=== PATIENT | female | born 1995 | race Hispanic/Latino ===

== ENCOUNTER 2022-09-09 17:53 | Emergency (ER) | payer BC ==
[2022-09-09 18:33] LABS: Specific Gravity 1.026 (1.005-1.030)
[2022-09-09 18:35] LABS: Specific Gravity 1.026 (1.005-1.030); Urine Bacteria None Seen /HPF (<20); Urine Bilirubin NEGATIVE (Negative); Urine Blood 3+ (OVER) (Negative); Urine Clarity Extremely Turbid (Clear); Urine Color Light-Yellow (Yellow); Urine Glucose NEGATIVE (Negative); Urine Mucus 1+ /HPF (None Seen); Urine Protein TRACE (Negative); Urine RBC >50 /HPF (None Seen); Urine Urobilinogen Normal (Normal); Urine pH 6.5 (5.0-7.0)
[2022-09-09 18:37] LABS: Absolute Lymphocytes (CBC) 3.4 K/uL (0.7-4.9); Hematocrit 36.5 % (36.0-45.0); Lymphocytes % 29.9 % (15.3-44.8); MCV 87.8 fL (80-100); RBC Red Blood Cell Count 4.15 M/uL (3.86-4.86)
[2022-09-09 18:54] LABS: Potassium 3.5 mEq/L (3.5-5.1)
--- NOTE | 2022-09-09 20:45 | RAD REPORT ---
EXAM DESCRIPTION: US - Transvaginal OB - 09/09/2022 8:09 pm CLINICAL HISTORY: Abd cramping, ;Vaginal bleeding COMPARISON: No comparisons TECHNIQUE: Sonographic grayscale and color flow images of the pelvis were obtained through a transva ginal approach. FINDINGS: No intrauterine is identified. Uterus is normal contour and size measuring 8.5 c entimeter in long axis. No focal myometrial lesions. Endometrium is normal in appearance measuring 8 millimeter in thickness. Trace fluid along the cervical canal. Small nabothian cysts and focal calcification along the cervix. Right ovary measures 1.6 x 1.5 x 1.4 centimeter. Left ovary measures 2.5 x 1.4 x 2.0 centimeter. Tiny right paraovarian cyst measuring 5 millimeter is incidentally noted without suspicious features. No free fluid. IMPRESSION: 1. No intrauterine . 2. Incidental findings as above, including tiny right parovarian cyst, and small nabothian cysts of t he cervix.
--- NOTE | 2022-09-09 20:51 | EDPHYS ---
Physician Documentation [facility] Name: Zainab Tucker Age: 27 yrs Sex: Female : 1995 Arrival Date: 09/09/2022 Time: 17:53 Bed 18 Private MD: ED Physician Juan Miguel Will HPI: 09/09 18:03 This 27 yrs old Female presents to ER via Ambulatory with complaints of Pelvic kb Pain, Vaginal Bleeding, + Preg <12wks. 18:03 The patient presents to the emergency department with abdominal pain, described as kb crampy, vaginal bleeding, that is light, described as spotting. course: care: none, Leakage of Fluid: none appreciated, Ultrasound: the patient has not had an ultrasound, Risk/complications: no obvious risks or complications are appreciated. Previous pregnancies: in previous pregnancies patient has had . Associated signs and symptoms: Pertinent positives: abdominal pain, vaginal bleeding. The patient has not experienced similar symptoms in the past. The patient has been recently seen by a physician:. Pt reports spotting for one week with abd cramps. States she found out she was this morning and her bleeding has gotten heavier. 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 - Social history:: Smoking status: Patient denies any tobacco usage or history of. Patient/guardian denies using alcohol. ROS: 18:02 Constitutional: Negative for fever, chills, and weight loss. kb 18:02 Abdomen/GI: Positive for abdominal cramps. 18:02 : Positive for vaginal bleeding. 18:02 All other systems are negative. Exam: 18:03 Constitutional: This is a well developed, well nourished patient who is awake, alert, kb and in no acute distress. Head/Face: Normocephalic, atraumatic. ENT: Moist Mucous membranes Cardiovascular: Regular rate and rhythm with a normal S1 and S2. No gallops, murmurs, or rubs. No pulse deficits. Respiratory: Respirations even and unlabored. No increased work of breathing. Talking in full sentences Abdomen/GI: Soft, non-tender. No distention Skin: Warm, dry with normal turgor. Normal color. MS/ Extremity: Pulses equal, no cyanosis. Neurovascular intact. Full, normal range of motion. Neuro: Awake and alert, GCS 15, oriented to person, place, time, and situation. Moves all extremities. Normal gait. Vital Signs: 18:01 BP 139 / 91; Pulse 98; Resp 18; Temp 98.4; Pulse Ox 100% on R/A; Weight 104.33 kg; os 19:30 BP 120 / 68; Pulse 91; Resp 18 S; Pulse Ox 100% on R/A; ha1 20:30 BP 120 / 79; Pulse 97; Resp 18 S; Pulse Ox 98% on R/A; ha1 MDM: 17:59 Patient medically screened. kb 18:03 Data reviewed: vital signs, nurses notes. kb 18:04 Differential diagnosis: threatened Ab, inevitable Ab, complete Ab. kb 18:52 Transition of care: After a detail discussion of the patient's case, care is kb transferred to Shailesh STEVENS. 20:50 Counseling: I had a detailed discussion with the patient and/or guardian regarding: the cp historical points, exam findings, and any diagnostic results supporting the discharge/admit diagnosis, lab results, radiology results, the need for outpatient follow up, an OB/Gyne specialist, to return to the emergency department if symptoms worsen or persist or if there are any questions or concerns that arise at home. 20:50 ED course: VSS. Results of today's testing discussed. Will discharge to home for cp continued monitoring with recommendation of 48 hr redraw of beta-hcg. 09/09 18:02 Order name: Abo/rh Typing; Complete Time: 19:39 kb 09/09 18:02 Order name: Basic Metabolic Panel; Complete Time: 19:39 kb 09/09 19:40 Interpretation: Normal except: CL 110; GLUC 108. 09/09 18:02 Order name: CBC with Diff; Complete Time: 18:48 kb 09/09 19:40 Interpretation: Normal except: WBC 11.40; HGB 11.9. 09/09 18:03 Order name: Test, Urine; Complete Time: 18:48 kb 09/09 19:40 Interpretation: Reviewed. 09/09 18:03 Order name: Quantitative Hcg; Complete Time: 19:39 kb 09/09 19:40 Interpretation: HCGQ 50; Reviewed. cp 09/09 18:03 Order name: Urinalysis w/ reflexes; Complete Time: 18:48 kb 09/09 19:40 Interpretation: Normal except: [facility] Extremely Turbid; UBLD 3+ (OVER); UPROT TRACE; cp UESTR 25; URBC >50. 09/09 18:03 Order name: US Transvaginal Ob; Complete Time: 20:47 kb 09/09 18:03 Order name: IV Saline Lock; Complete Time: 18:18 kb 09/09 18:03 Order name: Labs collected and sent; Complete Time: 18:18 kb 09/09 18:03 Order name: NPO; Complete Time: 18:09 kb Administered Medications: No medications were administered Disposition: 21:43 Co-signature as Attending Physician, Juan Miguel Will MD I reviewed the patient's care rn provided by the Advanced Practice Provider and agree with the diagnosis and treatment plan. Disposition Summary: 09/09/22 20:51 Discharge Ordered Location: Home cp Problem: new cp Symptoms: have improved cp Condition: Stable cp Diagnosis - Threatened cp Followup: cp - With: Private Physician - When: 48 Hours - Reason: Repeat Beta-HCG (48 Hours) Discharge Instructions: - Discharge Summary Sheet cp - Care cp - Threatened Miscarriage cp - Vaginal Bleeding During , First Trimester cp - Activity Restriction During cp Forms: - Medication Reconciliation Form cp - Thank You Letter cp - Antibiotic Education cp - Prescription Opioid Use cp - [email or web address] cp Prescriptions: - 114-iron a-g-folate 1 20 mg iron- 1 mg Oral tablet - take 1 tablet by ORAL route every morning; 30 tablet; Refills: 0, Product cp Selection Permitted Signatures: Dispatcher [employer] Bettina Lamb, DIP TANKER-C DIP TANKER-Juan Miguel Martini MD MD rn Page, Corey, PA PA cp Irina Sharif, RN RN ld1
--- NOTE | 2022-09-09 20:51 | ER ---
Nurse's Notes [facility] Name: Zainab Tucker Age: 27 yrs Sex: Female : 1995 Arrival Date: 09/09/2022 Time: 17:53 Bed 18 Private MD: Diagnosis: Threatened Presentation: 09/09 18:01 Chief complaint: Patient states: Vaginal bleeding w/spotting. Last menstrual period os over 2 months ago. Coronavirus screen: Vaccine status: Patient reports being unvaccinated. Client denies travel out of the [place] in the last 14 days. At this time, the client does not indicate any symptoms associated with coronavirus-19. Ebola Screen: Patient denies travel to an Ebola-affected area in the 21 days before illness onset. Initial Sepsis Screen: Does the patient meet any 2 criteria? No. Patient's initial sepsis screen is negative. Does the patient have a suspected source of infection? No. Patient's initial sepsis screen is negative. Risk Assessment: Do you want to hurt yourself or someone else? Patient reports no desire to harm self or others. Onset of symptoms was September 02, 2022. 18:01 Method Of Arrival: Ambulatory os 18:01 Acuity: JANAE 3 os Triage Assessment: 18:03 General: Appears in no apparent distress. Behavior is calm, cooperative, appropriate os for age. Pain: Denies pain. : Reports vaginal bleeding that is. [facility]: 18:03 2, 0, Living 1, LMP 07/2022 kb Historical: - Allergies: 18:13 NKDA; ld1 - PMHx: 18:13 None; ld1 - Immunization history:: Adult Immunizations up to date, Client reports receiving the 2nd dose of the Covid vaccine. - Social history:: Smoking status: Patient denies any tobacco usage or history of. Patient/guardian denies using alcohol. Screenin:13 [facility] ED Fall Risk Assessment (Adult) History of falling in the last 3 months, ld1 including since admission No falls in past 3 months (0 pts). Abuse screen: Denies threats or abuse. Denies injuries from another. Nutritional screening: No deficits noted. Tuberculosis screening: No symptoms or risk factors identified. Assessment: 18:12 General: Appears in no apparent distress. comfortable, Behavior is calm, cooperative, ld1 appropriate for age. Pain: Complains of pain in pelvis Pain does not radiate. Pain currently is 7 out of 10 on a pain scale. Quality of pain is described as throbbing. Neuro: Level of Consciousness is awake, alert, obeys commands, Oriented to person, place, time, situation. Cardiovascular: Capillary refill < 3 seconds Patient's skin is warm and dry. Respiratory: Airway is patent Respiratory effort is even, unlabored. GI: Abdomen is round non-distended. : Reports vaginal bleeding that is. EENT: No signs and/or symptoms were reported regarding the EENT system. Derm: No signs and/or symptoms reported regarding the dermatologic system. Musculoskeletal: No signs and/or symptoms reported regarding the musculoskeletal system. 19:30 General: Appears comfortable, Behavior is calm, cooperative. Pain: Complains of pain in ha1 pelvis Pain does not radiate. Pain currently is 3 out of 10 on a pain scale. Neuro: Level of Consciousness is awake, alert, obeys commands, Oriented to person, place, time, situation. Cardiovascular: Patient's skin is warm and dry. Respiratory: Airway is patent Respiratory effort is even, unlabored, Respiratory pattern is regular, symmetrical. GI: Abdomen is round non-distended. : Reports vaginal bleeding that is bright red. Musculoskeletal: Circulation, motion, and sensation intact. Range of motion: intact in all extremities. 20:30 Reassessment: Patient and/or family updated on plan of care and expected duration. Pain ha1 level reassessed. Patient is alert, oriented x 3, equal unlabored respirations, skin warm/dry/pink. 21:02 Obstetrical Assessment: General assessment: awake and alert. ha1 Vital Signs: 18:01 BP 139 / 91; Pulse 98; Resp 18; Temp 98.4; Pulse Ox 100% on R/A; Weight 104.33 kg; os 19:30 BP 120 / 68; Pulse 91; Resp 18 S; Pulse Ox 100% on R/A; ha1 20:30 BP 120 / 79; Pulse 97; Resp 18 S; Pulse Ox 98% on R/A; ha1 ED Course: 17:56 Patient arrived in ED. am2 17:59 Bettina Hackett FNP-C [facility] kb 17:59 Juan Miguel Will MD is Attending Physician. kb 18:03 Triage completed. os 18:12 Irina Sharif, RN is Primary Nurse. ld1 18:13 Patient has correct armband on for positive identification. Bed in low position. Call ld1 light in reach. Side rails up X2. telemetry monitor on. Pulse ox on. NIBP on. Door closed. Noise minimized. Warm blanket given. 18:13 No provider procedures requiring assistance completed. ld1 18:18 Urinalysis w/ reflexes Sent. ld1 18:26 Inserted saline lock: 20 gauge in left antecubital area, using aseptic technique. aw1 18:26 Initial lab(s) drawn, by me, sent to lab. aw1 18:52 PHCP role handed off by Bettina Hackett FNP-C kb 18:52 Shailesh Tang PA is PHCP. kb 19:10 Arm band placed on right wrist. ha1 20:11 US Transvaginal Ob In Process Unspecified. EDMS 21:02 IV discontinued, intact, bleeding controlled, No redness/swelling at site. Pressure ha1 dressing applied. Administered Medications: No medications were administered Medication: 18:13 VIS not applicable for this client. ld1 Outcome: 20:51 Discharge ordered by MD. cp 21:01 Discharged to home ambulatory. ha1 21:01 Condition: stable 21:01 Discharge instructions given to patient, family, Instructed on discharge instructions, follow up and referral plans. medication usage, Demonstrated understanding of instructions, follow-up care, medications, Prescriptions given X 1. 21:03 Patient left the ED. ha1 Signatures: Dispatcher [employer] EDIA Bettina Hackett FNP-C MITER OPERATOR-Ckb Shailesh Tang PA PA cp Moreno, Amanda am2 Irina Sharif, RN RN ld1 Carole Rodrigues RN RN ha1 Jackie Boone RN RN os Magalie Benitez aw1
[2022-09-09 21:38] VITALS: TEMP 98.4
[2022-09-09 21:41] VITALS: BP 120/79; O2SAT 98
== END 2022-09-09 21:03 | disposition home or self-care (01) ==
LOC: ER 17:53
DX: O20.0 Threatened abortion (principal)
CPT/HCPCS: 36415; 76817; 80048; 81001; 81025; 84702; 85025; 86900; 86901; 99284

== ENCOUNTER 2022-09-12 07:16 | Emergency (ER) | payer BC ==
--- OUTSIDE RECORDS SUMMARY | 2022-09-12 07:19 | XMS REPORT | Continuity of Care Document ---
:1995 Author Organization [facility] t Address [address] [facility] [address] [place] [address] Care Team Providers Name Role Phone PCP, PATIENT DOES NOT HAVE A Primary Care Physician Unavaila RYAN Osorio Attending Clinician Unavailable RYAN DELCID Attending Clinician Unavailable KAREN COPELAND Attending Clinician Unavailable KATHYA VASQUEZ Attending Clinician Unavailable FREDI BROWN Attending Clinician Unavailable LAB90 Attending Clinician Unavailable LELAND GRAFF Attending Clinician Unavailable SAAD BENNETT Attending Clinician Unavailable DANA VIERA Attending Clinician Unavailable Dana Viera PA-C Attending Clinician Marv SHULTZ, Shelby Ochoa Attending Clinician Unavailable OBDULIO ANGELA Attending Clinician Unavailable Only, Ang Db Test Attending Clinician Unavailable Unknown, Attending Attending Clinician Unavailable Doctor Unassigned, [place] Attending Clinician Unavailable ALVINA Attending Clinician Unavailable Tigre SHULTZ, Mally Attending Clinician Unavailable Human Yancy MURPHY Attending Clinician Pcp, Patient Does Not Have A Attending Clinician +[id number]- [phone] Lab, Adc Fam Pob I Attending Clinician Unavailable Portia Saavedra Attending Clinician GUSTAVO CLARENCEVERNONDOUG Attending Clinician Unavailable ALVINA Admitting Clinician Unavailable Payers Payer Name Policy Type Policy Number Effective Date Expiration Date S [place] [employer] - [id number] 2018 00:00:00 OUT OF STATE BCBS 2 [id number] 2021 00:00:00 [place] [id number] 2018 00[place]00 [place] Problems Condition Condition Condition Status Onset Resolution Last Treating Co mments Source Name Details Category Date Date Treatment Clinician Date Prediabete Prediabete Disease Active 2021-03 K elsey s s 0-04 Seybold 00:00: - 00 Externa l PCOS PCOS Disease Active Arline (polycysti (polycysti 9-30 Se ybold c ovarian c ovarian 00:00: - syndrome) syndrome) 00 Exte rna l BMI BMI Disease Active Arline 45.0-49.9, 45.0-49.9, 9-30 Se ybold adult adult 00:00: - 00 Externa l Vitamin D Vitamin D Disease Active [place] sey deficiency deficiency 9-30 Se ybold 00:00: - 00 Externa l Depression Depression Disease Active K elsecharline 9-30 Seybold 00:00: - 00 Externa l Tachycardi Tachycardi Disease Active K elsey a a 9-30 Seybold 00:00: - 00 Externa l Disease Active Unive rs delivery delivery 6-13 [place] Maternal Maternal Disease Active Unive rs varicella, varicella, 2-17 it y of non[place]immune [place] [facility] Supervisio Supervisio Disease Active Overview : Univers n of other n of other - Formattin ity of high-risk high-risk 00:00: g of this [place] 00 note Medi arvind might be Branch different from the original. ICD10 Diagnosis Term Field Rep Utility Obesity Obesity Disease Active Overview: Univ ers complicati complicati -16 Formattin ity of ng ng 00:00: g of this [place] , , 00 note Me dical childbirth childbirth might be Branch , or , or different puerperium puerperium from the , , original. antepartum antepartum ICD10 Diagnosis Term Field Rep Utility Disease Active Uni vers with with 2-16 ity of uncertain uncertain 00:00: [place] brandon dates, dates, 00 Medical antepartum antepartum Br anch Allergies, Adverse Reactions, Alerts Allergy Allergy Status Severity Reaction(s) Onset Inactive Treating Comm ents Source Name Type Date Date Clinician NO KNOWN Drug Active Univers ALLERGIE Class ity of S [facility] Social History Social Habit Start Date Stop Date Quantity Comments Source Gender identity 2022-01-30 Identifies as Arline Falcon - 12:20:37 female gender External (finding) Exposure to Not sure University SARS-CoV-2 (event) [facility] Sexual orientation Arline Falcon - External History SDOH Arline bucio - Alcohol Frequency Externa l History SDOH Arline bucio - Alcohol Std Drinks Database Marketing Analyst al History TYLEROH Arline bucio - Alcohol Binge External Alcohol intake 2022-06-15 2022-06-15 Current drinker Alexsander Falcon - 00:00:00 00:00:00 of alcohol External (finding) History of Social 2021-12-03 2021-12-03 Arline Falcon - function 00:00:00 00:00:00 External Alcohol Comment 2021-12-03 2021-12-03 social Arline matias - 00:00:00 00:00:00 External Tobacco use and 2012-05-23 2012-05-23 Never used Universit y of exposure 00:00:00 00:00:00 [facility] Sex Assigned At [birth year] F Arline Ham maynorregina - 00:00:00 00:00:00 External Smoking Status Start Date Stop Date Source Never smoked tobacco Arline tapia - External Medications Ordered Filled Start Stop Current Ordering Indication Dosage Frequency Signature Comments Components Source Medication Medication Date Date Medication? Clinician (SIG) Name Name Bupropion Yes [id number] 150mg Take 1 K elsey HCL XL 150 4-12 tablet Seybold MG OR TB24 00:00: (150 mg - 00 total) by Externa mouth l daily Semaglutide Yes [id number] 1mg Inject 1 Arline (1 mg/dose) 4-12 mg into Seybo ld 2 mg/1.5 mL 00:00: the skin - SQ Solution 00 once a Database Marketing Analyst a Pen-Injecto week l r Doxycycline Yes [id number] 100mg Take 1 Arline Hyclate 100 4-12 tablet Seybol d MG oral 00:00: (100 mg - Tablet 00 total) by Externa mouth 2 l times daily Phentermine Yes [id number] 37.5mg Take 1 Arline HCl 37.5 MG 4-12 tablet Seybol d oral Tablet 00:00: (37.5 mg - 00 total) by Externa mouth l every morning (before breakfast) OZEMPIC 2022- No Arline (0.25 or 4-04 04-12 Seybold 0.5 00:00: 00:00 - mg/dose) 2 00 :00 Externa mg/3 mL SQ l Solution Pen-Injecto r OZEMPIC 2022- No [id number] .5mg Inject 0.5 Arline (0.25 or 3-22 04-12 mg into Seybold 0.5 00:00: 00:00 the skin - mg/dose) 2 00 :00 once a Externa mg/1.5 mL week l SQ Solution Pen-Injecto r Hydroquinon Yes [id number] Apply 1 Arline e 4 % apply 2-24 applicatio Se ybold externally 00:00: n. - Cream 00 topically Externa 2 times l daily ACETAMINOPH Yes [id number] 1{tbl} Q4H Take 1 Arline EN-CAFF-BUT 2-08 tablet by Marychuy eric ALBITAL 00:00: mouth - 50-325-40 00 every 4 Externa MG oral hours as l Tablet needed for pain Clindamycin Yes [id number] Apply to Arline Phosphate 2-08 area 4 Seybold (Clindagel) 00:00: times - 1 % apply 00 daily for Exter na externally 10 days l Gel Doxycycline Yes [id number] 100mg Take 1 Arline Hyclate 100 2-08 tablet Seybol d MG oral 00:00: (100 mg - Tablet 00 total) by Externa mouth 2 l times daily OZEMPIC Yes [id number] .5mg Inject 0.5 Arline (0.25 or 2-08 mg into Seybold 0.5 00:00: the skin - mg/dose) 2 00 once a Externa mg/1.5 mL week l SQ Solution Pen-Injecto r Hydroquinon Yes [id number] Apply 1 Arline e 4 % apply 2-08 applicatio Se ybold externally 00:00: n - Cream 00 topically Externa 2 times l daily ACETAMINOPH Yes [id number] 1{tbl} Q4H Take 1 Arline EN-CAFF-BUT 2-08 tablet by Marychuy eric ALBITAL 00:00: mouth - 50-325-40 00 every 4 Externa MG oral hours as l Tablet needed for pain Clindamycin Yes [id number] Apply to Arline Phosphate 2-08 area 4 Seybold (Clindagel) 00:00: times - 1 % apply 00 daily for Exter na externally 10 days l Gel Doxycycline 2022- No [id number] 100mg Take 1 Arline Hyclate 100 2- 04-12 tablet Seybo ld MG oral 00:00: 00:00 (100 mg - Tablet 00 :00 total) by Externa mouth 2 l times daily OZEMPIC 2022- No [id number] .25mg Inject K elsey (0.25 or 1-31 02-08 0.25 mg Seybold 0.5 00:00: 00:00 into the - mg/dose) 2 00 :00 skin once Exte rna mg/1.5 mL a week l SQ Solution Pen-Injecto r Bupropion 2021-03 Yes [id number] 150mg Take 1 K elsey HCL XL 150 2-01 tablet Seybold MG OR TB24 00:00: (150 mg - 00 total) by Externa mouth l daily Bupropion 2021-03- No [id number] 150mg Take 1 Arline HCL XL 150 2- 04-12 tablet Seybol d MG OR TB24 00:00: 00:00 (150 mg - 00 :00 total) by Externa mouth l daily Tirzepatide 2021-03 Yes [id number] 2.5mg Inject 0.5 Arline (Mounjaro) 1-30 mL (2.5 mg Sey bold 2.5 00:00: total) - MG/0.5ML 00 into the Externa subcutaneou skin once l s Solution a week Pen-injecto r buPROPion 2021-03 Yes [id number] 75mg Take 1 Ke lsey HCl 75 MG 1-30 tablet (75 Seyb old oral Tablet 00:00: mg total) - 00 by mouth Externa daily l Vitamin D, 2021-03 Yes [id number] 50152O Take 1 Arline Ergocalcife 0-04 capsule Seybo ld rol, 1.25 00:00: (50,000 - MG (29382 00 units Externa UT) oral total) by l Capsule mouth once a week Metformin 2021-03 Yes [id number] 500mg Take 1 Arline HCl 500 MG 0-04 tablet Seybold oral Tablet 00:00: (500 mg - 00 total) by Externa mouth l daily (with breakfast) Vitamin D, 2021-03 Yes [id number] 45014U Take 1 Arline Ergocalcife 0-04 capsule Seybo ld rol, 1.25 00:00: (50,000 - MG (94062 00 units Externa UT) oral total) by l Capsule mouth once a week Metformin 2021-03 Yes [id number] 500mg Take 1 Arline HCl 500 MG 0-04 tablet Seybold oral Tablet 00:00: (500 mg - 00 total) by Externa mouth l daily (with breakfast) Vitamin D, 2021-03 Yes [id number] 40266Y Take 1 Arline Ergocalcife 0-04 capsule Seybo ld rol, 1.25 00:00: (50,000 - MG (53276 00 units Externa UT) oral total) by l Capsule mouth once a week Metformin 2021-03 Yes [id number] 500mg Take 1 Arline HCl 500 MG 0-04 tablet Seybold oral Tablet 00:00: (500 mg - 00 total) by Externa mouth l daily (with breakfast) Pantoprazol Yes [id number] 20mg Take 1 Arline e Sodium 20 9-30 tablet (20 Se ybold MG oral 00:00: mg total) - Tablet 00 by mouth Externa Delayed daily l Response Pantoprazol 2021-0 Yes [id number] 20mg Take 1 Arline e Sodium 20 9-30 tablet (20 Se ybold MG oral 00:00: mg total) - Tablet 00 by mouth Externa Delayed daily l Response buPROPion 2021-0 Yes [id number] 75mg Take 1 Ke lsey HCl 75 MG 9-30 tablet (75 Seyb old oral Tablet 00:00: mg total) - 00 by mouth Externa daily l Pantoprazol 2021-0 Yes [id number] 20mg Take 1 Arline e Sodium 20 9-30 tablet (20 Se ybold MG oral 00:00: mg total) - Tablet 00 by mouth Externa Delayed daily l Response Pantoprazol 2021-0 Yes [id number] 20mg Take 1 Arline e Sodium 20 9-30 tablet (20 Se ybold MG oral 00:00: mg total) - Tablet 00 by mouth Externa Delayed daily l Response buPROPion 2021-0 2021- No [id number] 75mg Take 1 K elsey HCl 75 MG 9-30 11-30 tablet (75 Sey bold oral Tablet 00:00: 00:00 mg total) - 00 :00 by mouth Externa daily l No known No Univers medications 3-09 ity of 13:38: [address] Branch Immunizations Ordered Immunization Filled Immunization Date Status Commen ts Source Name Name HPV 9 (Human 2016-08-25 Completed Arline Davis ld Papillomavirus) 00:00:00 - Externa l Meningococcal 2016-08-25 Completed Arline Stevenson old Vaccine- 00:00:00 - External Conjugate(Menactra) HPV 9 (Human 2016-08-25 Completed Arline Stevensono ld Papillomavirus) 00:00:00 - Externa l Meningococcal 2016-08-25 Completed Arline Stevenson old Vaccine- 00:00:00 - External Conjugate(Menactra) HPV 9 (Human 2016-08-25 Completed Arline Davis ld Papillomavirus) 00:00:00 - Externa l Meningococcal 2016-08-25 Completed Arline Stevenson old Vaccine- 00:00:00 - External Conjugate(Menactra) HPV 9 (Human 2016-08-25 Completed Arline Davis ld Papillomavirus) 00:00:00 - Externa l Meningococcal 2016-08-25 Completed Arline Seyb old Vaccine- 00:00:00 - External Conjugate(Menactra) IPV- Inactivated 2013-12-10 Completed Arline S eybold Polio Vaccine 00:00:00 - External HEPATITIS A- 2013-12-10 Completed Arline Seybo ld PEDI/ADOL 00:00:00 - External HPV 4 (Human 2013-12-10 Completed Arline Seybo ld Papillomavirus) 00:00:00 - Externa l IPV- Inactivated 2013-12-10 Completed Arline S eybold Polio Vaccine 00:00:00 - External HEPATITIS A- 2013-12-10 Completed Arline Seybo ld PEDI/ADOL 00:00:00 - External HPV 4 (Human 2013-12-10 Completed Arline Seybo ld Papillomavirus) 00:00:00 - Externa l IPV- Inactivated 2013-12-10 Completed Arline S eybold Polio Vaccine 00:00:00 - External HEPATITIS A- 2013-12-10 Completed Arline Seybo ld PEDI/ADOL 00:00:00 - External HPV 4 (Human 2013-12-10 Completed Arline Seybo ld Papillomavirus) 00:00:00 - Externa l IPV- Inactivated 2013-12-10 Completed Arline S eybold Polio Vaccine 00:00:00 - External HEPATITIS A- 2013-12-10 Completed Arline Seybo ld PEDI/ADOL 00:00:00 - External HPV 4 (Human 2013-12-10 Completed Arline Seybo ld Papillomavirus) 00:00:00 - Externa l Influenza Virus 2009-12-07 Completed Arline Se ybold Vaccine, Live, 00:00:00 - External Attenuated, Intranasal Use Influenza Virus 2009-12-07 Completed Arline Se ybold Vaccine, Live, 00:00:00 - External Attenuated, Intranasal Use Influenza Virus 2009-12-07 Completed Arline Se ybold Vaccine, Live, 00:00:00 - External Attenuated, Intranasal Use Influenza Virus 2009-12-07 Completed Arline Se ybold Vaccine, Live, 00:00:00 - External Attenuated, Intranasal Use Tdap- (Boostrix, 2008-10-08 Completed Arline cartagenald Adacel) 00:00:00 - External HEPATITIS A- 2008-10-08 Completed Arline Seybo ld PEDI/ADOL 00:00:00 - External HPV 4 (Human 2008-10-08 Completed Arline bucio Papillomavirus) 00:00:00 - Externa l Meningococcal 2008-10-08 Completed Arline Stevenson old Vaccine- 00:00:00 - External Conjugate(Menactra) Tdap- (Boostrix, 2008-10-08 Completed Arline hearn Adacel) 00:00:00 - External HEPATITIS A- 2008-10-08 Completed Arline bucio PEDI/ADOL 00:00:00 - External HPV 4 (Human 2008-10-08 Completed Arline bucio Papillomavirus) 00:00:00 - Externa l Meningococcal 2008-10-08 Completed Arline tapia Vaccine- 00:00:00 - External Conjugate(Menactra) Tdap- (Boostrix, 2008-10-08 Completed Arline hearn Adacel) 00:00:00 - External HEPATITIS A- 2008-10-08 Completed Arline bucio PEDI/ADOL 00:00:00 - External HPV 4 (Human 2008-10-08 Completed Arline bucio Papillomavirus) 00:00:00 - Externa l Meningococcal 2008-10-08 Completed Arline tapia Vaccine- 00:00:00 - External Conjugate(Menactra) Tdap- (Boostrix, 2008-10-08 Completed Arline hearn Adacel) 00:00:00 - External HEPATITIS A- 2008-10-08 Completed Arline bucio PEDI/ADOL 00:00:00 - External HPV 4 (Human 2008-10-08 Completed Arline bucio Papillomavirus) 00:00:00 - Externa l Meningococcal 2008-10-08 Completed Arline tapia Vaccine- 00:00:00 - External Conjugate(Menactra) IPV- Inactivated 2000-02-09 Completed Arline hearn Polio Vaccine 00:00:00 - External Varicella Vaccine 2000-02-09 Preethi Falcon 00:00:00 - External DTaP Unspecified 2000-02-09 Completed Arline hearn 00:00:00 - External MMR- Measles, Mumps, 2000-02-09 Preethi Falcon Rubella 00:00:00 - External IPV- Inactivated 2000-02-09 Completed Arline S eybold Polio Vaccine 00:00:00 - External Varicella Vaccine 2000-02-09 Completed Arline Seybold 00:00:00 - External DTaP Unspecified 2000-02-09 Completed Arline Henning eybold 00:00:00 - External MMR- Measles, Mumps, 2000-02-09 Completed Hilda neal Seybold Rubella 00:00:00 - External IPV- Inactivated 2000-02-09 Completed Arline Henning eybold Polio Vaccine 00:00:00 - External Varicella Vaccine 2000-02-09 Completed Arline Seybold 00:00:00 - External DTaP Unspecified 2000-02-09 Completed Arline Henning eybold 00:00:00 - External MMR- Measles, Mumps, 2000-02-09 Completed Hilda neal Seybold Rubella 00:00:00 - External IPV- Inactivated 2000-02-09 Completed Arline Henning eybold Polio Vaccine 00:00:00 - External Varicella Vaccine 2000-02-09 Completed Arline Hamybold 00:00:00 - External DTaP Unspecified 2000-02-09 Completed Arline Henning eybold 00:00:00 - External MMR- Measles, Mumps, 2000-02-09 Completed Hilda neal Seybold Rubella 00:00:00 - External Varicella Vaccine 1997-08-27 Completed Arline Seybold 00:00:00 - External DTaP Unspecified 1997-08-27 Completed Arline Henning eybold 00:00:00 - External Hib, unspecified 1997-08-27 Completed Arline Henning eybold formulation 00:00:00 - External MMR- Measles, Mumps, 1997-08-27 Completed Hilda neal Seybold Rubella 00:00:00 - External Varicella Vaccine 1997-08-27 Completed Arline Seybold 00:00:00 - External DTaP Unspecified 1997-08-27 Completed Arline Henning eybold 00:00:00 - External Hib, unspecified 1997-08-27 Completed Arline Henning eybold formulation 00:00:00 - External MMR- Measles, Mumps, 1997-08-27 Completed Hilda neal Seybold Rubella 00:00:00 - External Varicella Vaccine 1997-08-27 Completed Arline Seybold 00:00:00 - External DTaP Unspecified 1997-08-27 Completed Arline Henning eybold 00:00:00 - External Hib, unspecified 1997-08-27 Completed Arline Henning eybold formulation 00:00:00 - External MMR- Measles, Mumps, 1997-08-27 Completed Hilda neal Seybold Rubella 00:00:00 - External Varicella Vaccine 1997-08-27 Completed Arline Hamybold 00:00:00 - External DTaP Unspecified 1997-08-27 Completed Arline Henning eybold 00:00:00 - External Hib, unspecified 1997-08-27 Completed Arline Henning eybold formulation 00:00:00 - External MMR- Measles, Mumps, 1997-08-27 Completed Hilda neal Seybold Rubella 00:00:00 - External IPV- Inactivated 1996 Completed Arline Henning eybold Polio Vaccine 00:00:00 - External DTaP Unspecified 1996 Completed Arline Henning eybold 00:00:00 - External Hepatitis B, 1996 Completed Arline Davis ld Adolescent Or 00:00:00 - External Pediatric Hib, unspecified 1996 Completed Arline Henning eybold formulation 00:00:00 - External IPV- Inactivated 1996 Completed Arline Henning eybold Polio Vaccine 00:00:00 - External DTaP Unspecified 1996 Completed Arline Henning eybold 00:00:00 - External Hepatitis B, 1996 Completed Arline Davis ld Adolescent Or 00:00:00 - External Pediatric Hib, unspecified 1996 Completed Arline Henning eybold formulation 00:00:00 - External IPV- Inactivated 1996 Completed Arline Henning eybold Polio Vaccine 00:00:00 - External DTaP Unspecified 1996 Completed Arline Henning eybold 00:00:00 - External Hepatitis B, 1996 Completed Arline Davis ld Adolescent Or 00:00:00 - External Pediatric Hib, unspecified 1996 Completed Arline Henning eybold formulation 00:00:00 - External IPV- Inactivated 1996 Completed Arline Henning eybold Polio Vaccine 00:00:00 - External DTaP Unspecified 1996 Completed Arline Henning eybold 00:00:00 - External Hepatitis B, 1996 Completed Arline Davis ld Adolescent Or 00:00:00 - External Pediatric Hib, unspecified 1996 Completed Arline Henning eybold formulation 00:00:00 - External IPV- Inactivated 1996 Completed Arline Henning eybold Polio Vaccine 00:00:00 - External DTaP Unspecified 1996 Completed Arline Henning eybold 00:00:00 - External Hib, unspecified 1996 Completed Arline Henning eybold formulation 00:00:00 - External IPV- Inactivated 1996 Completed Arline Henning eybold Polio Vaccine 00:00:00 - External DTaP Unspecified 1996 Completed Arline Henning eybold 00:00:00 - External Hib, unspecified 1996 Completed Arline Henning eybold formulation 00:00:00 - External IPV- Inactivated 1996 Completed Arline Henning eybold Polio Vaccine 00:00:00 - External DTaP Unspecified 1996 Completed Arline Henning eybold 00:00:00 - External Hib, unspecified 1996 Completed Arline Henning eybold formulation 00:00:00 - External IPV- Inactivated 1996 Completed Arline Henning eybold Polio Vaccine 00:00:00 - External DTaP Unspecified 1996 Completed Arline Henning eybold 00:00:00 - External Hib, unspecified 1996 Completed Arline Henning eybold formulation 00:00:00 - External IPV- Inactivated 1996 Completed Arline Henning eybold Polio Vaccine 00:00:00 - External DPT/HIB 1996 Completed Arline Falcon 00:00:00 - External Hepatitis B, 1996 Completed Arline bucio Adolescent Or 00:00:00 - External Pediatric IPV- Inactivated 1996 Completed Arline Henning eybold Polio Vaccine 00:00:00 - External DPT/HIB 1996 Completed Arline Falcon 00:00:00 - External Hepatitis B, 1996 Completed Arline bucio Adolescent Or 00:00:00 - External Pediatric IPV- Inactivated 1996 Completed Arline Henning eybold Polio Vaccine 00:00:00 - External DPT/HIB 1996 Completed Arline Hamybold 00:00:00 - External Hepatitis B, 1996 Completed Arline Stevensono ld Adolescent Or 00:00:00 - External Pediatric IPV- Inactivated 1996 Completed Arline Henning eybold Polio Vaccine 00:00:00 - External DPT/HIB 1996 Completed Arline Hamybold 00:00:00 - External Hepatitis B, 1996 Completed Arline Stevensono ld Adolescent Or 00:00:00 - External Pediatric Hepatitis B, 1996 Completed Arline bucio Unspecified 00:00:00 - External Hepatitis B, 1996 Completed Arline bucio Unspecified 00:00:00 - External Hepatitis B, 1996 Completed Arilne bucio Unspecified 00:00:00 - External Hepatitis B, 1996 Completed Arline bucio Unspecified 00:00:00 - External Vital Signs Vital Name Observation Time Observation Value Comments Source Systolic blood 2022-06-15 16:01:00 110 mm[Hg] Arline Hamybold - pressure External Diastolic blood 2022-06-15 16:01:00 66 mm[Hg] Alexsander olivier Seybold - pressure External Heart rate 2022-06-15 16:01:00 114 /min Arline hearn - External Body temperature 2022-06-15 16:01:00 36.56 Megan Hilda val Hamybold - External Respiratory rate 2022-06-15 16:01:00 15 /min Hilda neal Seybold - External Body height 2022-06-15 16:01:00 160 cm Arline nealbofortunato - External Body weight 2022-06-15 16:01:00 122.925 kg Arline Brandon valbold - External BMI 2022-06-15 16:01:00 48.01 kg/m2 Arline nealbold - External Systolic blood 2022-04-13 22:24:00 117 mm[Hg] Arline Hamybold - pressure External Diastolic blood 2022-04-13 22:24:00 73 mm[Hg] Michse y Seybold - pressure External Heart rate 2022-04-13 22:24:00 96 /min Arline S eybold - External Body temperature 2022-04-13 22:24:00 36.78 Megan Hilda ey Seybold - External Respiratory rate 2022-04-13 22:24:00 14 /min Hilda ey Seybold - External Body height 2022-04-13 22:24:00 160 cm Arline Henning eybold - External Body weight 2022-04-13 22:24:00 122.471 kg Arline Henning eybold - External BMI 2022-04-13 22:24:00 47.83 kg/m2 Arline Henning eybold - External Oxygen saturation in 2022-04-13 22:24:00 99 /min Arline Hamybold - Arterial blood by External Pulse oximetry Systolic blood 2022-02-02 22:15:00 120 mm[Hg] Arline Seybold - pressure External Diastolic blood 2022-02-02 22:15:00 70 mm[Hg] Alexsander y Seybold - pressure External Heart rate 2022-02-02 22:15:00 118 /min Arline Henning eybold - External Body temperature 2022-02-02 22:15:00 35.67 Megan Hilda ey Seybold - External Respiratory rate 2022-02-02 22:15:00 16 /min Hilda neal Seybold - External Body height 2022-02-02 22:15:00 160 cm Arline Henning eybold - External Body weight 2022-02-02 22:15:00 127.007 kg Arline Henning eybold - External BMI 2022-02-02 22:15:00 49.60 kg/m2 Arline S eybold - External Systolic blood 2021-12-03 15:45:00 120 mm[Hg] Arline Seybold - pressure External Diastolic blood 2021-12-03 15:45:00 72 mm[Hg] Michse y Seybold - pressure External Heart rate 2021-12-03 15:45:00 113 /min Arline S eybold - External Body temperature 2021-12-03 15:45:00 36.56 Megan Hilda ey Seybold - External Respiratory rate 2021-12-03 15:45:00 16 /min Hilda ey Seybold - External Body height 2021-12-03 15:45:00 160 cm Arline nealbofortunato - External Body weight 2021-12-03 15:45:00 127.007 kg Arline Henning eybold - External BMI 2021-12-03 15:45:00 49.60 kg/m2 Arline hearn - External Systolic blood 2021-05-12 19:08:00 109 mm[Hg] [facility] Diastolic blood 2021-05-12 19:08:00 74 mm[Hg] [facility] Heart rate 2021-05-12 19:08:00 83 /min [facility] Body temperature 2021-05-12 19:08:00 36.72 Megan [facility] 2021-05-12 19:08:00 18 /min [facility] Body height 2021-05-12 19:08:00 160 cm [facility] Body weight 2021-05-12 19:08:00 122.471 kg [facility] BMI 2021-05-12 19:08:00 47.83 kg/m2 [facility] BP Diastolic 2020-01-10 00:00:00 69 mm[Hg] [facility] Height 2020-01-10 00:00:00 62 [in_i] [place] [facility] BMI (Body Mass 2020-01-10 00:00:00 46.8 kg/m2 [place] [employer] Index) [facility] BP Systolic 2020-01-10 00:00:00 117 mm[Hg] [facility] [facility] Body Weight 2020-01-10 00:00:00 256 [lb_av] [place] [facility] BP Diastolic 2019-07-09 00:00:00 78 mm[Hg] [place] [facility] Height 2019-07-09 00:00:00 62 [in_i] [place] [facility] BMI (Body Mass 2019-07-09 00:00:00 47.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) [facility] BP Systolic 2019-07-09 00:00:00 141 mm[Hg] [place] [facility] Body Weight 2019-07-09 00:00:00 258 [lb_av] [place] [facility] BP Diastolic 2019-03-22 00:00:00 95 mm[Hg] [place] [facility] Height 2019-03-22 00:00:00 62 [in_i] [place] [facility] BMI (Body Mass 2019-03-22 00:00:00 46.5 kg/m2 [place] [facility] Index) [facility] BP Systolic 2019-03-22 00:00:00 148 mm[Hg] [place] [facility] Body Weight 2019-03-22 00:00:00 254 [lb_av] [place] [facility] Procedures Procedure Date / Time Performed Performing Clinician [facility] e US, transvaginal 2019-03-22 00:00:00 [place] [facility] Delivery 2014-08-14 00:00:00 [place] [facility] Plan of Care Planned Activity Planned Date Details Comments Source Diagnostic Test 2020-01-10 bacterial vaginosis [place] [facility] Pending 00:00:00 + vaginitis panel, [facility] [place] vaginal [code = Program bacterial vaginosis + vaginitis panel, vaginal] Encounters Start End Encounter Admission Attending Care Care Encounter Source Date/Time Date/Time Type Type Clinicians Facility Department ID 2022-09-22 2022-09-22 Outpatient R RYAN DELCID [facility] TMB [id number] Univers 09:00:00 09:00:00 RYAN DELCID [facility] 2022-08-09 2022-08-09 Outpatient ARLINE COPELAND [id number] Cam [place] 00:00:00 00:00:00 KAREN min 2022-07-28 2022-07-28 Outpatient KATHYA VASQUEZ [id number] [place] 08:30:00 08:30:00 Seybol d 2022-06-29 2022-06-29 Outpatient KALAIR, ARLINE NUNN [id number] [place] 09:45:00 09:45:00 FREDI Seybol d 2022-06-15 2022-06-15 Outpatient LAB90 ARLINE NUNN [id number] [place] 12:00:00 12:00:00 Seybol d 2022-06-15 2022-06-15 Outpatient HUNDL, ARLINE NUNN [id number] [place] 11:00:00 11:00:00 KAREN Seybol d 2022-05-25 2022-05-25 Outpatient HUNDL, ARLINE NUNN [id number] [place] 00:00:00 00:00:00 KAREN Seybol d 2022-05-11 2022-05-11 Outpatient HUNDL, ARLINE NUNN [id number] [place] 00:00:00 00:00:00 KAREN Seybol d 2022-04-29 2022-04-29 Outpatient HUNDL, ARLINE NUNN [id number] [place] 00:00:00 00:00:00 KAREN Seybol d 2022-04-13 2022-04-13 Outpatient HUNDL, ARLINE NUNN [id number] [place] 16:30:00 16:30:00 KAREN Seybol d 2022-04-11 2022-04-11 Outpatient HUNDL, ARLINE NUNN [id number] [place] 08:30:00 08:30:00 KAREN Seybol d 2022-04-04 2022-04-04 Outpatient HUNDL, ARLINE NUNN [id number] [place] 00:00:00 00:00:00 KAREN Seybol d 2022-03-04 2022-03-04 Outpatient HUNDL, ARLINE NUNN [id number] [place] 16:30:00 16:30:00 KAREN Seybol d 2022-02-03 2022-02-03 Outpatient HUNDL, ARLINE NUNN [id number] [place] 00:00:00 00:00:00 KAREN Seybol d 2022-02-02 2022-02-02 Outpatient HUNDL, ARLINE NUNN [id number] [place] 16:00:00 16:00:00 KAREN Seybol d 2021-12-07 2021-12-07 Outpatient PREZAARLINE Henning ARLINE [id number] [place] 00:00:00 00:00:00 LELAND Seybol d 2021-12-07 2021-12-07 Outpatient ARLINE COPELAND ARLINE [id number] [place] 00:00:00 00:00:00 KAREN Seybol d 2021-12-07 2021-12-07 Outpatient PATITOLARLINE ARLINE [id number] [place] 00:00:00 00:00:00 KAREN Seybol d 2021-12-06 2021-12-06 Outpatient LAB90 ARLINE NUNN [id number] [place] 11:55:00 11:55:00 Seybol d 2021-12-03 2021-12-03 Outpatient ARLINE COPELAND ARLINE [id number] [place] 10:30:00 10:30:00 KAREN Seybol d 2021-12-03 2021-12-03 Outpatient PATITOLARLINE ARLINE [id number] [place] 08:00:00 08:00:00 KAREN Seybol d 2021-06-09 2021-06-09 Outpatient Dai [facility] [id number] Univers 10:00:00 10:00:00 SAAD charline [facility] 2021-06-09 2021-06-09 Outpatient Dai [facility] [id number] Univers 10:00:00 10:00:00 SAAD charline [facility] 2021-05-13 2021-05-13 Outpatient R [facility] [id number] Univers 08:45:00 08:45:00 DANA charline [facility] 2021-05-12 2021-05-12 Outpatient Dai VIERA [facility] [id number] Univers 13:00:00 13:20:45 DANA charline [facility] 2021-05-12 2021-05-12 Office Maximiliano [facility] [id number] Univers 13:00:00 13:20:45 Visit Dana [place] 350.1.13.10 i [place] [phone] [address] 2021-05-12 2021-05-12 Outpatient R [facility] [id number] Univers 13:00:00 13:00:00 [facility] 2021-04-14 2021-04-14 [facility] [id number] Univers 15:00:00 15:51:10 Visit Dana [place] [id number] i [place] [phone] [address] 2021-04-14 2021-04-14 Outpatient R [facility] [id number] Univers 15:00:00 15:51:10 [facility] 2021-04-14 2021-04-14 Outpatient R [facility] [id number] Univers 15:00:00 15:00:00 [facility] 2021-03-11 2021-03-11 Letter BRYAN Fair [id number] Univers 00:00:00 00:00:00 (Out) Shelby LEWIS 350.1.13.10 it y of [facility] 4.2.7.2.686 Edwin as [phone] [address] 2021-03-09 2021-03-09 Outpatient Dai ANGELA [facility] [id number] Univers 14:15:00 14:52:05 OBDULIO [facility] 2021-03-09 2021-03-09 Laboratory Only, Ang Db Test [facility] [id number] Univers 14:15:00 14:30:00 Only Unknown, Attending HEALTH 350.1.13.10 ity [facility] 4.2.7.2.686 Edwin as SUZIE?BLEA [phone] [address] OFFICE [facility] 2021-03-09 2021-03-09 Orders Doctor ADAMS [id number] 00:00:00 00:00:00 Only Unassigned, DEBBIE 350.1.13.10 ity of [place] [facility] 4.2.7.2.686 Edwin as [phone] [facility] [address] 2020-04-19 2020-04-19 Outpatient PATRICIO_MELI MEHOP MEHOP [id number] [place] 01:04:00 01:04:00 S[place] [id number] [facility] 2020-03-15 2020-03-15 Outpatient LISTER_MELI MEHOP MEHOP 107 [id number] [place] 01:02:00 01:02:00 SSA [id number] [facility] 2020-02-08 2020-02-08 Outpatient LISTER_MELI MEHOP MEHOP 107 [id number] [place] 01:03:00 01:03:00 SSA [id number] [facility] 2020-01-10 2020-01-10 Outpatient LISTER_MELI MEHOP WIHOP 107 [id number] [place] 12:53:00 12:53:00 SSA [id number] [facility] 2020-01-10 2020-01-10 Pam [facility] [place] - [id number] [place]or 00:00:00 00:00:00 Dinorah Egan, Confucianism Ep[facility] 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 2019-10-01 2019-10-01 Telephone BRYAN Landeros [id number] Univers 00:00:00 00:00:00 Mally SALAZARY 350.1.13.10 it y of HOSPITAL 4.2.7.2.686 Edwin as [phone] [facility] [address] 2019-10-01 2019-10-01 Telephone TIFFANY Aaron [id number] Univers 00:00:00 00:00:00 Yancy [facility] 350.1.13.10 ity of [place] [facility] - [phone] [facility] [address] 2019-10-01 2019-10-01 Telephone Pcp, BRYAN [id number] Univers 00:00:00 00:00:00 Patient DEBBIE 350.1.13.10 it y of [place] Not HOSPITAL [place] Have A [phone] [facility] [address] 2019-09-30 2019-09-30 Laboratory Lab, Adc Fam Pob I [facility] 1.2. [id number] Univers 11:22:44 11:42:44 Only [facility], [facility] [id number] ity of [place] 4.2.7.2.686 Edwin as Professio [phone] [address] Office Building One 2019-09-30 2019-09-30 Outpatient R GUSTAVO [facility] [id number] Univers 11:20:00 11:20:00 [facility] ity of [facility] 2019-09-30 2019-09-30 Letter Doctor BRYAN [id number] Univers 00:00:00 00:00:00 (Out) Unassigned, DEBBIE 350.1.13.10 ity of [place] [facility] 4.2.7.2.686 Edwin as [phone] [address] 2019-07-09 2019-07-09 Outpatient DEBORA SAVAGE [id number] [place] 06:15:00 06:15:00 SSA [id number] [facility] 2019-07-09 2019-07-09 Pam SAVAGE [place] - [id number] M at[place]or 00:00:00 00:00:00 Dinorah Egan, Confucianism Episco p 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, [facility] [phone] Carol Ann kwok , Ph. 2019-03-29 2019-03-29 Outpatient DEBORA SAVAGE [id number] [place] 11:39:00 11:39:00 SSA [id number] [facility] 2019-03-25 2019-03-25 Outpatient DEBORA SAVAGE [facility] [id number] [place] 02:27:00 02:27:00 SSA [id number] [facility] 2019-03-24 2019-03-24 Outpatient DEBORA SAVAGE [facility] [id number] [place] 10:48:00 10:48:00 SSA [id number] [facility] 2019-03-22 2019-03-22 Outpatient DEBORA SAVAGE [facility] [id number] [place] 04:26:00 04:26:00 SSA [id number] [facility] 2019-03-22 2019-03-22 Pam [facility] [place] - [id number] M at[place]or 00:00:00 00:00:00 Dinorah Egan, Confucianism Episco p 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 [phone] Progr am , Ph. Results Test Description Test Time Test Comments Results Result Comments Source Bacteria identified in Urine by Culture 2019-07-11 00:00:00 Test Item Value Reference Range Interpretation Comme nts Bacteria identified in Urine by Culture (test code = 630-4) comment [facility]em[facility].total in [id number] 00:00:00 Test Item Value Reference Range Interpretation Comments Hemoglobin A1c/Hemoglobin.total in 5.6 % 4.8-5.6 Blood (test code = 4548-4) [facility] (dipstick) panel - [id number] 16:38:00 Test Item Value Reference Range Interpretation Comments Leukocytes (test code = TRACE Leukocytes) Nitrite (test code = Nitrite) NEG Urobilinogen (test code = 0.2 Urobilinogen) Protein (test code = Protein) NEG pH (test code = pH) 7.0 Blood (test code = Blood) NEG Specific Shevlin (test code = 1.015 Specific Shevlin) Ketone (test code = Ketone) NEG Bilirubin (test code = NEG Bilirubin) Glucose (test code = Glucose) NEG Appearance (test code = CLEAR Appearance) Color (test code = Color) Light yelllow [facility], [id number] 15:00:00 Test Item Value Reference Range Interpretation Comments HCG (test code = HCG) negative [facility]
--- NOTE | 2022-09-12 08:12 | ER ---
Nurse's Notes [facility] Name: Zainab Tucker Age: 27 yrs Sex: Female : 1995 Arrival Date: 09/12/2022 Time: 07:16 Bed 15 Private MD: Diagnosis: Threatened Presentation: 09/12 07:23 Chief complaint: Patient states: Needs HCG level recheck. Here on Monday. Still has ll1 some cramping and vaginal bleeding. G2, P1. Coronavirus screen: Vaccine status: Patient reports receiving the 2nd dose of the covid vaccine. Client denies travel out of the [place] in the last 14 days. At this time, the client does not indicate any symptoms associated with coronavirus-19. Ebola Screen: Patient denies travel to an Ebola-affected area in the 21 days before illness onset. Initial Sepsis Screen: Does the patient meet any 2 criteria? HR > 90 bpm. No. Patient's initial sepsis screen is negative. Does the patient have a suspected source of infection? Yes: Acute abdominal pain. Risk Assessment: Do you want to hurt yourself or someone else? Patient reports no desire to harm self or others. Onset of symptoms is unknown. 07:23 Method Of Arrival: Ambulatory ll1 07:23 Acuity: JANAE 4 ll1 Triage Assessment: 07:24 General: Appears in no apparent distress. Behavior is calm, cooperative, appropriate ll1 for age. Pain: Complains of pain in pelvis Pain currently is 3 out of 10 on a pain scale. Quality of pain is described as crampy. GI: Reports cramping. : Reports vaginal bleeding that is moderate flow. Historical: - Allergies: 07:23 NKDA; ll1 - PMHx: 07:23 None; ll1 - PSHx: 07:23 None; ll1 - Immunization history:: Adult Immunizations up to date. - Social history:: Smoking status: Patient denies any tobacco usage or history of. - Family history:: not pertinent. - Hospitalizations: : No recent hospitalization is reported. Screenin:35 [facility] ED Fall Risk Assessment (Adult) History of falling in the last 3 months, ko1 including since admission No falls in past 3 months (0 pts) Confusion or Disorientation No (0 pts) Intoxicated or Sedated No (0 pts) Impaired Gait No (0 pts) Mobility Assist Device Used No (0 pt) Altered Elimination No (0 pt) Score/Fall Risk Level 0 - 2 = Low Risk Oriented to surroundings, Maintained a safe environment, Educated pt \T\ family on fall prevention, incl call for assistance when getting out of bed, Assessed \T\ reinforced patient's understanding of fall precautions, Provided non-skid footwear, Hourly rounding (assess needs \T\ fall precautionary measures) done, Used ambulatory aids as needed (educated on \T\ assisted with), Used gait belt as appropriate. Abuse screen: Denies threats or abuse. Denies injuries from another. Nutritional screening: No deficits noted. Tuberculosis screening: No symptoms or risk factors identified. Assessment: 07:35 General: Appears in no apparent distress. comfortable, Behavior is calm, cooperative, ko1 appropriate for age. Pain: Complains of pain in pelvis. Neuro: No deficits noted. Cardiovascular: No deficits noted. Respiratory: No deficits noted. GI: No deficits noted. : No deficits noted. EENT: No deficits noted. Derm: No deficits noted. Musculoskeletal: No deficits noted. Vital Signs: 07:23 BP 122 / 91; Pulse 91; Resp 17; Temp 99.8(O); Pulse Ox 99% ; Weight 104.33 kg; Height 5 ll1 ft. 3 in. ; Pain 3/10; 08:08 BP 118 / 82; Pulse 84; Resp 16; Pulse Ox 100% ; ko1 07:23 Body Mass Index 40.74 (104.33 kg, 160.02 cm) ll1 07:23 Pain Scale: Adult ll1 ED Course: 07:17 Patient arrived in ED. rg4 07:17 Arm band placed on Patient placed in an exam room, on a stretcher. ll1 07:20 Juanita Goldsmith, RN is Primary Nurse. ko1 07:20 Juan Miguel Will MD is Attending Physician. rn 07:24 Triage completed. ll1 07:34 HCG-Quantitative Sent. ko1 07:35 Patient has correct armband on for positive identification. Bed in low position. Call ko1 light in reach. Side rails up X 1. Pulse ox on. NIBP on. Door closed. Noise minimized. 07:35 No provider procedures requiring assistance completed. ko1 08:08 Patient did not have IV access during this emergency room visit. ko1 Administered Medications: No medications were administered Medication: 07:35 VIS not applicable for this client. ko1 Outcome: 08:12 Discharge ordered by . rn 08:12 Discharged to home ambulatory. ko1 08:12 Condition: good 08:12 Discharge instructions given to patient, Instructed on discharge instructions, follow up and referral plans. Demonstrated understanding of instructions, follow-up care. 08:17 Patient left the ED. ko1 Signatures: Juan Miguel Will MD MD rn Garcia, Rubi 4 Luep Collins RN RN 1 Juanita Goldsmith RN RN ko1
--- NOTE | 2022-09-12 08:12 | EDPHYS ---
Physician Documentation [facility] Name: Zainab Tucker Age: 27 yrs Sex: Female : 1995 Arrival Date: 09/12/2022 Time: 07:16 Bed 15 Private MD: ED Physician Juan Miguel Will HPI: 09/12 08:08 This 27 yrs old Female presents to ER via Ambulatory with complaints of Repeat rn HCG Levels. 08:08 The patient presents to the emergency department with vaginal bleeding, that is light, rn with no clots. course: care: none, Leakage of Fluid: none appreciated, Ultrasound: the patient had an ultrasound. Associated signs and symptoms: Pertinent positives: vaginal bleeding, Pertinent negatives: chest pain, fever, frequency, seizure, shortness of breath. The patient has not experienced similar symptoms in the past. The patient has been recently seen at the [facility] Emergency Department. Pt reports seen here 3 days ago for vaginal bleeding and abd cramps. States HCG was low and u/s did not reveal anything, told to come back in 48 hours for repeat hcg. Still bleeding but light and no clots. Bilateral lower abd cramping. No fever. NO trauma. Irregular, and states LMP in July.. Historical: - Allergies: 07:23 NKDA; ll1 - PMHx: 07:23 None; ll1 - PSHx: 07:23 None; ll1 - Immunization history:: Adult Immunizations up to date. - Social history:: Smoking status: Patient denies any tobacco usage or history of. - Family history:: not pertinent. - Hospitalizations: : No recent hospitalization is reported. ROS: 08:08 Constitutional: Negative for fever, chills, and weight loss, Cardiovascular: Negative rn for chest pain, palpitations, and edema, Respiratory: Negative for shortness of breath, cough, wheezing, and pleuritic chest pain, Abdomen/GI: + abd cramps Back: Negative for injury and pain, : + vaginal bleeding MS/Extremity: Negative for injury and deformity, Skin: Negative for injury, rash, and discoloration, Neuro: Negative for headache, weakness, numbness, tingling, and seizure. Exam: 08:08 Constitutional: This is a well developed, well nourished patient who is awake, alert, rn and in no acute distress. Cardiovascular: Regular rate and rhythm. No pulse deficits. Abdomen/GI: soft, non-tender Skin: Warm, dry Vital Signs: 07:23 BP 122 / 91; Pulse 91; Resp 17; Temp 99.8(O); Pulse Ox 99% ; Weight 104.33 kg; Height 5 ll1 ft. 3 in. ; Pain 3/10; 08:08 BP 118 / 82; Pulse 84; Resp 16; Pulse Ox 100% ; ko1 07:23 Body Mass Index 40.74 (104.33 kg, 160.02 cm) ll1 07:23 Pain Scale: Adult ll1 MDM: 07:21 Patient medically screened. rn 08:08 Differential diagnosis: Data reviewed: vital signs, nurses notes, old medical records, machine lead burner test result(s), and as a result, I will discharge patient. Counseling: I had a detailed discussion with the patient and/or guardian regarding: the historical points, exam findings, and any diagnostic results supporting the discharge/admit diagnosis, lab results, the need for outpatient follow up, to return to the emergency department if symptoms worsen or persist or if there are any questions or concerns that arise at home. 08:10 ED course: HCG only increased by 2 points in 72 hours, had discussion with patient rn regarding likely miscarriage. U/S 3 days ago did not show an IUP or anything in adnexa to indicate ectopic. Will dc home with f/u with OB/PCP and return precautions given/understood.. 09/12 07:21 Order name: HCG-Quantitative; Complete Time: 08:03 rn Administered Medications: No medications were administered Disposition Summary: 09/12/22 08:12 Discharge Ordered Location: Home rn Problem: new rn Symptoms: have improved rn Condition: Stable rn Diagnosis - Threatened rn Followup: rn - With: Private Physician - When: As needed - Reason: Recheck today's complaints, Re-evaluation by your physician Discharge Instructions: - Discharge Summary Sheet rn - Threatened Miscarriage rn - Vaginal Bleeding During , First Trimester rn Forms: - Medication Reconciliation Form rn - Thank You Letter rn - Antibiotic internet sales manager - Prescription Opioid Use rn - [email or web address] rn Signatures: Dispatcher [employer] EDMS Juan Miguel Will MD MD rn Lewis, Lynsay, RN RN 1
[2022-09-12 08:22] VITALS: TEMP 99.8
[2022-09-12 08:24] VITALS: BP 118/82; O2SAT 100
== END 2022-09-12 08:17 | disposition home or self-care (01) ==
LOC: ER 07:16
DX: O20.0 Threatened abortion (principal)
CPT/HCPCS: 36415; 84702; 99283

== ENCOUNTER 2023-03-10 16:40 | Inpatient (IN) | payer BC ==
--- OUTSIDE RECORDS SUMMARY | 2023-03-10 16:44 | XMS REPORT | Continuity of Care Document ---
Author Name Unknown Address [address] [place] [address] [facility] Address [address] [place] [address] Care Team Providers Care Tester [employer] Name Role Phone JESSENIA GELLER Attending Clinician Unava REGLA Ambrosio Attending Clinician Unavailable KAREN COPELAND Attending Clinician Unavailable KATHYA VASQUEZ Attending Clinician Unava FREDI Mtz Attending Clinician Unavailable LAB90 Attending Clinician Unavailable LELAND GRAFF Attending Clinician Unavailable ALVINA Attending Clinician Unavailable ALVINA Admitting Clinician Unavailable Payers Payer Name Policy Type Policy Number Effective Date Expirati on Date Source BCBS 2 [id number] 2021 00:00:[place] [id number] 2018 00:00:00 Problems Condition Name Condition Details Condition Category Status Onset Date Resolution Date Last Treatment Date Treating Clinician Comments Source Prediabete s Prediabete s Disease Active 2021-03 0 00:00: 00 Arline Menjivar Externa rosario PCOS (polycysti c ovarian syndrome) PCOS (polycysti c ovarian syndrome) Disease Active 12-03 00:00: 00 Arline Menjivar Externa rosario BMI 45.0-49.9, adult BMI 45.0-49.9, adult Disease Active 12-03 00:00: 00 Arline Quinteroa rosario Vitamin D deficiency Vitamin D deficiency Disease Active 12-03 00:00: 00 Arline Quinteroa l Depression Depression Disease Active 12-03 00:00: 00 Arline Quinteroa l Tachycardi a Tachycardi a Disease Active 12-03 00:00: 00 Arline Falcon - Externa l Social History Social Habit Start Date Stop Date Quantity Comments Source Gender identity 2022-01-30 12:20:37 Identifies as female gender (finding) Arline Falcon - External Sexual orientation K ana maria Trejoybold - External History SDOH Alcohol Frequency Arline Perrin bold - External History SDOH Alcohol Std Drinks Arline ybold - External History SDOH Alcohol Binge Arline Falcon - External History of Social function 2022-06-15 00:00:00 2022-06-15 00:00:00 Arline Falcon - External Alcohol intake 2022-06-15 00:00:00 2022-06-15 00:00:00 Current drinker of alcohol (finding) Arline Falcon - External Alcohol Comment 2021-12-03 00:00:00 2021-12-03 00:00:00 social Arline Falcon - External Sex Assigned At 1995 00:00:00 1995 00:00:00 F Arline Stevensonregina - External Smoking Status Start Date Stop Date Source Never smoked tobacco Arline Falcon - External Medications Ordered Medication Name Filled Medication Name Start Date Stop Date Current Medication? Ordering Clinician Indication Dosage Frequency Signature (SIG) Comments Components Source methylPREDN ISolone 4 MG oral Tablet Therapy Pack 2022-03 00:00: 00 Yes [id number] Complete one dose pack as directed on package instructio ns. Arline ponce Pseudoeph-B romphen-DM 30-2-10 MG/5ML oral Syrup 2022-03 00:00: 00 Yes [id number] 10mL Q.25D Take 10 mL by mouth 4 times daily as needed (for cough or congestion ). Arline Quinteroa rosario Semaglutide -Weight Management (Wegovy) 1 MG/0.5ML subcutaneou s Solution Auto-inject or 10-25 00:00: 00 01-30 00:00 :00 No [id number] 1mg Inject 1 mg into the skin once a week. Arline ponce Bupropion HCL XL 150 MG OR TB24 08-10 00:00: 00 Yes [id number] 150mg Take 1 tablet (150 mg total) by mouth daily Arline ponce Semaglutide (1 mg/dose) 2 mg/1.5 mL SQ Solution Pen-Injecto r 08-10 00:00: 00 01-30 00:00 :00 No [id number] 1mg Inject 1 mg into the skin once a week Arline ponce Benzonatate 100 MG oral Capsule 06-29 00:00: 00 Yes [id number] 100mg Q.[id number] 3D Take 1 capsule (100 mg total) by mouth 3 times daily as needed for cough Arline ponce Albuterol HFA 108 (90 Base) MCG/ACT IN AERS 06-29 00:00: 00 01-30 00:00 :00 No [id number] 2{puff} Q.25D Inhale 2 puffs into the lungs every 6 hours as needed for wheezing Arline ponce Bupropion HCL XL 150 MG OR TB24 06-15 00:00: 00 Yes [id number] 150mg Take 1 tablet (150 mg total) by mouth daily Arline ponce Semaglutide (1 mg/dose) 2 mg/1.5 mL SQ Solution Pen-Injecto r 06-15 00:00: 00 Yes [id number] 1mg Inject 1 mg into the skin once a week Arline ponce Doxycycline Hyclate 100 MG oral Tablet 06-15 00:00: 00 Yes [id number] 100mg Take 1 tablet (100 mg total) by mouth 2 times daily Arline ponce Phentermine HCl 37.5 MG oral Tablet 06-15 00:00: 00 Yes [id number] 37.5mg Take 1 tablet (37.5 mg total) by mouth every morning (before breakfast) Arline ponce Doxycycline Hyclate 100 MG oral Tablet 06-15 00:00: 00 01-30 00:00 :00 No [id number] 100mg Take 1 tablet (100 mg total) by mouth 2 times daily Arline ponce Phentermine HCl 37.5 MG oral Tablet 06-15 00:00: 00 01-30 00:00 :00 No [id number] 37.5mg Take 1 tablet (37.5 mg total) by mouth every morning (before breakfast) Arline ponce OZEMPIC (0.25 or 0.5 mg/dose) 2 mg/3 mL SQ Solution Pen-Injecto r 06-07 00:00: 00 06-15 00:00 :00 No Arline ponce OZEMPIC (0.25 or 0.5 mg/dose) 2 mg/1.5 mL SQ Solution Pen-Injecto r 05-25 00:00: 00 06-15 00:00 :00 No [id number] .5mg Inject 0.5 mg into the skin once a week Arline ponce Hydroquinon e 4 % apply externally Cream 04-29 00:00: 00 Yes [id number] Apply 1 applicatio n. topically 2 times daily Arline ponce Hydroquinon e 4 % apply externally Cream 04-29 00:00: 00 01-30 00:00 :00 No [id number] Apply 1 applicatio n. topically 2 times daily Arline ponce ACETAMINOPH EN-CAFF-BUT ALBITAL 50-325-40 MG oral Tablet 04-13 00:00: 00 Yes [id number] 1{tbl} Q4H Take 1 tablet by mouth every 4 hours as needed for pain Arline ponce Clindamycin Phosphate (Clindagel) 1 % apply externally Gel 2- 00:00: 00 Yes [id number] Apply to area 4 times daily for 10 days Arline ponce Doxycycline Hyclate 100 MG oral Tablet 2 00:00: 00 Yes [id number] 100mg Take 1 tablet (100 mg total) by mouth 2 times daily Arline Stevensonold - Externa l OZEMPIC (0.25 or 0.5 mg/dose) 2 mg/1.5 mL SQ Solution Pen-Injecto r - 00:00: 00 Yes [id number] .5mg Inject 0.5 mg into the skin once a week Arline Stevensonold - Externa l Hydroquinon e 4 % apply externally Cream 04-13 00:00: 00 Yes [id number] Apply 1 applicatio n topically 2 times daily Arline Trejoybold - Externa l ACETAMINOPH EN-CAFF-BUT ALBITAL 50-325-40 MG oral Tablet 04-13 00:00: 00 Yes [id number] 1{tbl} Q4H Take 1 tablet by mouth every 4 hours as needed for pain Arline maynorold - Externa l Clindamycin Phosphate (Clindagel) 1 % apply externally Gel 04-13 00:00: 00 Yes [id number] Apply to area 4 times daily for 10 days Arline Trejomaynorold - Externa l ACETAMINOPH EN-CAFF-BUT ALBITAL 50-325-40 MG oral Tablet 04-13 00:00: 00 01-30 00:00 :00 No [id number] 1{tbl} Q4H Take 1 tablet by mouth every 4 hours as needed for pain Arline Semaynorregina - Externa l Clindamycin Phosphate (Clindagel) 1 % apply externally Gel 04-13 00:00: 00 01-30 00:00 :00 No [id number] Apply to area 4 times daily for 10 days Arline ybold - Externa l Doxycycline Hyclate 100 MG oral Tablet 04-13 00:00: 00 06-15 00:00 :00 No [id number] 100mg Take 1 tablet (100 mg total) by mouth 2 times daily Arline Trejoybold - Externa l OZEMPIC (0.25 or 0.5 mg/dose) 2 mg/1.5 mL SQ Solution Pen-Injecto r 1-31 00:00: 00 04-13 00:00 :00 No [id number] .25mg Inject 0.25 mg into the skin once a week Arline ponce Bupropion HCL XL 150 MG OR TB24 2021-03 00:00: 00 Yes [id number] 150mg Take 1 tablet (150 mg total) by mouth daily Arline ponce Bupropion HCL XL 150 MG OR TB24 2021-03 00:00: 00 06-15 00:00 :00 No [id number] 150mg Take 1 tablet (150 mg total) by mouth daily Arline ponce Tirzepatide (Mounjaro) 2.5 MG/0.5ML subcutaneou s Solution Pen-injecto r 2021-03 00:00: 00 Yes [id number] 2.5mg Inject 0.5 mL (2.5 mg total) into the skin once a week Arline ponce buPROPion HCl 75 MG oral Tablet 2021-03 00:00: 00 Yes [id number] 75mg Take 1 tablet (75 mg total) by mouth daily Arline ponce Vitamin D, Ergocalcife rol, 1.25 MG (79572 UT) oral Capsule 2021-03 00:00: 00 Yes [id number] 20161R Take 1 capsule (50,000 units total) by mouth once a week Arline ponce Metformin HCl 500 MG oral Tablet 2021-03 00:00: 00 Yes [id number] 500mg Take 1 tablet (500 mg total) by mouth daily (with breakfast) Arline ponce Vitamin D, Ergocalcife rol, 1.25 MG (31235 UT) oral Capsule 2021-03 00:00: 00 Yes [id number] 23759L Take 1 capsule (50,000 units total) by mouth once a week Arline ponce Metformin HCl 500 MG oral Tablet 2021-03 00:00: 00 Yes [id number] 500mg Take 1 tablet (500 mg total) by mouth daily (with breakfast) Arline ponce Metformin HCl 500 MG oral Tablet 2021-03 00:00: 00 Yes [id number] 500mg Take 1 tablet (500 mg total) by mouth daily (with breakfast) Arline ponce Vitamin D, Ergocalcife rol, 1.25 MG (94331 UT) oral Capsule 2021-03 0 00:00: 00 Yes [id number] Take 1 capsule (50,000 units total) by mouth once a week Arline ponce Metformin HCl 500 MG oral Tablet 2021-03 0 00:00: 00 Yes [id number] 500mg Take 1 tablet (500 mg total) by mouth daily (with breakfast) Arline ponce Vitamin D, Ergocalcife rol, 1.25 MG (74508 UT) oral Capsule 2021-03 00:00: 00 01-30 00:00 :00 No [id number] Take 1 capsule (50,000 units total) by mouth once a week Arline ponce Pantoprazol e Sodium 20 MG oral Tablet Delayed Response 0 12-03 00:00: 00 Yes [id number] 20mg Take 1 tablet (20 mg total) by mouth daily Arline ponce Pantoprazol e Sodium 20 MG oral Tablet Delayed Response 0 12-03 00:00: 00 Yes [id number] 20mg Take 1 tablet (20 mg total) by mouth daily Arline ponce buPROPion HCl 75 MG oral Tablet 12-03 00:00: 00 Yes [id number] 75mg Take 1 tablet (75 mg total) by mouth daily Arline ponce Pantoprazol e Sodium 20 MG oral Tablet Delayed Response 0 12-03 00:00: 00 Yes [id number] 20mg Take 1 tablet (20 mg total) by mouth daily Arline ponce Pantoprazol e Sodium 20 MG oral Tablet Delayed Response 0 12-03 00:00: 00 Yes [id number] 20mg Take 1 tablet (20 mg total) by mouth daily Arline ponce Pantoprazol e Sodium 20 MG oral Tablet Delayed Response 0 12-03 00:00: 00 01-30 00:00 :00 No [id number] 20mg Take 1 tablet (20 mg total) by mouth daily Arline ponce buPROPion HCl 75 MG oral Tablet 12-03 00:00: 00 02-02 00:00 :00 No [id number] 75mg Take 1 tablet (75 mg total) by mouth daily Arline ponce Immunizations Ordered Immunization Name Filled Immunization Name Date Status Comments Source HPV 9 (Human Papillomavirus) 2016-08-25 00:00:00 Completed Arline Falcon - External Meningococcal Vaccine- Conjugate(Menactra) 2016-08-25 00:00:00 Completed Arline Falcon - External HPV 9 (Human Papillomavirus) 2016-08-25 00:00:00 Completed Arline Falcon - External Meningococcal Vaccine- Conjugate(Menactra) 2016-08-25 00:00:00 Completed Arline Falcon - External HPV 9 (Human Papillomavirus) 2016-08-25 00:00:00 Completed Arline Falcon - External Meningococcal Vaccine- Conjugate(Menactra) 2016-08-25 00:00:00 Completed Arline Falcon - External HPV 9 (Human Papillomavirus) 2016-08-25 00:00:00 Completed Arline Falcon - External Meningococcal Vaccine- Conjugate(Menactra) 2016-08-25 00:00:00 Completed Arline Falcon - External IPV- Inactivated Polio Vaccine 2013-12-10 00:00:00 Completed Arline Falcon - External HEPATITIS A- PEDI/ADOL 2013-12-10 00:00:00 Completed Arline Falcon - External HPV 4 (Human Papillomavirus) 2013-12-10 00:00:00 Completed Arline Falcon - External IPV- Inactivated Polio Vaccine 2013-12-10 00:00:00 Completed Arline Falcon - External HEPATITIS A- PEDI/ADOL 2013-12-10 00:00:00 Completed Arline Falcon - External HPV 4 (Human Papillomavirus) 2013-12-10 00:00:00 Completed Arline Falcon - External IPV- Inactivated Polio Vaccine 2013-12-10 00:00:00 Completed Arline Falcon - External HEPATITIS A- PEDI/ADOL 2013-12-10 00:00:00 Completed Arline Falcon - External HPV 4 (Human Papillomavirus) 2013-12-10 00:00:00 Completed Arline Falcon - External IPV- Inactivated Polio Vaccine 2013-12-10 00:00:00 Completed Arline Seybold - External HEPATITIS A- PEDI/ADOL 2013-12-10 00:00:00 Completed Arline Seybold - External HPV 4 (Human Papillomavirus) 2013-12-10 00:00:00 Completed Arline Stevensonold - External Influenza Virus Vaccine, Live, Attenuated, Intranasal Use 2009-12-07 00:00:00 Completed Arline Seybold - External Influenza Virus Vaccine, Live, Attenuated, Intranasal Use 2009-12-07 00:00:00 Completed Arline Seybold - External Influenza Virus Vaccine, Live, Attenuated, Intranasal Use 2009-12-07 00:00:00 Completed Arline Seybold - External Influenza Virus Vaccine, Live, Attenuated, Intranasal Use 2009-12-07 00:00:00 Completed Arline Falcon - External Tdap- (Boostrix, Adacel) 2008-10-08 00:00:00 Completed Arline Seybold - External HEPATITIS A- PEDI/ADOL 2008-10-08 00:00:00 Completed Arline Trejoybold - External HPV 4 (Human Papillomavirus) 2008-10-08 00:00:00 Completed Arline Trejoybold - External Meningococcal Vaccine- Conjugate(Menactra) 2008-10-08 00:00:00 Completed Arline Seybold - External Tdap- (Boostrix, Adacel) 2008-10-08 00:00:00 Completed Arline Trejoybold - External HEPATITIS A- PEDI/ADOL 2008-10-08 00:00:00 Completed Arline Seybold - External HPV 4 (Human Papillomavirus) 2008-10-08 00:00:00 Completed Arline Seybold - External Meningococcal Vaccine- Conjugate(Menactra) 2008-10-08 00:00:00 Completed Arline Seybold - External Tdap- (Boostrix, Adacel) 2008-10-08 00:00:00 Completed Arline Seybold - External HEPATITIS A- PEDI/ADOL 2008-10-08 00:00:00 Completed Arline Seybold - External HPV 4 (Human Papillomavirus) 2008-10-08 00:00:00 Completed Arline Seybold - External Meningococcal Vaccine- Conjugate(Menactra) 2008-10-08 00:00:00 Completed Arline Falcon - External Tdap- (Boostrix, Adacel) 2008-10-08 00:00:00 Completed Arline Falcon - External HEPATITIS A- PEDI/ADOL 2008-10-08 00:00:00 Completed Arline Falcon - External HPV 4 (Human Papillomavirus) 2008-10-08 00:00:00 Completed Arline Falcon - External Meningococcal Vaccine- Conjugate(Menactra) 2008-10-08 00:00:00 Completed Arline Stevensonold - External IPV- Inactivated Polio Vaccine 2000-02-09 00:00:00 Completed Arline Trejoybold - External Varicella Vaccine 2000-02-09 00:00:00 Completed Arline Trejoybold - External DTaP Unspecified 2000-02-09 00:00:00 Completed Arline Stevensonold - External MMR- Measles, Mumps, Rubella 2000-02-09 00:00:00 Completed Arline Trejoybold - External IPV- Inactivated Polio Vaccine 2000-02-09 00:00:00 Completed Arline Seybold - External Varicella Vaccine 2000-02-09 00:00:00 Completed Arline Trejoybold - External DTaP Unspecified 2000-02-09 00:00:00 Completed Arline Trejoybold - External MMR- Measles, Mumps, Rubella 2000-02-09 00:00:00 Completed Arline Seybold - External IPV- Inactivated Polio Vaccine 2000-02-09 00:00:00 Completed Arline Seybold - External Varicella Vaccine 2000-02-09 00:00:00 Completed Arline Trejoybold - External DTaP Unspecified 2000-02-09 00:00:00 Completed Arline Seybold - External MMR- Measles, Mumps, Rubella 2000-02-09 00:00:00 Completed Arline Seybold - External IPV- Inactivated Polio Vaccine 2000-02-09 00:00:00 Completed Arline Seybold - External Varicella Vaccine 2000-02-09 00:00:00 Completed Arline Seybold - External DTaP Unspecified 2000-02-09 00:00:00 Completed Arline Seybold - External MMR- Measles, Mumps, Rubella 2000-02-09 00:00:00 Completed Arline Seybold - External Varicella Vaccine 1997-08-27 00:00:00 Completed Arline Seybold - External DTaP Unspecified 1997-08-27 00:00:00 Completed Arline Seybold - External Hib, unspecified formulation 1997-08-27 00:00:00 Completed Arline Seybold - External MMR- Measles, Mumps, Rubella 1997-08-27 00:00:00 Completed Arline Seybold - External Varicella Vaccine 1997-08-27 00:00:00 Completed Arline Seybold - External DTaP Unspecified 1997-08-27 00:00:00 Completed Arline Seybold - External Hib, unspecified formulation 1997-08-27 00:00:00 Completed Arline Seybold - External MMR- Measles, Mumps, Rubella 1997-08-27 00:00:00 Completed Arline Seybold - External Varicella Vaccine 1997-08-27 00:00:00 Completed Arline Seybold - External DTaP Unspecified 1997-08-27 00:00:00 Completed Arline Seybold - External Hib, unspecified formulation 1997-08-27 00:00:00 Completed Arline Seybold - External MMR- Measles, Mumps, Rubella 1997-08-27 00:00:00 Completed Arline Seybold - External Varicella Vaccine 1997-08-27 00:00:00 Completed Arline Seybold - External DTaP Unspecified 1997-08-27 00:00:00 Completed Arline Seybold - External Hib, unspecified formulation 1997-08-27 00:00:00 Completed Arline Seybold - External MMR- Measles, Mumps, Rubella 1997-08-27 00:00:00 Completed Arline Seybold - External IPV- Inactivated Polio Vaccine 1996 00:00:00 Completed Arline Seybold - External DTaP Unspecified 1996 00:00:00 Completed Arline Seybold - External Hepatitis B, Adolescent Or Pediatric 1996 00:00:00 Completed Arline Seybold - External Hib, unspecified formulation 1996 00:00:00 Completed Arline Seybold - External IPV- Inactivated Polio Vaccine 1996 00:00:00 Completed Arline Seybold - External DTaP Unspecified 1996 00:00:00 Completed Arline Seybold - External Hepatitis B, Adolescent Or Pediatric 1996 00:00:00 Completed Arline Seybold - External Hib, unspecified formulation 1996 00:00:00 Completed Arline Seybold - External IPV- Inactivated Polio Vaccine 1996 00:00:00 Completed Arline Seybold - External DTaP Unspecified 1996 00:00:00 Completed Arline Seybold - External Hepatitis B, Adolescent Or Pediatric 1996 00:00:00 Completed Arline Seybold - External Hib, unspecified formulation 1996 00:00:00 Completed Arline Seybold - External IPV- Inactivated Polio Vaccine 1996 00:00:00 Completed Arline Seybold - External DTaP Unspecified 1996 00:00:00 Completed Arline Seybold - External Hepatitis B, Adolescent Or Pediatric 1996 00:00:00 Completed Arline Seybold - External Hib, unspecified formulation 1996 00:00:00 Completed Arline Seybold - External IPV- Inactivated Polio Vaccine 1996 00:00:00 Completed Arline Seybold - External DTaP Unspecified 1996 00:00:00 Completed Arline Seybold - External Hib, unspecified formulation 1996 00:00:00 Completed Arline Seybold - External IPV- Inactivated Polio Vaccine 1996 00:00:00 Completed Arline Seybold - External DTaP Unspecified 1996 00:00:00 Completed Arline Seybold - External Hib, unspecified formulation 1996 00:00:00 Completed Arline Seybold - External IPV- Inactivated Polio Vaccine 1996 00:00:00 Completed Arline Seybold - External DTaP Unspecified 1996 00:00:00 Completed Arline Seybold - External Hib, unspecified formulation 1996 00:00:00 Completed Arline Seybold - External IPV- Inactivated Polio Vaccine 1996 00:00:00 Completed Arline Seybold - External DTaP Unspecified 1996 00:00:00 Completed Arline Seybold - External Hib, unspecified formulation 1996 00:00:00 Completed Arline Seybold - External IPV- Inactivated Polio Vaccine 1996 00:00:00 Completed Arline Seybold - External DPT/HIB 1996 00:00:00 Completed Arline Trejoybold - External Hepatitis B, Adolescent Or Pediatric 1996 00:00:00 Completed Arline Seybold - External IPV- Inactivated Polio Vaccine 1996 00:00:00 Completed Arline Seybold - External DPT/HIB 1996 00:00:00 Completed Arline Seybold - External Hepatitis B, Adolescent Or Pediatric 1996 00:00:00 Completed Arline Seybold - External IPV- Inactivated Polio Vaccine 1996 00:00:00 Completed Arline Seybold - External DPT/HIB 1996 00:00:00 Completed Arline Seybold - External Hepatitis B, Adolescent Or Pediatric 1996 00:00:00 Completed Arline Seybold - External IPV- Inactivated Polio Vaccine 1996 00:00:00 Completed Arline Seybold - External DPT/HIB 1996 00:00:00 Completed Arline Trejoybold - External Hepatitis B, Adolescent Or Pediatric 1996 00:00:00 Completed Arline Trejoybold - External Hepatitis B, Unspecified 1996 00:00:00 Completed Arline Trejoybold - External Hepatitis B, Unspecified 1996 00:00:00 Completed Arline Stevensonold - External Hepatitis B, Unspecified 1996 00:00:00 Completed Arline Trejoybold - External Hepatitis B, Unspecified 1996 00:00:00 Completed Arline Trejoybold - External DTaP Unspecified Unknown Completed Mich trejoy Seybold - External DTaP Unspecified Unknown Completed Mich trejoy Seybold - External DTaP Unspecified Unknown Completed Mich trejoy Seybold - External DTaP Unspecified Unknown Completed Mich trejoy Seybold - External DPT/HIB Unknown Completed Arline eric - External Influenza Virus Vaccine, Live, Attenuated, Intranasal Use Unknown Completed Arline Stevensonol d - External HEPATITIS A- PEDI/ADOL Unknown Completed Arline Trejoybold - External HEPATITIS A- PEDI/ADOL Unknown Completed Arline Seybold - External Hepatitis B, Unspecified Unknown Completed Arline Seybold - External Hepatitis B, Adolescent Or Pediatric Unknown Completed Arline Seybold - External Hepatitis B, Adolescent Or Pediatric Unknown Completed Arline Seybold - External Hib, unspecified formulation Unknown Completed Arline Trejoybold - External Hib, unspecified formulation Unknown Completed Arline Trejoybold - External Hib, unspecified formulation Unknown Completed Arline Trejoybold - External HPV 4 (Human Papillomavirus) Unknown Completed Arline Trejoybo ld - External HPV 4 (Human Papillomavirus) Unknown Completed Arline Trejoybo ld - External HPV 9 (Human Papillomavirus) Unknown Completed Arline Stevensono ld - External Meningococcal Vaccine- Conjugate(Menactra) Unknown Completed Arline S eybold - External Meningococcal Vaccine- Conjugate(Menactra) Unknown Completed Arline Henning eybold - External MMR- Measles, Mumps, Rubella Unknown Completed Arline Trejoybold - External MMR- Measles, Mumps, Rubella Unknown Completed Arline Trejoybold - External IPV- Inactivated Polio Vaccine Unknown Completed Arline Trejoybold - External IPV- Inactivated Polio Vaccine Unknown Completed Arline Seybold - External IPV- Inactivated Polio Vaccine Unknown Completed Arline Seybold - External IPV- Inactivated Polio Vaccine Unknown Completed Arline Seybold - External IPV- Inactivated Polio Vaccine Unknown Completed Arline Trejoybold - External Tdap- (Boostrix, Adacel) Unknown Completed Arline Seybold - External Varicella Vaccine Unknown Completed Erwin lsey Seybold - External Varicella Vaccine Unknown Completed lsey Seybold - External Vital Signs Vital Name Observation Time Observation Value Comments S ource Systolic blood pressure 2022-06-15 16:01:00 110 mm[Hg] Arline Trejoybo ld - External Diastolic blood pressure 2022-06-15 16:01:00 66 mm[Hg] Arline Trejoybo ld - External Heart rate 2022-06-15 16:01:00 114 /min Alexsander olivier florencio - External Body temperature 2022-06-15 16:01:00 36.56 Megan Arline ybold - External Respiratory rate 2022-06-15 16:01:00 15 /min Arline ybold - External Body height 2022-06-15 16:01:00 160 cm Hilda ey Seybold - External Body weight 2022-06-15 16:01:00 122.925 kg Hilda ey Seybold - External BMI 2022-06-15 16:01:00 48.01 kg/m2 Hilda ey Seybold - External Systolic blood pressure 2022-04-13 22:24:00 117 mm[Hg] Arline Seybo ld - External Diastolic blood pressure 2022-04-13 22:24:00 73 mm[Hg] Arline Seybo ld - External Heart rate 2022-04-13 22:24:00 96 /min Kelse y Seybold - External Body temperature 2022-04-13 22:24:00 36.78 Megan Arline Seybold - External Respiratory rate 2022-04-13 22:24:00 14 /min Arline Seybold - External Body height 2022-04-13 22:24:00 160 cm Hilda ey Seybold - External Body weight 2022-04-13 22:24:00 122.471 kg Hilda ey Seybold - External BMI 2022-04-13 22:24:00 47.83 kg/m2 Hilda ey Seybold - External Oxygen saturation in Arterial blood by Pulse oximetry 2022-04-13 22:24:00 99 /min Arline Seybo ld - External Systolic blood pressure 2022-02-02 22:15:00 120 mm[Hg] Arline Seybo ld - External Diastolic blood pressure 2022-02-02 22:15:00 70 mm[Hg] Arline Seybo ld - External Heart rate 2022-02-02 22:15:00 118 /min Kelse y Seybold - External Body temperature 2022-02-02 22:15:00 35.67 Megan Arline Seybold - External Respiratory rate 2022-02-02 22:15:00 16 /min Arline Seybold - External Body height 2022-02-02 22:15:00 160 cm Hilda ey Seybold - External Body weight 2022-02-02 22:15:00 127.007 kg Hilda ey Seybold - External BMI 2022-02-02 22:15:00 49.60 kg/m2 Hilda ey Seybold - External Systolic blood pressure 2021-12-03 15:45:00 120 mm[Hg] Arline Davis ld - External Diastolic blood pressure 2021-12-03 15:45:00 72 mm[Hg] Arline Davis ld - External Heart rate 2021-12-03 15:45:00 113 /min Alexsander olivier Seybregina - External Body temperature 2021-12-03 15:45:00 36.56 Megan Arline Falcon - External Respiratory rate 2021-12-03 15:45:00 16 /min Arline Stevensonold - External Body height 2021-12-03 15:45:00 160 cm Hilda neal Seybold - External Body weight 2021-12-03 15:45:00 127.007 kg Hilda ey Seybold - External BMI 2021-12-03 15:45:00 49.60 kg/m2 Hilda neal Seybold - External BP Diastolic 2020-01-10 00:00:00 69 mm[Hg] [facility] Height 2020-01-10 00:00:00 62 [in_i] [facility] BMI (Body Mass Index) 2020-01-10 00:00:00 46.8 kg/m2 [facility] BP Systolic 2020-01-10 00:00:00 117 mm[Hg] Fernandez naf[facility] Body Weight 2020-01-10 00:00:00 256 [lb_av] [facility] BP Diastolic 2019-07-09 00:00:00 78 mm[Hg] [facility] Height 2019-07-09 00:00:00 62 [in_i] [facility] BMI (Body Mass Index) 2019-07-09 00:00:00 47.2 kg/m2 [facility] BP Systolic 2019-07-09 00:00:00 141 mm[Hg] Fernandez n[facility] Body Weight 2019-07-09 00:00:00 258 [lb_av] [facility] BP Diastolic 2019-03-22 00:00:00 95 mm[Hg] [facility] Height 2019-03-22 00:00:00 62 [in_i] Padmaja oliver [facility] BMI (Body Mass Index) 2019-03-22 00:00:00 46.5 kg/m2 [facility] BP Systolic 2019-03-22 00:00:00 148 mm[Hg] [facility] Body Weight 2019-03-22 00:00:00 254 [lb_av] Ignacio mcconnell [facility] Procedures Procedure Date / Time Performed Performing Clinicia n Source US, transvaginal 2019-03-22 00:00:00 [facility] Delivery 2014-08-14 00:00:00 [facility] Plan of Care Planned Activity Planned Date Details Comments Source Diagnostic Test Pending 2020-01-10 00:00:00 bacterial vaginosis + vaginitis panel, vaginal [code = bacterial vaginosis + vaginitis panel, vaginal] [facility] Encounters Start Date/Time End Date/Time Encounter Type Admission Type Attending [facility] Emergency Department Facility Care Department Encounter ID Source 2023-02-07 16:15:00 2023-02-07 16:15:00 Outpatient JESSENIA GELLER [id number] [facility] 2023-01-30 14:00:00 2023-01-30 14:00:00 [facility] [id number] [facility] 2022-11-09 00:00:00 2022-11-09 00:00:00 Outpatient KAREN COPELAND [id number] [facility] 2022-10-18 00:00:00 2022-10-18 00:00:00 Outpatient KAREN COPELAND [id number] [facility] 2022-09-12 00:00:00 2022-09-12 00:00:00 Outpatient KAREN COPELAND [id number] [facility] 2022-08-09 00:00:00 2022-08-09 00:00:00 Outpatient KAREN COPELAND [id number] [facility] 2022-07-28 08:30:00 2022-07-28 08:30:00 Outpatient KATHYA VASQUEZ ARLINE NUNO [id number] Arline Seybregina 2022-06-29 09:45:00 2022-06-29 09:45:00 Outpatient FREDI BROWN ARLINE NUNO [id number] Arline Seybold 2022-06-15 12:00:00 2022-06-15 12:00:00 Outpatient LAB90 ARLINE NUNO [id number] Arline Seybold 2022-06-15 11:00:00 2022-06-15 11:00:00 Outpatient HUNDL, KAREN NUNO [id number] Arline Seybold 2022-05-25 00:00:00 2022-05-25 00:00:00 Outpatient HUNDL, KAREN NUNO [id number] Arline Seybold 2022-05-11 00:00:00 2022-05-11 00:00:00 Outpatient HUNDL, [facility]AREN NUNO [id number] [facility] 2022-04-29 00:00:00 2022-04-29 00:00:00 Outpatient HUNDL, KAREN NUNO [id number] Arline Seybold 2022-04-13 16:30:00 2022-04-13 16:30:00 Outpatient HUNDL, KAREN NUNO [id number] Arline Seybold 2022-04-11 08:30:00 2022-04-11 08:30:00 Outpatient HUNDL, KAREN NUNO [id number] Arline Seybold 2022-04-04 00:00:00 2022-04-04 00:00:00 Outpatient HUNDL, KAREN NUNO [id number] Arline Seybold 2022-03-04 16:30:00 2022-03-04 16:30:00 Outpatient HUNDL[facility] NUN[facility] [id number] [facility] 2022-02-03 00:00:00 2022-02-03 00:00:00 Outpatient HUNDL, KAREN NUNO [id number] Arline Seybold 2022-02-02 16:00:00 2022-02-02 16:00:00 Outpatient KAREN COPELAND ARLINE [id number] [facility] 2021-12-07 00:00:00 2021-12-07 00:00:00 Outpatient LELAND GRAFF ARLINE [id number] [facility] 2021-12-07 00:00:00 2021-12-07 00:00:00 Outpatient KAREN COPELAND ARLINE NUNO [id number] [facility] 2021-12-07 00:00:00 2021-12-07 00:00:00 Outpatient KAREN COPELAND ARLINE ARLINE [id number] Ar[facility] 2021-12-06 11:55:00 2021-12-06 11:55:00 Outpatient JOSE MANUEL ARLINE NUNO [id number] [facility] 2021-12-03 10:30:00 2021-12-03 10:30:00 Outpatient KAREN COPELAND ARLINE NUNO [id number] [facility] 2021-12-03 08:00:00 2021-12-03 08:00:00 Outpatient KAREN COPELAND ARLINE NUNO [id number] [facility] 2020-04-19 01:04:00 2020-04-19 01:04:00 Outpatient LISTER_MELI [facility] [id number] [facility] 2020-03-15 01:02:00 2020-03-15 01:02:00 Outpatient LISTER_MELI [facility] [id number] [facility] 2020-02-08 01:03:00 2020-02-08 01:03:00 Outpatient LISTER_MELI [facility] [id number] [facility] 2020-01-10 12:53:00 2020-01-10 12:53:00 Outpatient LISTER_MELI [facility] [id number] [facility] 2020-01-10 00:00:00 2020-01-10 00:00:00 Pam Tadeo, RIGHT OF WAY CLEARER: [address], [place] [address] , Ph. 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 [facility] [place] [facility] - [employer]OP [employer] MACHINE OPERATOR [id number] [facility] 2019-03-29 11:39:00 2019-03-29 11:39:00 Outpatient LISTER_MELI [facility] [id number] [facility] 2019-03-25 02:27:00 2019-03-25 02:27:00 Outpatient LISTER_MELI [facility] [id number] [facility] 2019-03-24 10:48:00 2019-03-24 10:48:00 Outpatient LISTER_MELI [facility] [id number] [facility] 2019-03-22 04:26:00 2019-03-22 04:26:00 Outpatient LISTER_MELI [facility] [id number] [facility] 2019-03-22 00:00:00 2019-03-22 00:00:00 Pam Tadeo, RIGHT OF WAY CLEARER: [address]uevas, [place] [address] , Ph. 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 [id number] [facility] Results Test Description Test Time Test Comments Results Result Co mments Source [place] [facility] A1c/Hemoglobin.total in [id number] 00:00:00* Test Item Value Reference Range Interpretation Comme nts Hemoglobin A1c/Hemoglobin.to qasim in Blood (test code = 4548-4) 5.6 % 4.8-5.6 [facility] - [id number] 16:38:00* Test Item Value Reference Range Interpretation Comme nts Leukocytes (test code = Leukocytes) TRACE Nitrite (test code = Nitrite) NEG Urobilinogen (test code = Urobilinogen) 0.2 Protein (test code = Protein) NEG pH (test code = pH) 7.0 Blood (test code = Blood) NEG Specific Wilkes[place] (test code = Specific [place]) 1.015 Ketone (test code = Ketone) NEG Bilirubin (test code = Bilirubin) NEG Glucose (test code = Glucose) NEG Appearance (test code = Appearance) CLEAR Color (test code = Color) Light yelllow [facility], [id number] 15:00:00* Test Item Value Reference Range Interpretation Comme nts HCG (test code = HCG) negative [facility]
[2023-03-10 17:40] LABS: Absolute Lymphocytes (CBC) 2.2 K/uL (0.7-4.9); Hematocrit 38.5 % (36.0-45.0); Lymphocytes % 16.7 % (15.3-44.8); MCV 84.2 fL (80-100); Platelets 299 thou/uL (152-406); RBC Red Blood Cell Count 4.57 M/uL (3.86-4.86)
[2023-03-10 18:01] LABS: Albumin 3.8 g/dL (3.4-5.0); Bilirubin Total 0.9 mg/dL (0.2-1.0); Potassium 3.4 mEq/L (3.5-5.1); Protein, Total 8.3 g/dL (6.4-8.2)
[2023-03-10] MEDS ORDERED: ONDANSETRON 4 MG/2 ML VIAL ONE (18:08)
[2023-03-10] MEDS ORDERED: HYDROMORPHONE HCL 0.5 MG/0.5 ML INJ ONE (18:08)
[2023-03-10] MEDS ORDERED: PIPERACIL/TAZO 3.375 GM VIAL IV ONE (18:09)
[2023-03-10] MEDS ORDERED: NA CHLORIDE 0.9% 1,000 ML ONE (18:09)
[2023-03-10] MEDS ORDERED: NA CHLORIDE 0.9% 100 ML ONE (18:09)
--- NOTE | 2023-03-10 18:14 | ER ---
Nurse's Notes [facility] Name: Zainab Tucker Age: 28 yrs Sex: Female : 1995 Arrival Date: 03/10/2023 Time: 16:40 Bed 12 Private MD: Diagnosis: Other cholelithiasis without obstruction;Upper abdominal pain, unspecified Presentation: 03/10 16:53 Chief complaint: Patient states: PATIENT STATES HERE FOR RIGHT UPPER ABD PAIN SINCE db MONDAY. STATES WAS SENT TO ED BY DR. MATTHEWS FOR POSSIBLE GALL BLADDER SURGERY. Coronavirus screen: Vaccine status: Patient reports being unvaccinated. Client denies travel out of the [place] in the last 14 days. At this time, the client does not indicate any symptoms associated with coronavirus-19. Ebola Screen: Patient negative for fever greater than or equal to 101.5 degrees Fahrenheit, and additional compatible Ebola Virus Disease symptoms Patient denies exposure to infectious person. Patient denies travel to an Ebola-affected area in the 21 days before illness onset. No symptoms or risks identified at this time. Initial Sepsis Screen: Does the patient meet any 2 criteria? No. Patient's initial sepsis screen is negative. Does the patient have a suspected source of infection? No. Patient's initial sepsis screen is negative. Risk Assessment: Do you want to hurt yourself or someone else? Patient reports no desire to harm self or others. Onset of symptoms was March 10, 2023. 16:53 Method Of Arrival: Ambulatory db 16:53 Acuity: JANAE 3 db Triage Assessment: 16:55 General: Appears in no apparent distress. comfortable, Behavior is calm, cooperative. db Pain: Complains of pain in abdomen. Neuro: Level of Consciousness is awake, alert, obeys commands, Oriented to person, place, time, situation. Respiratory: Airway is patent Respiratory effort is even, unlabored, Respiratory pattern is regular, symmetrical. GI: Abdomen is flat, distended. 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 - Social history:: Smoking status: Smoking status: Patient denies any tobacco usage or history of. Screenin:57 [facility] ED Fall Risk Assessment (Adult) History of falling in the last 3 months, ph including since admission No falls in past 3 months (0 pts) Score/Fall Risk Level 0 - 2 = Low Risk Oriented to surroundings, Maintained a safe environment, Provided non-skid footwear, Hourly rounding (assess needs \T\ fall precautionary measures) done. Abuse screen: Denies threats or abuse. Denies injuries from another. Nutritional screening: No deficits noted. Tuberculosis screening: No symptoms or risk factors identified. Assessment: 18:30 General: Appears in no apparent distress. uncomfortable, Behavior is calm, cooperative, ph appropriate for age. Pain: Complains of pain in right upper quadrant Pain radiates to back. Neuro: Level of Consciousness is awake, alert, obeys commands, Oriented to person, place, time, situation. Cardiovascular: Capillary refill < 3 seconds in bilateral fingers Patient's skin is warm and dry. Respiratory: Airway is patent Respiratory effort is even, unlabored, Respiratory pattern is regular, symmetrical. GI: Reports upper abdominal pain, nausea, vomiting. Derm: Skin is pink, warm \T\ dry. 18:56 Reassessment: Patient appears in no apparent distress at this time. Patient and/or ph family updated on plan of care and expected duration. Pain level reassessed. Patient is alert, oriented x 3, equal unlabored respirations, skin warm/dry/pink. Pt states that pain has improved after IV pain medication, DR Mirza at bedside to speak w/ pt about admission. Vital Signs: 16:53 BP 158 / 91; Pulse 80; Resp 16; Temp 98.4(TE); Pulse Ox 100% ; Weight 113.4 kg; Height db 5 ft. 3 in. ; 18:55 BP 127 / 86; Pulse 75; Resp 18; Pulse Ox 98% on R/A; ph 16:53 Body Mass Index 44.29 (113.40 kg, 160.02 cm) db ED Course: 16:43 Patient arrived in ED. im 16:44 Eyal Sharif DO is Attending Physician. ms3 16:54 Triage completed. db 16:55 Arm band placed on Patient placed in waiting room. db 17:33 CBC with Diff Sent. bc6 17:33 CMP Sent. bc6 17:33 Lipase Sent. bc6 17:33 Inserted saline lock: 22 gauge in left antecubital area, using aseptic technique. Blood bc6 collected. 18:00 Ally Gipson, RN is Primary Nurse. ph 18:12 Cuba Mirza is Hospitalizing Provider. ms3 18:57 Patient has correct armband on for positive identification. Bed in low position. Call ph light in reach. Side rails up X2. Pulse ox on. NIBP on. Door closed. Noise minimized. Warm blanket given. Pillow given. 18:57 No provider procedures requiring assistance completed. Patient admitted, IV remains in ph place. Administered Medications: 18:19 Drug: NS 0.9% IV 1000 ml IV at 1 bolus Per protocol; 1000 mL bolus Route: IV; Rate: 1 ph bolus; Site: left antecubital; 18:19 Drug: Ondansetron IVP 4 mg IVP once; over 2 minutes Route: IVP; Site: left antecubital; ph 18:20 Drug: HYDROmorphone IVP 0.5 mg IVP once Route: IVP; Site: left antecubital; ph 18:55 Drug: Piperacillin-Tazobactam IVPB 3.375 grams IVPB once over 60 mins; (mix in NS 100 ph mL) Route: IVPB; Infused Over: 60 mins; Site: left antecubital; Medication: 18:57 VIS not applicable for this client. ph Outcome: 18:13 Decision to Hospitalize by Provider. ms3 20:20 Admitted to Med/surg accompanied by tech, via stretcher, room 220, with chart, Report bp called to LAURA SHULTZ 20:20 Condition: stable 20:20 Instructed on the need for admit, 20:59 Patient left the ED. bp Signatures: Ally Gipson, RN RN ph Uriah Bright RN RN bp Sharif, DO Eyal DO ms3 Eden Doan, RN RN db Eun Greene bc6 Jemima Mendez Corrections: (The following items were deleted from the chart) 16:55 16:54 Home Meds: None; db db
--- NOTE | 2023-03-10 18:14 | EDPHYS ---
Physician Documentation [facility] Name: Zainab Tucker Age: 28 yrs Sex: Female : 1995 Arrival Date: 03/10/2023 Time: 16:40 Bed 12 Private MD: ED Physician Eyal Sharif HPI: 03/10 17:22 This 28 yrs old Female presents to ER via Ambulatory with complaints of ms3 Abdominal Pain. 17:22 28-year-old female with no past medical history presents to the emergency department ms3 for right upper quadrant abdominal pain that began on Monday. Patient states her abdominal pain has become worse since onset. Patient was seen at [facility] yesterday and Dr. Mcdonald performed an ultrasound yesterday showing gallbladder sludge. Patient states her pain is continued despite GI cocktail and nausea medications. Patient endorses decreased p.o. intake. Patient states her pain a 12/13. 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 - Social history:: Smoking status: Smoking status: Patient denies any tobacco usage or history of. ROS: 17:22 Constitutional: Negative for fever, and chills. Neck: Negative for injury, pain, and ms3 swelling, Cardiovascular: Negative for chest pain, and palpitations. Respiratory: Negative for shortness of breath, cough, wheezing, and pleuritic chest pain, Skin: Negative for injury, rash, and discoloration, 17:22 Abdomen/GI: Positive for abdominal pain, nausea, 17:22 All other systems are negative, Exam: 17:22 Constitutional: This is a well developed, well nourished patient who is awake, alert, ms3 and in no acute distress. Head/Face: Normocephalic, atraumatic. Chest/axilla: Normal chest wall appearance and motion. Nontender with no deformity. Cardiovascular: Regular rate and rhythm with a normal S1 and S2. No gallops, murmurs, or rubs. Normal PMI, no JVD. No pulse deficits. Respiratory: Lungs have equal breath sounds bilaterally, clear to auscultation and percussion. No rales, rhonchi or wheezes noted. No increased work of breathing, no retractions or nasal flaring. 17:22 Abdomen/GI: Inspection: abdomen appears normal, Bowel sounds: normal, Palpation: moderate abdominal tenderness, in the right upper quadrant, Vital Signs: 16:53 BP 158 / 91; Pulse 80; Resp 16; Temp 98.4(TE); Pulse Ox 100% ; Weight 113.4 kg; Height db 5 ft. 3 in. ; 18:55 BP 127 / 86; Pulse 75; Resp 18; Pulse Ox 98% on R/A; ph 16:53 Body Mass Index 44.29 (113.40 kg, 160.02 cm) db MDM: 16:59 Patient medically screened. ms3 17:22 Differential diagnosis: cholecystitis, Cholelithiasis, non-specific abd pain. ms3 18:13 Data reviewed: vital signs, nurses notes, lab test result(s), and as a result, I will ms3 admit patient. Consideration of Admission/Observation Patient was admitted/placed on observation. Management of patient was discussed with the following: Hospitalist: Dr Mirza- accepts patient. I considered the following discharge prescriptions or medication management in the emergency department Medications were administered in the Emergency Department. See MAR. Historians other than the Patient: Parent: Patient's mother. Counseling: I had a detailed discussion with the patient and/or guardian regarding the historical points, exam findings, and any diagnostic results supporting the discharge/admit diagnosis, lab results, the need for further work-up and treatment in the hospital. ED course: Discussed necessity for admission with patient. Patient understands and agrees with plan. All questions were answered. Patient remains in stable condition. 03/10 17:00 Order name: CBC with Diff; Complete Time: 18:09 ms3 03/10 17:00 Order name: CMP; Complete Time: 18:15 ms3 03/10 17:00 Order name: Lipase; Complete Time: 18:15 ms3 03/10 19:36 Order name: CBC with Automated Diff EDMS 03/10 19:36 Order name: CBC with Automated Diff EDMS 03/10 19:36 Order name: Comprehensive Metabolic Panel EDMS 03/10 19:36 Order name: Comprehensive Metabolic Panel EDMS 03/10 19:36 Order name: Magnesium EDMS 03/10 19:36 Order name: Magnesium EDMS 03/10 19:36 Order name: Phosphorus EDMS 03/10 19:36 Order name: Phosphorus EDMS 03/10 19:25 Order name: CONS Physician Consult EDMS 03/10 17:00 Order name: IV Saline Lock; Complete Time: 17:33 ms3 03/10 17:00 Order name: Labs collected and sent; Complete Time: 17:33 ms3 Administered Medications: 18:19 Drug: NS 0.9% IV 1000 ml IV at 1 bolus Per protocol; 1000 mL bolus Route: IV; Rate: 1 ph bolus; Site: left antecubital; 18:19 Drug: Ondansetron IVP 4 mg IVP once; over 2 minutes Route: IVP; Site: left antecubital; ph 18:20 Drug: HYDROmorphone IVP 0.5 mg IVP once Route: IVP; Site: left antecubital; ph 18:55 Drug: Piperacillin-Tazobactam IVPB 3.375 grams IVPB once over 60 mins; (mix in NS 100 ph mL) Route: IVPB; Infused Over: 60 mins; Site: left antecubital; Disposition Summary: 03/10/23 18:13 Hospitalization Ordered Notes: Hospitalization Status: Inpatient Admission ms3 Provider: Cuba Mirza ms3 [facility] Condition: Stable ms3 Problem: new ms3 Symptoms: are unchanged ms3 Bed/Room Type: Standard ms3 Room Assignment: 220(03/10/23 19:28) sp Diagnosis - Other cholelithiasis without obstruction ms3 - Upper abdominal pain, unspecified ms3 Forms: - Medication Reconciliation Form ms3 - SBAR form ms3 - Leadership Thank You Letter ms3 Signatures: Dispatcher [employer] EDMS Farnces Rodriguez Patricia, RN RN ph Eyal Sharif DO DO ms3 Eden Doan RN RN db Corrections: (The following items were deleted from the chart) 16:55 16:54 Home Meds: None; db db 19:28 18:13 ms3 sp
[2023-03-10] MEDS ORDERED: ONDANSETRON 4 MG/2 ML VIAL IV PRN (19:24)
[2023-03-10] MEDS: NA CHLORIDE 0.9% 1,000 ML IV SCH (20:00)
--- NOTE | 2023-03-10 20:12 | P.HP ---
Certification for Inpatient Patient admitted to: Observation With expected LOS: <2 Midnights Practitioner: I am a practitioner with admitting privileges, knowledge of patient current condition, hospital course, and medical plan of care. Services: Services provided to patient in accordance with Admission requirements found in Title 42 Section 412.3 of the Code of Federal Regulations Patient History Date of Service: 03/10/23 Reason for admission: Abdominal pain History of Present Illness: 28-year-old woman with a history of anxiety disorder referred to the emergency department by Dr. Mcdonald for further evaluation for gallstones and admission for possible surgery. Patient reported intermittent right upper quadrant pain for the past 2 months became worse about 2 days ago. Abdominal pain associated with nausea and vomiting. Blood work showed mildly elevated LFT, mild leukocytosis. Ultrasound demonstrated gallbladder sludge and gallbladder stones. It is hospitalized for further management. Allergies No Known Drug Allergies Allergy (Unverified 07/08/15 12:37) Unknown - Past Medical/Surgical History -: Anxiety disorder -: Borderline diabetes -: section - Family History Mother -: Diabetes - Social History Smoking Status: Never smoker Alcohol use: Yes Place of Residence: Home Review of Systems Other: Patient denied any fever, denied any diarrhea or constipation. Except as documented, all other systems reviewed and negative. Physical Examination - Physical Exam General: Alert, In no apparent distress, Oriented x3, Obese HEENT: Mucous membr. moist/pink, Sclerae nonicteric Neck: Supple, JVD not distended Respiratory: Clear to auscultation bilaterally, Normal air movement Cardiovascular: No edema, Regular rate/rhythm, Normal S1 S2, No murmurs Gastrointestinal: Normal bowel sounds, Soft and benign, Non-distended, No tenderness Musculoskeletal: No swelling Integumentary: No rashes, No cyanosis Neurological: Normal strength at 5/5 x4 extr, Cranial nerves 3-12 intact Lymphatics: No axilla or inguinal lymphadenopathy - Studies Laboratory Data (last 24 hrs) 03/10/23 03/10/23 17:30 17:30 WBC 13.30 H Hgb 13.1 Hct 38.5 Plt Count 299 Sodium 137 Potassium 3.4 L BUN 6 L Creatinine 0.76 Glucose 129 H Total Bilirubin 0.9 AST 43 H ALT 87 H Alkaline Phosphatase 93 Lipase 15 Assessment and Plan - Problems (Diagnosis) (1) Cholelithiasis Current Visit: Yes Status: Acute (2) Morbid obesity Current Visit: Yes Status: Acute - Plan Place patient under observation Supportive measures with analgesics IV fluid Consult general surgery Dr. Mcdonald Keep patient n.p.o. for possible surgery in a.m. Empiric IV Zosyn. - Advance Directives Does patient have a Living Will: No Does patient have a Durable POA for Healthcare: No
[2023-03-10 21:34] VITALS: BMI 44.2
[2023-03-10] MEDS: MORPHINE 2 MG/ML SYR IV PRN (21:38)
[2023-03-10] MEDS: PIPER TAZO 3.375 GM in NA CHLORIDE 0.9% 100 ML IV SCH (23:29)
[2023-03-10 23:54] LABS: Specific Gravity 1.015 (1.005-1.030)
[2023-03-11] MEDS: MORPHINE 2 MG/ML SYR IV PRN ×2 (01:28→05:30)
[2023-03-11 02:30] LABS: Absolute Lymphocytes (CBC) 1.7 K/uL (0.7-4.9); Hematocrit 34.7 % (36.0-45.0); Lymphocytes % 13.5 % (15.3-44.8); MCV 84.8 fL (80-100); MPV 8.2 fL (7.6-11.3); Platelets 245 thou/uL (152-406); RBC Red Blood Cell Count 4.09 M/uL (3.86-4.86)
[2023-03-11 02:49] LABS: Albumin 3.1 g/dL (3.4-5.0); Bilirubin Total 1.1 mg/dL (0.2-1.0); Magnesium 1.9 mg/dL (1.6-2.4); Phosphorus 2.7 mg/dL (2.5-4.9); Potassium 3.6 mEq/L (3.5-5.1)
[2023-03-11] MEDS ORDERED: KCL 20 MEQ/100 mL IVPB 20 MEQ/100 ML BAG IV SCH (05:00)
[2023-03-11] MEDS: NA CHLORIDE 0.9% 1,000 ML IV SCH ×3 (05:51→20:28)
[2023-03-11] MEDS ORDERED: Ringers Lactate 1,000 ML IV ONE ×2 (07:29→08:54)
--- NOTE | 2023-03-11 07:56 | P.CNS ---
Date of Consult: 03/11/23 Reason for consult: Abdominal pain History of present illness: Patient is a 28-year-old white female presented to my office 2 days ago with biliary colic. Patient on exam was at findings suspicious for cholecystitis. Therefore, a ultrasound was ordered which was done yesterday. The ultrasound revealed a gallstone in the neck of the gallbladder with a distended gallbladder. Patient had nausea, vomiting, bloating, belching and heartburn. Patient denies postprandial pain. But stated that the pain was constant. Patient denies any sore throat runny nose, cough, headaches, dizziness, chest pain, fever or chills. Review of systems: Otherwise unremarkable Past medical history: Anxiety, obesity Past surgical history: Allergies: None Social history: Does not smoke, drinks alcohol occasionally Family history: Noncontributory Vital signs: Stable, afebrile Awake, alert and oriented x 3 Head and neck: No evidence of icterus, no neck masses, no JVD, throat clear and neck supple Chest: Clear Heart: S1-S2 Abdomen: Soft, nondistended, positive bowel sounds, right upper quadrant tenderness with inspiratory arrest on deep palpation in the right upper quadrant consistent with Skelton's sign Extremity: Neurovascular intact, nontender Neuro: Nonfocal Diagnostic data: Leukocytosis with left shift, slight elevation of AST and ALT. Total bili and alk phos are normal. Lipase is normal. Ultrasound reviewed. Assessment: Acute cholecystitis and cholelithiasis Plan/recommendation: Admit, n.p.o., IV fluids, IV antibiotics and to the OR for laparoscopic cholecystectomy possible open. Patient understands risk, benefits and alternatives and agrees to procedure. CC:
[2023-03-11] MEDS: PIPER TAZO 3.375 GM in NA CHLORIDE 0.9% 100 ML IV SCH ×3 (08:00→23:36)
[2023-03-11] MEDS ORDERED: SUCCINYLCHOLINE 20 MG/ML (10 ML) IV ONE (08:01)
[2023-03-11] MEDS ORDERED: ROCURONIUM 50 MG/5 ML VIAL IV ONE ×2 (08:07→09:09)
[2023-03-11] MEDS ORDERED: propofoL 200 MG/20 ML VIAL IV ONE (08:07)
[2023-03-11] MEDS ORDERED: MIDAZOLAM HCL 2 MG/2 ML INJ ONE (08:07)
[2023-03-11] MEDS ORDERED: FENTANYL CITR 100 MCG/2 ML ONE ×2 (08:07→08:52)
[2023-03-11] MEDS ORDERED: ONDANSETRON 4 MG/2 ML VIAL ONE (10:07)
[2023-03-11] MEDS ORDERED: dexAMETHasone 10 MG/ML VIAL ONE (10:08)
[2023-03-11] MEDS ORDERED: NEOSTIGMINE 1 MG/ML -10 ML VIAL ONE (10:09)
[2023-03-11] MEDS ORDERED: GLYCOPYRROLATE 0.2 MG/ML SYR ONE ×3 (10:10→10:11)
--- NOTE | 2023-03-11 10:23 | P.PN ---
Subjective Date of Service: 03/11/23 Chief Complaint: Abdominal pain Pt is resting comfortably in bed after surgery. Gen surgery took him to the OR for cholecystectomy. No other complaints. Review of Systems Unremarkable General: Unremarkable Eyes: Unremarkable ENT: Unremarkable Respiratory: Unremarkable Cardiovascular: Unremarkable Gastrointestinal: Abdominal Pain Genitourinary: Unremarkable Musculoskeletal: Unremarkable Integumentary: Unremarkable Neurological: Unremarkable Lymphatics: Unremarkable Physical Examination - Vital Signs Temperature: 98.2 F Blood Pressure: 134/75 Pulse: 76 Respirations: 16 Pulse Ox (%): 97 - Physical Exam General: Alert, In no apparent distress, Oriented x3 HEENT: Atraumatic, Normocephalic, PERRLA Neck: Supple, 2+ carotid pulse no bruit Respiratory: Clear to auscultation bilaterally, Normal air movement Cardiovascular: No edema, Normal pulses, Regular rate/rhythm, Normal S1 S2 Capillary refill: <2 Seconds Gastrointestinal: Normal bowel sounds, Soft and benign, Non-distended, Tenderness Musculoskeletal: No clubbing, No swelling Integumentary: No rashes, No breakdown Neurological: Normal speech, Normal strength at 5/5 x4 extr, Normal tone, S ensation intact Lymphatics: No axilla or inguinal lymphadenopathy - Studies Laboratory Data (last 24 hrs) 03/10/23 03/10/23 17:30 17:30 WBC 13.30 H Hgb 13.1 Hct 38.5 Plt Count 299 Sodium 137 Potassium 3.4 L BUN 6 L Creatinine 0.76 Glucose 129 H Total Bilirubin 0.9 AST 43 H ALT 87 H Alkaline Phosphatase 93 Lipase 15 Assessment And Plan - Plan Cholelithiasis: Gen surgeon took pt to the OR for cholecystectomy. Will continue zosyn, IVF and prn pain med. Morbid obesity: Pt was advised tolose weight. DVT ppx: SCD Dispo: Pending hospital course.
--- NOTE | 2023-03-11 10:31 | P.OP ---
Date of Service: 03/11/23 Preop diagnosis: Acute cholecystitis and cholelithiasis Postop diagnosis: Same Procedure performed: Laparoscopic cholecystectomy Surgeon: Andrews Mcdonald MD [employer]: None Estimated blood loss: Minimal Specimen: Gallbladder Findings: As above Anesthesia: General Complications: None Drains: SUNDAY #10 flat Fluids and blood products: Nonapplicable Disposition: Recovery room Operative note: Patient brought to the OR and placed in supine position. General anesthesia began. Patient prepped and draped in the usual sterile fashion. Marcaine 0.5% infiltrated locally. 15 blade used to make a 2 cm supraumbilical midline incision. Subcutaneous tissue divided and bleeding controlled cautery. Fascia identified and divided. #1 Vicryl stay suture placed. Peritoneal cavity entered with sharp and blunt dissection. 12 mm trocar placed into the peritoneal cavity under direct vision. Pneumoperitoneum established. Laparoscopy revealed a very large distended gallbladder with the fundus retroflexed towards the omentum with necrotic fibrin present in the dome of the fundus. 5 mm trocars placed under direct vision 1 trocar placed in the epigastric region just to the right of midline. 3 trocars placed in the right subcostal region under direct vision. Extra trocar was placed because the omentum needed to be retracted for better visualization. The distended gallbladder was aspirated of some bile. Fundus was retracted superiorly and infundibulum had a large stone impacted in the it was retracted inferolaterally cystic duct and cystic artery clearly identified with blunt dissection clips placed and both structures divided cautery used to remove the gallbladder from the liver bed. Bleeding on the liver bed controlled with cautery. Gallbladder was very large and did not completely fit into the Endo Catch bag. The fascial incision had to be extended and then the gallbladder and the bag was removed through the umbilicus. Pneumoperitoneum was reestablished. Right upper quadrant was irrigated. Effluent was clear there was no evidence of bleeding or bile leakage appreciated. Because of the extensive dissection that was performed in this case, a [place] drain #10 flat was placed in the gallbladder fossa and secured with 3-0 nylon. Then all trocars were removed under direct vision. #1 Vicryl was used to close the fascial defect at the umbilicus. Subcutaneous wound irrigated and bleeding controlled cautery. 3-0 chromic used to approximate subcutaneous tissue. Yari used to close skin. Sterile dressing applied and patient awakened. Patient taken to recovery room in good general condition. CC:
[2023-03-11] MEDS ORDERED: HYDROMORPHONE HCL 1 MG/ML INJ ONE (11:05)
[2023-03-11] MEDS ORDERED: NA CHLORIDE 0.9% 1,000 ML ONE (11:07)
[2023-03-11] MEDS ORDERED: HYDROMORPHONE HCL 1 MG/ML INJ IV PRN (11:17)
[2023-03-11] MEDS: HYDROCODONE/APAP 7.5/325 MG TAB PO PRN (22:07)
[2023-03-12] MEDS: NA CHLORIDE 0.9% 1,000 ML IV SCH ×2 (02:00→05:37)
[2023-03-12 03:37] LABS: Absolute Lymphocytes (CBC) 1.1 K/uL (0.7-4.9); Hematocrit 32.1 % (36.0-45.0); Lymphocytes % 9.2 % (15.3-44.8); MCV 85.7 fL (80-100); MPV 8.4 fL (7.6-11.3); Platelets 260 thou/uL (152-406); RBC Red Blood Cell Count 3.74 M/uL (3.86-4.86)
[2023-03-12 03:39] LABS: Potassium 3.7 mEq/L (3.5-5.1)
[2023-03-12] MEDS: POTASS/SODIUM PHOSPHATE 1 PKT POWD.PACK PO SCH ×3 (05:38→09:28)
[2023-03-12] MEDS: HYDROCODONE/APAP 7.5/325 MG TAB PO PRN (05:50)
[2023-03-12] MEDS: PIPER TAZO 3.375 GM in NA CHLORIDE 0.9% 100 ML IV SCH (08:26)
[2023-03-12] MEDS ORDERED: POTASSIUM CL SA 10 MEQ TAB PO ONE (09:00)
--- NOTE | 2023-03-12 10:15 | P.PN ---
Subjective Date of Service: 03/12/23 Chief Complaint: Abdominal pain Pt is resting comfortably in bed. POD #1. Gen surgery took her to the OR on 03/11/23 for cholecystectomy. No other complaints. Review of Systems Unremarkable General: Unremarkable Eyes: Unremarkable ENT: Unremarkable Respiratory: Unremarkable Cardiovascular: Unremarkable Gastrointestinal: Unremarkable Genitourinary: Unremarkable Musculoskeletal: Unremarkable Integumentary: Unremarkable Neurological: Unremarkable Lymphatics: Unremarkable Physical Examination - Vital Signs Temperature: 98.8 F Blood Pressure: 114/65 Pulse: 83 Respirations: 15 Pulse Ox (%): 95 - Physical Exam General: Alert, In no apparent distress, Oriented x3, Obese HEENT: Atraumatic, Normocephalic Neck: Supple, 2+ carotid pulse no bruit Respiratory: Clear to auscultation bilaterally, Normal air movement Cardiovascular: No edema, Normal pulses Capillary refill: <2 Seconds Gastrointestinal: Normal bowel sounds, Soft and benign, Non-distended, Tenderness (pain over surgical site) Musculoskeletal: No clubbing, No swelling Integumentary: No rashes, No breakdown Neurological: Normal gait, Normal speech, Normal strength at 5/5 x4 extr Lymphatics: No axilla or inguinal lymphadenopathy - Studies Laboratory Data (last 24 hrs) 03/12/23 03/12/23 03:04 03:04 WBC 12.40 H Hgb 10.9 L Hct 32.1 L Plt Count 260 Sodium 136 Potassium 3.7 BUN 5 L Creatinine 0.59 Glucose 126 H Phosphorus 2.0 L Magnesium 2.0 Assessment And Plan - Plan Cholelithiasis: Gen surgeon took pt to the OR on 03/11/23 for cholecystectomy. Will continue zosyn, IVF and prn pain med. Morbid obesity: Pt was advised tolose weight. DVT ppx: SCD Dispo: Pending hospital course. Will dc once cleared by Gen surgeon
[2023-03-12 10:28] VITALS: BP 114/65; TEMP 98.8
--- NOTE | 2023-03-12 11:05 | P.DS ---
Admission Date: 03/12/23 Discharge Date: 03/12/23 Disposition: ROUTINE DISCHARGE Discharge Condition: GOOD Reason for Admission: Abdominal pain Brief History of Present Illness: 28-year-old woman with a history of anxiety disorder referred to the emergency department by Dr. Mcdonald for further evaluation for gallstones and admission for possible surgery. Patient reported intermittent right upper quadrant pain for the past 2 months became worse about 2 days ago. Abdominal pain associated with nausea and vomiting. Blood work showed mildly elevated LFT, mild leukocytosis. Ultrasound demonstrated gallbladder sludge and gallbladder stones. It is hospitalized for further management. Hospital Course: Pt presented with abdominal pain due to cholelithiasis, per CT abd. GEn surgeon took pt to the OR on 03/11/23 for lap cholecystectomy. We also continued zosyn. Pt did well post-op. She passed gas and tolerated oral intake. Pt was discharged with Augmentin 875/125mg po BID for 1 week and prn percocet for pain control. Pt was advised to lose weight. She was in NAD prior to discharge. Vital Signs/Physical Exam: Temp Pulse Resp BP Pulse Ox 98.8 F 83 15 114/65 95 03/12/23 10:15 03/12/23 10:15 03/12/23 10:15 03/12/23 10:15 03/12/23 10:15 Laboratory Data at Discharge: WBC 12.40 thou/uL (4.3-10.9) H 03/12/23 03:04 Hgb 10.9 g/dL (12.0-15.0) L 03/12/23 03:04 Hct 32.1 % (36.0-45.0) L 03/12/23 03:04 Plt Count 260 thou/uL (152-406) 03/12/23 03:04 Sodium 136 mEq/L (136-145) 03/12/23 03:04 Potassium 3.7 mEq/L (3.5-5.1) 03/12/23 03:04 BUN 5 mg/dL (7-18) L 03/12/23 03:04 Creatinine 0.59 mg/dL (0.55-1.02) 03/12/23 03:04 Glucose 126 mg/dL (74-106) H 03/12/23 03:04 Phosphorus 2.0 mg/dL (2.5-4.9) L 03/12/23 03:04 Magnesium 2.0 mg/dL (1.6-2.4) 03/12/23 03:04 Total Bilirubin 1.1 mg/dL (0.2-1.0) H 03/11/23 02:05 AST 26 U/L (15-37) 03/11/23 02:05 ALT 64 U/L (13-56) H 03/11/23 02:05 Alkaline Phosphatase 81 U/L (45-117) 03/11/23 02:05 Lipase 15 U/L (13-75) 03/10/23 17:30 Home Medications: Amox/Clavulanate [Augmentin 875-125 Tab] 875 mg PO BID 7 Days #14 tab 03/12/23 New Medications: Amox/Clavulanate [Augmentin 875-125 Tab] 875 mg PO BID 7 Days #14 tab Physician Discharge Instructions: Continue ad elisa activity. Take Augmentin 875/125mg po BID for 7 days. Try to lose some weight. Follow up with PCP and Dr. Mcdonald within 2 weeks. Diet: Regular Activity: Ad elisa Followup: Miller Larose DO [Primary Care Provider] - Andrews Mcdonald MD [ACTIVE - CAN ADMIT] - 1 Week
[2023-03-12 11:49] VITALS: O2SAT 95
--- NOTE | 2023-03-12 11:49 | PN ---
Date of Progress Note: 03/12/2023 Subjective: The patient is awake, alert. No complaints. Feels much better. Objective: Vitals are stable. She is afebrile. Her abdomen is benign. Laboratory Data: Her laboratory data shows slight leukocytosis. H and H are okay. SUNDAY output is ser osanguineous fluid 30 mL last shift. She is tolerating diet, ambulating. Pain controlled on p.o. pain medication. She is afebrile. Ther efore, the patient will be cleared by Surgery for discharge. Assessment: Status post laparoscopic cholecystectomy. Recommendations: The patient cleared for discharge. Discharge instructions given. Discharge discus sed with Dr. Gallardo. /MODL Voice ID: [id number] Report ID: [id number]
== END 2023-03-12 11:53 | disposition home or self-care (01) | DRG 418 ==
LOC: ER 16:40 → ERHOLD 19:19 → 2ND 19:51 → OBSVTOIN 03-12 09:08
PROVIDERS: ADMIT Internal Medicine; ATTEND Hospitalist
PROC: 0FT44ZZ Resection of Gallbladder, Percutaneous Endoscopic Approach (ICD-10-PCS; principal; 2023-03-11 08:00)
DX: K80.00 Calculus of gallbladder with acute cholecystitis without obstruction (principal); Z68.41 Body mass index [BMI] 40.0-44.9, adult; E66.01 Morbid (severe) obesity due to excess calories; D72.829 Elevated white blood cell count, unspecified; R79.89 Other specified abnormal findings of blood chemistry; Z28.310 Unvaccinated for COVID-19; Z79.899 Other long term (current) drug therapy
CPT/HCPCS: 36415; 80048; 80053; 81025; 82947; 83690; 83735; 84100; 85025; 88304; 94010; 96374; 96375; 99285; G0378; J1100; J1170; J2250; J2270; J2405; J2543; J2704; J2710; J3010; J3480; J7030; J7120

== ENCOUNTER 2023-06-14 18:04 | Emergency (ER) | payer BC ==
--- OUTSIDE RECORDS SUMMARY | 2023-06-14 18:07 | XMS REPORT | Continuity of Care Document ---
Author Name Unknown Address [address] [facility] [address] [place] [address] [facility] thconnect Address [address] [facility] [place] [address] Care Team Providers Care Operations Management Trainee Name Role Phone KAREN COPELAND Primary Care Physician Unavailab PERLA Berg Attending Clinician Unavailab RYAN Hernandez Attending Clinician RYAN Vasquez Attending Clinician UnavaVIRA Ferrell Attending Clinician Unavailmoises VERMA MD Attending Clinician Unavailab KAREN Santiago Attending Clinician Unavailable LAB90 Attending Clinician Unavailable JESSENIA GELLER Attending Clinician REGLA Gomez Attending Clinician Unavailable RICKIE ANDINO Attending Clinician Unavailsailaja Andino MD, Rickie Attending Clinician [phone] Yaneli Prieto NP Attending Clinician [phone] Pob, Adc Lab Main Attending Clinician Unavailsailaja Castillo MD, Gracie Attending Clinician [phone] GRACIE CASTILLO Attending Clinician UnavailYANELI Phillips Attending Clinician Unavaila ble Lab, Ang - Db Attending Clinician Unavailable Doctor Unassigned, [place] Attending Clinician U KATHYA Castro Attending Clinician UnaFREDI Aleman Attending Clinician Unavailable LELAND GRAFF Attending Clinician Unavailable SAAD BENNETT Attending Clinician Unavailable BERNARD VIERA Attending Clinician Unavailable Maximiliano ASENCIO, Bernard Attending Clinician [phone] Marv SHULTZ, Shelby Ochoa Attending Clinician Unavailab OBDULIO Gardner Attending Clinician Unavailable Only, Ang Db Test Attending Clinician Unavailabl e Unknown, Attending Attending Clinician Unavailab le LISTER_MELISSA Attending Clinician Unavailable Tigre SHULTZ, Mally Attending Clinician Unavailabl e Human ADMITTING COUNSELORYancy Attending Clinician Pcp, Patient Does Not Have A Attending Clinician Lab, Adc Fam Pob I Attending Clinician Unavailab ama Chen ADMITTING COUNSELORShira Love Attending Clinician [phone] SHIRA CHEN Attending Clinician UnavailYANELI Phillips Admitting Clinician Unavaila ble LISTER_MELISSA Admitting Clinician Unavailable Payers Payer Name Policy Type Policy Number Effective Date Expirati on Date Source BCBS 2 [id number] 2021 00:00:00 [place] [id number] 2018 00:00:[place] [id number] 2018 00:00:00 Problems Condition Name Condition Details Condition Category Status Onset Date Resolution Date Last Treatment Date Treating Clinician Comments Source Prediabete s Prediabete s Disease Active 2021-03 0-04 00:00: 00 [facility] PCOS (polycysti c ovarian syndrome) PCOS (polycysti c ovarian syndrome) Disease Active 12-03 00:00: 00 [facility] Tachycardi a Tachycardi a Disease Active 12-03 00:00: 00 [facility] Depression Depression Disease Active 12-03 00:00: 00 [facility] Vitamin D deficiency Vitamin D deficiency Disease Active 12-03 00:00: 00 [facility] BMI 45.0-49.9, adult BMI 45.0-49.9, adult Disease Active 12-03 00:00: 00 Arline Falcon - Externa l delivery delivered delivery delivered Disease Active 08-16 00:00: 00 [facility] delivery delivered delivery delivered Disease Active 08-16 00:00: 00 [facility] Maternal varicella, non-immune Maternal varicella, non-immune Disease Active 04-22 00:00: 00 [facility] Supervisio n of other high-risk Supervisio n of other high-risk Disease Active 04-21 00:00: 00 Overview: Formattin g of this note might be different from the original. ICD10 Diagnosis Term In Service Educator Utility [facility] Obesity complicati ng , childbirth , or puerperium , antepartum Obesity complicati ng , childbirth , or puerperium , antepartum Disease Active 04-21 00:00: 00 Overview: Formattin g of this note might be different from the original. ICD10 Diagnosis Term In Service Educator Utility [facility] with uncertain dates, antepartum with uncertain dates, antepartum Disease Active 04-21 00:00: 00 [facility] Allergies, Adverse Reactions, Alerts Allergy Name Allergy Type Status Severity Reaction(s) Onset Date Inactive Date Treating Clinician Comments Source NO KNOWN ALLERGIE S Drug Class Active [facility] Social History Social Habit Start Date Stop Date Quantity Comments Source Gender identity [facility] SDOH Alcohol Frequency Arline Perrin bold - External History SDOH Alcohol Std Drinks Arline Ham ybold - External History SDOH Alcohol Binge Arline Falcon - External Alcohol intake 2023-05-08 00:00:00 2023-05-08 00:00:00 Current drinker of alcohol (finding) Arline Falcon - External Tobacco use and exposure 2022-09-12 00:00:00 2022-09-12 00:00:00 Smokeless tobacco non-user [facility] Alcohol Comment 2021-12-03 00:00:00 2021-12-03 00:00:00 social Arline Grahamregina - External Exposure to SARS-CoV-2 (event) 2021-04-12 00:00:00 2021-05-12 12:54:00 Not sure [facility] History of Social function 2021-04-14 00:00:00 2021-04-14 00:00:00 [facility] Sex Assigned At 1995 00:00:00 1995 00:00:00 F Arline Hammaynorregina - External Smoking Status Start Date Stop Date Source Never smoked tobacco Arline florencio - External Medications Ordered Medication Name Filled Medication Name Start Date Stop Date Current Medication? Ordering Clinician Indication Dosage Frequency Signature (SIG) Comments Components Source HYDROcodone -Acetaminop hen 7.5-325 MG oral Tablet 03-12 00:00: 00 05-07 00:00 :00 No TAKE ONE (1) TABLET(S) BY MOUTH EVERY SIX HOURS NEEDED FOR MODERATE PAIN. Arline ponce Famotidine (PEPCID) 20 MG oral tablet 03-09 00:00: 00 05-07 00:00 :00 No 20mg Take 1 tablet (20 mg total) by mouth 2 times daily. Arline ponce methylPREDN ISolone 4 MG oral Tablet Therapy Pack 2022-03 00:00: 00 05-07 00:00 :00 No [id number] Complete one dose pack as directed on package instructio ns. Arline ponce Pseudoeph-B romphen-DM 30-2-10 MG/5ML oral Syrup 2022-03 00:00: 00 05-07 00:00 :00 No [id number] 10mL Q.25D Take 10 mL by mouth 4 times daily as needed (for cough or congestion ). Arline ponce Neomycin-Po lymyxin-Dex ameth 3.5-83550-2 .1 ophthalmic Suspension 2022-03 00:00: 00 05-07 00:00 :00 No INSTILL ONE (1) DROP(S) IN EACH EYE EVERY FOUR HOURS. Arline ponce Semaglutide -Weight Management (Wegovy) 1 MG/0.5ML subcutaneou s Solution Auto-inject or 8-22 00:00: 00 01-30 00:00 :00 No [id number] 1mg Inject 1 mg into the skin once a week. Arline ponce Prenat Vit Comb.10-Iro n-FA-DHA (VITAFOL-OB +DHA) 65-1-250 mg combo pack 7-20 00:00: 00 Yes [id number] 1{packe t} Take 1 Packet by mouth in the morning. [facility] MV-Min-Fe Fum-FA-DHA (Vitafol-OB +DHA) 65-1 & 250 MG oral Misc 09-22 00:00: 00 05-07 00:00 :00 No 1{packe t} Take 1 packet by mouth daily. Arline ponce Bupropion HCL XL 150 MG OR TB24 6-07 00:00: 00 Yes [id number] 150mg Take 1 tablet (150 mg total) by mouth daily Arline ponce Semaglutide (1 mg/dose) 2 mg/1.5 mL SQ Solution Pen-Injecto r 6- 00:00: 00 01-30 00:00 :00 No [id number] 1mg Inject 1 mg into the skin once a week Arline ponce Benzonatate 100 MG oral Capsule 06-29 00:00: 00 05-07 00:00 :00 No [id number] 100mg Q.[id number] 3D Take 1 capsule (100 mg total) by mouth 3 times daily as needed for cough Arline ponce Albuterol HFA 108 (90 Base) MCG/ACT IN AERS 06-29 00:00: 00 01-30 00:00 :00 No [id number] 2{puff} Q.25D Inhale 2 puffs into the lungs every 6 hours as needed for wheezing Arline ponce Bupropion HCL XL 150 MG OR TB24 06-15 00:00: 00 Yes [id number] 150mg Take 1 tablet (150 mg total) by mouth daily Arline ponce Semaglutide (1 mg/dose) 2 mg/1.5 mL SQ Solution Pen-Injecto r 06-15 00:00: 00 Yes [id number] 1mg Inject 1 mg into the skin once a week Arline ponce Doxycycline Hyclate 100 MG oral Tablet 06-15 00:00: 00 01-30 00:00 :00 No [id number] 100mg Take 1 tablet (100 mg total) by mouth 2 times daily Arline ponce Phentermine HCl 37.5 MG oral Tablet 06-15 00:00: 00 01-30 00:00 :00 No [id number] 37.5mg Take 1 tablet (37.5 mg total) by mouth every morning (before breakfast) Arline ponce OZEMPIC (0.25 or 0.5 mg/dose) 2 mg/3 mL SQ Solution Pen-Injecto r 06-07 00:00: 00 06-15 00:00 :00 No Arline ponce OZEMPIC (0.25 or 0.5 mg/dose) 2 mg/1.5 mL SQ Solution Pen-Injecto r 3-22 00:00: 00 06-15 00:00 :00 No [id number] .5mg Inject 0.5 mg into the skin once a week Arline ponce Hydroquinon e 4 % apply externally Cream 2-24 00:00: 00 01-30 00:00 :00 No [id number] Apply 1 applicatio n. topically 2 times daily Arline ponce OZEMPIC (0.25 or 0.5 mg/dose) 2 mg/1.5 mL SQ Solution Pen-Injecto r 2-08 00:00: 00 Yes [id number] .5mg Inject 0.5 mg into the skin once a week Arline ponce Hydroquinon e 4 % apply externally Cream 04-13 00:00: 00 Yes [id number] Apply 1 applicatio n topically 2 times daily Arline ponce ACETAMINOPH EN-CAFF-BUT ALBITAL 50-325-40 MG oral Tablet 04-13 00:00: 01-30 00:00 :00 No [id number] 1{tbl} Q4H Take 1 tablet by mouth every 4 hours as needed for pain Arline ponce Clindamycin Phosphate (Clindagel) 1 % apply externally Gel 04-13 00:00: 00 01-30 00:00 :00 No [id number] Apply to area 4 times daily for 10 days Arline ponce Doxycycline Hyclate 100 MG oral Tablet 04-13 00:00: 00 06-15 00:00 :00 No [id number] 100mg Take 1 tablet (100 mg total) by mouth 2 times daily Arline ponce OZEMPIC (0.25 or 0.5 mg/dose) 2 mg/1.5 mL SQ Solution Pen-Injecto r 04-05 00:00: 00 04-13 00:00 :00 No [id number] .25mg Inject 0.25 mg into the skin once a week Arline ponce Bupropion HCL XL 150 MG OR TB24 2021-03 00:00: 00 06-15 00:00 :00 No [id number] 150mg Take 1 tablet (150 mg total) by mouth daily Arline ponce Tirzepatide (Mounjaro) 2.5 MG/0.5ML subcutaneou s Solution Pen-injecto r 2021-03 00:00: 00 Yes [id number] 2.5mg Inject 0.5 mL (2.5 mg total) into the skin once a week Arline ponce buPROPion HCl 75 MG oral Tablet 2021-03 00:00: 00 Yes [id number] 75mg Take 1 tablet (75 mg total) by mouth daily Arline ponce Metformin HCl 500 MG oral Tablet 2021-03 0 00:00: 00 Yes [id number] 500mg Take 1 tablet (500 mg total) by mouth daily (with breakfast) Arline ponce Vitamin D, Ergocalcife rol, 1.25 MG (97508 UT) oral Capsule 2021-03 0 00:00: 00 01-30 00:00 :00 No [id number] 39204V Take 1 capsule (50,000 units total) by mouth once a week Arline ponce Pantoprazol e Sodium 20 MG oral Tablet Delayed Response 12-03 00:00: 00 01-30 00:00 :00 No [id number] 20mg Take 1 tablet (20 mg total) by mouth daily Arline ponce buPROPion HCl 75 MG oral Tablet 12-03 00:00: 00 02-02 00:00 :00 No [id number] 75mg Take 1 tablet (75 mg total) by mouth daily Arline ponce No known medications 3 13:38: 58 No [facility] Immunizations Ordered Immunization Name Filled Immunization Name Date Status Comments Source HPV 9 (Human Papillomavirus) 2016-08-25 00:00:00 Preethi Menjivar External Meningococcal Vaccine- Conjugate(Menactra) 2016-08-25 00:00:00 Preethi Rhodes HPV 9 (Human Papillomavirus) 2016-08-25 00:00:00 Completed Arline Falcon - External Meningococcal Vaccine- Conjugate(Menactra) 2016-08-25 00:00:00 Preethi Rhodes HPV 9 (Human Papillomavirus) 2016-08-25 00:00:00 Completed Arline Menjivar External Meningococcal Vaccine- Conjugate(Menactra) 2016-08-25 00:00:00 Preethi Rhodes HPV 9 (Human Papillomavirus) 2016-08-25 00:00:00 Completed Arline Falcon - External Meningococcal Vaccine- Conjugate(Menactra) 2016-08-25 00:00:00 Completed Arline Seybold - External IPV- Inactivated Polio Vaccine 2013-12-10 00:00:00 Completed Arline Seybold - External HEPATITIS A- PEDI/ADOL 2013-12-10 00:00:00 Completed Arline Seybold - External HPV 4 (Human Papillomavirus) 2013-12-10 00:00:00 Completed Arline Seybold - External IPV- Inactivated Polio Vaccine 2013-12-10 00:00:00 Completed Arline Seybold - External HEPATITIS A- PEDI/ADOL 2013-12-10 00:00:00 Completed Arline Seybold - External HPV 4 (Human Papillomavirus) 2013-12-10 00:00:00 Completed Arline Seybold - External IPV- Inactivated Polio Vaccine 2013-12-10 00:00:00 Completed Arline Seybold - External HEPATITIS A- PEDI/ADOL 2013-12-10 00:00:00 Completed Arline Seybold - External HPV 4 (Human Papillomavirus) 2013-12-10 00:00:00 Completed Arline Seybold - External IPV- Inactivated Polio Vaccine 2013-12-10 00:00:00 Completed Arline Seybold - External HEPATITIS A- PEDI/ADOL 2013-12-10 00:00:00 Completed Arline Seybold - External HPV 4 (Human Papillomavirus) 2013-12-10 00:00:00 Completed Arline Falcon - External Influenza Virus Vaccine, Live, Attenuated, Intranasal Use 2009-12-07 00:00:00 Completed Arline Stevensonold - External Influenza Virus Vaccine, Live, Attenuated, Intranasal Use 2009-12-07 00:00:00 Completed Arline Stevensonold - External Influenza Virus Vaccine, Live, Attenuated, Intranasal Use 2009-12-07 00:00:00 Completed Arline Seybold - External Influenza Virus Vaccine, Live, Attenuated, Intranasal Use 2009-12-07 00:00:00 Completed Arline Falcon - External Tdap- (Boostrix, Adacel) 2008-10-08 00:00:00 Completed Arline Hamybold - External HEPATITIS A- PEDI/ADOL 2008-10-08 00:00:00 [...] Meningococcal Vaccine- Conjugate(Menactra) 2008-10-08 00:00:00 Completed Arline Hamybold - External IPV- Inactivated Polio Vaccine 2000-02-09 [...] Hib, unspecified formulation 1996 00:00:00 Completed Arline Hamybold - External IPV- Inactivated Polio Vaccine 1996 00:00:00 Completed Arline Seybold - External DPT/HIB 1996 00:00:00 Completed Arline Hamybold - External Hepatitis B, Adolescent Or Pediatric 1996 00:00:00 Completed Arline Seybold - External IPV- Inactivated Polio Vaccine 1996 00:00:00 Completed Arline Seybold - External DPT/HIB 1996 00:00:00 Completed Arline Falcon - External Hepatitis B, Adolescent Or Pediatric 1996 00:00:00 Completed Arline Seybold - External IPV- Inactivated Polio Vaccine 1996 00:00:00 Completed Arline Seybold - External DPT/HIB 1996 00:00:00 Completed Arline Stevensonold - External Hepatitis B, Adolescent Or Pediatric 1996 00:00:00 Completed Arline Seybold - External IPV- Inactivated Polio Vaccine 1996 00:00:00 Completed Arline Seybold - External DPT/HIB 1996 00:00:00 Completed Arline Hamybold - External Hepatitis B, Adolescent Or Pediatric 1996 00:00:00 Completed Arline Hamybold - External Hepatitis B, Unspecified 1996 00:00:00 Completed Arline Hamybold - External Hepatitis B, Unspecified 1996 00:00:00 Completed Arline Seybold - External Hepatitis B, Unspecified 1996 00:00:00 Completed Arline Seybold - External Hepatitis B, Unspecified 1996 00:00:00 Completed Arline Seybold - External DTaP Unspecified Unknown Completed Mich sey Seybold - External DTaP Unspecified Unknown Completed Mich sey Seybold - External DTaP Unspecified Unknown Completed Mich sey Seybold - External DTaP Unspecified Unknown Completed Mich perrin Seybold - External DPT/HIB Unknown Completed Arline Hamy bold - External Influenza Virus Vaccine, Live, Attenuated, Intranasal Use Unknown Completed Arline Hamybol d - External HEPATITIS A- PEDI/ADOL Unknown Completed Arline Seybold - External HEPATITIS A- PEDI/ADOL Unknown Completed Arline Seybold - External Hepatitis B, Unspecified Unknown Completed Arline Seybold - External Hepatitis B, Adolescent Or Pediatric Unknown Completed Arline Seybold - External Hepatitis B, Adolescent Or Pediatric Unknown Completed Arline Seybold - External Hib, unspecified formulation Unknown Completed Arline Seybold - External Hib, unspecified formulation Unknown Completed Arline Seybold - External Hib, unspecified formulation Unknown Completed Arline Seybold - External HPV 4 (Human Papillomavirus) Unknown Completed Arline Hamybo ld - External HPV 4 (Human Papillomavirus) Unknown Completed Arline maynoro ld - External HPV 9 (Human Papillomavirus) Unknown Completed Arline ybo ld - External Meningococcal Vaccine- Conjugate(Menactra) Unknown Completed Arline S eybold - External Meningococcal Vaccine- Conjugate(Menactra) Unknown Completed Arline S eybold - External MMR- Measles, Mumps, Rubella Unknown Completed Arline Seybold - External MMR- Measles, Mumps, Rubella Unknown Completed Arline Seybold - External IPV- Inactivated Polio Vaccine Unknown Completed Arline Seybold - External IPV- Inactivated Polio Vaccine Unknown Completed Arline Seybold - External IPV- Inactivated Polio Vaccine Unknown Completed Arline Seybold - External IPV- Inactivated Polio Vaccine Unknown Completed Arline Seybold - External IPV- Inactivated Polio Vaccine Unknown Completed Arline Seybold - External Tdap- (Boostrix, Adacel) Unknown Completed Arline Seybold - External Varicella Vaccine Unknown Completed Erwin lsey Seybold - External Varicella Vaccine Unknown Completed Erwin lsey Seybold - External DTaP Unspecified Unknown Completed Mich sey Seybold - External DTaP Unspecified Unknown Completed [place] sey Seybold - External DTaP Unspecified Unknown Completed [place] sey Seybold - External DTaP Unspecified Unknown Completed [place] sey Seybold - External DPT/HIB Unknown Completed Arline Sey bold - External Influenza Virus Vaccine, Live, Attenuated, Intranasal Use Unknown Completed Arline Seybol d - External HEPATITIS A- PEDI/ADOL Unknown Completed Arline Seybold - External HEPATITIS A- PEDI/ADOL Unknown Completed Arline Seybold - External Hepatitis B, Unspecified Unknown Completed Arline Seybold - External Hepatitis B, Adolescent Or Pediatric Unknown Completed Arline Seybold - External Hepatitis B, Adolescent Or Pediatric Unknown Completed Arline Seybold - External Hib, unspecified formulation Unknown Completed Arline Seybold - External Hib, unspecified formulation Unknown Completed Arline Seybold - External Hib, unspecified formulation Unknown Completed Arline Seybold - External HPV 4 (Human Papillomavirus) Unknown Completed Arline Seybo ld - External HPV 4 (Human Papillomavirus) Unknown Completed Arline Seybo ld - External HPV 9 (Human Papillomavirus) Unknown Completed Arline Seybo ld - External Meningococcal Vaccine- Conjugate(Menactra) Unknown Completed Arline S eybold - External Meningococcal Vaccine- Conjugate(Menactra) Unknown Completed Arline S eybold - External MMR- Measles, Mumps, Rubella Unknown Completed Arline Seybold - External MMR- Measles, Mumps, Rubella Unknown Completed Arline Seybold - External IPV- Inactivated Polio Vaccine Unknown Completed Arline Seybold - External IPV- Inactivated Polio Vaccine Unknown Completed Arline Seybold - External IPV- Inactivated Polio Vaccine Unknown Completed Arline Seybold - External IPV- Inactivated Polio Vaccine Unknown Completed Arline Seybold - External IPV- Inactivated Polio Vaccine Unknown Completed Arline Seybold - External Tdap- (Boostrix, Adacel) Unknown Completed Arline Seybold - External Varicella Vaccine Unknown Completed Erwin lsey Seybold - External Varicella Vaccine Unknown Completed lsey Seybold - External Vital Signs Vital Name Observation Time Observation Value Comments S minnace Systolic blood pressure 2023-05-08 22:38:00 118 mm[Hg] Arline Stevensono ld - External Diastolic blood pressure 2023-05-08 22:38:00 74 mm[Hg] Arline Stevensono ld - External Heart rate 2023-05-08 22:38:00 78 /min Alexsander y Seybold - External Body temperature 2023-05-08 22:38:00 36.78 Megan Arline Hamybold - External Respiratory rate 2023-05-08 22:38:00 18 /min Arline Stevensonold - External Body height 2023-05-08 22:38:00 160 cm Hildabrandon neal Seybold - External Body weight 2023-05-08 22:38:00 120.657 kg Hilda ey Seybold - External BMI 2023-05-08 22:38:00 47.12 kg/m2 Hildabrandon neal Seybold - External Oxygen saturation in Arterial blood by Pulse oximetry 2023-05-08 22:38:00 99 /min Arline Davis ld - External Systolic blood pressure 2022-09-22 21:26:00 120 mm[Hg] [facility] Diastolic blood pressure 2022-09-22 21:26:00 72 mm[Hg] [facility] Heart rate 2022-09-22 21:26:00 78 /min [facility] Respiratory rate 2022-09-22 21:26:00 18 /min [facility] Body height 2022-09-22 21:26:00 160 cm [facility] Body weight 2022-09-22 21:26:00 122.471 kg [facility] BMI 2022-09-22 21:26:00 47.83 kg/m2 [facility] Systolic blood pressure 2022-09-12 14:21:00 121 mm[Hg] [facility] Diastolic blood pressure 2022-09-12 14:21:00 82 mm[Hg] [facility] Heart rate 2022-09-12 14:21:00 93 /[facility] Body temperature 2022-09-12 14:21:00 36.94 Megan [facility] Respiratory rate 2022-09-12 14:21:00 18 /min [facility] Body height 2022-09-12 14:21:00 160 cm [facility] Body weight 2022-09-12 14:21:00 119.75 kg [facility] BMI 2022-09-12 14:21:00 46.77 kg/m2 [facility] Systolic blood pressure 2022-06-15 16:01:00 110 mm[Hg] Arline Seybo ld - External Diastolic blood pressure 2022-06-15 16:01:00 66 mm[Hg] Arline Seybo ld - External Heart rate 2022-06-15 16:01:00 114 /min Kelse y Seybold - External Body temperature 2022-06-15 16:01:00 36.56 Megan Arline Seybold - External Respiratory rate 2022-06-15 16:01:00 15 /min Arline Seybold - External Body height 2022-06-15 16:01:00 [...] blood pressure 2021-12-03 15:45:00 120 mm[Hg] Arline Seybo ld - External Diastolic blood pressure 2021-12-03 15:45:00 72 mm[Hg] Arline Seybo ld - External Heart rate 2021-12-03 15:45:00 113 /min Michse y Seybold - External Body temperature 2021-12-03 15:45:00 36.56 Megan Arline Seybold - External Respiratory rate 2021-12-03 15:45:00 16 /min Arline Seybold - External Body height 2021-12-03 15:45:00 160 cm Hilda ey Seybold - External Body weight 2021-12-03 15:45:00 127.007 kg Hilda ey Seybold - External BMI 2021-12-03 15:45:00 49.60 kg/m2 Hilda ey Seybold - External Systolic blood pressure 2021-05-12 19:08:00 109 mm[Hg] [facility] Diastolic blood pressure 2021-05-12 19:08:00 74 mm[Hg] [facility] Heart rate 2021-05-12 19:08:00 83 /min [facility] Body temperature 2021-05-12 19:08:00 36.72 Megan [facility] Respiratory rate 2021-05-12 19:08:00 18 /min [facility] Body height 2021-05-12 19:08:00 160 cm [facility] Body weight 2021-05-12 19:08:00 122.471 kg [facility] BMI 2021-05-12 19:08:00 47.83 kg/m2 [facility] BP Diastolic 2020-01-10 00:00:00 69 mm[Hg] [facility] Height 2020-01-10 00:00:00 62 [in_i] [facility] BMI (Body Mass Index) 2020-01-10 00:00:00 46.8 kg/m2 [facility] BP Systolic 2020-01-10 00:00:00 117 mm[Hg] Fernandez nafisa [facility] Body Weight 2020-01-10 00:00:00 256 [lb_av] [facility] BP Diastolic 2019-07-09 00:00:00 78 mm[Hg] [facility] [place] [facility] Height 2019-07-09 00:00:00 62 [in_i] [facility] [facility] BMI (Body Mass Index) 2019-07-09 00:00:00 47.2 kg/m2 [facility] BP Systolic 2019-07-09 00:00:00 141 mm[Hg] Fern[facility] naf[facility] Body Weight 2019-07-09 00:00:00 258 [lb_av] [place] [facility] BP Diastolic 2019-03-22 00:00:00 95 mm[Hg] [facility] [place] [facility] Height 2019-03-22 00:00:00 62 [in_i] [facility] [facility] BMI (Body Mass Index) 2019-03-22 00:00:00 46.5 kg/m2 [facility] BP Systolic 2019-03-22 00:00:00 148 mm[Hg] Jim [facility] Body Weight 2019-03-22 00:00:00 254 [lb_av] Ignacio hairston [facility] Procedures Procedure Date / Time Performed Performing Clinician Source TOTAL BETA HCG ASSAY 2022-10-11 18:53:00 Lori Prieto [facility] PELVIS COMPLETE WITH TRANSVAGINAL 2022-09-28 19:08:37 Yaneli Prieto [facility] ASSIGNMENT OF BENEFITS 2022-09-12 13:50:21 Docto r Unassigned, [place] [facility], transvaginal 2019-03-22 00:00:00 Jim skelton [facility] Delivery 2014-08-14 00:00:00 [facility] yovanny [facility] Plan of Care Planned Activity Planned Date Details Comments Source Diagnostic Test Pending 2020-01-10 00:00:00 bacterial vaginosis + vaginitis panel, vaginal [code = bacterial vaginosis + vaginitis panel, vaginal] [place] [facility] Encounters Start Date/Time End Date/Time Encounter Type Admission Type Attending Clinicians Care Facility Care Department Encounter ID Source 2023-06-06 14:30:00 2023-06-06 14:30:00 Outpatient PERLA STAPLETON [id number] Arline [facility] 2023-05-23 15:30:00 2023-05-23 15:30:00 Outpatient R SANTOYO-GILBERTO S, RYAN SANTOYO-GILBERTO S, RYAN [facility] [id number] [facility] 2023-05-23 08:30:00 2023-05-23 08:30:00 Outpatient VIRA MORGAN [id number] [facility] 2023-05-22 00:00:00 2023-05-22 00:00:00 Outpatient MD ARLINE LYNNE [id number] [facility] 2023-05-15 00:00:00 2023-05-15 00:00:00 Outpatient KAREN COPELAND [id number] [facility] 2023-05-11 00:00:00 2023-05-11 00:00:00 Outpatient MD ARLINE LYNNE [id number] [facility]23-05-10 00:00:00 2023-05-10 00:00:00 Outpatient VIRA MORGAN [id number] [facility] 2023-05-09 00:00:00 2023-05-09 00:00:00 Outpatient VIRA MORGAN [id number] [facility] 2023-05-08 17:00:00 2023-05-08 17:00:00 Outpatient LAB90 ARLINE NUNO [id number] [facility] 2023-05-08 16:30:00 2023-05-08 16:30:00 Outpatient KAREN COPELAND [id number] [facility] 2023-02-07 16:15:00 2023-02-07 16:15:00 Outpatient JESSENIA GELLER [id number] [facility] 2023-01-30 14:00:00 2023-01-30 14:00:00 Outpatient REGLA SOW [id number] [facility] 2022-12-09 15:30:00 2022-12-09 15:30:00 Outpatient RICKIE SPAIN [facility] [id number] [facility] 2022-12-08 00:00:00 2022-12-08 00:00:00 Telephone Rickie Andino [facility] 1.2.840.114 350.1.13.10 4.2.7.2.686 [id number] [facility] 2022-11-09 00:00:00 2022-11-09 00:00:00 Outpatient KAREN COPELAND [id number] [facility] Falcon 2022-10-18 00:00:00 2022-10-18 00:00:00 Outpatient KAREN COPELAND [id number] [facility]line Falcon 2022-10-16 00:00:00 2022-10-16 00:00:00 Telephone Yaneli Prieto [facility] 1.840.114 350.1.13.10 4.2.7.2.686 [id number] [facility] 2022-10-11 13:45:00 2022-10-11 14:00:00 Buyer Intern Visit Pob, Adc Lab [facility] 1.2.840.114 350.1.13.10 4.2.7.2.686 [id number] [facility] 2022-10-11 13:45:00 2022-10-11 13:45:00 Outpatient GRACIE ROSS [facility] [id number] [facility] 2022-10-05 00:00:00 2022-10-05 00:00:00 Telephone Yaneli Prieto [facility] 1.2840.114 350.1.13.10 4.2.7.2.686 [id number] [facility] 2022-10-04 09:15:00 2022-10-04 09:15:00 Outpatient R [facility] [id number] [facility] 2022-10-03 16:00:00 2022-10-03 16:00:00 Outpatient R YANELI PRIETO CHERYAL [facility] [id number] [facility] 2022-10-02 00:00:00 2022-10-02 00:00:00 Telephone Yaneli Prieto [facility] 1.840.114 350.1.13.10 4.2.7.2.686 [id number] [facility] 2022-09-28 13:33:11 2022-09-28 23:59:00 Outpatient R YANELI PRIETO [facility] [id number] [facility] 2022-09-28 13:30:00 2022-09-28 23:59:00 Hospital Encounter RoyaYaneli munoz [facility] 1..840.114 350.1.13.10 4.2.7.2.686 [id number] [facility] 2022-09-22 16:15:00 2022-09-22 16:33:35 Outpatient R ROYAKRISTISARBJIT YANELI PRIETO [facility] [id number] [facility] 2022-09-22 16:15:00 2022-09-22 16:33:35 Routine Visit Yaneli Prieto [facility] 1..840.114 350.1.13.10 4.2.7.2.686 [id number] [facility] 2022-09-22 09:00:00 2022-09-22 09:00:00 Outpatient R RYAN CRAIG MARISOL [facility] [id number] [facility] 2022-09-22 07:30:00 2022-09-22 07:45:00 Buyer Intern Visit Lab, Soren - Thien Prieto [facility] OFF[facility]ILD[facility] 1..840.114 350.1.13.10 4.2.7.2.686 [id number] [facility] 2022-09-21 16:00:00 2022-09-21 16:00:00 Outpatient R YANELI PRIETO [facility] [id number] [facility] 2022-09-19 07:45:00 2022-09-19 08:40:02 Outpatient R YANELI PRIETO [facility] [id number] [facility] 2022-09-19 07:45:00 2022-09-19 08:00:00 Buyer Intern Visit Lab, Soren Prieto [facility] OFF[facility] 1.2.840.114 350.1.13.10 4.2.7.2.686 [id number] [facility] 2022-09-15 09:00:00 2022-09-15 10:28:19 Outpatient R YANELI PRIETO [facility] [id number] [facility] 2022-09-15 09:00:00 2022-09-15 09:15:00 Buyer Intern Visit Lab, Soren Prieto [facility] OFF[facility] 1..840.114 350.1.13.10 4.2.7.2.686 [id number] [facility] 2022-09-15 00:00:00 2022-09-15 00:00:00 [facility] 1..840.114 350.1.13.10 4.2.7.2.686 [id number] [facility] 2022-09-12 09:30:00 2022-09-12 09:59:39 Outpatient R YANELI PRIETO [facility] [id number] [facility] 2022-09-12 09:30:00 2022-09-12 09:59:39 [facility] 1..840.114 350.1.13.10 4.2.7.2.686 [id number] [facility] 2022-09-12 00:00:00 2022-09-12 00:00:00 Outpatient KAREN COPELAND [id number] Arline Falcon 2022-09-12 00:00:00 2022-09-12 00:00:00 Orders Only Doctor Unassigned, [place] [facility] 1.2.840.114 350.1.13.10 4.2.7.2.686 [id number] [facility] 2022-09-12 00:00:00 2022-09-12 00:00:00 Letter (Out) Yaneli Prieto [facility] 1..840.114 350.1.13.10 4.2.7.2.686 [id number] [facility] 2022-08-09 00:00:00 2022-08-09 00:00:00 Outpatient KAREN COPELAND [id number] Arline florencio 2022-07-28 08:30:00 2022-07-28 08:30:00 Outpatient KATHYA VASQUEZ [id number] [facility] 2022-06-29 09:45:00 2022-06-29 09:45:00 Outpatient FREDI BROWN [id number] Arline florencio 2022-06-15 12:00:00 2022-06-15 12:00:00 Outpatient LAB90 ARLINE NUNO [id number] Arline florencio 2022-06-15 11:00:00 2022-06-15 11:00:00 Outpatient KAREN COPELAND [id number] Arline Falcon 2022-05-25 00:00:00 2022-05-25 00:00:00 Outpatient KAREN COPELAND [id number] Arline Falcon 2022-05-11 00:00:00 2022-05-11 00:00:00 Outpatient KAREN COPELAND [id number] Arline Falcon 2022-04-29 00:00:00 2022-04-29 00:00:00 Outpatient KAREN COPELAND [id number] Arline Falcon 2022-04-13 16:30:00 2022-04-13 16:30:00 Outpatient HUNDL, KAREN NUNO [id number] Arline [facility] 2022-04-11 08:30:00 2022-04-11 08:30:00 Outpatient HUNDL, KAREN NUNO [id number] Arline [facility] 2022-04-04 00:00:00 2022-04-04 00:00:00 Outpatient HUNDL, KAREN NUNO [id number] [facility] 2022-03-04 16:30:00 2022-03-04 16:30:00 Outpatient HUNDL, KAREN NUNO [id number] [facility] 2022-02-03 00:00:00 2022-02-03 00:00:00 Outpatient HUNDL, KAREN NUNO [id number] [facility] 2022-02-02 16:00:00 2022-02-02 16:00:00 Outpatient HUNDL, KAREN NUNO [id number] [facility] 2021-12-07 00:00:00 2021-12-07 00:00:00 Outpatient PREZAS, LELAND NUNO [id number] [facility] 2021-12-07 00:00:00 2021-12-07 00:00:00 Outpatient HUNDL, KAREN NUNO [id number] [facility] 2021-12-07 00:00:00 2021-12-07 00:00:00 Outpatient HUNDL, KAREN NUNO [id number] [facility] 2021-12-06 11:55:00 2021-12-06 11:55:00 Outpatient LAB90 ARLINE NUNO [id number] Arline Seybold 2021-12-03 10:30:00 2021-12-03 10:30:00 Outpatient HUNDL, KAREN NUNO [id number] Arline Seybold 2021-12-03 08:00:00 2021-12-03 08:00:00 Outpatient HUNDL, KAREN NUNO [id number] Arline Seybold 2021-06-09 10:00:00 2021-06-09 10:00:00 [facility] [id number] [facility] 2021-06-09 10:00:00 2021-06-09 10:00:00 Outpatient SAAD CID [facility] [id number] [facility] 2021-05-13 08:45:00 2021-05-13 08:45:00 [facility] [id number] [facility] 2021-05-12 13:00:00 2021-05-12 13:20:45 [facility] [id number] [facility] 2021-05-12 13:00:00 2021-05-12 13:20:45 Office Visit J CarlosBernard giordano [facility] 1.2.840.114 350.1.13.10 4.2.7.2.686 [id number] [facility] 2021-05-12 13:00:00 2021-05-12 13:00:00 Outpatient Dai [facility] [id number] [facility] 2021-04-19 00:00:00 2021-04-19 00:00:00 Patient Secure Msg Doctor Unassigned, [place] [facility] 1..840.114 350.1.13.10 4.2.7.2.686 [id number] [facility] 2021-04-14 15:00:00 2021-04-14 15:51:10 Office Visit Bernard [facility] 1..840.114 350.1.13.10 4.2.7.2.686 [id number] [facility] 2021-04-14 15:00:00 2021-04-14 15:51:10 [facility] [id number] [facility] 2021-04-14 15:00:00 2021-04-14 15:00:00 Outpatient Dai BERNARD VIERA [facility] [id number] [facility] 2021-03-11 00:00:00 2021-03-11 00:00:00 Letter (Out) Shelby Fair [facility] 1.2.840.114 350.1.13.10 4.2.7.2.686 [id number] [facility] 2021-03-09 14:15:00 2021-03-09 14:52:05 Outpatient Dai ANGELAOBDULIO [facility] [id number] [facility] 2021-03-09 14:15:00 2021-03-09 14:30:00 Laboratory Only Only, Ang Db Test Unknown, Attending [facility] SUZIE?[facility] 1.2.840.114 350.1.13.10 4.2.7.2.686 [id number] [facility] 2021-03-09 00:00:00 2021-03-09 00:00:00 Orders Only Doctor Unassigned, [place] [facility] 1.2.840.114 350.1.13.10 4.2.7.2.686 [id number] [facility] 2020-04-19 01:04:00 2020-04-19 01:04:00 Outpatient LISTER_MELI S[facility] [id number] [facility] 2020-03-15 01:02:00 2020-03-15 01:02:00 Outpatient LISTER_MELI SSA [facility] [id number] [facility] 2020-02-08 01:03:00 2020-02-08 01:03:00 Outpatient LISTER_MELI [facility] [id number] [facility] 2020-01-10 12:53:00 2020-01-10 12:53:00 Outpatient LISTER_MELI [facility] [id number] [facility] 2020-01-10 00:00:00 2020-01-10 00:00:00 Pam Tadeo, ADMINISTRATIVE SUPPORT ASSISTANT: [address], [place] [address] , Ph. [facility] - [facility] [employer]ORPED[employer] WORKER [id number] [facility] 2019-10-01 00:00:00 2019-10-01 00:00:00 Telephone Tigre Mally [facility] 1.0.114 350.1.13.10 4.2.7.2.686 [id number] [facility] 2019-10-01 00:00:00 2019-10-01 00:00:00 Telephone Yancy Aaron [facility] 1.0.114 350.1.13.10 4.2.7.2.686 [id number] [facility] 2019-10-01 00:00:00 2019-10-01 00:00:00 Telephone Pcp, Patient Does Not Have A [facility] 1..114 350.1.13.10 4.2.7.2.686 [id number] [facility] 2019-09-30 11:22:44 2019-09-30 11:42:44 Laboratory Only Lab, Adc [facility] 1..114 350.1.13.10 4.2.7.2.686 [id number] [facility] 2019-09-30 11:20:00 2019-09-30 11:20:00 Outpatient R SHIRA CHEN [facility] [id number] [facility] 2019-09-30 00:00:00 2019-09-30 00:00:00 Letter (Out) Doctor Unassigned, [place] [facility] 1.2.840.114 350.1.13.10 4.2.7.2.686 [id number] [facility] 2019-07-09 06:15:00 2019-07-09 06:15:00 Outpatient LISTER_MELI SSA [facility] [id number] [facility] 2019-07-09 00:00:00 2019-07-09 00:00:00 Pam Tadeo, ADMINISTRATIVE SUPPORT ASSISTANT: [address], [place] [address] , Ph. [facility] [place] [facility] HOP - ME[employer]OP [employer]PED[employer] WORKER [id number] [facility] 2019-03-29 11:39:00 2019-03-29 11:39:00 Outpatient LISTER_MELI SSA [facility] [id number] [facility] 2019-03-25 02:27:00 2019-03-25 02:27:00 Outpatient LISTER_MELI SSA [facility] [id number] [facility] 2019-03-24 10:48:00 2019-03-24 10:48:00 Outpatient LISTER_MELI S[facility] [id number] [facility] 2019-03-22 04:26:00 2019-03-22 04:26:00 Outpatient LISTER_MELI SSA [facility] [id number] [facility] 2019-03-22 00:00:00 2019-03-22 00:00:00 Pam Tadeo, ADMINISTRATIVE SUPPORT ASSISTANT: [address], [place] [address] , Ph. [facility] [place] [facility] HOP - MEHOP [employer]ORPED[employer] WORKER [id number] [facility] Results Test Description Test Time Test Comments Results Result Co mments Source [facility], QUANTITATIVE, IFDPDLNLM2515-67-89 20:37:30* Test Item Value Reference Range Interpretation Comme nts BETA HCG (test code = 7548986220) 46.51 See_Comment [Automated [employer] ge] The system which generated this result transmitted reference range: Non- female and male patients: <5 mIU/mL. The reference range was not used to interpret this result as normal/abnormal. ELY (test code = ELY) Gestational Age ?Range (mIU/mL) 1-10 ?Weeks ?81-99540043-52 Weeks ?76183-33240398-87 Weeks ?0143-75859771-57 Weeks ?8515-548586 Biotin has been reported to cause a negative bias, interpret results relative to patient's use of biotin. [facility] identified in Urine by Culture 2019-07-11 00:00:00* Test Item Value Reference Range Interpretation Comme nts Bacteria identified in Urine by Culture (test code = 630-4) comment A [facility]em[facility] A1c/Hemoglobin.total in Hzbmf5038-54-49 00:00:00* Test Item Value Reference Range Interpretation Comme nts Hemoglobin A1c/Hemoglobin.to qasim in Blood (test code = 4548-4) 5.6 % 4.8-5.6 [facility]kinUrinalysis macro (dipstick) panel - Txoym8580-14-09 16:38:00* Test Item Value Reference Range Interpretation Comme nts Leukocytes (test code = Leukocytes) TRACE Nitrite (test code = Nitrite) NEG Urobilinogen (test code = Urobilinogen) 0.2 Protein (test code = Protein) NEG pH (test code = pH) 7.0 Blood (test code = Blood) NEG Specific [place] (test code = Specific [place]is) 1.015 Ketone (test code = Ketone) NEG Bilirubin (test code = Bilirubin) NEG Glucose (test code = Glucose) NEG Appearance (test code = Appearance) CLEAR Color (test code = Color) Light yelllow [facility]kinpregnancy test, ezrsq5505-30-78 15:00:00* Test Item Value Reference Range Interpretation Comme nts HCG (test code = HCG) negative [facility] Out[facility] Program Notes Date/Time Note Provider Source 2023-05-08 16:42:38 RCIaNJOAy4u3EtnXxcL3 Rgz5D/5SIp2nid OTaWwGb4WOqB8BwJA/Jfjfdc/X5+qd95182023T16:42:38 Chief ComplaintPatient presents withPhysicalFasting for CAROLINE MaderaN 74301-9Bupvr PgaeGV2811-03-05R58:42:53Nurse NoteTXT1.2.840.197979.1.13.131.2.7 .2.341686|[id number] for patient rzou07114-8Aaoaj NoteLNNARRATIVEFormatted C-CDA narrative [facility] [facility].QSQTYBOQKJFWJBCKZG3864128221D VVX1541-31-73N62:42:531.2.840.1143 50.1.72.3.15|1.2.840.417733.1.13.[address]_[id number] [facility] 2022-10-17 08:44:21 mRMGubzvq1FnOELY9XBt Ee7ME+0RkFOyw5 YpJKoVYfivnGDHp3qBHXA0L1jFfeyT3719 -08-14T08:44:21 Patient notified of pending lab orders to be done day before f/u. No questions or concerns expressed.Oly Johnson RN 10/17/2022 8:44 AM 65955-4Udntlalhh encounter QgirEW6612-73-53X62:45:02Telephone encounter NoteTXT1.2.840.147998.1.13.104.2.7 .2.374667|[id number] for patient cotj10123-8IamqRL350549729Lezpidk Stahl RNUT[address]TXTX[address]75 69YHQBTEUFWUECFUEVKJPARD2594-33-67 T08:45:021.2.840.647860.1.72.3.15| 1.2.840.668664.1.13.104.2.7.2.7278 [id number] Oly Johnson RN [facility] 2022-10-16 11:13:38 ABn9LJr1cpHMQfeuE/39 kPdhYyRZLM/+FB 61szHn/QLUdJuxtaxfIAafiEzQiQUN3063 -08-13T11:13:38 I previously sent an encounter to schedule appointment for Ms. Tucker for ultrasound f/u. I have ordered a beta HCG. I would like this drawn at least a day before the scheduled appointment.Krystal Prieto NP 10/16/2022 11:15 AM 37231-5Ndfykylcb encounter XivkYX5842-72-27B96:15:17Telephone encounter NoteTXT1.2.840.967215.1.13.104.2.7 .2.028250|[id number] for patient ocof38000-0UvrsHTFPGKTXFO[address]TXTX775[address]75 46EONGRFDTFIOEDBMTOVHVKN1276-60-86 T11:15:171.2.840.955177.1.72.3.15| 1.2.840.424130.1.13.104.2.7.2.7278 [id number] [facility] 2022-10-11 13:45:00 XpsgM9bkZeFnyTKOYE3L jdWOOdGde50OQD EH5LbBPdne5dOlMpho2mQ97rXEizZS1195 -08-08T13:45:00 Images from the original note were not included.Venipuncture collection performed by clean technique on the right anticubitus. Total of 1 attempts were made. Slight pressure and a bandage/dressing were applied to the site(s). The patient experienced no complications. The following specimens were processed according to instructions and sent to [facility] laboratories per lab order on 10/12/2022: LT BLUE SST 1 RED LAV PPT DK GREEN (LiHep) DK GREEN (SodH) CADE DK BLUE (K2) DK BLUE (S) ACD Blood Culture NIPT/NTD 88747-8Uihbm ToyuTJ8063-51-93A39:08:44Nurse NoteTXT1.2.840.917427.1.13.104.2.7 .2.664458|[id number] for patient wmri73497-3Jgexc NoteLNUT[address] LhrmRnpeytwhjUsgrpqvgiUUMP49967809 84QGMEPLVCYVXIFQLYRCXITJ4268-05-56 T09:08:441.2.840.854186.1.72.3.15| 1.2.840.523896.1.13.104.2.7.2.7278 [id number] [facility] 2022-10-05 12:45:06 a/MI0KqnTLBy5WFK7IQ2 4662JrSIv/zAus vr9zU25HNYFtW7ruOpu2RaP6HIg5Eu7642 -08-02T12:45:06 Patient notified of USN preliminary result per Zoie Prieto. Patient informed it is important to have beta HCG lab testing done and then to follow-up with provider regarding HCG levels since USN showed no intra or extrauterine . Patient verbalized understanding.Oly Johnson RN 10/05/2022 12:49 PM 42689-7Bocyzmsfm encounter VpdrIG2888-08-13Q38:49:12Telephone encounter NoteTXT1.2.840.126058.1.13.104.2.7 .2.219864|[id number] for patient [id number] Stahl [id number] 43OKFECKDPNAVRMRJPRYDVWQ5172-15-09 T12:49:121.2.840.400358.1.72.3.15| 1.2.840.032955.1.13.104.2.7.2.7278 [id number] Oly Johnson [facility] 2022-10-05 10:55:12 ri1o8P9hVS/WAULf/m1L 6qfm+xPsAC0B8u Q0CvmiVNQCm5oh/kHxQo9wS/78LFOI9171 -08-02T10:55:12 Pt is wanting to go over lab orders want to know if she need them done or can she just get usg results without labs being done 00077-3Jdtllrguq encounter RlcmHW3285-40-46L47:55:52Telephone encounter NoteTXT1.2.840.321301.1.13.104.2.7 .2.605384|[id number] for patient ctmk32891-7FbzaVU071242807Llzpv [id number] 70FETEJUYQMNJOULVKZGLLPL1360-43-42 T10:55:521.2.840.439011.1.72.3.15| 1.2.840.767633.1.13.104.2.7.2.7278 [id number] Arline Grossman [facility] 2022-10-03 15:20:09 /72ia57wP9TzOHp3sW cbqaqCIi1Pzsi+ Yd1PQNz2A6HLj19dr9trLD+bHIsPwF9820 -07-31T15:20:09 Spoke with patient, patient to do Beta HCG lab then will contact with results. Patient verbalized understanding.Oly Johnson RN 10/03/2022 3:21 PM 27181-3Xufclsbjm encounter TnrbTI1995-85-19L95:21:18Telephone encounter NoteTXT1.2.840.792064.1.13.104.2.7 .2.489635|[id number] for patient [id number] Stahl RN[address] LqnsPl[id number] 37GEWNNEAAGELNPBWLKUURJS5935-78-01 T15:21:181.2.840.752351.1.72.3.15| 1.2.840.087342.1.13.104.2.7.2.7278 [id number] Oly Johnson RN [facility] 2022-10-02 17:29:20 mGvM39YdV7h+cs7Xk+hN DtqB+iO5Wsgdpu RmalSfZvc8ji04cnLDt7v/mOq8BmqM7038 -07-30T17:29:20 Please assist in scheduling a f/u visit for Ms. Tucker.Yaneli Prieto NP 10/02/2022 5:29 PM 39309-8Vxhgrfpyj encounter DkseAE3810-17-82F68:29:56Telephone encounter NoteTXT1.2.840.121357.1.13.104.2.7 .2.599777|[id number] for patient [id number]| [id number] [facility] 2022-09-22 07:30:00 [id number]/ [id number]/2022T07:30:00 Images from the original note were not included.Venipuncture collection performed by clean technique on the right anticubitus. Total of 1 attempts were made. Slight pressure and a bandage/dressing were applied to the site(s). The patient experienced no complications. The following specimens were processed according to instructions and sent to [facility] laboratories per lab order on 09/22/2022 LT BLUE SST 1 RED LAV PPT DK GREEN (LiHep) DK GREEN (SodH) CADE DK BLUE (K2) DK BLUE (S) ACD Blood Culture NIPT/NTD [id number]:56:31Nurse [id number] for patient [id number] T07:56:[id number]| [id number] [facility]"
[2023-06-14 19:00] LABS: Absolute Lymphocytes (CBC) 2.5 K/uL (0.7-4.9); Absolute Monocytes 0.5 K/uL (0.1-1.3); Absolute Neutrophil 7.1 K/uL (1.8-8.0); Basophils % 0.1 % (0-1.3); Eosinophils % 0.1 % (0-4.4); Hematocrit 36.6 % (36.0-45.0); Hemoglobin 12.5 g/dL (12.0-15.0); Lymphocytes % 24.5 % (15.3-44.8); MCH 28.7 pg (27.0-35.0); MCHC 34.2 g/dL (32.0-36.0); MCV 83.9 fL (80-100); MPV 8.1 fL (7.6-11.3); Monocytes % 4.5 % (3.3-12.3); Neutrophils % 70.8 % (41.7-73.7); Nucleated Red Blood Cells % 0.2 % (0-0); Platelets 289 thou/uL (152-406); RBC Red Blood Cell Count 4.37 M/uL (3.86-4.86); Red Cell Distribution Width 15.2 % (12.1-15.2)
[2023-06-14 19:03] LABS: Specific Gravity 1.034 (1.005-1.030)
[2023-06-14 19:05] LABS: Calcium Oxalate Crystals- Ur Moderate /HPF (None Seen); Specific Gravity > 1.030 (1.005-1.030); Urine Bacteria <20 /HPF (<20); Urine Bilirubin NEGATIVE (Negative); Urine Blood 3+ (OVER) (Negative); Urine Clarity Extremely Turbid (Clear); Urine Color Dark-Brown (Yellow); Urine Culture Reflex Order REFLEXED; Urine Glucose NEGATIVE (Negative); Urine Ketones 2+ (Negative); Urine Microscopic Reflex YN ORDER UMIC; Urine Mucus 4+ /HPF (None Seen); Urine Nitrite NEGATIVE (Negative); Urine Protein 2+ (Negative); Urine RBC >50 /HPF (None Seen); Urine Urobilinogen Normal (Normal); Urine WBC >50 /HPF (<5)
[2023-06-14 19:18] LABS: Anion Gap 8.2 mEq/L (5.0-15.0); BUN Blood Urea Nitrogen 13 mg/dL (7-18); Bicarbonate 27 mEq/L (21-32); Glomerular Filtration Rate 108 ml/min (=/>90); Glucose Level 105 mg/dL (74-106); Potassium 3.2 mEq/L (3.5-5.1); Sodium Level 138 mEq/L (136-145)
[2023-06-14 19:22] LABS: HCG, Quantitative < 1 mIU/mL (1-3)
--- NOTE | 2023-06-14 19:30 | ER ---
Nurse's Notes [facility] Name: Zainab Tucker Age: 28 yrs Sex: Female : 1995 Arrival Date: 06/14/2023 Time: 18:04 Bed 6 Private MD: Miller Larose Diagnosis: Dysmenorrhea, unspecified Presentation: 06/13 18:09 Chief complaint: Patient states: Found out i was over the weekend, started nj1 spotting yesterday morning getting heavier. LMP "May 12". 18:10 Coronavirus screen: Vaccine status: Patient reports being unvaccinated. Ebola Screen: nj1 Patient denies travel to an Ebola-affected area in the 21 days before illness onset. Initial Sepsis Screen: Does the patient meet any 2 criteria? HR > 90 bpm. No. Patient's initial sepsis screen is negative. Does the patient have a suspected source of infection? No. Patient's initial sepsis screen is negative. Risk Assessment: Do you want to hurt yourself or someone else? Patient reports no desire to harm self or others. Onset of symptoms was June 13, 2023. 18:10 Method Of Arrival: Ambulatory nj 18:10 Acuity: JANAE 3 nj1 Triage Assessment: 18:12 General: Appears in no apparent distress. comfortable, Behavior is calm, cooperative, nj1 appropriate for age. Pain: Complains of pain in back Pain currently is 4 out of 10 on a pain scale. 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 - Infectious Disease History:: Denies. - Social history:: Smoking status: Patient denies any tobacco usage or history of. Screenin:39 [facility] ED Fall Risk Assessment (Adult) History of falling in the last 3 months, kc6 including since admission No falls in past 3 months (0 pts) Confusion or Disorientation No (0 pts) Intoxicated or Sedated No (0 pts) Impaired Gait No (0 pts) Mobility Assist Device Used No (0 pt) Altered Elimination No (0 pt) Score/Fall Risk Level 0 - 2 = Low Risk. Abuse screen: Denies threats or abuse. Denies injuries from another. Nutritional screening: No deficits noted. Tuberculosis screening: No symptoms or risk factors identified. Assessment: 18:40 General: Appears in no apparent distress. comfortable, well groomed, well developed, kc6 Behavior is calm, cooperative, appropriate for age. Neuro: Level of Consciousness is awake, alert, obeys commands, Oriented to person, place, time, situation, Appropriate for age. Respiratory: Airway is patent Trachea midline Respiratory effort is even, unlabored, Respiratory pattern is regular, symmetrical. GI: No signs and/or symptoms were reported involving the gastrointestinal system. : Reports vaginal bleeding that is bright red, heavy flow. EENT: No signs and/or symptoms were reported regarding the EENT system. Derm: No signs and/or symptoms reported regarding the dermatologic system. Skin is intact, is healthy with good turgor, Skin is pink, warm \\T\\ dry. Musculoskeletal: No signs and/or symptoms reported regarding the musculoskeletal system. Circulation, motion, and sensation intact. Capillary refill < 3 seconds, Range of motion: intact in all extremities. Vital Signs: 18:10 BP 124 / 79; Pulse 109; Resp 16; Temp 98.7; Pulse Ox 100% ; Weight 113.4 kg; Height 5 nj1 ft. 2 in. ; 19:02 BP 107 / 58; Pulse 104; Resp 15 S; Pulse Ox 100% on R/A; kc6 18:10 Body Mass Index 45.73 (113.40 kg, 157.48 cm) nj1 ED Course: 18:06 Patient arrived in ED. mr 18:06 Miller Larose DO is Private Physician. mr 18:08 Bettina Hackett FNP-C is [facility]. kb 18:08 Temo Preciado is Attending Physician. kb 18:11 Triage completed. nj1 18:12 Arm band placed on right wrist. nj1 18:13 Kristel Melgoza, LEXII is Primary Nurse. kc6 18:39 Inserted saline lock: 22 gauge in right antecubital area, using aseptic technique. kc6 Blood collected. 18:40 Patient has correct armband on for positive identification. Bed in low position. Call kc6 light in reach. Side rails up X 1. Client placed on continuous cardiac and pulse oximetry monitoring. NIBP monitoring applied. Door closed. Visitors limited. Warm blanket given. 19:02 Report given to LEXII Hu. kc6 20:05 Provided Education on: d/c teaching. km8 20:05 No provider procedures requiring assistance completed. IV discontinued, intact, km8 bleeding controlled, No redness/swelling at site. Pressure dressing applied. 20:22 No provider procedures requiring assistance completed. km8 Administered Medications: 19:28 CANCELLED (Patient Refused): ns 0.9% 1000 ml IV at 1000 ml once kb 19:54 Drug: Potassium Chloride PO 40 mEq PO once Route: PO; jw7 20:23 Follow up: Response: No adverse reaction km8 Medication: 20:05 VIS not applicable for this client. km8 Outcome: 19:29 Discharge ordered by . kb 20:20 Patient left the ED. jw7 20:20 Discharged to home ambulatory, km8 20:20 Condition: good 20:20 Discharge instructions given to patient, Instructed on discharge instructions, follow up and referral plans. Signatures: Bettina Hackett, STOCK CHASER-C STOCK CHASER-Ckb Rose Moon, Reg Reg RashidbrandonKrystle, RN RN jw7 Kristel Melgoza, RN RN kc6 Elvira Ovalle, LEXII RN nj1 Juani Roberts, LEXII RN km8 Corrections: (The following items were deleted from the chart) 20:22 20:21 No provider procedures requiring assistance completed. km8 km8
--- NOTE | 2023-06-14 19:30 | EDPHYS ---
Physician Documentation [facility] Name: Zainab Tucker Age: 28 yrs Sex: Female : 1995 Arrival Date: 06/14/2023 Time: 18:04 Bed 6 Private MD: Miller Larose ED Physician Temo Preciado HPI: 06/13 18:41 This 28 yrs old Female presents to ER via Ambulatory with complaints of kb Vaginal Bleeding, + Preg <12wks. 18:41 Pt is a 28 year old female who presents for spotting that started yesterday and got kb worse today. Denies abd pain. States she found out she was over the weekend. LMP first week of May. 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 - Infectious Disease History:: Denies. - Social history:: Smoking status: Patient denies any tobacco usage or history of. ROS: 18:41 Constitutional: As per HPI kb Exam: 18:41 Constitutional: This is a well developed, well nourished patient who is awake, alert, kb and in no acute distress. Head/Face: Normocephalic, atraumatic. ENT: Moist Mucous membranes Cardiovascular: Regular rate Respiratory: Respirations even and unlabored. No increased work of breathing. Talking in full sentences Abdomen/GI: Soft, non-tender. No distention Skin: Warm, dry with normal turgor. Normal color. MS/ Extremity: Pulses equal, no cyanosis. Neurovascular intact. Full, normal range of motion. Neuro: Awake and alert, GCS 15, oriented to person, place, time, and situation. Moves all extremities. Normal gait. Vital Signs: 18:10 BP 124 / 79; Pulse 109; Resp 16; Temp 98.7; Pulse Ox 100% ; Weight 113.4 kg; Height 5 nj1 ft. 2 in. ; 19:02 BP 107 / 58; Pulse 104; Resp 15 S; Pulse Ox 100% on R/A; kc6 18:10 Body Mass Index 45.73 (113.40 kg, 157.48 cm) nj1 MDM: 18:08 Patient medically screened. kb 18:41 Differential diagnosis: threatened Ab, ectopic . Data reviewed: vital signs, kb nurses notes. 19:28 Counseling: I had a detailed discussion with the patient and/or guardian regarding the kb historical points, exam findings, and any diagnostic results supporting the discharge/admit diagnosis, lab results, the need for outpatient follow up, an OB/Gyne specialist, to return to the emergency department if symptoms worsen or persist or if there are any questions or concerns that arise at home. 06/13 18:11 Order name: Abo/rh Typing; Complete Time: 19:28 kb 06/13 18:11 Order name: Basic Metabolic Panel; Complete Time: 19:24 kb 06/13 18:11 Order name: CBC with Diff; Complete Time: 19:10 kb 06/13 18:11 Order name: Test, Urine; Complete Time: 19:03 kb 06/13 18:11 Order name: Quantitative Hcg; Complete Time: 19:24 kb 06/13 18:11 Order name: Urinalysis w/ reflexes; Complete Time: 19:10 kb 06/13 19:10 Order name: Urine Culture EDMD 06/13 18:11 Order name: IV Saline Lock; Complete Time: 18:41 kb 06/13 18:11 Order name: Labs collected and sent; Complete Time: 18:41 kb 06/13 18:11 Order name: NPO; Complete Time: 18:41 kb Administered Medications: 19:28 CANCELLED (Patient Refused): ns 0.9% 1000 ml IV at 1000 ml once kb 19:54 Drug: Potassium Chloride PO 40 mEq PO once Route: PO; jw7 20:23 Follow up: Response: No adverse reaction km8 Disposition: 19:57 Co-signature as Attending Physician, Temo Preciado I agree with the assessment ci and plan of care. I reviewed the patient's care provided by the Advanced Practice Provider and agree with the diagnosis and treatment plan. Disposition Summary: 06/14/23 19:29 Discharge Ordered Notes: Location: Home kb Condition: Stable kb Diagnosis - Dysmenorrhea, unspecified kb Followup: kb - With: Emergency Department - When: As needed - Reason: Worsening of condition Followup: kb - With: Private Physician - When: 2 - 3 days - Reason: Recheck today's complaints, Continuance of care, Re-evaluation by your physician Discharge Instructions: - Discharge Summary Sheet kb - Dysmenorrhea, [id number]-[id number] kb Forms: - Medication Reconciliation Form kb - Thank You Letter kb - Antibiotic Education kb - Prescription Opioid Use kb - Patient Portal Instructions kb - Leadership Thank You Letter kb Signatures: Dispatcher [employer] EDMD Bettina Hackett, HOSE BUILDER-C HOSE BUILDER-Krystle Gomez, RN RN jw7 Elvira Ovalle, RN RN nj1 Temo Preicado Katie RN km8 Corrections: (The following items were deleted from the chart) 19:28 18:11 Transvaginal Ob+US.RAD.BRZ ordered. EDMD EDMD 19:28 19:25 NS 0.9% IV 1000 ml IV at 1000 ml once ordered. kb kb
[2023-06-14] MEDS ORDERED: POTASSIUM CL SA 10 MEQ TAB PO ONE (19:46)
[2023-06-14 22:43] VITALS: BP 107/58; TEMP 98.7; O2SAT 100
== END 2023-06-14 20:20 | disposition home or self-care (01) ==
LOC: ER 18:04
DX: N94.6 Dysmenorrhea, unspecified (principal)
CPT/HCPCS: 36415; 80048; 81001; 81025; 84702; 85025; 86900; 86901; 87086; 87088

== ENCOUNTER 2024-03-24 21:42 | Emergency (ER) | payer BC ==
--- OUTSIDE RECORDS SUMMARY | 2024-03-24 21:46 | XMS REPORT | Continuity of Care Document ---
Author Name Unknown Address [address] [facility] [address] [place] [address] [facility] thconnect Address [address] [facility] [place] [address] Care Team Providers Care Senior C Software Developer Name Role Phone MIN KAREN Primary Care Physician Unavailab KAREN Santiago Attending Clinician Unavailable SAMAN RUIZ Attending Clinician UnavailSAMAN Clemens Attending Clinician UnavailSaman Clemens MD Attending Clinician [phone] Attending Clinician Unavailable FREDI BROWN Attending Clinician Unavailable MD LUCI Attending Clinician Unavailab PERLA Berg Attending Clinician Unavailab RYAN Hernandez Attending Clinician RYAN Vasquez Attending Clinician VIRA Delgado Attending Clinician UnavailJESSENIA Peñaloza Attending Clinician REGLA Gomez Attending Clinician Unavailable RICKIE ANDINO Attending Clinician UnavailRcikie Hoyos MD Attending Clinician [phone] Yaneli Prieto NP Attending Clinician [phone] Pob, Adc Lab Main Attending Clinician Gracie Guadarrama MD Attending Clinician [phone] GRACIE CHAVEZ Attending Clinician UnavailYANELI Phillips Attending Clinician Unavaila ble Lab, Ang - Db Attending Clinician Unavailable Doctor Unassigned, Otis Attending Clinician U larissaailKATHYA Tarango Attending Clinician Unava ilLELAND Hair Attending Clinician Unavailable SAAD BENNETT Attending Clinician Unavailable BERNARD VIERA Attending Clinician Unavailable Margret ASENCIO, Bernard Attending Clinician [phone] Marv RN, Shelby Ochoa Attending Clinician Unavailab OBDULIO Gardner Attending Clinician Unavailable Only, Ang Db Test Attending Clinician Unavailsailaja e Unknown, Attending Attending Clinician Unavailab le LISTER_MELISSA Attending Clinician Unavailable Tigre SHULTZ, Mally Attending Clinician Unavailsailaja e Human CARD MAKER, Yancy Huntley Attending Clinician [phone] Pcp, Patient Does Not Have A Attending Clinician Lab, Adc Fam Pob I Attending Clinician Unavailab le Danieli CARD MAKERShira Attending Clinician [phone] SHIRA CHEN Attending Clinician UnavailSAMAN Clemens Admitting Clinician UnavailYANELI Phillips Admitting Clinician Unavaila ble LISTER_MELISSA Admitting Clinician Unavailable Payers Payer Name Policy Type Policy Number Effective Date Expirati on Date Source BCBS 2 [id number] 2021 00:00:00 [place] [id number] 2018 00:00:[place] [id number] 2018 00:00:00 Problems Condition Name Condition Details Condition Category Status Onset Date Resolution Date Last Treatment Date Treating Clinician Comments Source Trichomona l vaginitis Trichomona l Vaginitis Problem Active 2023-03 0-08 00:00: 00 [facility] Anxiety Anxiety Problem Active 10-02 00:00: 00 [facility] Depressive disorder Depressive Disorder Problem Active 10-02 00:00: 00 [facility] Cyst of ovary Cyst of Ovary Problem Active 10-02 00:00: 00 [facility] History of gallstones History of Gallstones Problem Active 10-02 00:00: 00 [facility] Prediabete s Prediabete s Disease Active 2021-03 0-04 00:00: 00 [facility] BMI 45.0-49.9, adult BMI 45.0-49.9, adult Disease Active 12-03 00:00: 00 Arline Seybold - Externa l PCOS (polycysti c ovarian syndrome) PCOS (polycysti c ovarian syndrome) Disease Active 12-03 00:00: 00 [facility] Tachycardi a Tachycardi a Disease Active 12-03 00:00: 00 [facility] Depression Depression Disease Active 12-03 00:00: 00 [facility] Vitamin D deficiency Vitamin D deficiency Disease Active 12-03 00:00: 00 [facility] delivery delivered delivery delivered Disease Active 08-16 00:00: 00 [facility] delivery delivered delivery delivered Disease Active 08-16 00:00: 00 [facility] Maternal varicella, non-immune Maternal varicella, non-immune Disease Active 04-22 00:00: 00 [facility] Supervisio n of other high-risk Supervisio n of other high-risk Disease Active 04-21 00:00: 00 Overview: Formattin g of this note might be different from the original. ICD10 Diagnosis Term Customer Service Representative Utility [facility] Obesity complicati ng , childbirth , or puerperium , antepartum Obesity complicati ng , childbirth , or puerperium , antepartum Disease Active 04-21 00:00: 00 Overview: Formattin g of this note might be different from the original. ICD10 Diagnosis Term Customer Service Representative Utility [facility] with uncertain dates, antepartum with uncertain dates, antepartum Disease Active 16 00:00: 00 [facility] Lump or mass in breast Lump or mass in breast Disease Resolve d 2013- 0-23 00:00: 00 2014-04-21 00:00:00 2021-09-19 00:32:44 [facility] Need for HPV vaccinatio n Need for HPV vaccinatio n Disease Resolve d 2013- 9- 00:00: 00 2014-04-21 00:00:00 2014-04-21 08:49:28 [facility] Need for Tdap vaccinatio n Need for Tdap vaccinatio n Disease Resolve d 2013-11-29 00:00: 00 2014-04-21 00:00:00 2014-04-21 08:49:28 [facility] General counseling for initiation of other contracept pool measures General counseling for initiation of other contracept pool measures Disease Resolve d 11-29 00:00: 00 2014-04-21 00:00:00 2014-04-21 08:49:25 [facility] Obesity Obesity Disease Resolve d 3-20 00:00: 00 2014-04-21 00:00:00 2021-09-19 00:23:33 [facility] Allergies, Adverse Reactions, Alerts Allergy Name Allergy Type Status Severity Reaction(s) Onset Date Inactive Date Treating Clinician Comments Source NO KNOWN ALLERGIE S Drug Class Active [facility] Social History Social Habit Start Date Stop Date Quantity Comments Source ASSERTION Not Arline Falcon - External History SDOH Alcohol Frequency Arline eric - External History SDOH Alcohol Std Drinks Arline matias - External History SDOH Alcohol Binge Arline Falcon - External Gender identity [facility] Sexual orientation U [facility] Alcoholic beverage intake 2024 00:00:00 2024 00:00:00 Current non-drinker of alcohol (finding) [facility] Alcohol intake 2023-05-08 00:00:00 2023-05-08 00:00:00 Current drinker of alcohol (finding) Arline Falcon - External Tobacco use and exposure 2022-09-12 00:00:00 2022-09-12 00:00:00 Smokeless tobacco non-user [facility] Alcohol Comment 2021-12-03 00:00:00 2021-12-03 00:00:00 social Arline Falcon - External Sex 2021-11-30 16:56:39 2021-11-30 16:56:39 Female (finding) Arline Falcon - External Exposure to SARS-CoV-2 (event) 2021-04-12 00:00:00 2021-05-12 12:54:00 Not sure [facility] History of Social function 2021-04-14 00:00:00 2021-04-14 00:00:00 [facility] Sex assigned at 1995 00:00:00 1995 00:00:00 F Arline Falcon - External Smoking Status Start Date Stop Date Source Never smoked tobacco [facility] Medications Ordered Medication Name Filled Medication Name Start Date Stop Date Current Medication? Ordering Clinician Indication Dosage Frequency Signature (SIG) Comments Components Source iopamidol (ISOVUE 370-500 mL) injection 85 mL 2023-03 22:00: 00 02-13 22:00 :00 Yes [id number] 85mL 85 mL, Intravenou s, ONCE, 1 dose, On Mon02/14/24 at 1600, Routine [facility] morpHINE (4 mg/mL) injection 4 mg 2023-03 21:30: 00 02-13 21:35 :00 No 4mg 4 mg, Slow IV Push, ONCE, 1 dose, On Mon02/14/24 at 1530, STAT [facility] dicyclomine (BENTYL) tablet 20 mg 2023-03 21:30: 00 02-13 21:33 :00 No 20mg 20 mg, Oral, ONCE, 1 dose, On Mon02/14/24 at 1530, MARIANO [facility] NaCl 0.9% (NS) bolus infusion 1,000 mL 2023-03 19:30: 00 02-13 21:40 :00 No 1000mL at 999 mL/hr, 1,000 mL, IV Infusion, ONCE, 1 dose, On Mon02/14/24 at 1330, STAT [facility] ondansetron (ZOFRAN (PF)) injection 4 mg 2023-03 19:30: 00 02-13 19:59 :00 No 4mg 4 mg, Slow IV Push, ONCE, 1 dose, On Mon02/14/24 at 1330, Administer over 2-5 Minutes, 2 mL [facility] morpHINE (4 mg/mL) injection 4 mg 2023-03 19:30: 00 02-13 19:59 :00 No 4mg 4 mg, Slow IV Push, ONCE, 1 dose, On Mon02/14/24 at 1330, STAT [facility] famotidine (PEPCID (PF)) injection 20 mg 2023-03 19:30: 00 02-13 19:55 :00 No 20mg 20 mg, Slow IV Push, ONCE, 1 dose, On Mon02/14/24 at 1330, MARIANO [facility] maalox/diph enhydrAMINE :lidocaine2 %viscous 1:1:1: suspension (COMPOUNDED ) 2023-03 19:30: 00 02-13 19:55 :00 No 15mL 15 mL, Oral, ONCE, 1 dose, On Mon02/14/24 at 1330, Routine [facility] ondansetron 4 mg disintegrat ing tablet 2023-03 00:00: 00 Yes [id number] 4mg Take 1 tablet by mouth every 8 (eight) hours as needed for Nausea and Vomiting (N/V) for up to 10 doses. [facility] acetaminoph en-codeine 300-30 mg tablet 2023-03 00:00: 00 Yes [id number] 1{tbl} Take 1 tablet by mouth every 6 (six) hours as needed for Pain (scale 4-6) for up to 15 doses. Indication s: acute pain [facility] famotidine (PEPCID) 20 mg tablet 2023-03 00:00: 00 03-01 05:59 :00 Yes [id number] 20mg Take 1 tablet by mouth in the morning and 1 tablet in the evening. Do all this for 15 days. [facility] NuvaRing 0.12-0.015 MG/24HR vaginal RING 2023-03 16:41: 38 Yes NuvaRing 0.12 mg-0.015 mg/24 hr vaginal Insert 1 vaginal ring every month by vaginal route for 30 days. [facility]line ponce Metformin HCl 500 MG oral Tablet 2023-03 16:41: 38 Yes 500mg QD Take 1 tablet (500 mg total) by mouth daily (with breakfast) . [facility]line ponce Omeprazole 40 MG oral Delayed Release Capsule 2023-03 00:00: 00 Yes [id number] 40mg QD Take 1 capsule (40 mg total) by mouth daily. [facility]line ponce Dicyclomine HCl 10 MG oral Capsule 2023-03 00:00: 00 Yes [id number] 10mg Take 1 capsule (10 mg total) by mouth 4 times daily (before meals and nightly). Arline ponce Bupropion HCL XL 150 MG OR TB24 10-08 00:00: 00 Yes [id number] 150mg QD TAKE ONE (1) TABLET (150 MG TOTAL) BY MOUTH DAILY. [facility] p[facility] Vitamin D, Ergocalcife rol, 1.25 MG (62331 UT) oral Capsule 05-14 00:00: 00 Yes [id number] 45038D Q1W Take 1 capsule (50,000 units total) by mouth once a week. [facility] p[facility] HYDROcodone -Acetaminop hen 7.5-325 MG oral Tablet [...] Tablet Therapy Pack 2022-03 00:00: 00 Yes [id number] Complete one dose pack as directed on package instructio ns. [facility]line ponce Pseudoeph-B romphen-DM 30-2-10 MG/5ML oral Syrup 2022-03 00:00: 00 Yes [id number] 10mL Q.25D Take 10 mL by mouth 4 times daily as needed (for cough or congestion ). Arline ponce Neomycin-Po lymyxin-Dex ameth 3.5-65847-7 .1 ophthalmic Suspension 2022-03 00:00: 00 05-07 00:00 :00 No INSTILL ONE (1) DROP(S) IN EACH EYE EVERY FOUR HOURS. [facility]line ponce Semaglutide -Weight Management (Wegovy) 1 MG/0.5ML subcutaneou s Solution Auto-inject or 10-25 00:00: 00 01-30 00:00 :00 No [id number] 1mg Inject 1 mg into the skin once a week. Arline ponce Prenat Vit Comb.10-Iro n-FA-DHA (VITAFOL-OB +DHA) 65-1-250 mg combo pack 09-22 00:00: 00 Yes [id number] 1{packe t} Take 1 Packet by mouth in the morning. [facility] MV-Min-Fe Fum-FA-DHA (Vitafol-OB +DHA) 65-1 & 250 MG oral Misc 09-22 00:00: 00 05-07 00:00 :00 No 1{packe t} Take 1 packet by mouth daily. Arline ponce Bupropion HCL XL 150 MG OR TB24 08-10 00:00: 00 Yes [id number] 150mg Take 1 tablet (150 mg total) by mouth daily Arline ponce Semaglutide (1 mg/dose) 2 mg/1.5 mL SQ Solution Pen-Injecto r 08-10 00:00: 00 01-30 00:00 :00 No [id number] 1mg Inject 1 mg into the skin once a week Arline ponce Benzonatate 100 MG oral Capsule 06-29 00:00: 00 Yes [id number] 100mg Q.[id number] 3D Take 1 capsule (100 mg total) by mouth 3 times daily as needed for cough Arline ponce Albuterol HFA 108 (90 Base) MCG/ACT IN AERS 06-29 00:00: 00 01-30 00:00 :00 No [id number] 2{puff} Q.25D Inhale 2 puffs into the lungs every 6 hours as needed for wheezing Arline ponce Bupropion HCL XL 150 MG OR TB24 06-15 00:00: 00 Yes [id number] 150mg Take 1 tablet (150 mg total) by mouth daily Arline ponce Semaglutide (1 mg/dose) 2 mg/1.5 mL SQ Solution Pen-Injecto r 06-15 00:00: 00 Yes [id number] 1mg Inject 1 mg into the skin once a week Arline ponce Doxycycline Hyclate 100 MG oral Tablet 06-15 00:00: 00 Yes [id number] 100mg Take 1 tablet (100 mg total) by mouth 2 times daily Arline ponec Phentermine HCl 37.5 MG oral Tablet 06-15 00:00: 00 Yes [id number] 37.5mg Take 1 tablet (37.5 mg total) by mouth every morning (before breakfast) Arline ponce OZEMPIC (0.25 or 0.5 mg/dose) 2 mg/3 mL SQ Solution Pen-Injecto r 404 00:00: 00 06-15 00:00 :00 No Arline ponce OZEMPIC (0.25 or 0.5 mg/dose) 2 mg/1.5 mL SQ Solution Pen-Injecto r 3-22 00:00: 00 06-15 00:00 :00 No [id number] .5mg Inject 0.5 mg into the skin once a week Arline ponce Hydroquinon e 4 % apply externally Cream 04-29 00:00: 00 Yes [id number] Apply 1 applicatio n. topically 2 times daily Arline ponce Doxycycline Hyclate 100 MG oral Tablet 04-13 00:00: 00 Yes [id number] 100mg Take 1 tablet (100 mg total) by mouth 2 times daily Arline ponce OZEMPIC (0.25 or 0.5 mg/dose) 2 mg/1.5 mL SQ Solution Pen-Injecto r 04-13 00:00: 00 Yes [id number] .5mg Inject 0.5 mg into the skin once a week Arline ponce Hydroquinon e 4 % apply externally Cream 04-13 00:00: 00 Yes [id number] Apply 1 applicatio n topically 2 times daily Arline ponce ACETAMINOPH EN-CAFF-BUT ALBITAL 50-325-40 MG oral Tablet 04-13 00:00: 00 01-30 00:00 :00 No [id number] 1{tbl} Q4H Take 1 tablet by mouth every 4 hours as needed for pain Arline ponce Clindamycin Phosphate (Clindagel) 1 % apply externally Gel 04-13 00:00: 00 01-30 00:00 :00 No [id number] Apply to area 4 times daily for 10 days Arline ponce OZEMPIC (0.25 or 0.5 mg/dose) 2 mg/1.5 mL SQ Solution Pen-Injecto r 1- 00:00: 00 04-13 00:00 :00 No [id number] .25mg Inject 0.25 mg into the skin once a week Arline ponce Bupropion HCL XL 150 MG OR TB24 2021-03 00:00: 00 Yes [id number] 150mg Take 1 tablet (150 mg total) by mouth daily Arline ponce Tirzepatide (Mounjaro) 2.5 MG/0.5ML subcutaneou s Solution Pen-injecto r 2021-03 00:00: 00 Yes [id number] 2.5mg Inject 0.5 mL (2.5 mg total) into the skin once a week Arline ponce buPROPion HCl 75 MG oral Tablet 2021-03 00:00: 00 Yes [id number] 75mg Take 1 tablet (75 mg total) by mouth daily Arline ponce Metformin HCl 500 MG oral Tablet 2021-03 00:00: 00 01-10 00:00 :00 No [id number] 500mg QD Take 1 tablet (500 mg total) by mouth daily (with breakfast) Arline ponce Vitamin D, Ergocalcife rol, 1.25 MG (29239 UT) oral Capsule 2021-03 00:00: 00 01-30 00:00 :00 No [id number] 58493Q Take 1 capsule (50,000 units total) by mouth once a week Arline ponce buPROPion HCl 75 MG oral Tablet 12-03 00:00: 00 Yes [id number] 75mg Take 1 tablet (75 mg total) by mouth daily Arline ponce Pantoprazol e Sodium 20 MG oral Tablet Delayed Response 12-03 00:00: 00 01-30 00:00 :00 No [id number] 20mg Take 1 tablet (20 mg total) by mouth daily Arline ponce No known medications 05-12 13:38: 58 No [facility] Probiotic Probiotic No Probiotic [facility] Vitamin D Vitamin D No Vitamin D [facility] metformin 500 mg tablet Take 1 tablet twice a day by oral route for 90 days. metformin 500 mg tablet Take 1 tablet twice a day by oral route for 90 days. No 1 BID metformin 500 mg tablet Take 1 tablet twice a day by oral route for 90 days. [facility] clindamycin 2 % vaginal cream Insert 1 applicatorf ul every day by vaginal route for 7 days. clindamycin 2 % vaginal cream Insert 1 applicatorf ul every day by vaginal route for 7 days. No 1applic ator(s) ful Q1D clindamyci n 2 % vaginal cream Insert 1 applicator ful every day by vaginal route for 7 days. [facility] metronidazo le 500 mg tablet Take 1 tablet every 12 hours by oral route for 7 days. metronidazo le 500 mg tablet Take 1 tablet every 12 hours by oral route for 7 days. No 1 Q12H metronidaz ole 500 mg tablet Take 1 tablet every 12 hours by oral route for 7 days. [facility] Immunizations Ordered Immunization Name Filled Immunization Name Date Status Comments Source HPV 9 (Human Papillomavirus) 2016-08-25 00:00:00 Completed Arline Stevensonold - External Meningococcal Vaccine- Conjugate(Menactra) 2016-08-25 00:00:00 [...] HEPATITIS A- PEDI/ADOL 2013-12-10 00:00:00 Completed Arline Hamybold - External HPV 4 (Human Papillomavirus) 2013-12-10 00:00:00 Completed Arline Falcon - External IPV- Inactivated Polio Vaccine 2013-12-10 00:00:00 Completed Arline Seybold - External HEPATITIS A- PEDI/ADOL 2013-12-10 00:00:00 Completed Arline Hamybold - External HPV 4 (Human Papillomavirus) 2013-12-10 00:00:00 Completed Arline Hamybold - External Influenza Virus Vaccine, Live, Attenuated, [...] HEPATITIS A- PEDI/ADOL 2008-10-08 00:00:00 Completed Arline Hamybold - External HPV 4 (Human Papillomavirus) 2008-10-08 00:00:00 Completed Arline Hamybregina - External Meningococcal Vaccine- Conjugate(Menactra) 2008-10-08 00:00:00 Completed Arline Hamybold - External Tdap- (Boostrix, Adacel) 2008-10-08 00:00:00 [...] HEPATITIS A- PEDI/ADOL 2008-10-08 00:00:00 Completed Arline Stevensonold - External HPV 4 (Human Papillomavirus) 2008-10-08 00:00:00 Completed Arline Stevensonold - External Meningococcal Vaccine- Conjugate(Menactra) 2008-10-08 00:00:00 Completed Arline Stevensonold - External IPV- Inactivated Polio Vaccine 2000-02-09 00:00:00 Completed Arline Seybold - External Varicella Vaccine 2000-02-09 00:00:00 Completed Arline Hamybold - External DTaP Unspecified 2000-02-09 00:00:00 Completed Arline Seybold - External MMR- Measles, Mumps, Rubella 2000-02-09 00:00:00 Completed Arline Seybold - External IPV- Inactivated Polio Vaccine 2000-02-09 00:00:00 Completed Arline Seybold - External Varicella Vaccine 2000-02-09 00:00:00 Completed Arline Hamybold - External DTaP Unspecified 2000-02-09 00:00:00 Completed [...] External DTaP Unspecified 1996 00:00:00 Completed Arline Falcon - External Hib, unspecified formulation 1996 00:00:00 Completed Arline Falcon - External IPV- Inactivated Polio Vaccine 1996 00:00:00 Completed Arline Seybold - External DPT/HIB 1996 00:00:00 Completed Arline Falcon - External Hepatitis B, Adolescent Or Pediatric 1996 00:00:00 Completed Arline Falcon - External IPV- Inactivated Polio Vaccine 1996 00:00:00 Completed Arline Hamybold - External DPT/HIB 1996 00:00:00 Completed Arline Falcon - External Hepatitis B, Adolescent Or Pediatric 1996 00:00:00 Completed Arline Falcon - External IPV- Inactivated Polio Vaccine 1996 00:00:00 Completed Arline Seybold - External DPT/HIB 1996 00:00:00 Completed Arline Falcon - External Hepatitis B, Adolescent Or Pediatric 1996 00:00:00 Completed Arline Falcon - External IPV- Inactivated Polio Vaccine 1996 00:00:00 Completed Arline Falcon - External DPT/HIB 1996 00:00:00 Completed Arline Falcon - External Hepatitis B, Adolescent Or Pediatric 1996 00:00:00 Completed Arline Falcon - External Hepatitis B, Unspecified 1996 00:00:00 Completed Arline Falcon - External Hepatitis B, Unspecified 1996 00:00:00 Completed Arline Falcon - External Hepatitis B, Unspecified 1996 00:00:00 Completed Arline Falcon - External Hepatitis B, Unspecified 1996 00:00:00 Completed Arline Falcon - External DTaP Unspecified Unknown Completed [place] Falcon - External DPT/HIB Unknown Completed Arline eric - External Influenza Virus Vaccine, Live, Attenuated, Intranasal Use Unknown Completed Arline Duncan d - External HEPATITIS A- PEDI/ADOL Unknown Completed Arline Falcon - External Hepatitis B, Unspecified Unknown Completed Arline Falcon - External Hepatitis B, [...] Seybold - External Varicella Vaccine Unknown Completed Ke lsey Seybold - External DTaP Unspecified Unknown Completed [place] sey Seybold - External DPT/HIB Unknown Completed Arline Perrin bold - External Influenza Virus Vaccine, Live, [...] IPV- Inactivated Polio Vaccine Unknown Completed Arline Hamybold - External Tdap- (Boostrix, Adacel) Unknown Completed Arline Seybold - External Varicella Vaccine Unknown Completed lsey Seybold - External [facility]TaP Unspecified [facility] Completed Arline Perrin bold - External Influenza Virus Vaccine, Live, Attenuated, Intranasal.TV Unknown Completed Arline Seybold - External HEPATITIS [...] Meningococcal Vaccine- Conjugate(Menactra) Unknown Completed Arline Henning valbold - External MMR- Measles, Mumps, Rubella Unknown Completed Arline Stevensonregina - External IPV- Inactivated Polio Vaccine Unknown Completed Arline Falcon - External Tdap- (Boostrix, Adacel) Unknown Completed Arline Falcon - External Varicella Vaccine Unknown Completed Elvia mauricio Seybold - External Vital Signs Vital Name Observation Time Observation Value Comments [facility] Systolic blood pressure 2024 21:35:00 118 mm[Hg] [facility] Diastolic blood pressure 2024 21:35:00 71 mm[Hg] [facility] Heart rate 2024 21:35:00 77 /min [facility] Body temperature 2024 21:35:00 37.22 Megan [facility] Respiratory rate 2024 21:35:00 18 /min [facility] Oxygen saturation in Arterial blood by Pulse oximetry 2024 21:35:00 100 /min [facility] Body height 2024 19:20:00 157.5 cm [facility] Body weight 2024 19:20:00 113.399 kg [facility] BMI 2024 19:20:00 45.73 kg/m2 [facility] Respiratory rate 2024-01-11 22:39:00 18 /min Arline Grahamold - External Body height 2024-01-11 22:39:00 160 cm Hilda val Seybold - External Body weight 2024-01-11 22:39:00 119.75 kg Hilda ey Seybold - External BMI 2024-01-11 22:39:00 46.77 kg/m2 Hilda val Seybold - External BP Systolic 2023-12-06 00:00:00 114 mm[Hg] [facility] BP Diastolic 2023-12-06 00:00:00 81 mm[Hg] [facility] Height 2023-12-06 00:00:00 63 [in_i] [facility] Body Weight 2023-11-01 00:00:00 261.6 [lb_av] [facility] BP Systolic 2023-11-01 00:00:00 142 mm[Hg] [facility] BMI (Body Mass Index) 2023-11-01 00:00:00 46.3 kg/m2 [facility] BP Diastolic 2023-11-01 00:00:00 87 mm[Hg] [facility] Height 2023-11-01 00:00:00 63 [in_i] [facility] BP Systolic 2023-10-03 00:00:00 124 mm[Hg] [facility] Body Weight 2023-10-03 00:00:00 257.6 [lb_av] [facility] BP Diastolic 2023-10-03 00:00:00 83 mm[Hg] [facility] Height 2023-10-03 00:00:00 63 [in_i] [facility] BMI (Body Mass Index) 2023-10-03 00:00:00 45.6 kg/m2 [facility] Systolic blood pressure 2023-05-08 22:38:00 118 mm[Hg] Arline Seybo ld - External Diastolic blood pressure 2023-05-08 22:38:00 74 mm[Hg] Arline Seybo ld - External Heart rate 2023-05-08 22:38:00 78 /min Kelse y Seybold - External Body temperature 2023-05-08 22:38:00 36.78 Megan Arline Seybold - External Respiratory rate 2023-05-08 22:38:00 18 /min Arline Seybold - External Body height 2023-05-08 22:38:00 160 cm Hilda ey Seybold - External Body weight 2023-05-08 22:38:00 120.657 kg Hilda ey Seybold - External BMI 2023-05-08 22:38:00 47.12 kg/m2 Hilda ey Seybold - External Oxygen saturation in Arterial blood by Pulse oximetry 2023-05-08 22:38:00 99 /min Arline Seybo ld - External Systolic blood pressure 2022-09-22 21:26:00 120 mm[Hg] [facility] Diastolic blood pressure 2022-09-22 21:26:00 72 mm[Hg] [facility] Heart rate 2022-09-22 21:26:00 78 /min [facility] Respiratory rate 2022-09-22 21:26:00 18 /min [facility] Body height 2022-09-22 21:26:00 160 cm [facility] Body weight 2022-09-22 21:26:00 122.471 kg [facility] BMI 2022-09-22 21:26:00 47.83 kg/m2 [facility] Systolic blood pressure 2022-09-12 14:21:00 121 mm[Hg] [facility] Diastolic blood pressure 2022-09-12 14:21:00 82 mm[Hg] [facility] Heart rate 2022-09-12 14:21:00 93 /min [facility] Body temperature 2022-09-12 14:21:00 36.94 Megan [facility] Respiratory rate 2022-09-12 14:21:00 18 /min [facility] Body height 2022-09-12 14:21:00 160 cm [facility] Body weight 2022-09-12 14:21:00 119.75 kg [facility] BMI 2022-09-12 14:21:00 46.77 kg/m2 [facility] Systolic blood pressure 2022-06-15 16:01:00 110 mm[Hg] [...] External Heart rate 2021-12-03 15:45:00 113 /min Kelse y Seybold - External Body temperature 2021-12-03 15:45:00 36.56 Megan Arline Falcon - External Respiratory rate 2021-12-03 15:45:00 16 /min Arline Falcon - External Body height 2021-12-03 15:45:00 160 cm Hilda Falcon - External Body weight 2021-12-03 15:45:00 127.007 kg Hilda neal Seybold - External BMI 2021-12-03 15:45:00 49.60 kg/m2 Hilda neal Seybold - External Systolic blood pressure 2021-05-12 19:08:00 109 mm[Hg] [facility] Diastolic blood pressure 2021-05-12 19:08:00 74 mm[Hg] [facility] Heart rate 2021-05-12 19:08:00 83 /min [facility] Body temperature 2021-05-12 19:08:00 36.72 Megan [facility] Respiratory rate 2021-05-12 19:08:00 18 /min [facility] Body height 2021-05-12 19:08:00 160 cm [facility] Body weight 2021-05-12 19:08:00 122.471 kg [facility] BMI 2021-05-12 19:08:00 47.83 kg/m2 [facility] BP Diastolic 2020-01-10 00:00:00 69 mm[Hg] [place] [facility] Height 2020-01-10 00:00:00 62 [in_i] [place] [facility] BMI (Body Mass Index) 2020-01-10 00:00:00 46.8 kg/m2 [facility] BP Systolic 2020-01-10 00:00:00 117 mm[Hg] Fernandez nafisa [facility] Body Weight 2020-01-10 00:00:00 256 [lb_av] [place] [facility] BP Diastolic 2019-07-09 00:00:00 78 mm[Hg] [place] [facility] Height 2019-07-09 00:00:00 62 [in_i] [place] [facility] BMI (Body Mass Index) 2019-07-09 00:00:00 47.2 kg/m2 [place] BP Systolic 2019-07-09 00:00:00 141 mm[Hg] Jim skelton [facility] Body Weight 2019-07-09 00:00:00 258 [lb_av] Ignacio hairstona [facility] BP Diastolic 2019-03-22 00:00:00 95 mm[Hg] Ignacio hairstona [facility] Height 2019-03-22 00:00:00 62 [in_i] Padmaja oliver [facility] BMI (Body Mass Index) 2019-03-22 00:00:00 46.5 kg/m2 [place] BP Systolic 2019-03-22 00:00:00 148 mm[Hg] Jim skelton [facility] Body Weight 2019-03-22 00:00:00 254 [lb_av] Ignacio mcconnell [facility] Procedures Procedure Date / Time Performed Performing Clinician Source CT ABDOMEN PELVIS W CONTRAST 2024 21:02:00 Saman Ruiz [facility] POCT TEST 2024 20:51:00 Shmuel Ruiz [facility] URINALYSIS 2024 19:54:00 Saman Ruiz [facility] LIPASE 2024 19:53:00 Saman Ruiz [facility] COMP. METABOLIC PANEL (74792) 2024 19:53:00 Saman Ruiz [facility] CBC WITH DIFF 2024 19:53:00 [facility] 2023-03-06 00:00:00 [facility] TOTAL BETA HCG ASSAY 2022-10-11 18:53:00 Lori Prieto [facility] US PELVIS COMPLETE WITH TRANSVAGINAL 2022-09-28 19:08:37 Yaneli Prieto [facility] ASSIGNMENT OF BENEFITS 2022-09-12 13:50:21 Docto r Unassigned, Otis [facility] US, transvaginal 2019-03-22 00:00:00 Jim skelton [facility] Delivery 2014-08-14 00:00:00 Ignacio mcconnell [facility] Delivery 2014-03-06 00:00:00 Elicia via Medical Plan of Care Planned Activity Planned Date Details Comments Source Diagnostic Test Pending 2020-01-10 00:00:00 bacterial vaginosis + vaginitis panel, vaginal [code = bacterial vaginosis + vaginitis panel, vaginal] Uriel [facility] Encounters Start Date/Time End Date/Time Encounter Type Admission Type Attending Clinicians Care Facility Care Department Encounter ID Source 2024-02-18 00:00:00 2024-02-18 00:00:00 Outpatient KAREN COPELAND [id number] Arline Falcon 2024 13:21:00 2024 15:51:00 Emergency X BEHZADI, SAMAN BEHZADI, SAMAN [facility] [id number] [facility] 2024 13:21:00 2024 15:51:00 Emergency Behzadi, Saman A [facility] 1.2.840.114 350.1.13.10 4.2.7.2.686 [id number] [facility] 2024 08:00:00 2024 08:00:00 Outpatient KAREN COPELAND [id number] Arline [facility] 2024-02-13 00:00:00 2024-02-13 00:00:00 Outpatient KAREN COPELAND [id number] Arline florencio 2024-01-11 17:15:00 2024-01-11 17:15:00 Outpatient JOSE MANUEL NUNO [id number] Arline florencio 2024-01-11 16:30:00 2024-01-11 16:30:00 Outpatient KAREN COPELAND [id number] [facility] 2023-12-20 00:00:00 2023-12-20 00:00:00 Outpatient JUAN MANUEL COPELANDParul NUNO [id number] Arline Falcon 2023-12-12 00:00:00 2023-12-12 00:00:00 JEFFREY Gao: [address], [place] [address] , Ph. [facility] - GC_GCBZW_Nv elvia Mesa* [id number] [facility] 2023-12-06 00:00:00 2023-12-06 00:00:00 HILDA Lloyd: [address], [place] [address] , Ph. [facility] - GC_GCBZW_Nv elvia Lew* [id number] [facility] 2023-11-23 00:00:00 2023-11-23 00:00:00 HILDA Lloyd: [address], [place] [address] , Ph. [facility] - GC_GCBZW_Nv elvia Lew* [id number] [facility] 2023-11-01 00:00:00 2023-11-01 00:00:00 HILDA Lloyd: [address], [place] [address] , Ph. [facility] - GC_GCBZW_Nv elvia Mesa* [id number] [facility] 2023-10-09 00:00:00 2023-10-09 00:00:00 Outpatient MIN KAREN NUNO [id number] Arline Falcon 2023-10-09 00:00:00 2023-10-09 00:00:00 Outpatient FREDI BROWN ARLINE NUNO [id number] Arline Falcon 2023-10-06 00:00:00 2023-10-06 00:00:00 HILDA Lloyd: [address], [place] [address] , Ph. [facility] - GC_GCBZW_La elvia Lew* [id number] [facility] 2023-10-03 00:00:00 2023-10-03 00:00:00 HILDA Lloyd: [address], [place] [address] , Ph. [facility] - GC_GCBZW_La elvia Lew* [id number] [facility] 2023-08-22 00:00:00 2023-08-22 00:00:00 Outpatient MD ARLINE LYNNE [id number] [facility]23-[facility]-06 14:30:00 2023-06-06 14:30:00 Outpatient PERLA STAPLETON [id number] Arline [facility] 2023-05-23 15:30:00 2023-05-23 15:30:00 Outpatient R SANTOYO-GILBERTO S, RYAN SANTOYO-GILBERTO S, RYAN [facility] [id number] [facility] 2023-05-23 08:30:00 2023-05-23 08:30:00 Outpatient VIRA MORGAN [id number] [facility] 2023-05-22 00:00:00 2023-05-22 00:00:00 Outpatient MD ARLINE LYNNE [id number] Arline florencio 2023-05-15 00:00:00 2023-05-15 00:00:00 Outpatient [facility]AREN [facility] [id number] [facility] 2023-05-11 00:00:00 2023-05-11 00:00:00 Outpatient MD ARLINE LYNNE [id number] Arline florencio 2023-05-10 00:00:00 2023-05-10 00:00:00 Outpatient VIRA MORGAN [id number] Arline [facility] 2023-05-09 00:00:00 2023-05-09 00:00:00 Outpatient VIRA MORGAN ARLINE NUNO [id number] Arline [facility] 2023-05-08 17:00:00 2023-05-08 17:00:00 Outpatient LAB90 ARLINE NUNO [id number] [facility] 2023-05-08 16:30:00 2023-05-08 16:30:00 Outpatient MIN KAREN ARLINE NUNO [id number] Arline [facility] 2023-02-07 16:15:00 2023-02-07 16:15:00 Outpatient DUYENJESSENIA RAMIREZ ARLINE NUNO [id number] Arline [facility] 2023-01-30 14:00:00 2023-01-30 14:00:00 Outpatient REGLA SOW ARLINE NUNO [id number] Arline [facility] 2022-12-09 15:30:00 2022-12-09 15:30:00 Outpatient RICKIE SPAIN [facility] [id number] [facility] 2022-12-08 00:00:00 2022-12-08 00:00:00 Telephone Rickie Andino [facility] 1..840.114 350.1.13.10 4.2.7.2.686 [id number] [facility] 2022-11-09 00:00:00 2022-11-09 00:00:00 Outpatient MIN KAREN NUNO [id number] Arline [facility] 2022-10-18 00:00:00 2022-10-18 00:00:00 Outpatient MIN KAREN NUNO [id number] Arline [facility] 2022-10-16 00:00:00 2022-10-16 00:00:00 Telephone Yaneli Prieto [facility] ..840.114 350.1.13.10 4.2.7.2.686 [id number] [facility] 2022-10-11 13:45:00 2022-10-11 14:00:00 Mrb Engineer Visit Pob, Adc Lab Main Lashayreina Gracie [facility] 1.84.114 350.1.13.10 4.2.7.2.686 [id number] [facility] 2022-10-11 13:45:00 2022-10-11 13:45:00 Outpatient Dai LASHAYREINA GRACIE [facility] [id number] [facility] 2022-10-05 00:00:00 2022-10-05 00:00:00 [facility]..114 350.1.13.10 4.2.7.2.686 [id number] [facility] 2022-10-04 09:15:00 2022-10-04 09:15:00 Outpatient R [facility] [id number] [facility] 2022-10-03 16:00:00 2022-10-03 16:00:00 Outpatient R YANELI PRIETO CHERYAL [facility] [id number] [facility] 2022-10-02 00:00:00 2022-10-02 00:00:00 Telephone Yaneli Prieto [facility] 1.84.114 350.1.13.10 4.2.7.2.686 [id number] [facility] 2022-09-28 13:33:11 2022-09-28 23:59:00 Outpatient R YANELI PRIETO CHERYAL [facility] [id number] [facility] 2022-09-28 13:30:00 2022-09-28 23:59:00 Hospital Encounter Yaneli Prieto [facility] 1.840.114 350.1.13.10 4.2.7.2.686 [id number] [facility] 2022-09-22 16:15:00 2022-09-22 16:33:35 Outpatient R YANELI PRIETO CHERYAL [facility] [id number] [facility] 2022-09-22 16:15:00 2022-09-22 16:33:35 Routine Visit Yaneli Prieto [facility] 1.840.114 350.1.13.10 4.2.7.2.686 [id number] [facility] 2022-09-22 09:00:00 2022-09-22 09:00:00 Outpatient R SANTOYOSOFI Brandon, RYAN MENDEZIOOttoGILBERTO S RYAN [facility] [id number] [facility] 2022-09-22 07:30:00 2022-09-22 07:45:00 Mrb Engineer Visit Lab, Soren [facility] 1..840.114 350.1.13.10 4.2.7.2.686 [id number] [facility] 2022-09-21 16:00:00 2022-09-21 16:00:00 Outpatient R YANELI PRIETO CHERYAL [facility] [id number] [facility] 2022-09-19 07:45:00 2022-09-19 08:40:02 Outpatient R YANELI PRIETO CHERYAL [facility] [id number] [facility] 2022-09-19 07:45:00 2022-09-19 08:00:00 Mrb Engineer Visit Lab, Soren Neumann [facility] 1..840.114 350.1.13.10 4.2.7.2.686 [id number] [facility] 2022-09-15 09:00:00 2022-09-15 10:28:19 Outpatient R YANELI PRIETO CHERYAL [facility] [id number] [facility] 2022-09-15 09:00:00 2022-09-15 09:15:00 Mrb Engineer Visit Lab, Soren - Thien Yaneli Prieto [facility] 1.840.114 350.1.13.10 4.2.7.2.686 [id number] [facility] 2022-09-15 00:00:00 2022-09-15 00:00:00 Telephone AronYaneli hernandez [facility] 1.84.114 350.1.13.10 4.2.7.2.686 [id number] [facility] 2022-09-12 09:30:00 2022-09-12 09:59:39 Outpatient R [facility] [id number] [facility] 2022-09-12 09:30:00 2022-09-12 09:59:39 Initial Visit Yaneli Prieto [facility] 1.84.114 350.1.13.10 4.2.7.2.686 [id number] [facility] 2022-09-12 00:00:00 2022-09-12 00:00:00 Outpatient KAREN COPELAND [id number] Arline Falcon 2022-09-12 00:00:00 2022-09-12 00:00:00 Orders Only Doctor Unassigned, Otis [facility] 1.84.114 350.1.13.10 4.2.7.2.686 [id number] [facility] 2022-09-12 00:00:00 2022-09-12 00:00:00 Letter (Out) Yaneli Prieto [facility] 1.2.840.114 350.1.13.10 4.2.7.2.686 [id number] [facility] 2022-08-09 00:00:00 2022-08-09 00:00:00 Outpatient KAREN COPELAND [id number] Arline regina 2022-07-28 08:30:00 2022-07-28 08:30:00 Outpatient CHRISTINA KATHYA ARLINE NUNO [id number] [facility] 2022-06-29 09:45:00 2022-06-29 09:45:00 Outpatient KEVIN FREDIEMMA NUNO [id number] Arline [facility] 2022-06-15 12:00:00 2022-06-15 12:00:00 Outpatient LAB90 ARLINE NUNO [id number] Arline [facility] 2022-06-15 11:00:00 2022-06-15 11:00:00 Outpatient HUNDL, KAREN NUNO [id number] [facility] 2022-05-25 00:00:00 2022-05-25 00:00:00 Outpatient MIN, KAREN NUNO [id number] Arline [facility] 2022-05-11 00:00:00 2022-05-11 00:00:00 Outpatient KAREN COPELAND [id number] Arline [facility] 2022-04-29 00:00:00 2022-04-29 00:00:00 Outpatient HUNDL, KAREN NUNO [id number] Arline [facility] 2022-04-13 16:30:00 2022-04-13 16:30:00 Outpatient MIN, KAREN NUNO [id number] Arline regina 2022-04-11 08:30:00 2022-04-11 08:30:00 Outpatient HUNDKAREN Ponce [id number] [facility]22-[facility]-04 00:00:00 2022-04-04 00:00:00 Outpatient PATITOL, KAREN NUNO [id number] [facility] 2022-03-04 16:30:00 2022-03-04 16:30:00 Outpatient KAREN COPELAND ARLINE NUNO [id number] [facility] 2022-02-03 00:00:00 2022-02-03 00:00:00 Outpatient KAREN COPELAND ARLINE NUNO [id number] [facility] 2022-02-02 16:00:00 2022-02-02 16:00:00 Outpatient KAREN COPELAND ARLINE NUNO [id number] Arline [facility] 2021-12-07 00:00:00 2021-12-07 00:00:00 Outpatient PREZALELAND Henning ARLINE NUNO [id number] Arline [facility] 2021-12-07 00:00:00 2021-12-07 00:00:00 Outpatient [facility] [id number] [facility] 2021-12-07 00:00:00 2021-12-07 00:00:00 Outpatient HUNDKAREN Ponce ARLINE NUNO [id number] Arline [facility] 2021-12-06 11:55:00 2021-12-06 11:55:00 Outpatient LAB90 ARLINE NUNO [id number] [facility] 2021-12-03 10:30:00 2021-12-03 10:30:00 Outpatient KAREN COPELAND ARLINE NUNO [id number] [facility] 2021-12-03 08:00:00 2021-12-03 08:00:00 Outpatient KAREN COPELAND ARLINE NUNO [id number] [facility] 2021-06-09 10:00:00 2021-06-09 10:00:00 Outpatient SAAD CID [facility] [id number] [facility] 2021-06-09 10:00:00 2021-06-09 10:00:00 Outpatient SAAD CID [facility] [id number] [facility] 2021-05-13 08:45:00 2021-05-13 08:45:00 Outpatient BERNARD AWAD [facility] [id number] [facility] 2021-05-12 13:00:00 2021-05-12 13:20:45 Outpatient Dai WHITMANBERNARD SOMERS [facility] [id number] [facility] 2021-05-12 13:00:00 2021-05-12 13:20:45 [facility] 1.2.840.114 350.1.13.10 4.2.7.2.686 [id number] [facility] 2021-05-12 13:00:00 2021-05-12 13:00:00 Outpatient Dai VIERABERNARD [facility] [id number] [facility] 2021-04-19 00:00:00 2021-04-19 00:00:00 Patient Secure Msg Doctor Unassigned, Otis [facility] 1.840.114 350.1.13.10 4.2.7.2.686 [id number] [facility] 2021-04-14 15:00:00 2021-04-14 15:51:10 Office Visit Bernard Viera [facility] 1..840.114 350.1.13.10 4.2.7.2.686 [id number] [facility] 2021-04-14 15:00:00 2021-04-14 15:51:10 [facility] [id number] [facility] 2021-04-14 15:00:00 2021-04-14 15:00:00 [facility] [id number] [facility] 2021-03-11 00:00:00 2021-03-11 00:00:00 Letter (Out) Shelby Fair [facility] 1..840.114 350.1.13.10 4.2.7.2.686 [id number] [facility] 2021-03-09 14:15:00 2021-03-09 14:52:05 Outpatient OBDULIO GIFFORD [facility] [id number] [facility] 2021-03-09 14:15:00 2021-03-09 14:30:00 Laboratory Only Only, Ang Db Test Unknown, Attending [facility] 1.2.840.114 350.1.13.10 4.2.7.2.686 [id number] [facility] 2021-03-09 00:00:00 2021-03-09 00:00:00 Orders Only Doctor Unassigned, Otis [facility] 1.2.840.114 350.1.13.10 4.2.7.2.686 [id number] [facility] 2020-04-19 01:04:00 2020-04-19 01:04:00 Outpatient LISTER_MELI [facility] [id number] [facility] 2020-03-15 01:02:00 2020-03-15 01:02:00 Outpatient LISTER_MELI [facility] [id number] [facility] 2020-02-08 01:03:00 2020-02-08 01:03:00 Outpatient LISTER_MELI [facility] [id number] [facility] 2020-01-10 12:53:00 2020-01-10 12:53:00 Outpatient LISTER_MELI [facility] [id number] [facility] 2020-01-10 00:00:00 2020-01-10 00:00:00 Pam Tadeo, PARTS COUNTERMAN: [address], [place] [address] , Ph. [facility] THEATRE PROFESSOR [id number] [facility] 2019-10-01 00:00:00 2019-10-01 00:00:[address] [facility] 1.2.114 350.1.13.10 4.2.7.2.686 [id number] [facility] 2019-10-01 00:00:00 2019-10-01 00:00:00 Telephone Yancy Aaron [facility] 1.20.114 350.1.13.10 4.2.7.2.686 [id number] [facility] 2019-10-01 00:00:00 2019-10-01 00:00:00 Telephone Pcp, Patient Does Not Have A [facility] 1.20.114 350.1.13.10 4.2.7.2.686 [id number] [facility] 2019-09-30 11:22:44 2019-09-30 11:42:44 Laboratory Only Lab, Ad[facility] 1..114 350.1.13.10 4.2.7.2.686 [id number] [facility] 2019-09-30 11:20:00 2019-09-30 11:20:00 Outpatient R CLARENCE CHENVERNONLuis [facility] [id number] [facility] 2019-09-30 00:00:00 2019-09-30 00:00:00 Letter (Out) Doctor Unassigned, Otis [facility] 1..114 350.1.13.10 4.2.7.2.686 [id number] [facility] 2019-07-09 06:15:00 2019-07-09 06:15:00 Outpatient PATRICIO_LELO [facility] [id number] [facility] 2019-07-09 00:00:00 2019-07-09 00:00:00 Pam Tadeo, PARTS COUNTERMAN: [address], [place] [address] , Ph. [facility] [id number] [facility] 2019-03-29 11:39:00 2019-03-29 11:39:00 Outpatient LISTER_MELI [facility] [id number] [facility] 2019-03-25 02:27:00 2019-03-25 02:27:00 Outpatient LISTER_MELI [facility] [id number] [facility] 2019-03-24 10:48:00 2019-03-24 10:48:00 Outpatient LISTER_MELI [facility] [id number] [facility] 2019-03-22 04:26:00 2019-03-22 04:26:00 Outpatient LISTER_MELI [facility] [id number] [facility] 2019-03-22 00:00:00 2019-03-22 00:00:00 Pam Tadeo, PARTS COUNTERMAN: [address], [place] [address] , Ph. [facility] THEATRE PROFESSOR [id number] [facility] Results Test Description Test Time Test Comments Results Result Comments Source CT Abdomen pelvis w contrast 21:40:52 EXAM: CT ABDOMEN PELVIS W CONTRAST HISTORY: 29 years -old Female with abd pain, epigastric pain COMPARISON: None. TECHNIQUE: Contiguous axial imaging from the level of the lung basesthrough the proximal thighs was performed after intravenous contrastadministration. Coronal and sagittal reconstructions were obtained. ? FINDINGS: LOWER THORAX: The lung bases are essentially clear. No cardiomegaly.. LIVER: A focal density about the falciform ligament, likely present focalfatty sparing. Normal contour. GALLBLADDER AND BILIARY TREE: Cholecystectomy. No intra or extrahepaticbiliary ductal dilation. SPLEEN: Unremarkable. PANCREAS: No ductal dilatation or masses ADRENAL GLANDS: No adrenal lesions. KIDNEYS: A subcentimeter hypodense lesion in the inferior pole of the leftkidney, too small to characterize and likely represent a cyst. Nohydronephrosis, stones, or masses. Homogeneous and symmetrical enhancement. GI TRACT: No dilation or bowel wall thickening.The appendix is normal. PERITONEUM AND RETROPERITONEUM: No free air or fluid collection. LYMPH NODES: No lymphadenopathy. PELVIS/BLADDER: Bladder is underdistended and cannot be completelyevaluated.. The reproductive organs are unremarkable. Subcentimeter cystsin the left ovary consistent with physiologic changes. VESSELS: Unremarkable. BONES AND SOFT TISSUES: No suspicious lytic or sclerotic bony lesions. Asmall fat-containing umbilical hernia is noted. [facility] ([id number])2024 20:43:27* Test Item Value Reference Range Interpretation Comme nts NA (test code = 2013548495) 140 mmol/L 135-145 K (test code = 9998994140) 3.3 mmol/L 3.5-5.0 L CL (test code = 3780615825) 107 mmol/L 98-108 CO2 TOTAL (test code = 2458539702) 23 mmol/L 23-31 AGAP (test code = 6667024638) 10 2-16 BUN (test code = 1864734712) 8 mg/dL 7-23 GLUCOSE (test code = 1292036118) 119 mg/dL 70-110 H CREATININE (test code = 2160-0) 0.64 mg/dL 0.50-1.04 TOTAL BILI (test code = 8300684859) 0.7 mg/dL 0.1-1.1 CALCIUM (test code = 0877911402) 9.6 mg/dL 8.6-10.6 T PROTEIN (test code = 2473967149) 8.1 g/dL 6.3-8.2 ALBUMIN (test code = 5347185165) 4.6 g/dL 3.5-5.0 ALK PHOS (test code = 6615441022) 62 U/L 34-122 ALTv (test code = 1742-6) 29 U/L 5-35 AST(SGOT) (test code = 9388416801) 29 U/L 13-40 eGFR (test code = 83710-8) 123.6 mL/min/1.73m2 CKD-EPI eGFR (2020). Assuming creatinine has been stable day-to-day for at least three months, the eGFR indicates Category G1 (>= 90 mL/min/1.73 m2) Lab Interpretation (test code = 32255-6) [facility] Test Item Value Reference Range Interpretation Comme nts LIPASE (test code = 3790075198) 40 U/L 0-220 Lab Interpretation (test cod e = 70852-9) [facility] Zpjq9582-12-35 20:30:01* Test Item Value Reference Range Interpretation Comme nts WBC (test code = 6690-2) 8.44 4.30-11.10 RBC (test code = 789-8) 4.58 3.93-5.25 HGB (test code = 718-7) 13.4 g/dL 11.6-15.0 HCT (test code = 4544-3) 41.0 % 35.7-45.2 MCV (test code = 787-2) 89.5 fL 80.6-95.5 MCH (test code = 785-6) 29.3 pg 25.9-32.8 MCHC (test code = 786-4) 32.7 g/dL 31.6-35.1 RDW-SD (test code = 26008-9) 41.6 fL 39.0-49.9 RDW-CV (test code = 788-0) 12.8 % 12.0-15.5 PLT (test code = 777-3) 310 166-358 MPV (test code = 43835-8) 10.3 fL 9.5-12.9 NRBC/100 WBC (test code = 1368699747) 0.0 0.0-10.0 NRBC x10^3 (test code = 4971680359) See_Comment [Automated me ssage] The system which generated this result transmitted reference range: 10*3/?L. The reference range was not used to interpret this result as normal/abnormal. GRAN MAT (NEUT) % (test code = 770-8) 61.9 % IMM GRAN % (test code = 4723692972) 0.20 % LYMPH % (test code = 736-9) 31.9 % MONO % (test code = 5905-5) 5.1 % EOS % (test code = 713-8) 0.7 % BASO % (test code = 706-2) 0.2 % GRAN MAT x10^3(ANC) (test code = 9978613116) 5.22 10*3/uL 1.88-7.09 IMM GRAN x10^3 (test code = 5354282213) 0.00-0.06 LYMPH x10^3 (test code = 731-0) 2.69 10*3/uL 1.32-3.29 MONO x10^3 (test code = 742-7) 0.43 10*3/uL 0.33-0.92 EOS x10^3 (test code = 711-2) 0.06 10*3/uL 0.03-0.39 BASO x10^3 (test code = 704-7) 0.01-0.07 [facility] [id number] [facility]:00:00* Test Item Value Reference Range Interpretation Comme nts atopobium vaginae (test code = atopobium vaginae) 0.000 ppm 19.961-24.689 bvab 2,3 (bacterial vaginosi s associated bacteria 2, 3); mobiluncus spp (test code = bvab 2,3 (bacterial vaginosis associated bacteria 2, 3); mobiluncus spp) 0.000 ppm 19.961-24.689 alyson albicans, parapsilos is, tropicalis (test code = alyson albicans, parapsilosis, tropicalis) 0.000 ppm 19.961-30.770 alyson glabrata (test code = alyson glabrata) 0.000 ppm 23.000-32.138 alyson krusei (test code = alyson krusei) 0.000 ppm 23.000-32.271 chlamydia trachomatis (test code = chlamydia trachomatis) 0.000 ppm 23.000-31.467 gardnerella vaginalis (test code = gardnerella vaginalis) 0.000 ppm 19.961-24.689 herpes simplex virus 1 (test code = herpes simplex virus 1) 0.000 ppm 23.000-32.355 herpes simplex virus 2 (test code = herpes simplex virus 2) 0.000 ppm 23.000-31.433 megasphaera (types 1, 2) (te st code = megasphaera (types 1, 2)) 0.000 ppm 19.961-24.689 neisseria gonorrhoeae (test code = neisseria gonorrhoeae) 0.000 ppm 23.000-32.117 trichomonas vaginalis (test code = trichomonas vaginalis) 16.990 ppm 23.000-32.119 A [facility]ulin [Units/volume] in Serum or Plasma --[id number] 00:00:00* Test Item Value Reference Range Interpretation Comme nts insulin, fasting (test code = insulin, fasting) 26.9 u[IU]/mL <25.0 H [facility] Smazyfm77-Qaatmdbdhnpztkhsfat [Mass/volume] in Serum or [id number] 00:00:00* Test Item Value Reference Range Interpretation Comme nts 17-hydroxyprogesterone (test code = 17-hydroxyprogesterone) 31 NG/dL see below [facility] MedicalDehydroepiandrosterone sulfate (DHEA-S) [Mass/volume] in Serum or [id number] 00:00:00* Test Item Value Reference Range Interpretation Comme nts DHEA-S (test code = DHEA-S) 103.0 ug/dL 98.8-340.0 [facility] MedicalThyrotropin [Units/volume] in Serum or [id number] 00:00:00* Test Item Value Reference Range Interpretation Comme nts TSH (test code = TSH) 1.720 uIU/mL 0.500-4.530 [facility] MedicalChoriogonadotropin.beta subunit [Units/volume] in Serum or Plasma 2023-11-14 00:00:00* Test Item Value Reference Range Interpretation Comme nts HCG (test code = HCG) < 5 [facility] MedicalGlucose [Mass/volume] in Serum or [id number] 00:00:00* Test Item Value Reference Range Interpretation Comme nts glucose (test code = glucose) 95 mg/dL 70-99 [facility] MedicalLipid 1995 panel - Serum or [id number] 00:00:00* Test Item Value Reference Range Interpretation Comme nts cholesterol (test code = cholesterol) 152 mg/dL 0-200 triglycerides (test code = triglycerides) 131 mg/dL 10-150 HDL cholesterol (test code = HDL cholesterol) 44 mg/dL >50 L HDL risk factor (test code = HDL risk factor) 3.5 calc. VLDL cholesterol (test code = VLDL cholesterol) 26 calc dldl (test code = dldl) 84 mg/dL <100 [facility] MedicalTestosterone [Mass/volume] in Serum or [id number] 00:00:00* Test Item Value Reference Range Interpretation Comme nts testosterone (test code = testosterone) 23.0 NG/dL 8.4-48.1 [facility] Medicaltrichomonas vaginalis swab (swhl) 2023-11-02 00:00:00* Test Item Value Reference Range Interpretation Comme nts trichomonas vaginalis swab ( test code = trichomonas vaginalis swab) TRICH NEG negative [facility] Medicalpap, LB + reflex to HR HPV if [id number] 00:00:00* Test Item Value Reference Range Interpretation Comme nts LMP date: (test code = LMP date:) 09/22/2023 Pap, liquid-based (test code = Pap, liquid-based) NILM nilm source (liquid-based cytology): (test code = source (liquid-based cytology):) CERVICAL (WHICH INCLUDES ENDOCERVICAL) [facility] MedicalHIV 1+2 Ab+HIV1 p24 Ag [Presence] in Serum or Plasma by [id number] 00:00:00* Test Item Value Reference Range Interpretation Comme nts HIV Ag/Ab (test code = HIV Ag/Ab) NON-REACTIVE non-reactive HIV-1 P24 Ag (test code = HI V-1 P24 Ag) NON-REACTIVE non-reactive HIV 1+2 Ab (test code = HIV 1+2 Ab) NON-REACTIVE non-reactive [facility] MedicalReagin Ab [Presence] in Serum by [id number] 00:00:00* Test Item Value Reference Range Interpretation Comme nts RPR (test code = RPR) NON-REACTIVE non-reactive [facility] MedicalHepatitis B virus surface Ag [Presence] in [id number] 00:00:00* Test Item Value Reference Range Interpretation Comme nts ethnicity: (test code = ethnicity:) NOT PROVIDED race: (test code = race:) UNKNOWN hep. B surf. Ag (test code = hep. B surf. Ag) NON-REACTIVE non-reactive [facility] MedicalHepatitis C virus Ab [Presence] in [id number] 00:00:00* Test Item Value Reference Range Interpretation Comme nts ethnicity: (test code = ethnicity:) NOT PROVIDED race: (test code = race:) UNKNOWN hep. C Ab. (test code = hep. C Ab.) NON-REACTIVE non-reactive [facility] Medical[facility]ious disease [id number] 00:00:00* Test Item Value Reference Range Interpretation Comme nts atopobium vaginae (test code = atopobium vaginae) 24.260 ppm 19.961-24.689 A bvab 2,3 (bacterial vaginosi s associated bacteria 2, 3); mobiluncus spp (test code = bvab 2,3 (bacterial vaginosis associated bacteria 2, 3); mobiluncus spp) 25.563 ppm 19.961-24.689 A alyson albicans, parapsilos is, tropicalis (test code = alyson albicans, parapsilosis, tropicalis) 0.000 ppm 19.961-30.770 alyson glabrata (test code = alyson glabrata) 0.000 ppm 23.000-32.138 alyson krusei (test code = alyson krusei) 0.000 ppm 23.000-32.271 chlamydia trachomatis (test code = chlamydia trachomatis) 0.000 ppm 23.000-31.467 gardnerella vaginalis (test code = gardnerella vaginalis) 30.458 ppm 19.961-24.689 A herpes simplex virus 1 (test code = herpes simplex virus 1) 0.000 ppm 23.000-32.355 herpes simplex virus 2 (test code = herpes simplex virus 2) 0.000 ppm 23.000-31.433 megasphaera (types 1, 2) (te st code = megasphaera (types 1, 2)) 0.000 ppm 19.961-24.689 neisseria gonorrhoeae (test code = neisseria gonorrhoeae) 0.000 ppm 23.000-32.117 trichomonas vaginalis (test code = trichomonas vaginalis) 13.585 ppm 23.000-32.119 A tet B, tet M (test code = te t B, tet M) 17.097 ppm 23.000-27.778 A [facility], QUANTITATIVE, [id number] 20:37:30* Test Item Value Reference Range Interpretation Comme nts BETA HCG (test code = 5902488341) 46.51 See_Comment [Automated [employer]] The system which generated this result transmitted reference range: Non- female and male patients: <5 mIU/mL. The reference range was not used to interpret this result as normal/abnormal. ELY (test code = ELY) Gestational Age ?Range (mIU/mL) 1-10 ?Weeks ?[id number] Weeks ?[id number] Weeks ?6804-88924791-89 Weeks ?1531-462455 Biotin has been reported to cause a negative bias, interpret results relative to patient's use of biotin. [facility], QUANTITATIVE, [id number] 20:37:30* Test Item Value Reference Range Interpretation Comme nts BETA HCG (test code = 9102473885) 46.51 See_Comment [LogMeIn] The system which generated this result transmitted reference range: Non- female and male patients: <5 mIU/mL. The reference range was not used to interpret this result as normal/abnormal. ELY (test code = ELY) Gestational Age ?Range (mIU/mL) 1-10 ?Weeks ?[id number] Weeks ?42433-63831487-05 Weeks ?1091-87273359-02 Weeks ?1531-236607 Biotin has been reported to cause a negative bias, interpret results relative to patient's use of biotin. [facility] 2019-07-11 00:00:00* Test Item Value Reference Range Interpretation Comme nts Bacteria identified in Urine by Culture (test code = 630-4) comment A [facility]Hemoglobin.total in [id number] 00:00:00* Test Item Value Reference Range Interpretation Comme nts Hemoglobin A1c/Hemoglobin.to qasim in Blood (test code = 4548-4) 5.6 % 4.8-5.6 [facility] macro (dipstick) panel - [id number] 16:38:00* Test Item Value Reference Range Interpretation Comme nts Leukocytes (test code = Leukocytes) TRACE Nitrite (test code = Nitrite) NEG Urobilinogen (test code = Urobilinogen) 0.2 Protein (test code = Protein) NEG pH (test code = pH) 7.0 Blood (test code = Blood) NEG Specific [place] (test code = Specific [place]) 1.015 Ketone (test code = Ketone) NEG Bilirubin (test code = Bilirubin) NEG Glucose (test code = Glucose) NEG Appearance (test code = Appearance) CLEAR Color (test code = Color) Light yelllow [facility] [place] test, [id number] 15:00:00* Test Item Value Reference Range Interpretation Comme nts HCG (test code = HCG) negative [facility]
--- NOTE | 2024-03-24 21:52 | ER ---
Nurse's Notes [facility] Name: Zainab Tucker Age: 29 yrs Sex: Female : 1995 Arrival Date: 03/24/2024 Time: 21:42 Bed Waiting Private MD: Diagnosis: Acute tonsillitis, unspecified Presentation: 03/24 21:49 Chief complaint: Patient states: sore throat and swollen tonsils. Coronavirus screen: cp4 Client denies travel out of the [place] in the last 14 days. At this time, the client does not indicate any symptoms associated with coronavirus-19. Ebola Screen: Patient negative for fever greater than or equal to 101.5 degrees Fahrenheit, and additional compatible Ebola Virus Disease symptoms Patient denies exposure to infectious person. Patient denies travel to an Ebola-affected area in the 21 days before illness onset. No symptoms or risks identified at this time. Initial Sepsis Screen: Does the patient meet any 2 criteria? HR > 90 bpm. No. Patient's initial sepsis screen is negative. Does the patient have a suspected source of infection? No. Patient's initial sepsis screen is negative. Risk Assessment: Do you want to hurt yourself or someone else? Patient reports no desire to harm self or others. Onset of symptoms was March 23, 2024. 21:49 Method Of Arrival: Ambulatory 4 21:49 Acuity: JANAE 5 cp4 Triage Assessment: 21:51 General: Appears in no apparent distress. comfortable, Behavior is calm, cooperative, cp4 appropriate for age. Pain: Complains of pain in throat Pain does not radiate. Pain currently is 10 out of 10 on a pain scale. EENT: Reports difficulty swallowing. 21:51 Neuro: Level of Consciousness is awake, alert, obeys commands, Oriented to person, cp4 place, time. Cardiovascular: Patient's skin is warm and dry. Respiratory: Airway is patent Respiratory effort is even, unlabored. GI: No signs and/or symptoms were reported involving the gastrointestinal system. : No signs and/or symptoms were reported regarding the genitourinary system. Derm: No signs and/or symptoms reported regarding the dermatologic system. Musculoskeletal: No signs and/or symptoms reported regarding the musculoskeletal system. 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 - Infectious Disease History:: Denies. - Social history:: Smoking status: Patient denies any tobacco usage or history of. Screenin:52 [facility] ED Fall Risk Assessment (Adult) History of falling in the last 3 months, cp4 including since admission No falls in past 3 months (0 pts) Confusion or Disorientation No (0 pts) Intoxicated or Sedated No (0 pts) Impaired Gait No (0 pts) Mobility Assist Device Used No (0 pt) Altered Elimination No (0 pt) Score/Fall Risk Level 0 - 2 = Low Risk Oriented to surroundings, Maintained a safe environment, Assessed \T\ reinforced patient's understanding of fall precautions, Hourly rounding (assess needs \T\ fall precautionary measures) done. Abuse screen: Denies threats or abuse. Denies injuries from another. Nutritional screening: No deficits noted. Tuberculosis screening: No symptoms or risk factors identified. Assessment: 21:52 Respiratory: Airway is patent Breath sounds are clear bilaterally. cp4 21:58 EENT: Throat has enlarged tonsils. cp4 Vital Signs: 21:49 BP 144 / 101; Pulse 112; Resp 18; Temp 98.4; Pulse Ox 100% ; Weight 113.4 kg; Height 5 cp4 ft. 3 in. ; Pain 10/10; 21:49 Body Mass Index 44.29 (113.40 kg, 160.02 cm) cp4 21:49 Pain Scale: Adult cp4 ED Course: 21:46 Patient arrived in ED. gm2 21:46 Mary Acosta PA-C is [facility]. sb4 21:46 Billy Gill MD is Attending Physician. sb4 21:51 Triage completed. cp4 21:51 Arm band placed on right wrist. Patient placed in waiting room. cp4 21:52 Patient has correct armband on for positive identification. Provided Education on:. cp4 21:52 No provider procedures requiring assistance completed. Patient did not have IV access cp4 during this emergency room visit. 21:57 Provided Education on: tonsilitis. cp4 Administered Medications: 21:56 Drug: Amoxicillin-Clavulanate PO 875 mg PO once Route: PO; cp4 21:57 Follow up: Response: No adverse reaction cp4 Medication: 21:52 VIS not applicable for this client. cp4 Outcome: 21:51 Discharge ordered by MD. sb4 21:57 Discharged to home ambulatory, cp4 21:57 Condition: stable 21:57 Discharge instructions given to patient, Instructed on discharge instructions, follow up and referral plans. medication usage, Demonstrated understanding of instructions, follow-up care, medications, Prescriptions given X 1, 21:58 Patient left the ED. cp4 Signatures: Mary Acosta PA-C PA-C sb4 Snehal Padilla cp4 Pari Charlton 2
--- NOTE | 2024-03-24 21:52 | EDPHYS ---
Physician Documentation [facility] Name: Zainab Tucker Age: 29 yrs Sex: Female : 1995 Arrival Date: 03/24/2024 Time: 21:42 Bed Waiting Private MD: ED Physician Billy Gill HPI: 03/24 21:52 This 29 yrs old Female presents to ER via Ambulatory with complaints of Sore sb4 Throat. 21:52 The patient presents with sore throat. sore throat x 24 hours. no other URI symptoms. sb4 able to swallow and handle secretions. no n/v/d. [employer]: 21:51 LMP 02/23/2024, unknown cp4 Historical: - Allergies: 21:51 NKDA; cp4 - Home Meds: 21:51 Wellbutrin Oral [Active]; cp4 - PMHx: 21:51 depressive disorder; diabetes mellitus; cp4 - PSHx: 21:51 section; Cholecystectomy; cp4 - Immunization history:: Adult Immunizations up to date. - Infectious Disease History:: Denies. - Social history:: Smoking status: Patient denies any tobacco usage or history of. ROS: 21:52 Constitutional: Negative for fever, chills, and weight loss, sb4 21:52 ENT: Positive for sore throat, 21:52 All other systems are negative, Exam: 21:52 Constitutional: This is a well developed, well nourished patient who is awake, alert, sb4 and in no acute distress. Head/Face: Normocephalic, atraumatic. Eyes: Extra-ocular motions intact. Periorbital areas with no swelling, redness, or edema. Cardiovascular: Regular rate and rhythm with a normal S1 and S2. Respiratory: No increased work of breathing, no retractions or nasal flaring. Skin: Warm, dry with normal turgor. Normal color with no rashes, no lesions, and no evidence of cellulitis. 21:52 ENT: TM's: are normal, Posterior pharynx: Tonsils: bilaterally enlarged, with erythema, with exudate, no ulcerations, Vital Signs: 21:49 BP 144 / 101; Pulse 112; Resp 18; Temp 98.4; Pulse Ox 100% ; Weight 113.4 kg; Height 5 cp4 ft. 3 in. ; Pain 10/10; 21:49 Body Mass Index 44.29 (113.40 kg, 160.02 cm) cp4 21:49 Pain Scale: Adult cp4 MDM: 21:47 Medical Screening Exam initiated sb4 21:53 Data reviewed: vital signs, nurses notes, and as a result, I will discharge patient. sb4 Counseling: I had a detailed discussion with the patient and/or guardian regarding the historical points, exam findings, and any diagnostic results supporting the discharge/admit diagnosis, to return to the emergency department if symptoms worsen or persist or if there are any questions or concerns that arise at home. Administered Medications: 21:56 Drug: Amoxicillin-Clavulanate PO 875 mg PO once Route: PO; cp4 21:57 Follow up: Response: No adverse reaction cp4 Disposition: 03/25 00:26 Co-signature as Attending Physician, Billy Gill MD I agree with the assessment sp4 and plan of care. I reviewed the patient's care provided by the Advanced Practice Provider and agree with the diagnosis and treatment plan. Disposition Summary: 03/24/24 21:51 Discharge Ordered Notes: Location: Home sb4 Problem: new sb4 Symptoms: are unchanged sb4 Condition: Stable sb4 Diagnosis - Acute tonsillitis, unspecified sb4 Followup: sb4 - With: Emergency Department - When: As needed - Reason: Worsening of condition Discharge Instructions: - Discharge Summary Sheet sb4 - Tonsillitis, Grhy-ms-Flif sb4 Forms: - Antibiotic Education sb4 - Patient Portal Instructions sb4 - Leadership Thank You Letter sb4 Prescriptions: - Amoxicillin 875 mg Oral Tablet - take 1 tablet ORAL route every 12 hours for 10 days; 20 tablet; Refills: 0, sb4 Product Selection Permitted Signatures: Mary Acosta PA-C PA-C sb4 Billy Gill MD MD sp4 Snehal Padilla 4
[2024-03-24] MEDS ORDERED: AMOX/K CLAV 875 MG TAB ONE (21:55)
[2024-03-24 23:40] VITALS: BP 144/101; TEMP 98.4; O2SAT 100
== END 2024-03-24 21:58 | disposition home or self-care (01) ==
LOC: ER 21:42
DX: J03.90 Acute tonsillitis, unspecified (principal); E11.9 Type 2 diabetes mellitus without complications
CPT/HCPCS: 99283

== ENCOUNTER 2024-04-16 12:02 | Emergency (ER) | payer BC ==
--- OUTSIDE RECORDS SUMMARY | 2024-04-16 12:07 | XMS REPORT | Continuity of Care Document ---
Author Name Unknown Address [address] [facility] [address] [place] [address] [facility] thconnect Address [address] [facility] [place] [address] Care Team Providers Care Oracle Applications Developer Name Role Phone KAREN COPELAND Primary Care Physician Unavailab YUDITH Hernandez Attending Clinician YUDITH Meadows Attending Clinician Yudith Meadows MD Attending Clinician [phone] KAREN COPELAND Attending Clinician Unavailable SAMAN RUIZ Attending Clinician UnavailSAMAN Clemens Attending Clinician UnavailSaman Clemens MD Attending Clinician LAB90 Attending Clinician Unavailable FREDI BROWN Attending Clinician Unavailable MD LUCI Attending Clinician Unavailab PERLA Berg Attending Clinician Unavailab VIRA Ragland Attending Clinician UnavailJESSENIA Peñaloza Attending Clinician REGLA Gomez Attending Clinician Unavailable RICKIE ANDINO Attending Clinician Unavailsailaja Andino MD, Rickie Attending Clinician [phone] Yaneli Prieto NP Attending Clinician [phone] Pob, Adc Lab Main Attending Clinician Unavailsailaja Castillo MD, Gracie Attending Clinician [phone] GRACIE CASTILLO Attending Clinician UnavailYANELI Phillips Attending Clinician Unavaila ble Lab, Ang - Db Attending Clinician Unavailable Doctor Unassigned, [place] Attending Clinician U KATHYA Castro Attending Clinician UnaLELAND Cope Attending Clinician Unavailable SAAD BENNETT Attending Clinician Unavailable BERNARD VIERA Attending Clinician Unavailable Maximiliano ASENCIO, Bernard Attending Clinician [phone] Marv SHULTZ, Shelby Ochoa Attending Clinician Unavailab OBDULIO Gardner Attending Clinician Unavailable Only, Ang Db Test Attending Clinician Unavailsailaja e Unknown, Attending Attending Clinician Unavailab le LISTER_MELISSA Attending Clinician Unavailable Tigre SHULTZ, Mally Attending Clinician Unavailabl e Human FULL STACK JAVA DEVELOPER, Yancy F Attending Clinician [phone] Pcp, Patient Does Not Have A Attending Clinician Lab, Adc Fam Pob I Attending Clinician Unavailab ama Chen FULL STACK JAVA DEVELOPERShira Love Attending Clinician [phone] SHIRA CHEN Attending Clinician UnavailSAMAN Clemens A Admitting Clinician UnavailYANELI Phillips Admitting Clinician Unavaila ble LISTER_PAM Admitting Clinician Unavailable Payers Payer Name Policy Type Policy Number Effective Date Expirati on Date Source [place] OUT [place] [id number] 2018 00:00:00 BCBS 2 [id number] 2021 00:00:00 [place] [id number] 2018 00:00:00 Problems Condition Name Condition Details Condition Category Status Onset Date Resolution Date Last Treatment Date Treating Clinician Comments Source Trichomona l vaginitis Trichomona l Vaginitis Problem Active 2023-03 008 00:00: 00 [facility] Anxiety Anxiety Problem Active 10-02 00:00: 00 [facility] Depressive disorder Depressive Disorder Problem Active 10-02 00:00: 00 [facility] Cyst of ovary Cyst of Ovary Problem Active 10-02 00:00: 00 [facility] History of gallstones History of Gallstones Problem Active 10-02 00:00: 00 [facility] Prediabete s Prediabete s Disease Active 2021-03 0-04 00:00: 00 [facility] PCOS (polycysti c ovarian syndrome) PCOS (polycysti c ovarian syndrome) Disease Active 12-03 00:00: 00 [facility] Tachycardi a Tachycardi a Disease Active 12-03 00:00: 00 [facility] Depression Depression Disease Active 12-03 00:00: 00 [facility] Vitamin D deficiency Vitamin D deficiency Disease Active 12-03 00:00: 00 [facility] BMI 45.0-49.9, adult BMI 45.0-49.9, adult Disease Active 12-03 00:00: 00 Arline pocne delivery delivered delivery delivered Disease Active 08-16 00:00: 00 [facility] delivery delivered delivery delivered Disease Active 08-16 00:00: 00 [facility] Maternal varicella, non-immune Maternal varicella, non-immune Disease Active 04-22 00:00: 00 [facility] Supervisio n of other high-risk Supervisio n of other high-risk Disease Active 16 00:00: 00 Overview: Formattin g of this note might be different from the original. 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 [facility] with uncertain dates, antepartum with uncertain dates, antepartum Disease Active 16 00:00: 00 [facility] Lump or mass in breast Lump or mass in breast Disease Resolve d 2013-03 0-23 00:00: 00 2014-04-21 00:00:00 2021-09-19 00:32:44 [facility] Need for HPV vaccinatio n Need for HPV vaccinatio n Disease Resolve d 11-29 00:00: 00 2014-04-21 00:00:00 2014-04-21 08:49:28 [facility] Need for Tdap vaccinatio n Need for Tdap vaccinatio n Disease Resolve d 11-29 00:00: 00 2014-04-21 00:00:00 2014-04-21 08:49:28 [facility] General counseling for initiation of other contracept pool measures General counseling for initiation of other contracept pool measures Disease Resolve d 11-29 00:00: 00 2014-04-21 00:00:00 2014-04-21 08:49:25 [facility] Obesity Obesity Disease Resolve d 3-20 00:00: 00 2014-04-21 00:00:00 2021-09-19 00:23:33 [facility] Allergies, Adverse Reactions, Alerts Allergy Name Allergy Type Status Severity Reaction(s) Onset Date Inactive Date Treating Clinician Comments Source NO KNOWN ALLERGIE S Drug Class Active [facility] Social History Social Habit Start Date Stop Date Quantity Comments Source Gender identity General acute hospital Sexual orientation U [facility] ASSERTION Not Arline Falcon - External History SDOH Alcohol Frequency Arline eric - External History SDOH Alcohol Std Drinks rAline matias - External History SDOH Alcohol Binge Arline Falcon - External Alcoholic beverage intake 2024 00:00:00 2024 00:00:00 Current non-drinker of alcohol (finding) [facility] Alcohol intake 2023-05-08 00:00:00 2023-05-08 00:00:00 Current drinker of alcohol (finding) Arline Falcon - External Tobacco use and exposure 2022-09-12 00:00:00 2022-09-12 00:00:00 Smokeless tobacco non-user [facility] Alcohol Comment 2021-12-03 00:00:00 2021-12-03 00:00:00 social Arline Falcon - External Sex 2021-11-30 16:56:39 2021-11-30 16:56:39 Female (finding) Arline Falcon - External Exposure to SARS-CoV-2 (event) 2021-04-12 00:00:00 2021-05-12 12:54:00 Not sure [facility] History of Social function 2021-04-14 00:00:00 2021-04-14 00:00:00 [facility] Sex assigned at 1995 00:00:00 1995 00:00:00 F Arline Falcon - External Smoking Status Start Date Stop Date Source Never smoked tobacco Arline Falcon - External Medications Ordered Medication Name Filled Medication Name Start Date Stop Date Current Medication? Ordering Clinician Indication Dosage Frequency Signature (SIG) Comments Components Source iopamidol (ISOVUE 370-500 mL) injection 85 mL 2023-03 22:00: 00 02-13 22:00 :00 Yes [id number] 85mL 85 mL, Intravenou s, ONCE, 1 dose, On Mon02/14/24 at 1600, Routine [facility] morpHINE (4 mg/mL) injection 4 mg 2023-03 21:30: 00 02-13 21:35 :00 No 4mg 4 mg, Slow IV Push, ONCE, 1 dose, On Mon02/14/24 at 1530, STAT [facility] dicyclomine (BENTYL) tablet 20 mg 2023-03 21:30: 00 02-13 21:33 :00 No 20mg 20 mg, Oral, ONCE, 1 dose, On Mon02/14/24 at 1530, MARIANO [facility] NaCl 0.9% (NS) bolus infusion 1,000 mL 2023-03 19:30: 00 02-13 21:40 :00 No 1000mL at 999 mL/hr, 1,000 mL, IV Infusion, ONCE, 1 dose, On Mon02/14/24 at 1330, STAT [facility] ondansetron (ZOFRAN (PF)) injection 4 mg 2023-03 19:30: 00 02-13 19:59 :00 No 4mg 4 mg, Slow IV Push, ONCE, 1 dose, On Mon02/14/24 at 1330, Administer over 2-5 Minutes, 2 mL [facility] morpHINE (4 mg/mL) injection 4 mg 2023-03 19:30: 00 02-13 19:59 :00 No 4mg 4 mg, Slow IV Push, ONCE, 1 dose, On Mon02/14/24 at 1330, STAT [facility] famotidine (PEPCID (PF)) injection 20 mg 2023-03 19:30: 00 02-13 19:55 :00 No 20mg 20 mg, Slow IV Push, ONCE, 1 dose, On Mon02/14/24 at 1330, MARIANO [facility] maalox/diph enhydrAMINE :lidocaine2 %viscous 1:1:1: suspension (COMPOUNDED ) 2023-03 19:30: 00 02-13 19:55 :00 No 15mL 15 mL, Oral, ONCE, 1 dose, On Mon02/14/24 at 1330, Routine [facility] ondansetron 4 mg disintegrat ing tablet 2023-03 00:00: 00 Yes [id number] 4mg Take 1 tablet by mouth every 8 (eight) hours as needed for Nausea and Vomiting (N/V) for up to 10 doses. [facility] acetaminoph en-codeine 300-30 mg tablet 2023-03 00:00: 00 Yes [id number] 1{tbl} Take 1 tablet by mouth every 6 (six) hours as needed for Pain (scale 4-6) for up to 15 doses. Indication s: acute pain [facility] famotidine (PEPCID) 20 mg tablet 2023-03 00:00: 00 03-01 05:59 :00 Yes [id number] 20mg Take 1 tablet by mouth in the morning and 1 tablet in the evening. Do all this for 15 days. Miquel [facility] NuvaRing 0.12-0.015 MG/24HR vaginal RING 2023-03 16:41: [...] Delayed Release Capsule 2023-03 00:00: 00 Yes [id number] 40mg QD Take 1 capsule (40 mg total) by mouth daily. Arline ponce Dicyclomine HCl 10 MG oral Capsule 2023-03 00:00: 00 Yes [id number] 10mg Take 1 capsule (10 mg total) by mouth 4 times daily (before meals and nightly). Arline ponce Bupropion HCL XL 150 MG OR TB24 10-08 00:00: 00 Yes [id number] 150mg QD TAKE ONE (1) TABLET (150 MG TOTAL) BY MOUTH DAILY. Arline ponce Vitamin D, Ergocalcife rol, 1.25 MG (51221 UT) oral Capsule -11 00:00: 00 Yes [id number] 51991U Q1W Take 1 capsule (50,000 units total) [...] Tablet Therapy Pack 2022-03 00:00: 00 Yes [id number] Complete one dose pack as directed on package instructio ns. Alrine ponce Pseudoeph-B romphen-DM 30-2-10 MG/5ML oral Syrup 2022-03 00:00: 00 Yes [id number] 10mL Q.25D Take 10 mL by mouth 4 times daily as needed (for cough or congestion ). Arline ponce Neomycin-Po lymyxin-Dex ameth 3.5-55417-7 .1 ophthalmic Suspension 2022-03 00:00: 00 05-07 00:00 :00 No INSTILL ONE (1) DROP(S) IN EACH EYE EVERY FOUR HOURS. Arline ponce Semaglutide -Weight Management (Wegovy) 1 MG/0.5ML subcutaneou s Solution Auto-inject or 10-25 00:00: 00 01-30 00:00 :00 No [id number] 1mg Inject 1 mg into the skin once a week. Arline ponce Prenat Vit Comb.10-Iro n-FA-DHA (VITAFOL-OB +DHA) 65-1-250 mg combo pack 09-22 00:00: 00 Yes [id number] 1{packe t} Take 1 Packet by mouth in the morning. [facility] MV-Min-Fe Fum-FA-DHA (Vitafol-OB +DHA) 65-1 & 250 MG oral Misc 09-22 00:00: 00 05-07 00:00 :00 No 1{packe t} Take 1 packet by mouth daily. Arline ponce Bupropion HCL XL 150 MG OR TB24 08-10 00:00: 00 Yes [id number] 150mg Take 1 tablet (150 mg total) by mouth daily Arline ponce Semaglutide (1 mg/dose) 2 mg/1.5 mL SQ Solution Pen-Injecto r 08-10 00:00: 00 01-30 00:00 :00 No [id number] 1mg Inject 1 mg into the skin once a week Arline ponce Benzonatate 100 MG oral Capsule 06-29 00:00: 00 Yes [id number] 100mg Q.[id number] 3D Take 1 capsule (100 mg total) by mouth 3 times daily as needed for cough Arline ponce Albuterol HFA 108 (90 Base) MCG/ACT IN AERS 06-29 00:00: 00 01-30 00:00 :00 No [id number] 2{puff} Q.25D Inhale 2 puffs into the lungs every 6 hours as needed for wheezing Arline ponce Bupropion HCL XL 150 MG OR TB24 06-15 00:00: 00 Yes [id number] 150mg Take 1 tablet (150 mg total) by mouth daily Arline ponce Semaglutide (1 mg/dose) 2 mg/1.5 mL SQ Solution Pen-Injecto r 06-15 00:00: 00 Yes [id number] 1mg Inject 1 mg into the skin once a week Arline ponce Doxycycline Hyclate 100 MG oral Tablet 06-15 00:00: 00 Yes [id number] 100mg Take 1 tablet (100 mg total) by mouth 2 times daily Arline ponce Phentermine HCl 37.5 MG oral Tablet 06-15 00:00: 00 Yes [id number] 37.5mg Take 1 tablet (37.5 mg total) by mouth every morning (before breakfast) Arline ponce OZEMPIC (0.25 or 0.5 mg/dose) 2 mg/3 mL SQ Solution Pen-Injecto r 06-07 00:00: 00 06-15 00:00 :00 No Arline ponce OZEMPIC (0.25 or 0.5 mg/dose) 2 mg/1.5 mL SQ Solution Pen-Injecto r 05-25 00:00: 00 06-15 00:00 :00 No [id number] .5mg Inject 0.5 mg into the skin once a week Arline ponce Hydroquinon e 4 % apply externally Cream 04-29 00:00: 00 Yes [id number] Apply 1 applicatio n. topically 2 times daily Arline ponce Doxycycline Hyclate 100 MG oral Tablet 04-13 00:00: 00 Yes [id number] 100mg Take 1 tablet (100 mg total) by mouth 2 times daily Arline ponce OZEMPIC (0.25 or 0.5 mg/dose) 2 mg/1.5 mL SQ Solution Pen-Injecto r 04-13 00:00: 00 Yes [id number] .5mg Inject 0.5 mg into the skin once a week Arline ponce Hydroquinon e 4 % apply externally Cream 04-13 00:00: 00 Yes [id number] Apply 1 applicatio n topically 2 times daily Arline ponce ACETAMINOPH EN-CAFF-BUT ALBITAL 50-325-40 MG oral Tablet 04-13 00:00: 00 01-30 00:00 :00 No [id number] 1{tbl} Q4H Take 1 tablet by mouth every 4 hours as needed for pain Arline ponce Clindamycin Phosphate (Clindagel) 1 % apply externally Gel 04-13 00:00: 00 01-30 00:00 :00 No [id number] Apply to area 4 times daily for 10 days Arline ponce OZEMPIC (0.25 or 0.5 mg/dose) 2 mg/1.5 mL SQ Solution Pen-Injecto r 1- 00:00: 00 04-13 00:00 :00 No [id number] .25mg Inject 0.25 mg into the skin once a week Arline ponce Bupropion HCL XL 150 MG OR TB24 2021-03 2- 00:00: 00 Yes [id number] 150mg Take 1 tablet (150 mg total) by mouth daily Arline ponce Tirzepatide (Mounjaro) 2.5 MG/0.5ML subcutaneou s Solution Pen-injecto r 2021-03 00:00: 00 Yes [id number] 2.5mg Inject 0.5 mL (2.5 mg total) into the skin once a week Arline ponce buPROPion HCl 75 MG oral Tablet 2021-03 00:00: 00 Yes [id number] 75mg Take 1 tablet (75 mg total) by mouth daily Arline ponce Metformin HCl 500 MG oral Tablet 2021-03 00:00: 00 01-10 00:00 :00 No [id number] 500mg QD Take 1 tablet (500 mg total) by mouth daily (with breakfast) Arline ponce Vitamin D, Ergocalcife rol, 1.25 MG (67227 UT) oral Capsule 2021-03 00:00: 00 01-30 00:00 :00 No [id number] 60152V Take 1 capsule (50,000 units total) by mouth once a week Arline ponce buPROPion HCl 75 MG oral Tablet 12-03 00:00: 00 Yes [id number] 75mg Take 1 tablet (75 mg total) by mouth daily Arline ponce Pantoprazol e Sodium 20 MG oral Tablet Delayed Response 12-03 00:00: 00 01-30 00:00 :00 No [id number] 20mg Take 1 tablet (20 mg total) by mouth daily Arline ponce No known medications 05-12 13:38: 58 No [facility] Probiotic Probiotic No Probiotic [facility] Vitamin D Vitamin D No Vitamin D [facility] metformin 500 mg tablet Take 1 [...] day by vaginal route for 7 days. [facility] metronidazo le 500 mg tablet Take 1 tablet every 12 hours by oral route for 7 days. metronidazo le 500 mg tablet Take 1 tablet every 12 hours by oral route for 7 days. No 1 Q12H metronidaz ole 500 mg tablet Take 1 tablet every 12 hours by oral route for 7 days. [facility] Immunizations Ordered Immunization Name Filled Immunization [...] 2013-12-10 00:00:00 Completed Arline Hamybold - External IPV- Inactivated Polio Vaccine 2013-12-10 00:00:00 Completed Arline Seybold - External HEPATITIS A- PEDI/ADOL 2013-12-10 00:00:00 Completed Arline Hamybold - External HPV 4 (Human Papillomavirus) 2013-12-10 00:00:00 Completed Arline Seybold - External Influenza Virus Vaccine, Live, Attenuated, Intranasal Use 2009-12-07 00:00:00 Completed Arline Seybold - External Influenza Virus Vaccine, Live, Attenuated, Intranasal Use 2009-12-07 00:00:00 Completed Arline Seybold - External Influenza Virus Vaccine, Live, Attenuated, Intranasal Use 2009-12-07 00:00:00 Completed Arline Seybold - External Influenza Virus Vaccine, Live, Attenuated, Intranasal Use 2009-12-07 00:00:00 Completed Arline Hamybold - External Tdap- (Boostrix, Adacel) 2008-10-08 00:00:00 Completed Arline Seybold - External HEPATITIS A- PEDI/ADOL 2008-10-08 00:00:00 Completed Arline Seybold - External HPV 4 (Human Papillomavirus) 2008-10-08 00:00:00 Completed Arline Hamybold - External Meningococcal Vaccine- Conjugate(Menactra) 2008-10-08 00:00:00 [...] 4 (Human Papillomavirus) 2008-10-08 00:00:00 Completed Arline Hamybold - External Meningococcal Vaccine- Conjugate(Menactra) 2008-10-08 00:00:00 Completed Arline Hamybold - External Tdap- (Boostrix, Adacel) 2008-10-08 00:00:00 Completed Arline Stevensonold - External HEPATITIS A- PEDI/ADOL 2008-10-08 00:00:00 Completed Arline Hamybold - External HPV 4 (Human Papillomavirus) 2008-10-08 00:00:00 Completed Arline Stevensonold - External Meningococcal Vaccine- Conjugate(Menactra) 2008-10-08 00:00:00 Completed rAline Seybold - External IPV- Inactivated Polio Vaccine [...] External DTaP Unspecified 1996 00:00:00 Completed Arline Hamybold - [...] Completed Arline Falcon - External DTaP Unspecified 1996 00:00:00 Completed Arline Falcon - External Hib, unspecified formulation 1996 00:00:00 Completed Arline Stevensonold - External IPV- Inactivated Polio Vaccine 1996 00:00:00 Completed Arline Stevensonold - External DPT/HIB 1996 00:00:00 Completed Arline Falcon - External Hepatitis B, Adolescent Or Pediatric 1996 00:00:00 Completed Arline Stevensonold - External IPV- Inactivated Polio Vaccine 1996 00:00:00 Completed Arline Hamybold - External DPT/HIB 1996 00:00:00 Completed Arline Falcon - External Hepatitis B, Adolescent Or Pediatric 1996 00:00:00 Completed Arline Falcon - External IPV- Inactivated Polio Vaccine 1996 00:00:00 Completed Arline Stevensonold - External DPT/HIB 1996 00:00:00 Completed Arline [...] Seybold - External DTaP Unspecified Unknown Completed [facility] sey Seybold - External DPT/HIB Unknown Completed Arline Ham bold - External Influenza Virus Vaccine, Live, Attenuated, Intranasal Use Unknown Completed Arline Hamybol d - External HEPATITIS A- PEDI/ADOL Unknown Completed Arline Seybold - External Hepatitis B, Unspecified Unknown Completed Arline Seybold - External Hepatitis B, Adolescent Or Pediatric Unknown Completed Arline Seybold - External Hib, unspecified formulation Unknown Completed Arline Seybold - External HPV 4 (Human Papillomavirus) Unknown Completed Arline ybo ld - External HPV 9 (Human Papillomavirus) [...] Seybold - [facility] Completed Arline Se bold - External Influenza Virus Vaccine, Live, [...] HPV 9 (Human Papillomavirus) Unknown Completed Arline Davis ld - External Meningococcal Vaccine- Conjugate(Menactra) Unknown Completed Arline naelbold - External MMR- Measles, Mumps, Rubella Unknown Completed Arline Falcon - External IPV- Inactivated Polio Vaccine Unknown Completed Arline Menjivar External Tdap- (Boostrix, Adacel) Unknown Completed Arline Falcon - External Varicella Vaccine Unknown Completed Elvia Falcon - External Vital Signs Vital Name Observation Time Observation Value Comments Milady mcmahon Systolic blood pressure 2024 21:35:00 118 mm[Hg] [facility] Diastolic blood pressure 2024 21:35:00 71 mm[Hg] [facility] Heart rate 2024 21:35:00 77 /min [facility] Body temperature 2024 21:35:00 37.22 Megan [facility] Respiratory rate 2024 21:35:00 18 /min [facility] Oxygen saturation in Arterial blood by Pulse oximetry 2024 21:35:00 100 /min [facility] Body height 2024 19:20:00 157.5 cm [facility] Body weight 2024 19:20:00 113.399 kg [facility] BMI 2024 19:20:00 45.73 kg/m2 [facility] hospital Respiratory rate 2024-01-11 22:39:00 18 /min Arline Stevensonregina - External Body height 2024-01-11 22:39:00 160 cm Hilda neal Seybold - External Body weight 2024-01-11 22:39:00 119.75 kg Hilda val Seybold - External BMI 2024-01-11 22:39:00 46.77 [...] External Heart rate 2023-05-08 22:38:00 78 /min Kel y Seybold - External Body temperature 2023-05-08 22:38:00 36.78 Megan Arline Seybold - External Respiratory rate 2023-05-08 22:38:00 18 /min Arline Seybold - External Body height 2023-05-08 22:38:00 160 cm Hilda ey Seybold - External Body weight 2023-05-08 22:38:00 120.657 kg Hilda ey Seybold - External BMI 2023-05-08 22:38:00 47.12 kg/m2 Hilda neal Seybold - External Oxygen saturation in Arterial blood by Pulse oximetry 2023-05-08 22:38:00 99 /min Arline Hamybo ld - External Systolic blood pressure 2022-09-22 21:26:00 120 mm[Hg] [facility] Diastolic blood pressure 2022-09-22 21:26:00 72 mm[Hg] [facility] Heart rate 2022-09-22 21:26:00 78 [facility] 2022-09-22 21:26:00 18 /min [facility] Body height 2022-09-22 21:26:00 160 cm [facility] acute [facility] Body weight 2022-09-22 21:26:00 122.471 kg [facility] acute hospital BMI 2022-09-22 21:26:00 47.83 kg/m2 [facility] Systolic blood pressure 2022-09-12 14:21:00 121 mm[Hg] [facility] Diastolic blood pressure 2022-09-12 14:21:00 82 mm[Hg] [facility] Heart rate 2022-09-12 14:21:00 93 /min [facility] Body temperature 2022-09-12 14:21:00 36.94 Megan [facility] Respiratory rate 2022-09-12 14:21:00 18 /min [facility] Body height 2022-09-12 14:21:00 160 cm [facility] Body weight 2022-09-12 14:21:00 119.75 kg [facility] acute hospital BMI 2022-09-12 14:21:00 46.77 kg/m2 [facility] acute hospital Systolic blood pressure 2022-06-15 16:01:00 110 mm[Hg] Arline ybo ld - External Diastolic blood pressure 2022-06-15 16:01:00 66 mm[Hg] Arline ybo ld - External Heart rate 2022-06-15 16:01:00 [...] External Heart rate 2022-02-02 22:15:00 118 /min Michse y Seybold - External Body temperature 2022-02-02 [...] rate 2021-12-03 15:45:00 113 /min Alexsander olivier Seybold - External Body temperature 2021-12-03 15:45:00 36.56 Megan Arline Seybold - External Respiratory rate 2021-12-03 15:45:00 16 /min Arline Hamybold - External Body height 2021-12-03 15:45:00 160 cm Hilad neal Seybold - External Body weight 2021-12-03 15:45:00 127.007 kg Hilda neal Seybold - External BMI 2021-12-03 15:45:00 49.60 kg/m2 Hilda neal Seybold - External Systolic blood pressure 2021-05-12 19:08:00 109 mm[Hg] [facility] Diastolic blood pressure 2021-05-12 19:08:00 74 mm[Hg] [facility] Heart rate 2021-05-12 19:08:00 83 /min [facility] Body temperature 2021-05-12 19:08:00 36.72 Megan [facility] Respiratory rate 2021-05-12 19:08:00 18 /min [facility] Body height 2021-05-12 19:08:00 160 cm [facility] acute hospital Body weight 2021-05-12 19:08:00 122.471 kg [facility] acute hospital BMI 2021-05-12 19:08:00 47.83 kg/m2 [facility] BP Diastolic 2020-01-10 00:00:00 69 mm[Hg] [place] [facility] Height 2020-01-10 00:00:00 62 [in_i] [place] [facility] BMI (Body Mass Index) 2020-01-10 00:00:00 46.8 kg/m2 [place] [facility] BP Systolic 2020-01-10 00:00:00 117 mm[Hg] Fernandez nafisa [facility] Body Weight 2020-01-10 00:00:00 256 [lb_av] [place] [facility] BP Diastolic 2019-07-09 00:00:00 78 mm[Hg] [place] [facility] Height 2019-07-09 00:00:00 62 [in_i] Padmaja oliver [facility] BMI (Body Mass Index) 2019-07-09 00:00:00 47.2 kg/m2 [place] [facility] BP Systolic 2019-07-09 00:00:00 141 mm[Hg] Jim skelton [facility] Body Weight 2019-07-09 00:00:00 258 [lb_av] Ignacio bernaberda [facility] BP Diastolic 2019-03-22 00:00:00 95 mm[Hg] Ignacio bernaberda [facility] Height 2019-03-22 00:00:00 62 [in_i] Padmaja oliver [facility] BMI (Body Mass Index) 2019-03-22 00:00:00 46.5 kg/m2 [place] [facility] BP Systolic 2019-03-22 00:00:00 148 mm[Hg] Jim skelton [facility] Body Weight 2019-03-22 00:00:00 254 [lb_av] [facility] enedina [facility] Procedures Procedure Date / Time Performed Performing Clinician Source CT ABDOMEN PELVIS W CONTRAST 2024 21:02:00 Saman Ruiz [facility] POCT TEST 2024 20:51:00 Shmuel Ruiz [facility] URINALYSIS 2024 19:54:00 Saman uRiz [facility] LIPASE 2024 19:53:00 Saman Ruiz [facility] COMP. METABOLIC PANEL (01122) 2024 19:53:00 Saman Ruiz [facility] CBC WITH DIFF 2024 19:53:00 [facility] 2023-03-06 00:00:00 [facility] TOTAL BETA HCG ASSAY 2022-10-11 18:53:00 Lori Prieto [facility] US PELVIS COMPLETE WITH TRANSVAGINAL 2022-09-28 19:08:37 Yaneli Prieto [facility] ASSIGNMENT OF BENEFITS 2022-09-12 13:50:21 Docto r Unassigned, [place] [facility] US, transvaginal 2019-03-22 00:00:00 Jim skelton [facility] Delivery 2014-08-14 00:00:00 Ignacio mcconnell [facility] Delivery 2014-03-06 00:00:00 Elicia via Medical Plan of Care Planned Activity Planned Date Details Comments Source Diagnostic Test Pending 2020-01-10 00:00:00 bacterial vaginosis + vaginitis panel, vaginal [code = bacterial vaginosis + vaginitis panel, vaginal] Uriel [facility] Encounters Start Date/Time End Date/Time Encounter Type Admission Type Attending Clinicians Care Facility Care Department Encounter ID Source 2024-04-23 09:00:00 2024-04-23 09:00:00 Outpatient R YUDITH CRAIG YUDITH [facility] [id number] [facility] 2024-04-15 00:00:00 2024-04-15 09:17:37 Telephone Sunny taylor [facility] 1..840.114 350.1.13.10 4.2.7.2.686 [id number] [facility] 2024-02-18 00:00:00 2024-02-18 00:00:00 Outpatient KAREN COPELAND [id number] [facility] 2024 13:21:00 2024 15:51:00 Emergency X BEHZADI, SAMAN BEHZADI, SAMAN [facility] ERT [id number] [facility] 2024 13:21:00 2024 15:51:00 Emergency Behzadi, Saman [facility] 1.2.840.114 350.1.13.10 4.2.7.2.686 [id number] [facility] 2024 08:00:00 2024 08:00:00 Outpatient HUNDLKAREN [id number] [facility] 2024-02-13 00:00:00 2024-02-13 00:00:00 Outpatient KAREN COPELANDSEY [id number] Arline Falcon 2024-01-11 17:15:00 2024-01-11 17:15:00 Outpatient LAB90 ARLINE ARLINE [id number] Arline [facility] 2024-01-11 16:30:00 2024-01-11 16:30:00 Outpatient HUNDL, KAREN NUNO ARLINE [id number] Ar[facility] 2023-12-20 00:00:00 2023-12-20 00:00:00 Outpatient KAREN COPELAND ARLINE [id number] [facility] 2023-12-12 00:00:00 2023-12-12 00:00:00 JEFFREY Gao: [address], [place] [address] , Ph. [facility] - GC_GCBZW_N[facility] [place]* [id number] [facility] 2023-12-06 00:00:00 2023-12-06 00:00:00 HILDA Lloyd: [address], [place] [address] , Ph. [facility] GC_GCBZW_[facility] [place]* [id number] [facility] 2023-11-23 00:00:00 2023-11-23 00:00:00 HILDA Lloyd: [address], [place] [address] , Ph. [facility] GC_GCBZW_[facility]* [id number] [facility] 2023-11-01 00:00:00 2023-11-01 00:00:00 HILDA Lloyd: [address], [place] [address] , Ph. [facility] GC_GCBZW_[facility] [place]* [id number] [facility] 2023-10-09 00:00:00 2023-10-09 00:00:00 Outpatient KAREN COPELAND ARLINE NUNO [id number] Arline [facility] 2023-10-09 00:00:00 2023-10-09 00:00:00 Outpatient FREDI BROWN ARLINE NUNO [id number] Ar[facility] 2023-10-06 00:00:00 2023-10-06 00:00:00 HILDA Lloyd: [address], [place] [address] , Ph. [facility] GC_GCBZW_[facility] [place]* [id number] [facility] 2023-10-03 00:00:00 2023-10-03 00:00:00 HILDA Lloyd: [address], [place] [address] , Ph. [facility] GC_GCBZW_[facility] [place]* [id number] [facility] 2023-08-22 00:00:00 2023-08-22 00:00:00 Outpatient MD ARLINE LYNNE [id number] Arline [facility] 2023-06-06 14:30:00 2023-06-06 14:30:00 Outpatient PERLA STAPLETON [id number] [facility] 2023-05-23 15:30:00 2023-05-23 15:30:00 Outpatient YUDITH PETTIT MARISOL [facility] [id number] [facility] 2023-05-23 08:30:00 2023-05-23 08:30:00 Outpatient VIRA MORGAN [id number] Ar[facility] 2023-05-22 00:00:00 2023-05-22 00:00:00 Outpatient MD ARLINE LYNNE [id number] Arline [facility] 2023-05-15 00:00:00 2023-05-15 00:00:00 Outpatient KAREN COPELAND [id number] Arline [facility] 2023-05-11 00:00:00 2023-05-11 00:00:00 Outpatient MD ARLINE LYNNE [id number] Ar[facility] 2023-05-10 00:00:00 2023-05-10 00:00:00 Outpatient VIRA MORGAN [id number] Ar[facility] 2023-05-09 00:00:00 2023-05-09 00:00:00 Outpatient VIRA MORGAN [id number] Ar[facility] 2023-05-08 17:00:00 2023-05-08 17:00:00 Outpatient LAB90 ARLINE NUNO [id number] Arline [facility] 2023-05-08 16:30:00 2023-05-08 16:30:00 Outpatient KAREN COPELAND [id number] Arline [facility] 2023-02-07 16:15:00 2023-02-07 16:15:00 Outpatient JESSENIA GELLER [id number] [facility] 2023-01-30 14:00:00 2023-01-30 14:00:00 Outpatient AMA SOWAH ARLINE NUNO [id number] [facility] 2022-12-09 15:30:00 2022-12-09 15:30:00 Outpatient RICKIE SPAIN [facility] [id number] [facility] 2022-12-08 00:00:00 2022-12-08 00:00:00 Telephone Rickie Andino [facility] 1.2.840.114 350.1.13.10 4.2.7.2.686 [id number] [facility] 2022-11-09 00:00:00 2022-11-09 00:00:00 Outpatient KAREN COPELAND [id number] [facility] 2022-10-18 00:00:00 2022-10-18 00:00:00 Outpatient KAREN COPELAND [id number] [facility] 2022-10-16 00:00:00 2022-10-16 00:00:00 Telephone Yaneli Prieto [facility] 1.2.840.114 350.1.13.10 4.2.7.2.686 [id number] [facility] 2022-10-11 13:45:00 2022-10-11 14:00:00 Oil Expeller Visit Mounika, Adc Lab Gracie Smith [facility] 1.2.840.114 350.1.13.10 4.2.7.2.686 [id number] [facility] 2022-10-11 13:45:00 2022-10-11 13:45:00 Outpatient Dai SCOTT GRACIE [facility] [id number] [facility] 2022-10-05 00:00:00 2022-10-05 00:00:[address] 1.2.840.114 350.1.13.10 4.2.7.2.686 [id number] [facility] 2022-10-04 09:15:00 2022-10-04 09:15:00 Outpatient R [facility] [id number] [facility] 2022-10-03 16:00:00 2022-10-03 16:00:00 Outpatient R YANELI PRIETO [facility] [id number] [facility] 2022-10-02 00:00:00 2022-10-02 00:00:[address] [facility] 1.2.840.114 350.1.13.10 4.2.7.2.686 [id number] [facility] 2022-09-28 13:33:11 2022-09-28 23:59:00 Outpatient R IDA YANELI CLIFTON [facility] [id number] [facility] 2022-09-28 13:30:00 2022-09-28 23:59:00 [facility] 1.840.114 350.1.13.10 4.2.7.2.686 [id number] [facility] 2022-09-22 16:15:00 2022-09-22 16:33:35 [facility] [id number] [facility] 2022-09-22 16:15:00 2022-09-22 16:33:35 Routine Visit Yaneli Prieto [facility] 1..840.114 350.1.13.10 4.2.7.2.686 [id number] [facility] 2022-09-22 09:00:00 2022-09-22 09:00:00 Outpatient R YUDITH CRAIG SYUDITH [facility] [id number] [facility] 2022-09-22 07:30:00 2022-09-22 07:45:00 Oil Expeller Visit Lab, Ang - Thien Prieto [facility] 1..840.114 350.1.13.10 4.2.7.2.686 [id number] [facility] 2022-09-21 16:00:00 2022-09-21 16:00:00 Outpatient R YANELI PRIETO [facility] [id number] [facility] 2022-09-19 07:45:00 2022-09-19 08:40:02 Outpatient R YANELI PRIETO CHERYAL [facility] [id number] [facility] 2022-09-19 07:45:00 2022-09-19 08:00:00 Oil Expeller Visit Lab, Soren Olverajae [facility] 1..840.114 350.1.13.10 4.2.7.2.686 [id number] [facility] 2022-09-15 09:00:00 2022-09-15 10:28:19 Outpatient R ROYAYANELI ALAS MARCELLAYANELI BANG [facility] [id number] [facility] 2022-09-15 09:00:00 2022-09-15 09:15:00 Oil Expeller Visit Lab, Soren Neumann Ida [facility] 1.840.114 350.1.13.10 4.2.7.2.686 [id number] [facility] 2022-09-15 00:00:00 2022-09-15 00:00:00 Telephone Ida Yaneli [facility] 1.840.114 350.1.13.10 4.2.7.2.686 [id number] [facility] 2022-09-12 09:30:00 2022-09-12 09:59:39 Outpatient R MARCELLAYANELI BANG MARCELLAYANELI BANG [facility] [id number] [facility] 2022-09-12 09:30:00 2022-09-12 09:59:39 Initial Visit Yaneli Prieto [facility] 1.84.114 350.1.13.10 4.2.7.2.686 [id number] [facility] 2022-09-12 00:00:00 2022-09-12 00:00:00 Outpatient KAREN COPELAND [id number] [facility] 2022-09-12 00:00:00 2022-09-12 00:00:00 Orders Only Doctor Unassigned, [place] [facility] 1..840.114 350.1.13.10 4.2.7.2.686 [id number] [facility] 2022-09-12 00:00:00 2022-09-12 00:00:00 Letter (Out) Yaneli Prieto [facility] 1..840.114 350.1.13.10 4.2.7.2.686 [id number] [facility] 2022-08-09 00:00:00 2022-08-09 00:00:00 Outpatient KAREN COPELAND [id number] Arline [facility] 2022-07-28 08:30:00 2022-07-28 08:30:00 Outpatient KATHYA VASQUEZ [id number] Arline [facility] 2022-06-29 09:45:00 2022-06-29 09:45:00 Outpatient FREDI BROWN [id number] Ar[facility] 2022-06-15 12:00:00 2022-06-15 12:00:00 Outpatient LAB90 ARLINE NUNO [id number] [facility] 2022-06-15 11:00:00 2022-06-15 11:00:00 Outpatient KAREN COPELAND [id number] [facility]line Falcon 2022-05-25 00:00:00 2022-05-25 00:00:00 Outpatient KAREN COPELAND [id number] Arline Falcon 2022-05-11 00:00:00 2022-05-11 00:00:00 Outpatient KAREN COPELAND [id number] [facility]line [facility] 2022-04-29 00:00:00 2022-04-29 00:00:00 Outpatient HUNDL, KAREN NUNO [id number] Arline Seybold 2022-04-13 16:30:00 2022-04-13 16:30:00 Outpatient HUNDL, KAREN NUNO [id number] Arline Seybold 2022-04-11 08:30:00 2022-04-11 08:30:00 Outpatient HUNDL, KAREN NUNO [id number] Arline Seybold 2022-04-04 00:00:00 2022-04-04 00:00:00 Outpatient HUNDL, KAREN NUNO [id number] [facility] 2022-03-04 16:30:00 2022-03-04 16:30:00 Outpatient HUNDL, KAREN NUNO [id number] [facility] 2022-02-03 00:00:00 2022-02-03 00:00:00 Outpatient HUNDL, KAREN NUNO [id number] Arline Seybold 2022-02-02 16:00:00 2022-02-02 16:00:00 Outpatient HUNDL, KAREN NUNO [id number] [facility] 2021-12-07 00:00:00 2021-12-07 00:00:00 Outpatient PREZAS, LELAND NUNO [id number] Arline Seybold 2021-12-07 00:00:00 2021-12-07 00:00:00 Outpatient HUNDL, KAREN NUNO [id number] Arline Seybold 2021-12-07 00:00:00 2021-12-07 00:00:00 Outpatient HUNDL, KAREN NUNO [id number] Arline Seybold 2021-12-06 11:55:00 2021-12-06 11:55:00 Outpatient LAB90 ARLINE NUNO [id number] Arline Seybold 2021-12-03 10:30:00 2021-12-03 10:30:00 Outpatient HUNDL, KAREN NUNO [id number] Arline Falcon 2021-12-03 08:00:00 2021-12-03 08:00:00 Outpatient KAREN COPELAND [id number] Arline Falcon 2021-06-09 10:00:00 2021-06-09 10:00:00 Outpatient R SAAD BENNETT [facility] [id number] [facility] 2021-06-09 10:00:00 2021-06-09 10:00:00 Outpatient R SAAD BENNETT [facility] [id number] [facility] 2021-05-13 08:45:00 2021-05-13 08:45:00 Outpatient R BERNARD VIERA [facility] [id number] [facility] 2021-05-12 13:00:00 2021-05-12 13:20:45 [facility] [id number] [facility] 2021-05-12 13:00:00 2021-05-12 13:20:45 [facility]..840.114 350.1.13.10 4.2.7.2.686 [id number] [facility] 2021-05-12 13:00:00 2021-05-12 13:00:00 [facility] [id number] [facility] 2021-04-19 00:00:00 2021-04-19 00:00:00 Patient Secure Msg Doctor Unassigned, [place] [facility] 1.840.114 350.1.13.10 4.2.7.2.686 [id number] [facility] 2021-04-14 15:00:00 2021-04-14 15:51:10 Office Visit Maximiliano Bernard [facility] 1..840.114 350.1.13.10 4.2.7.2.686 [id number] [facility] 2021-04-14 15:00:00 2021-04-14 15:51:10 Outpatient Dai VIERABERNARD [facility] [id number] [facility] 2021-04-14 15:00:00 2021-04-14 15:00:00 Outpatient Dai VIERA BERNARD [facility] [id number] [facility] 2021-03-11 00:00:00 2021-03-11 00:00:00 Letter (Out) Shelby Fair [facility] 1..840.114 350.1.13.10 4.2.7.2.686 [id number] [facility] 2021-03-09 14:15:00 2021-03-09 14:52:05 Outpatient OBDULIO GIFFORD [facility] [id number] [facility] 2021-03-09 14:15:00 2021-03-09 14:30:00 Laboratory Only Only, Ang Db Test Unknown, Attending [facility] 1.2.840.114 350.1.13.10 4.2.7.2.686 [id number] [facility] 2021-03-09 00:00:00 2021-03-09 00:00:00 Orders Only Doctor Unassigned, [place] [facility] 1.2.840.114 350.1.13.10 4.2.7.2.686 [id number] [facility] 2020-04-19 01:04:00 2020-04-19 01:04:00 Outpatient LISTER_MELI [facility] [id number] [facility] 2020-03-15 01:02:00 2020-03-15 01:02:00 Outpatient LISTER_MELI [facility] [id number] [facility] 2020-02-08 01:03:00 2020-02-08 01:03:00 Outpatient PATRICIO_VALERIEI [facility] [id number] [facility] 2020-01-10 12:53:00 2020-01-10 12:53:00 Outpatient PATRICIO_LELO [facility] [id number] [facility] 2020-01-10 00:00:00 2020-01-10 00:00:00 Pam Tadeo, AUTOMATIC FOLDER SEAMER: [address], [place] [address] , Ph. [facility] [place] [facility] - [facility] FACILITIES PROJECT MANAGER [id number] [facility] 2019-10-01 00:00:00 2019-10-01 00:00:00 Telephone Mally Landeros [facility] 1..114 350.1.13.10 4.2.7.2.686 [id number] [facility] 2019-10-01 00:00:00 2019-10-01 00:00:[address] [facility] 1..114 350.1.13.10 4.2.7.2.686 [id number] [facility] 2019-10-01 00:00:00 2019-10-01 00:00:00 Telephone Pcp, Patient Does Not Have A [facility] 1..114 350.1.13.10 4.2.7.2.686 [id number] [facility] 2019-09-30 11:22:44 2019-09-30 11:42:44 Laboratory Only Lab, Adc Fam Pob I Shira Chen [facility] [address] ..114 350.1.13.10 4.2.7.2.686 [id number] [facility] 2019-09-30 11:20:00 2019-09-30 11:20:00 Outpatient R SHIRA CHEN [facility] [id number] [facility] 2019-09-30 00:00:00 2019-09-30 00:00:00 Letter (Out) Doctor Unassigned, [place] [facility] 1.2.840.114 350.1.13.10 4.2.7.2.686 [id number] [facility] 2019-07-09 06:15:00 2019-07-09 06:15:00 Outpatient LISTER_MELI [facility] [id number] [facility] 2019-07-09 00:00:00 2019-07-09 00:00:00 Pam Tadeo, AUTOMATIC FOLDER SEAMER: [address], [place] [address] , Ph. [facility] [place] [facility] FACILITIES PROJECT MANAGER [id number] [facility] 2019-03-29 11:39:00 2019-03-29 11:39:00 Outpatient LISTER_MELI [facility] [id number] [facility] 2019-03-25 02:27:00 2019-03-25 02:27:00 Outpatient LISTER_MELI [facility] [id number] [facility] 2019-03-24 10:48:00 2019-03-24 10:48:00 Outpatient LISTER_MELI [facility] [id number] [facility] 2019-03-22 04:26:00 2019-03-22 04:26:00 Outpatient LISTER_MELI [facility] [id number] [facility] 2019-03-22 00:00:00 2019-03-22 00:00:00 Pam Tadeo, AUTOMATIC FOLDER SEAMER: [address], [place] [address] , Ph. [facility] FACILITIES PROJECT MANAGER [phone] [facility] h Program Results Test Description Test Time [...] lesions. Asmall fat-containing umbilical hernia is noted. [facility] (26786)2024 20:43:27* Test Item Value Reference Range Interpretation Comme nts NA (test code = 3862917370) 140 mmol/L 135-145 K (test code = 7156445203) 3.3 mmol/L 3.5-5.0 L CL (test code = 5992652009) 107 mmol/L 98-108 CO2 TOTAL (test code = 1074033101) 23 mmol/L 23-31 AGAP (test code = 5904888169) 10 2-16 BUN (test code = 3097181322) 8 mg/dL 7-23 GLUCOSE (test code = 4329255124) 119 mg/dL 70-110 H CREATININE (test code = 2160-0) 0.64 mg/dL 0.50-1.04 TOTAL BILI (test code = 5481144532) 0.7 mg/dL 0.1-1.1 CALCIUM (test code = 5997211337) 9.6 mg/dL 8.6-10.6 T PROTEIN (test code = 2480862430) 8.1 g/dL 6.3-8.2 ALBUMIN (test code = 1862596579) 4.6 g/dL 3.5-5.0 ALK PHOS (test code = 3316032004) 62 U/L 34-122 ALTv (test code = 1742-6) 29 U/L 5-35 AST(SGOT) (test code = 6894787564) 29 U/L 13-40 eGFR (test code = 97152-4) 123.6 mL/min/1.73m2 CKD-EPI eGFR (2020). Assuming creatinine has been stable day-to-day for at least three months, the eGFR indicates Category G1 (>= 90 mL/min/1.73 m2) Lab Interpretation (test code = 90780-8) [facility]* Test Item Value Reference Range Interpretation Comme nts LIPASE (test code = 6511353978) 40 U/L 0-220 Lab Interpretation (test cod e = 09629-0) Normal [facility] with Iplc5460-38-81 20:30:01* Test Item Value Reference Range Interpretation [...] 32.7 g/dL 31.6-35.1 RDW-SD (test code = 75688-5) 41.6 fL 39.0-49.9 RDW-CV (test code = 788-0) 12.8 % 12.0-15.5 PLT (test code = 777-3) 310 166-358 MPV (test code = 83701-0) 10.3 fL 9.5-12.9 NRBC/100 WBC (test code = 1777991818) 0.0 0.0-10.0 NRBC x10^3 (test code = 2154190066) See_Comment [Automated me ssage] The system which generated this result transmitted reference range: 10*3/?L. The reference range was not used to interpret this result as normal/abnormal. GRAN MAT (NEUT) % (test code = 770-8) 61.9 % IMM GRAN % (test code = 8111103111) 0.20 % LYMPH % (test code = 736-9) 31.9 % MONO % (test code = 5905-5) 5.1 % EOS % (test code = 713-8) 0.7 % BASO % (test code = 706-2) 0.2 % GRAN MAT x10^3(ANC) (test code = 5513527356) 5.22 10*3/uL 1.88-7.09 IMM GRAN x10^3 (test code = 3836245342) 0.00-0.06 LYMPH x10^3 (test code = 731-0) 2.69 10*3/uL 1.32-3.29 MONO x10^3 (test code = 742-7) 0.43 10*3/uL 0.33-0.92 EOS x10^3 (test code = 711-2) 0.06 10*3/uL 0.03-0.39 BASO x10^3 (test code = 704-7) 0.01-0.07 [facility] lmisx9466-74-04 00:00:00* Test Item Value Reference Range Interpretation [...] [facility] MedicalInsulin [Units/volume] in Serum or Plasma --syxmdgc8750-58-95 00:00:00* Test Item Value Reference Range Interpretation Comme nts insulin, fasting (test code = insulin, fasting) 26.9 u[IU]/mL <25.0 H [facility] Dpslpbk88-Xxhtlmmdcyguhypomnt [Mass/volume] in Serum or Vrtngm9173-55-42 00:00:00* Test Item Value Reference Range Interpretation Comme nts 17-hydroxyprogesterone (test code = 17-hydroxyprogesterone) 31 NG/dL see below [facility] MedicalDehydroepiandrosterone sulfate (DHEA-S) [Mass/volume] in Serum or Xkvkea1521-04-66 00:00:00* Test Item Value Reference Range Interpretation Comme nts DHEA-S (test code = DHEA-S) 103.0 ug/dL 98.8-340.0 [facility] MedicalThyrotropin [Units/volume] in Serum or Hskksp3161-39-28 00:00:00* Test Item Value Reference Range Interpretation Comme nts TSH (test code = TSH) 1.720 uIU/mL 0.500-4.530 [facility] MedicalChoriogonadotropin.beta subunit [Units/volume] in Serum or Plasma 2023-11-14 00:00:00* Test Item Value Reference Range Interpretation Comme nts HCG (test code = HCG) < 5 [facility] MedicalGlucose [Mass/volume] in Serum or Xgagye2654-30-40 00:00:00* Test Item Value Reference Range Interpretation Comme nts glucose (test code = glucose) 95 mg/dL 70-99 [facility]Lipid 1996 panel - Serum or Wntxgo1638-83-02 00:00:00* Test Item Value Reference Range Interpretation [...] <100 [facility] MedicalTestosterone [Mass/volume] in Serum or Bdrrej3563-87-57 00:00:00* Test Item Value Reference Range Interpretation Comme nts testosterone (test code = testosterone) 23.0 NG/dL 8.4-48.1 [facility]swhl[facility] 2023-11-02 00:00:00* Test Item Value Reference Range Interpretation Comme nts trichomonas vaginalis swab ( test code = trichomonas vaginalis swab) TRICH NEG negative [facility], LB + reflex to HR HPV if [id number] 00:00:00* Test Item Value Reference Range Interpretation Comme nts LMP date: (test code = LMP date:) 09/22/2023 Pap, liquid-based (test code = Pap, liquid-based) NILM nilm source (liquid-based cytology): (test code = source (liquid-based cytology):) CERVICAL (WHICH INCLUDES ENDOCERVICAL) [facility]2 Ab+HIV1 p24 Ag [Presence] in Serum or Plasma by [id number] 00:00:00* Test Item Value Reference Range Interpretation Comme nts HIV Ag/Ab (test code = HIV Ag/Ab) NON-REACTIVE non-reactive HIV-1 P24 Ag (test code = HI V-1 P24 Ag) NON-REACTIVE non-reactive HIV 1+2 Ab (test code = HIV 1+2 Ab) NON-REACTIVE non-reactive [facility] [Presence] in Serum by [id number] 00:00:00* Test Item Value Reference Range Interpretation Comme nts RPR (test code = RPR) NON-REACTIVE non-reactive [facility]atitis B virus surface Ag [Presence] in [id number] 00:00:00* Test Item Value Reference Range Interpretation Comme nts ethnicity: (test code = ethnicity:) NOT PROVIDED race: (test code = race:) UNKNOWN hep. B surf. Ag (test code = hep. B surf. Ag) NON-REACTIVE non-reactive [facility] C virus Ab [Presence] in [id number] 00:00:00* Test Item Value Reference Range Interpretation Comme nts ethnicity: (test code = ethnicity:) NOT PROVIDED race: (test code = race:) UNKNOWN hep. C Ab. (test code = hep. C Ab.) NON-REACTIVE non-reactive [facility] disease [id number] 00:00:00* Test Item Value Reference Range Interpretation [...] B, tet M) 17.097 ppm 23.000-27.778 A [facility], QUANTITATIVE, [id number] 20:37:30* Test Item Value Reference Range Interpretation Comme nts BETA HCG (test code = 8353568420) 46.51 See_Comment [Automated CompareAway] The system which generated this result transmitted reference range: Non- female and male patients: <5 mIU/mL. The reference range was not used to interpret this result as normal/abnormal. ELY (test code = ELY) Gestational Age ?Range (mIU/mL) 1-10 ?Weeks ?[id number] Weeks ?[id number] Weeks ?[id number] Weeks ?[id number] Biotin has been reported to cause a negative bias, interpret results relative to patient's use of biotin. [facility], [id number] 20:37:30* Test Item Value Reference Range Interpretation Comme nts BETA HCG (test code = 1347861807) 46.51 See_Comment [Automated Dynamicsa SQMOS] The system which generated this result transmitted reference range: Non- female and male patients: <5 mIU/mL. The reference range was not used to interpret this result as normal/abnormal. ELY (test code = ELY) Gestational Age ?Range (mIU/mL) 1-10 ?Weeks ?[id number] Weeks ?31958-83766556-07 Weeks ?[id number] Weeks ?[id number] Biotin has been reported to cause a negative bias, interpret results relative to patient's use of biotin. [facility] by Culture 2019-07-11 00:00:00* Test Item Value Reference Range Interpretation Comme nts Bacteria identified in Urine by Culture (test code = 630-4) comment A [facility]em[facility] A[facility]c/Hemoglobin.total in [id number] 00:00:00* Test Item Value Reference Range Interpretation Comme nts Hemoglobin A1c/Hemoglobin.to qasim in Blood (test code = 4548-4) 5.6 % 4.8-5.6 [facility]aleUrinalysis macro (dipstick) panel - [id number] 16:38:00* Test Item Value Reference Range Interpretation Comme nts Leukocytes (test code = Leukocytes) TRACE Nitrite (test code = Nitrite) NEG Urobilinogen (test code = Urobilinogen) 0.2 Protein (test code = Protein) NEG pH (test code = pH) 7.0 Blood (test code = Blood) NEG Specific [place] (test code = Specific [place]) 1.015 Ketone (test code = Ketone) NEG Bilirubin (test code = Bilirubin) NEG Glucose (test code = Glucose) NEG Appearance (test code = Appearance) CLEAR Color (test code = Color) Light yelllow [facility] Sunnyvalepregnancy test, [id number] 15:00:00* Test Item Value Reference Range Interpretation Comme nts HCG (test code = HCG) negative [facility] Notes Date/Time Note Provider Source 2024-04-15 09:16:11 Noted, 8w2d Dorothea Lopez RN 04/15/2024 9:16 AM LE SORTER Dorothea Lopez RN [facility] 2024-04-15 08:40:15 Zainab Tucker is a 29 year old female LMP: 02/25/24 No previous care, MyChart active Appt: 04/23/24 at 9:[address] Foster EM Mukherjee [facility] 2024 15:50:45 Patient given printed and verbal discharge instructions regarding epigastric pain. 3 Prescriptions provided Discussed Tylenol # 3 side affects and to avoid driving/operating machinery/or engaging in activities requiring alertness while taking. Pt verbalized understanding of instructions, pt awake alert oriented, resp reg unlabored, skin w/d, color appropriate for race, moves all ext well,pt encouraged to follow up with pcp and GI. Advised to seek medical attention for new/prolonged/worsening of symptoms. No adverse reaction to meds given in ER noted upon discharge PIV d'cd, dressing to site, catheter in tact. Awake, alert oriented, resp reg unlabored, skin w/d, pt leaving amb with steady gait, in no apparent distress. EM Moreno RN [facility] 2024 13:18:24 CC: patient presents to the ER with complaints of middle upper abdominal pain that began "a few months ago." Patient states pain has become more frequent this past week. Awake, alert, oriented, resp reg unlabored, skin warm and dry, color appropriate for race, moves all ext without difficulty, amb without assistance. Appears in no distress. 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 PT states she took bentyl with no relief. PT has h/o cholecystectomy in Mar 2023. PT denies any n/v/d currently. PT denies any urinary symptoms. PT states she is having 20 minutes epigastric pain flairs more frequently over past couple weeks. Past Medical History/Immunizations: Past Medical History: Diagnosis Date Depression 12/03/2021 PCOS (polycystic ovarian syndrome) PCOS (polycystic ovarian syndrome) 12/03/2021 Tetanus received in last 5 years: Unknown Childhood immunizations: Up-to-date Allergies: No Known Allergies Past Social History: Tobacco Use Never smoked or used smokeless tobacco. Vaping Use Never used Alcohol Use No. Comments: occasional Drug Use No. Sexual Activity Sexually active; Partners: Male; Control/Protection: None. Past Surgical History: Past Surgical History: Procedure Laterality Date SECTION Review of Systems: Review of Systems Constitutional: Negative for fever. HENT: Negative for voice change. Gastrointestinal: Positive for abdominal pain. Negative for diarrhea, nausea and vomiting. Genitourinary: Negative for dysuria. Physical Exam: ED Triage Vitals [02/14/24 1320] Weight 113.4 kg (250 lb) Actual or estimated Estimated by patient/family report Height 1.575 m (5' 2") BP 136/87 Pulse 104 Resp 16 Temp 37.3 ?C (99.1 ?F) Temp source Oral SpO2 100 % Measured on Room air Physical Exam Vitals and nursing note reviewed. Constitutional: Appearance: Normal appearance. HENT: Head: Normocephalic. Cardiovascular: Rate and Rhythm: Normal rate. Pulmonary: Effort: Pulmonary effort is normal. Abdominal: Palpations: Abdomen is soft. Tenderness: There is abdominal tenderness. There is no right CVA tenderness, left CVA tenderness, guarding or rebound. Comments: Ttp over epigastric region, upper abdomen Neurological: General: No focal deficit present. Mental Status: She is alert and oriented to person, place, and time. Psychiatric: Mood and Affect: Mood normal. Behavior: Behavior normal. Thought Content: Thought content normal. Radiology: CT Abdomen pelvis w contrast Preliminary Result EXAM: CT ABDOMEN PELVIS W CONTRAST HISTORY: 29 years -old Female with abd pain, epigastric pain COMPARISON: None. TECHNIQUE: Contiguous axial imaging from the level of the lung bases through the proximal thighs was performed after intravenous contrast administration. Coronal and sagittal reconstructions were obtained. FINDINGS: LOWER THORAX: The lung bases are essentially clear. No cardiomegaly.. . LIVER: A focal density about the falciform ligament, likely present focal fatty sparing. Normal contour. GALLBLADDER AND BILIARY TREE: Cholecystectomy. No intra or extrahepatic biliary ductal dilation. SPLEEN: Unremarkable. PANCREAS: No ductal dilatation or masses ADRENAL GLANDS: No adrenal lesions. KIDNEYS: A subcentimeter hypodense lesion in the inferior pole of the left kidney, too small to characterize and likely represent a cyst. No hydronephrosis, stones, or masses. Homogeneous and symmetrical enhancement. GI TRACT: No dilation or bowel wall thickening. The appendix is normal. PERITONEUM AND RETROPERITONEUM: No free air or fluid collection. LYMPH NODES: No lymphadenopathy. PELVIS/BLADDER: Bladder is underdistended and cannot be completely evaluated.. The reproductive organs are unremarkable. VESSELS: Unremarkable. BONES AND SOFT TISSUES: No suspicious lytic or sclerotic bony lesions. A small fat-containing umbilical hernia is noted. IMPRESSION No acute intra-abdominal or pelvic abnormality. Preliminary Report Dictated by Resident: Lana Carreon Lab Results: Lab Results COMP. METABOLIC PANEL (83605) - Abnormal Result Value Ref Range NA 140 135 - 145 mmol/L K 3.3 (*) 3.5 - 5.0 mmol/L CL 107 98 - 108 mmol/L CO2 TOTAL 23 23 - 31 mmol/L AGAP 10 2 - 16 BUN 8 7 - 23 mg/dL GLUCOSE 119 (*) 70 - 110 mg/dL CREATININE 0.64 0.50 - 1.04 mg/dL TOTAL BILI 0.7 0.1 - 1.1 mg/dL CALCIUM 9.6 8.6 - 10.6 mg/dL T PROTEIN 8.1 6.3 - 8.2 g/dL ALBUMIN 4.6 3.5 - 5.0 g/dL ALK PHOS 62 34 - 122 U/L ALTv 29 5 - 35 U/L AST(SGOT) 29 13 - 40 U/L eGFR 123.6 mL/min/1.73m2 URINALYSIS - Abnormal APPEARANCE Cloudy (*) Clear COLOR Yellow Yellow PH 5.0 4.8 - 8.0 SP GRAVITY 1.026 1.003 - 1.030 GLU U QUAL Normal Normal BLOOD Negative Negative KETONES Negative Negative PROTEIN Negative Negative UROBILIN Normal Normal BILIRUBIN Negative Negative NITRITE Negative Negative LEUK CHEMO 75/uL (*) Negative RBC/HPF 1 0 - 3 HPF WBC/HPF <1 0 - 5 HPF BACTERIA Negative Negative SQ EPITH 1 HPF LIPASE - Normal LIPASE 40 0 - 220 U/L POCT TEST - Normal POCT PREG Negative On board controls acceptable with C Line Yes CBC WITH DIFF WBC 8.44 4.30 - 11.10 10*3/?L RBC 4.58 3.93 - 5.25 10*6/?L HGB 13.4 11.6 - 15.0 g/dL HCT 41.0 35.7 - 45.2 % MCV 89.5 80.6 - 95.5 fL MCH 29.3 25.9 - 32.8 pg MCHC 32.7 31.6 - 35.1 g/dL RDW-SD 41.6 39.0 - 49.9 fL RDW-CV 12.8 12.0 - 15.5 % PLT 310 166 - 358 10*3/?L MPV 10.3 9.5 - 12.9 fL NRBC/100 WBC 0.0 0.0 - 10.0 /100 WBCs NRBC x10 3 <0.01 10*3/?L GRAN MAT (NEUT) % 61.9 % IMM GRAN % 0.20 % LYMPH % 31.9 % MONO % 5.1 % EOS % 0.7 % BASO % 0.2 % GRAN MAT x10 3 (ANC) 5.22 1.88 - 7.09 10*3/uL IMM GRAN x10 3 <0.03 0.00 - 0.06 10*3/uL LYMPH x10 3 2.69 1.32 - 3.29 10*3/uL MONO x10 3 0.43 0.33 - 0.92 10*3/uL EOS x10 3 0.06 0.03 - 0.39 10*3/uL BASO x10 3 <0.03 0.01 - 0.07 10*3/uL EKG: If EKG completed, see Procedure Note. Orders and Treatments: Orders Placed This Encounter Procedures CT Abdomen pelvis w contrast Cbc with Diff Comp. Metabolic Panel (62585) Lipase Urinalysis POCT TEST Orders Placed This Encounter Medications maalox/diphenhydrAMINE:lido caine2 %viscous 1:1:1: suspension (COMPOUNDED) famotidine (PEPCID (PF)) injection 20 mg morpHINE (4 mg/mL) injection 4 mg ondansetron (ZOFRAN (PF)) injection 4 mg NaCl 0.9% (NS) bolus infusion 1,000 mL iopamidol (ISOVUE 370-500 mL) injection 85 mL morpHINE (4 mg/mL) injection 4 mg dicyclomine (BENTYL) tablet 20 mg First Provider Eval: ED Events Date/Time Event User Comments 02/14/24 1320 Medical Screening Begins SAMAN RUIZ MD -- 02/14/24 1320 First Provider Evaluation SAMAN RUIZ MD -- ED COURSE ED Course as of 02/14/24 1531 MonFeb 14, 2024 1531 PT informed of results. Pt resting comfortably. Will receive additional pain medication in the Ed, and will d/c home. PT instructed to f/u with [facility] GI clinic. [PB] 1333 Will obtain labs, ct abd/pelvis. PT to receive ivf, analgesia, anti-emetics. [PB] ED Course User Index [PB] Saman Ruiz MD Diagnosis/Impression as of 02/14/24 1531 Epigastric pain Procedures: Procedures MDM: Medical Decision Making 29 yo F presents with abdominal pain Amount and/or Complexity of Data Reviewed Labs: ordered. Radiology: ordered. Details: Ct abd/pelvis no acute intra-abdominal or pelvic pathology. Risk Prescription drug management. Parenteral controlled substances. Risk Details: PT comfortable with plan and instructed to f/u with [facility] GI clinic Flowsheet Documentation: Scoring Tools: No data recorded Disposition/Condition: ED Disposition None Discharge Medications: Patient's Medications START taking these medications No medications on file CONTINUE taking these medications which have NOT CHANGED PRENAT VIT COMB.03-BRXU-FS-DHA (VITAFOL-OB+DHA) 65-1-250 MG COMBO PACK Take 1 Packet by mouth in the morning. START taking Modified Medications as Prescribed No medications on file STOP taking these medications No medications on file Follow-up: Electronically signed by: Smaan Ruiz MD 02/14/24 1532 [facility] 2023-05-08 16:42:38 Chief Complaint Patient presents with Physical Fasting for labs Shelby Hendrickson [facility] 2022-10-17 08:44:21 Formatting of this n ote might be different from the original. Patient notified of pending lab orders to be done day before f/u. No questions or concerns expressed. Oly Johnson RN 10/17/2022 8:44 AM Oly Johnson RN [facility] 2022-10-16 11:13:38 Formatting of this n ote might be different from the original. I previously sent an encounter to schedule appointment for Ms. Tucker for ultrasound f/u. I have ordered a beta HCG. I would like this drawn at least a day before the scheduled appointment. Yaneli Prieto NP 10/16/2022 11:15 AM [facility] 2022-10-11 13:45:00 Formatting of this n ote is different from the original. Images from the original note were not included. Venipuncture collection performed by clean technique on the right anticubitus. Total of 1 attempts were made. Slight pressure and a bandage/dressing were applied to the site(s). The patient experienced no complications. The following specimens were processed according to instructions and sent to [facility] laboratories per lab order on 10/12/2022: LT BLUE SST 1 RED LAV PPT DK GREEN (LiHep) DK GREEN (SodH) CADE DK BLUE (K2) DK BLUE (S) ACD Blood Culture NIPT/NTD [facility] 2022-10-05 12:45:06 Formatting of this n ote might be different from the original. Patient notified of USN preliminary result per Zoie Prieto. Patient informed it is important to have beta HCG lab testing done and then to follow-up with provider regarding HCG levels since USN showed no intra or extrauterine . Patient verbalized understanding. Oly Johnson RN 10/05/2022 12:49 PM Oly Johnson RN [facility] 2022-10-05 10:55:12 Formatting of this n ote might be different from the original. Pt is wanting to go over lab orders want to know if she need them done or can she just get usg results without labs being done Arline Grossman [facility] 2022-10-03 15:20:09 Formatting of this n ote might be different from the original. Spoke with patient, patient to do Beta HCG lab then will contact with results. Patient verbalized understanding. Oly Johnson RN 10/03/2022 3:21 PM Oly Johnson RN [facility] 2022-10-02 17:29:20 Formatting of this n ote might be different from the original. Please assist in scheduling a f/u visit for Ms. Tucker. aYneli Prieto NP 10/02/2022 5:29 PM [facility] 2022-09-22 07:30:00 Formatting of this n ote is different from the original. Images from the original note were not included. Venipuncture collection performed by clean technique on the right anticubitus. Total of 1 attempts were made. Slight pressure and a bandage/dressing were applied to the site(s). The patient experienced no complications. The following specimens were processed according to instructions and sent to [facility] laboratories per lab order on 09/22/2022 LT BLUE SST 1 RED LAV PPT DK GREEN (LiHep) DK GREEN (SodH) CADE DK BLUE (K2) DK BLUE (S) ACD Blood Culture NIPT/NTD T [facility]
--- NOTE | 2024-04-16 14:35 | ER ---
Nurse's Notes [facility] Name: Zainab Tucker Age: 29 yrs Sex: Female : 1995 Arrival Date: 04/16/2024 Time: 12:02 Bed 12 Private MD: Diagnosis: Less than 8 weeks gestation of Presentation: 04/16 12:18 Chief complaint: Patient states: Patient had a positive home test and a positive test me1 at the help center. Ultrasound at the help center could visualize a sac but no baby so they suggested patient come to ER. Coronavirus screen: Vaccine status: Patient reports being unvaccinated. Ebola Screen: No symptoms or risks identified at this time. Initial Sepsis Screen: Does the patient meet any 2 criteria? No. Patient's initial sepsis screen is negative. Does the patient have a suspected source of infection? No. Patient's initial sepsis screen is negative. Risk Assessment: Do you want to hurt yourself or someone else? Patient reports no desire to harm self or others. Onset of symptoms is unknown. 12:18 Method Of Arrival: Ambulatory [facility] 12:18 Acuity: JANAE 3 me1 Triage Assessment: 12:20 General: Appears in no apparent distress. Behavior is cooperative, appropriate for age, bp anxious. Pain: Denies pain. EENT: No deficits noted. Neuro: No deficits noted. Cardiovascular: No deficits noted. Respiratory: No deficits noted. GI: No signs and/or symptoms were reported involving the gastrointestinal system. : No signs and/or symptoms were reported regarding the genitourinary system. Derm: No deficits noted. Musculoskeletal: No deficits noted. 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 - Infectious Disease History:: Denies. - Social history:: Smoking status: Patient denies any tobacco usage or history of. - Family history:: not pertinent. - Hospitalizations: : No recent hospitalization is reported. Screenin:55 [facility] ED Fall Risk Assessment (Adult) History of falling in the last 3 months, bp including since admission No falls in past 3 months (0 pts) Confusion or Disorientation No (0 pts) Intoxicated or Sedated No (0 pts) Impaired Gait No (0 pts) Mobility Assist Device Used No (0 pt) Altered Elimination No (0 pt) Score/Fall Risk Level 0 - 2 = Low Risk Oriented to surroundings. Abuse screen: Denies threats or abuse. Denies injuries from another. Nutritional screening: No deficits noted. Tuberculosis screening: No symptoms or risk factors identified. Assessment: 12:20 General: Appears in no apparent distress. Behavior is cooperative, appropriate for age, bp anxious. 14:47 Reassessment: Patient appears in no apparent distress at this time. Patient is alert, bp oriented x 3, equal unlabored respirations, skin warm/dry/pink. Vital Signs: 12:18 BP 114 / 71; Pulse 101; Resp 17; Temp 98.6; Pulse Ox 100% ; Weight 113.4 kg; Height 5 me1 ft. 3 in. ; Pain 0/10; 14:47 BP 121 / 69; Pulse 87; Resp 16; Pulse Ox 100% ; bp 12:18 Body Mass Index 44.29 (113.40 kg, 160.02 cm) ak1 12:18 Pain Scale: Adult ak1 ED Course: 12:04 Patient arrived in ED. mr 12:09 Juan Miguel Will MD is Attending Physician. rn 12:20 Triage completed. ak1 12:20 Arm band placed on Patient placed in waiting room. me1 12:43 Uriah Bright, LEXII is Primary Nurse. bp 12:55 Patient has correct armband on for positive identification. bp 12:55 Initial lab(s) drawn, by ak, sent to lab. Urine collected: clean catch specimen, bp cloudy. Inserted saline lock: 22 gauge in right antecubital area, using aseptic technique. Blood collected. Flushed with 10 mL NS. 13:19 US Transvaginal Ob In Process Unspecified. EDMS 14:47 Provided Education on: NA. bp 14:47 No provider procedures requiring assistance completed. IV discontinued, intact, bp bleeding controlled, No redness/swelling at site. Pressure dressing applied. Administered Medications: No medications were administered Medication: 12:20 VIS not applicable for this client. bp Outcome: 14:35 Discharge ordered by . rn 14:47 Discharged to home ambulatory, bp 14:47 Condition: stable 14:47 Discharge instructions given to patient, Instructed on discharge instructions, follow up and referral plans. Demonstrated understanding of instructions, follow-up care, 14:49 Patient left the ED. bp Signatures: Dispatcher [employer] Rose Rodgers, Juan Miguel Maloney MD MD rn Peltier, Brian RN RN Louise Martinez RN RN me1
--- NOTE | 2024-04-16 14:35 | EDPHYS ---
Physician Documentation [facility] Name: Zainab Tucker Age: 29 yrs Sex: Female : 1995 Arrival Date: 04/16/2024 Time: 12:02 Bed 12 Private MD: ED Physician Juan Miguel Will HPI: 04/16 14:05 This 29 yrs old Female presents to ER via Ambulatory with complaints of HCG rn level check. 14:05 Patient sent from clinic for evaluation. Patient states her LMP was February 24, had a rn negative test as late as March 14. Had a positive test and confirmed in clinic. Ultrasound today showed gestational sac but they were not convinced so sent her here for further evaluation. Patient denies any bleeding or abdominal pain. No leakage of fluid. No cramping.. 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 - Infectious Disease History:: Denies. - Social history:: Smoking status: Patient denies any tobacco usage or history of. - Family history:: not pertinent. - Hospitalizations: : No recent hospitalization is reported. ROS: 14:05 Constitutional: Negative for fever, chills, and weight loss, Cardiovascular: Negative rn for chest pain, palpitations, and edema, Respiratory: Negative for shortness of breath, cough, wheezing, and pleuritic chest pain, Abdomen/GI: Negative for abdominal pain, nausea, vomiting, diarrhea, and constipation, Back: Negative for injury and pain, : Negative for injury, bleeding, discharge, and swelling, MS/Extremity: Negative for injury and deformity, Skin: Negative for injury, rash, and discoloration, Neuro: Negative for headache, weakness, numbness, tingling, and seizure, Exam: 14:05 Constitutional: This is a well developed, well nourished patient who is awake, alert, rn and in no acute distress. Abdomen/GI: Soft, nontender Vital Signs: 12:18 BP 114 / 71; Pulse 101; Resp 17; Temp 98.6; Pulse Ox 100% ; Weight 113.4 kg; Height 5 me1 ft. 3 in. ; Pain 0/10; 14:47 BP 121 / 69; Pulse 87; Resp 16; Pulse Ox 100% ; bp 12:18 Body Mass Index 44.29 (113.40 kg, 160.02 cm) me1 12:18 Pain Scale: Adult me1 MDM: 12:09 Medical Screening Exam initiated rn 14:33 Differential diagnosis: ectopic . Data reviewed: vital signs, nurses notes, rn nicu test result(s), radiologic studies, ultrasound, and as a result, I will discharge patient. Counseling: I had a detailed discussion with the patient and/or guardian regarding the historical points, exam findings, and any diagnostic results supporting the discharge/admit diagnosis, lab results, radiology results, the need for outpatient follow up, to return to the emergency department if symptoms worsen or persist or if there are any questions or concerns that arise at home. Special discussion: I discussed with the patient/guardian in detail that at this point there is no indication for admission to the hospital. It is understood, however, that if the symptoms persist or worsen the patient needs to return immediately for re-evaluation. ED course: hCG 1000, sac seen in uterus, patient without any vaginal bleeding or abdominal pain to suggest miscarriage. Will discharge home with normal care.. 04/16 12:31 Order name: Test, Urine; Complete Time: 13:42 rn 04/16 12:31 Order name: Quantitative Hcg; Complete Time: 13:42 rn 04/16 12:31 Order name: US Transvaginal Ob rn 04/16 12:31 Order name: IV Saline Lock; Complete Time: 12:54 rn 04/16 12:31 Order name: Labs collected and sent; Complete Time: 12:54 rn Administered Medications: No medications were administered Disposition Summary: 04/16/24 14:35 Discharge Ordered Notes: Location: Home rn Problem: new rn Symptoms: are unchanged rn Condition: Stable rn Diagnosis - Less than 8 weeks gestation of rn Followup: rn - With: Private Physician - When: As needed - Reason: Recheck today's complaints, Re-evaluation by your physician Discharge Instructions: - Discharge Summary Sheet rn - First Trimester of rn Forms: - Medication Reconciliation Form rn - Antibiotic paper pattern folder - Prescription Opioid Use rn - Patient Portal Instructions rn - Leadership Thank You Letter rn Signatures: Dispatcher [employer] EDJuan Miguel Elizalde MD MD rn Eddleman, Michelle, RN RN me1 Corrections: (The following items were deleted from the chart) 12:32 12:32 Test, Urine+UC.LAB.BRZ ordered. EDMS EDMS 12:32 12:32 QUANTITATIVE HCG+C.LAB.BRZ ordered. EDMS EDMS 12:32 12:32 Transvaginal Ob+US.RAD.BRZ ordered. EDMS EDMS
--- NOTE | 2024-04-16 14:47 | RAD REPORT ---
EXAM: Transvaginal OB HISTORY: , cramps COMPARISON: None TECHNIQUE: Multiple grayscale and color Doppler images were obtained in a transvaginal pelvic ultraso und. Spectral analysis of the Doppler waveforms of the ovaries were performed. FINDINGS: UTERUS: Intrauterine saclike structure identified with sac diameter of 4 mm. No pole, yolk sac, or heart tones identified. No free fluid is seen in the pelvis. RIGHT OVARY: Vascular flow is present. A simple appearing right ovarian cyst is present measuring 1.4 x 1.2 cm. This does not require follow-up. LEFT OVARY: Nonvisualized. IMPRESSION: Intrauterine saclike structure favored to represent a gestational sac with mean sac diame ter that would indicate a gestation of 5 week 0 day. Recommend correlation with beta hCG and short-term ultrasound follow-up.
[2024-04-16 17:15] VITALS: TEMP 98.6; O2SAT 100
[2024-04-16 17:16] VITALS: BP 121/69
== END 2024-04-16 14:49 | disposition home or self-care (01) ==
LOC: ER 12:02
DX: Z32.01 Encounter for pregnancy test, result positive (principal)
CPT/HCPCS: 36415; 76817; 81025; 84702

== ENCOUNTER 2024-07-23 18:07 | Emergency (ER) | payer OTHER ==
[2024-07-23 19:29] LABS: Absolute Lymphocytes (CBC) 2.4 K/uL (0.7-4.9); Absolute Monocytes 0.4 K/uL (0.1-1.3); Absolute Neutrophil 5.3 K/uL (1.8-8.0); Basophils % 0.4 % (0-1.3); Eosinophils % 0.3 % (0-4.4); Hematocrit 31.8 % (36.0-45.0); Hemoglobin 11.1 g/dL (12.0-15.0); Lymphocytes % 28.7 % (15.3-44.8); MCH 29.7 pg (27.0-35.0); MCHC 34.8 g/dL (32.0-36.0); MCV 85.3 fL (80-100); MPV 8.4 fL (7.6-11.3); Monocytes % 5.3 % (3.3-12.3); Neutrophils % 65.3 % (41.7-73.7); Platelets 247 thou/uL (152-406); RBC Red Blood Cell Count 3.73 M/uL (3.86-4.86)
[2024-07-23 19:32] LABS: Specific Gravity 1.025 (1.005-1.030); Urine Bacteria <20 /HPF (<20); Urine Bilirubin NEGATIVE (Negative); Urine Blood Negative (Negative); Urine Clarity Extremely Turbid (Clear); Urine Color Yellow (Yellow); Urine Culture Reflex Order NOT NEEDED; Urine Glucose NEGATIVE (Negative); Urine Ketones NEGATIVE (Negative); Urine Microscopic Reflex YN ORDER UMIC; Urine Mucus 2+ /HPF (None Seen); Urine Nitrite NEGATIVE (Negative); Urine Protein TRACE (Negative); Urine RBC <5 /HPF (None Seen); Urine Urobilinogen 1+ (Normal); Urine WBC <5 /HPF (<5); Urine Yeast (Budding) Trace /HPF (None Seen); Urine pH 6.5 (5.0-7.0)
[2024-07-23 19:44] LABS: Albumin 2.6 g/dL (3.4-5.0); Albumin/Globulin Ratio 0.7 (1.1-1.8); Anion Gap 10.4 mEq/L (5.0-15.0); Bilirubin Total 0.4 mg/dL (0.2-1.0); Globulin 3.9 g/dL (2.3-3.5); Potassium 3.4 mEq/L (3.5-5.1); Protein, Total 6.5 g/dL (6.4-8.2)
[2024-07-23] MEDS ORDERED: NA CHLORIDE 0.9% 1,000 ML ONE (20:30)
[2024-07-23] MEDS ORDERED: METOCLOPRAMIDE 10 MG/2mL INJ ONE (20:30)
[2024-07-23] MEDS ORDERED: DIPHENHYDRAMINE 50 MG/ML VIAL ONE (20:31)
--- NOTE | 2024-07-23 21:04 | ER ---
Nurse's Notes [facility] Name: Zainab Tucker Age: 29 yrs Sex: Female : 1995 Arrival Date: 07/23/2024 Time: 18:07 Bed 5 Private MD: Diagnosis: Headache Presentation: 07/23 18:22 Chief complaint: Patient states: HEADACHES INTERMITTENT SINCE LAST MONDAY. WORSE LAST db NIGHT, CONSISTENT SINCE LAST NIGHT. WITHOUT N/V. MIGRAINE. 18 WEEKS . Coronavirus screen: Client denies travel out of the [place] in the last 14 days. At this time, the client does not indicate any symptoms associated with coronavirus-19. Ebola Screen: Patient negative for fever greater than or equal to 101.5 degrees Fahrenheit, and additional compatible Ebola Virus Disease symptoms Patient denies exposure to infectious person. Patient denies travel to an Ebola-affected area in the 21 days before illness onset. No symptoms or risks identified at this time. 18:22 Method Of Arrival: Ambulatory db 18:24 Initial Sepsis Screen: Does the patient meet any 2 criteria? No. Patient's initial db sepsis screen is negative. Does the patient have a suspected source of infection? No. Patient's initial sepsis screen is negative. Risk Assessment: Do you want to hurt yourself or someone else? Patient reports no desire to harm self or others. Onset of symptoms was July 23, 2024. 18:24 Acuity: JANAE 3 db Triage Assessment: 18:24 Headache History: The patient has had previous headaches and this one is different than db previous episodes. General: Appears in no apparent distress. comfortable, Behavior is calm, cooperative. Pain: Complains of pain in head. Neuro: Level of Consciousness is awake, alert, obeys commands, Oriented to person, place, time, situation. Neuro: Reports headache. Respiratory: Airway is patent Respiratory effort is even, unlabored, Respiratory pattern is regular, symmetrical. 20:30 Pain: Pain currently is 10 out of 10 on a pain scale. Pain began gradually, Also kd3 complains of decreased appetite, nausea. 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 - Infectious Disease History:: Denies. - Social history:: Smoking status: Patient denies any tobacco usage or history of. Screenin:29 [facility] ED Fall Risk Assessment (Adult) History of falling in the last 3 months, kd3 including since admission No falls in past 3 months (0 pts) Confusion or Disorientation No (0 pts) Intoxicated or Sedated No (0 pts) Impaired Gait No (0 pts) Mobility Assist Device Used No (0 pt) Altered Elimination No (0 pt) Score/Fall Risk Level 0 - 2 = Low Risk Maintained a safe environment. Abuse screen: Denies threats or abuse. Denies injuries from another. Nutritional screening: No deficits noted. Tuberculosis screening: No symptoms or risk factors identified. Assessment: 20:28 General: Appears in no apparent distress. Behavior is calm, cooperative. Pain: kd3 Complains of pain in head. Neuro: Level of Consciousness is awake, alert, obeys commands, Oriented to person, place, time, situation. Respiratory: Airway is patent Trachea midline Respiratory effort is even, unlabored, Respiratory pattern is regular, symmetrical. Vital Signs: 18:22 BP 117 / 96; Pulse 111; Resp 18; Temp 99.6; Pulse Ox 98% ; Weight 113.4 kg; Height 5 db ft. 3 in. ; 20:29 BP 158 / 60; Pulse 63; Resp 16; Pulse Ox 99% on R/A; kd3 21:10 BP 109 / 74; Pulse 92; Resp 8; Pulse Ox 98% on R/A; km10 18:22 Body Mass Index 44.29 (113.40 kg, 160.02 cm) db [place] Coma Score: 21:10 Eye Response: spontaneous(4). Motor Response: obeys commands(6). Verbal Response: kb oriented(5). Total: 15. ED Course: 18:12 Patient arrived in ED. al6 18:14 Bettina Hackett FNP-C is PHCP. kb 18:14 Eyal Sharif DO is Attending Physician. kb 18:24 Triage completed. db 18:25 Arm band placed on left wrist. db 20:25 Charmaine Manning, RN is Primary Nurse. kd3 20:30 Patient has correct armband on for positive identification. kd3 20:30 No provider procedures requiring assistance completed. Inserted saline lock: 20 gauge kd3 in right antecubital area, using aseptic technique. Flushed with 10 mL NS. 21:10 IV discontinued, intact, bleeding controlled, No redness/swelling at site. Pressure km10 dressing applied. Administered Medications: 20:38 Drug: NS 0.9% IV 1000 ml IV at 1000 ml once; to be given as a bolus over 60 minutes km10 Route: IV; Rate: 1000 ml; Site: right antecubital; 21:10 Follow up: Response: No adverse reaction; IV Status: Completed infusion km10 20:38 Drug: metoCLOPramide IVP 10 mg IVP once; over 1 to 2 minutes Route: IVP; Site: right km10 antecubital; 21:10 Follow up: Response: No adverse reaction km10 20:38 Drug: diphenhydrAMINE IVP 12.5 mg IVP once Route: IVP; Site: right antecubital; km10 21:11 Follow up: Response: No adverse reaction km10 Medication: 20:30 VIS not applicable for this client. kd3 Outcome: 21:04 Discharge ordered by . tiffanie 21:17 Discharged to home ambulatory, with family, km10 21:17 Condition: stable 21:17 Discharge instructions given to patient, Instructed on discharge instructions, follow up and referral plans. Demonstrated understanding of instructions, follow-up care, 21:17 Patient left the ED. km10 Signatures: Bettina Hackett, CUFFING MACHINE OPERATOR-C CUFFING MACHINE OPERATOR-CkCharmaine Jaramillo RN RN kd3 Eden Doan RN RN db Emily Ansari6 Evelyne Watst, LEXII RN km10 Corrections: (The following items were deleted from the chart) 18:24 18:22 Chief complaint: Patient states: HEADACHES INTERMITTENT SINCE LAST BILL. WORSE db LAST NIGHT. MIGRAINE. 18 WEEKS db 18:26 18:22 Chief complaint: Patient states: HEADACHES INTERMITTENT SINCE LAST BILL. WORSE db LAST NIGHT, CONSISTENT SINCE LAST NIGHT. MIGRAINE. 18 WEEKS db 18:26 18:22 BP 117 / 96; Pulse 111bpm; Resp 18bpm; Pulse Ox 98%; Temp 99.6F; db db 18:27 18:22 2, Full Term 1, Living 1, Verified db db
--- NOTE | 2024-07-23 21:04 | EDPHYS ---
Physician Documentation [facility] Name: Zainab Tucker Age: 29 yrs Sex: Female : 1995 Arrival Date: 07/23/2024 Time: 18:07 Bed 5 Private MD: ED Physician Eyal Sharif HPI: 07/23 21:11 This 29 yrs old Female presents to ER via Ambulatory with complaints of kb Headache. 21:11 Patient is a 29-year-old female who presents for headache that started a week ago. kb States the pain headache was intermittent but became constant last night. Reports nausea and vomiting. Denies photophobia. States she has had similar headaches in the past but she is so she can only take Tylenol at this time.. 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 - Infectious Disease History:: Denies. - Social history:: Smoking status: Patient denies any tobacco usage or history of. ROS: 21:09 Constitutional: As per HPI kb Exam: 21:09 Constitutional: This is a well developed, well nourished patient who is awake, alert, kb and in no acute distress. Head/Face: Normocephalic, atraumatic. ENT: Moist Mucous membranes Cardiovascular: Regular rate Respiratory: Respirations even and unlabored. No increased work of breathing. Talking in full sentences Abdomen/GI: Soft, non-tender. No distention Skin: Warm, dry with normal turgor. Normal color. MS/ Extremity: Pulses equal, no cyanosis. Neurovascular intact. Full, normal range of motion. Neuro: Awake and alert, GCS 15, oriented to person, place, time, and situation. Vital Signs: 18:22 BP 117 / 96; Pulse 111; Resp 18; Temp 99.6; Pulse Ox 98% ; Weight 113.4 kg; Height 5 db ft. 3 in. ; 20:29 BP 158 / 60; Pulse 63; Resp 16; Pulse Ox 99% on R/A; kd3 21:10 BP 109 / 74; Pulse 92; Resp 8; Pulse Ox 98% on R/A; km10 18:22 Body Mass Index 44.29 (113.40 kg, 160.02 cm) db [place] Coma Score: 21:10 Eye Response: spontaneous(4). Motor Response: obeys commands(6). Verbal Response: kb oriented(5). Total: 15. MDM: 18:14 Medical Screening Exam initiated kb 21:10 Differential diagnosis: Dehydration, abnormal electrolytes, hypertension. Data kb reviewed: vital signs, nurses notes. I considered the following discharge prescriptions or medication management in the emergency department I discussed and recommended Over The Counter medications. Counseling: I had a detailed discussion with the patient and/or guardian regarding the historical points, exam findings, and any diagnostic results supporting the discharge/admit diagnosis, lab results, the need for outpatient follow up, a family practitioner, to return to the emergency department if symptoms worsen or persist or if there are any questions or concerns that arise at home. ED course: Patient states she is feeling better after treatment and is ready to go home.. 07/23 18:27 Order name: CBC with Diff; Complete Time: 19:44 kb 07/23 18:27 Order name: CMP; Complete Time: 19:51 kb 07/23 18:27 Order name: UA Rfx Rocky Cult if indicated; Complete Time: 19:33 kb 07/23 18:27 Order name: IV Start; Complete Time: 20:28 kb Administered Medications: 20:38 Drug: NS 0.9% IV 1000 ml IV at 1000 ml once; to be given as a bolus over 60 minutes Route: IV; Rate: 1000 ml; Site: right antecubital; 21:10 Follow up: Response: No adverse reaction; IV Status: Completed infusion 20:38 Drug: metoCLOPramide IVP 10 mg IVP once; over 1 to 2 minutes Route: IVP; Site: right km10 antecubital; 21:10 Follow up: Response: No adverse reaction 20:38 Drug: diphenhydrAMINE IVP 12.5 mg IVP once Route: IVP; Site: right antecubital; km10 21:11 Follow up: Response: No adverse reaction 10 Disposition Summary: 07/23/24 21:04 Discharge Ordered Notes: Location: Home kb Condition: Stable kb Diagnosis - Headache kb Followup: kb - With: Emergency Department - When: As needed - Reason: Worsening of condition Followup: kb - With: Private Physician - When: 2 - 3 days - Reason: Recheck today's complaints, Continuance of care, Re-evaluation by your physician Discharge Instructions: - Discharge Summary Sheet kb - General Headache Without Cause, [id number] kb Forms: - Medication Reconciliation Form kb - Antibiotic Education kb - Prescription Opioid Use kb - Patient Portal Instructions kb - Leadership Thank You Letter kb Signatures: Dispatcher [employer] EDMS Bettina Hackett, NETWORK FIELD ENGINEER-C NETWORK FIELD ENGINEER-CkEden Mason, RN RN db Evelyne Watts RN RN km10 Corrections: (The following items were deleted from the chart) 18:27 18:27 CBC+H.LAB.BRZ ordered. EDMS EDMS 18:27 18:27 COMPREHENSIVE METABOLIC PANEL+C.LAB.BRZ ordered. EDMS EDMS 18:27 18:27 UA Rfx Rocky Cult if indicated+U.LAB.BRZ ordered. EDMS EDMS
--- OUTSIDE RECORDS SUMMARY | 2024-07-23 21:33 | XMS REPORT | Continuity of Care Document ---
Author Name Unknown Address [address] [facility] [place] [address] [facility] [address] [facility] [place] [address] Care Team Providers Care Transition Nurse Name Role Phone KAREN COPELAND Primary Care Physician Unavailab YUDITH Hernandez Attending Clinician YUDITH Vasquez Attending Clinician Nolberto salinas Doctor Unassigned, [place] Attending Clinician U Yudith Fontana MD Attending Clinician + [phone] Lab, Ang - Db Attending Clinician Unavailable CISCO JENNINGS Attending Clinician Unavailable Cisco Jennings MD Attending Clinician [phone] KAREN COPELAND Attending Clinician Unavailable SAMAN RUIZ Attending Clinician UnavailSAMAN Clemens Attending Clinician UnavailSaman Clemens MD Attending Clinician [phone] Attending Clinician Unavailable FREDI BROWN Attending Clinician Unavailable MD LUCI Attending Clinician Unavailab PERLA Berg Attending Clinician Unavailab VIRA Ragland Attending Clinician Unavaila JESSENIA Puente Attending Clinician Unava REGLA Ambrosio Attending Clinician Unavailable RICKIE ANDINO Attending Clinician Unavailabl erlinda Andino MD, Rickie Attending Clinician [phone] Denita NUNO, Yaneli Attending Clinician + [phone] Pob, Adc Lab Main Attending Clinician Unavailsailaja Castillo MD, Gracie Attending Clinician [phone] GRACIE CASTILLO Attending Clinician Unavailabl YANELI Winters Attending Clinician Unavaila ble Lab, Ang - Db Attending Clinician Unavailable Doctor Unassigned, [place] Attending Clinician U KATHYA Castro Attending Clinician UnaLELAND Cope Attending Clinician Unavailable SAAD BENNETT Attending Clinician Unavailable BERNARD VIERA Attending Clinician Unavailable Margret ASENCIO, Bernard Attending Clinician [phone] Marv SHULTZ, Shelby Ochoa Attending Clinician Unavailab OBDULIO Gardner Attending Clinician Unavailable Only, Ang Db Test Attending Clinician Unavailabl e Unknown, Attending Attending Clinician Unavailab le LISTER_MELISSA Attending Clinician Unavailable Tigre SHULTZ, Mally Attending Clinician Unavailabl e Human VALIDATION ENGINEERYancy Attending Clinician [phone] Pcp, Patient Does Not Have A Attending Clinician Lab, Adc Fam Pob I Attending Clinician Unavailab ama Chen VALIDATION ENGINEERShira Love Attending Clinician [phone] SHIRA CHEN Attending Clinician UnavailSAMAN Clemens Admitting Clinician Unavailabl YANELI Winters Admitting Clinician Unavaila ble LISTER_MELISSA Admitting Clinician Unavailable Payers Payer Name Policy Type Policy Number Effective Date Expirati on Date Source [facility] [place] STAR [id number] 2024 00:00:00 [place] OUT [place] [id number] 2018 00:00:00 BCBS 2 [id number] 2021 00:00:00 [place] [id number] 2018 00:00:00 Problems Condition Name Condition Details Condition Category Status Onset Date Resolution Date Last Treatment Date Treating Clinician Comments Source Anxiety during Anxiety during Disease Active 2-18 00:00: 00 [facility] Previous section complicati ng Previous section complicati ng Disease Active 2-18 00:00: 00 [facility] Anxiety during Anxiety during Disease Active 2-18 00:00: 00 [facility] Trichomona l vaginitis Trichomona l Vaginitis Problem [...] s Disease Active 2021-03 0-04 00:00: 00 [facility] BMI 45.0-49.9, adult BMI 45.0-49.9, adult Disease Active 12-03 00:00: 00 Arline Seybold - Externa l PCOS (polycysti c ovarian syndrome) PCOS (polycysti c ovarian syndrome) Disease Active 12-03 00:00: 00 [facility] Tachycardi a Tachycardi a Disease Active 12-03 00:00: 00 [facility] Depression Depression Disease Active 12-03 00:00: 00 [facility] Vitamin D deficiency Vitamin D deficiency Disease Active 12-03 00:00: 00 [facility] delivery delivered delivery delivered Disease Active 08-16 00:00: 00 [facility] delivery w/o mention of indication , deliv, curr hospitaliz delivery w/o mention of indication , deliv, curr hospitaliz Disease Resolve d 6-13 00:00: 00 2024-04-23 00:00:00 2024-04-23 09:42:49 [facility] Maternal varicella, non-immune Maternal varicella, non-immune Disease Resolve d 17 00:00: 00 2024-04-23 00:00:00 2024-04-23 09:42:51 [facility] Supervisio n of other high-risk Supervisio n of other high-risk Disease Resolve d 04-21 00:00: 00 2024-04-23 00:00:00 2024-04-23 09:42:55 Overview: Formattin g of this note might be different from the original. 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 [facility] with uncertain dates, antepartum with uncertain dates, antepartum Disease Resolve d 04-21 00:00: 00 2024-04-23 00:00:00 2024-04-23 09:42:52 [facility] Lump or mass in breast Lump or mass in breast Disease Resolve d 2013-03 0 00:00: 00 2014-04-21 00:00:00 2021-09-19 00:32:44 [facility] Need for HPV vaccinatio n Need for HPV vaccinatio n Disease Resolve d 11-29 00:00: 00 2014-04-21 00:00:00 2014-04-21 08:49:28 [facility] Need for Tdap vaccinatio n Need for Tdap vaccinatio n Disease Resolve d 11-29 00:00: 00 2014-04-21 00:00:00 2014-04-21 08:49:28 [facility] General counseling for initiation of other contracept pool measures General counseling for initiation of other contracept pool measures Disease Resolve d 9 00:00: 00 2014-04-21 00:00:00 2014-04-21 08:49:25 [facility] Obesity Obesity Disease Resolve d 3-20 00:00: 00 2014-04-21 00:00:00 2021-09-19 00:23:33 [facility] Allergies, Adverse Reactions, Alerts Allergy Name Allergy Type Status Severity Reaction(s) Onset Date Inactive Date Treating Clinician Comments Source NO KNOWN ALLERGIE S Drug Class Active [facility] Social History Social Habit Start Date Stop Date Quantity Comments Source ASSERTION 2024-03-31 00:00:00 [facility] History SDOH Alcohol Frequency Arline eric - External History SDOH Alcohol Std Drinks Arline matias - External History SDOH Alcohol Binge Arline Falcon - External Gender identity [facility] Sexual orientation U [facility] Alcoholic beverage intake 2024-06-06 00:00:00 2024-06-06 00:00:00 Current non-drinker of alcohol (finding) [facility] History of Social function 2024-04-23 00:00:00 2024-04-23 00:00:00 [facility] Alcohol intake 2023-05-08 00:00:00 2023-05-08 00:00:00 Current drinker of alcohol (finding) Arline Falcon - External Tobacco use and exposure 2022-09-12 00:00:00 2022-09-12 00:00:00 Smokeless tobacco non-user [facility] Alcohol Comment 2021-12-03 00:00:00 2021-12-03 00:00:00 social Arline Falcon - External Sex 2021-11-30 16:56:39 2021-11-30 16:56:39 Female (finding) Arline Falcon - External Exposure to SARS-CoV-2 (event) 2021-04-12 00:00:00 2021-05-12 12:54:00 Not sure [facility] Sex assigned at 1995 00:00:00 1995 00:00:00 Audi Falcon - External Smoking Status Start Date Stop Date Source Never smoked tobacco [facility] Medications Ordered Medication Name Filled Medication Name Start Date Stop Date Current Medication? Ordering Clinician Indication Dosage Frequency Signature (SIG) Comments Components Source metFORMIN 500 mg tablet 4-22 00:00: 00 Yes 500mg Take 1 tablet by mouth in the morning and 1 tablet in the evening. [facility] amoxicillin 875 mg tablet 1-20 00:00: 00 Yes TAKE ONE (1) TABLET(S) BY MOUTH EVERY TWELVE HOURS FOR 10 DAYS. [facility] buPROPion XL 150 mg 24 hr tablet 2023-03 00:00: 00 Yes 150mg Take 1 tablet by mouth in the morning. [facility] iopamidol (ISOVUE 370-500 mL) injection 85 mL 2023-03 22:00: 00 02-13 22:00 :00 No [id number] 85mL 85 mL, Intravenou s, ONCE, 1 dose, On Mon02/14/24 at 1600, Routine [facility] morpHINE (4 mg/mL) injection 4 mg 2023-03 21:30: 00 02-13 21:35 :00 No 4mg 4 mg, Slow IV Push, ONCE, 1 dose, On Mon02/14/24 at 1530, STAT [facility] dicyclomine (BENTYL) tablet 20 mg 2023-03 21:30: 00 02-13 21:33 :00 No 20mg 20 mg, Oral, ONCE, 1 dose, On Mon02/14/24 at 1530, MARIANO [facility] NaCl 0.9% (NS) bolus infusion 1,000 mL 2023-03 19:30: 00 02-13 21:40 :00 No 1000mL at 999 mL/hr, 1,000 mL, IV Infusion, ONCE, 1 dose, On Mon02/14/24 at 1330, STAT [facility] ondansetron (ZOFRAN (PF)) injection 4 mg 2023-03 19:30: 00 02-13 19:59 :00 No 4mg 4 mg, Slow IV Push, ONCE, 1 dose, On Mon02/14/24 at 1330, Administer over 2-5 Minutes, 2 mL [facility] morpHINE (4 mg/mL) injection 4 mg 2023-03 19:30: 00 02-13 19:59 :00 No 4mg 4 mg, Slow IV Push, ONCE, 1 dose, On Mon02/14/24 at 1330, STAT [facility] famotidine (PEPCID (PF)) injection 20 mg 2023-03 19:30: 00 02-13 19:55 :00 No 20mg 20 mg, Slow IV Push, ONCE, 1 dose, On Mon02/14/24 at 1330, MARIANO [facility] maalox/diph enhydrAMINE :lidocaine2 %viscous 1:1:1: suspension (COMPOUNDED ) 2023-03 19:30: 00 02-13 19:55 :00 No 15mL 15 mL, Oral, ONCE, 1 dose, On Mon02/14/24 at 1330, Routine [facility] ondansetron 4 mg disintegrat ing tablet 2023-03 00:00: 00 Yes [id number] 4mg Take 1 tablet by mouth every 8 (eight) hours as needed for Nausea and Vomiting (N/V) for up to 10 doses. [facility] acetaminoph en-codeine 300-30 mg tablet 2023-03 00:00: 00 Yes [id number] 1{tbl} Take 1 tablet by mouth every 6 (six) hours as needed for Pain (scale 4-6) for up to 15 doses. Indication s: acute pain [facility] famotidine (PEPCID) 20 mg tablet 2023-03 00:00: 00 03-01 05:59 :00 No [id number] 20mg Take 1 tablet by mouth in the morning and 1 tablet in the evening. Do all this for 15 days. [facility] NuvaRing 0.12-0.015 MG/24HR vaginal RING 2023-03 16:41: [...] Delayed Release Capsule 2023-03 00:00: 00 Yes [id number] 40mg QD Take 1 capsule (40 mg total) by mouth daily. Arline ponce Dicyclomine HCl 10 MG oral Capsule 2023-03 00:00: 00 Yes [id number] 10mg Take 1 capsule (10 mg total) by mouth 4 times daily (before meals and nightly). Arline ponce Bupropion HCL XL 150 MG OR TB24 10-08 00:00: 00 Yes [id number] 150mg QD TAKE ONE (1) TABLET (150 MG TOTAL) BY MOUTH DAILY. Arline ponce Vitamin D, Ergocalcife rol, 1.25 MG (70995 UT) oral Capsule 05-14 00:00: 00 Yes [id number] 48589A Q1W Take 1 capsule (50,000 units total) [...] Tablet Therapy Pack 2022-03 00:00: 00 Yes [id number] Complete one dose pack as directed on package instructio ns. Arline ponce Pseudoeph-B romphen-DM 30-2-10 MG/5ML oral Syrup 2022-03 00:00: 00 Yes [id number] 10mL Q.25D Take 10 mL by mouth 4 times daily as needed (for cough or congestion ). Arline ponce Neomycin-Po lymyxin-Dex ameth 3.5-50529-0 .1 ophthalmic Suspension 2022-03 00:00: 00 05-07 00:00 :00 No INSTILL ONE (1) DROP(S) IN EACH EYE EVERY FOUR HOURS. Arline ponce Semaglutide -Weight Management (Wegovy) 1 MG/0.5ML subcutaneou s Solution Auto-inject or 10-25 00:00: 00 01-30 00:00 :00 No [id number] 1mg Inject 1 mg into the skin once a week. Arline ponce Prenat Vit Comb.10-Iro n-FA-DHA (VITAFOL-OB +DHA) 65-1-250 mg combo pack 09-22 00:00: 00 Yes [id number] 1{packe t} Take 1 Packet by mouth in the morning. [facility] MV-Min-Fe Fum-FA-DHA (Vitafol-OB +DHA) 65-1 & 250 MG oral Misc 09-22 00:00: 00 05-07 00:00 :00 No 1{packe t} Take 1 packet by mouth daily. Arline ponce Bupropion HCL XL 150 MG OR TB24 08-10 00:00: 00 Yes [id number] 150mg Take 1 tablet (150 mg total) by mouth daily Arline ponce Semaglutide (1 mg/dose) 2 mg/1.5 mL SQ Solution Pen-Injecto r 08-10 00:00: 00 01-30 00:00 :00 No [id number] 1mg Inject 1 mg into the skin once a week Arline ponce Benzonatate 100 MG oral Capsule 06-29 00:00: 00 Yes [id number] 100mg Q.[id number] 3D Take 1 capsule (100 mg total) by mouth 3 times daily as needed for cough Arline ponce Albuterol HFA 108 (90 Base) MCG/ACT IN AERS 06-29 00:00: 00 01-30 00:00 :00 No [id number] 2{puff} Q.25D Inhale 2 puffs into the lungs every 6 hours as needed for wheezing Arline ponce Bupropion HCL XL 150 MG OR TB24 06-15 00:00: 00 Yes [id number] 150mg Take 1 tablet (150 mg total) by mouth daily Arline ponce Semaglutide (1 mg/dose) 2 mg/1.5 mL SQ Solution Pen-Injecto r 06-15 00:00: 00 Yes [id number] 1mg Inject 1 mg into the skin once a week Arline ponce Doxycycline Hyclate 100 MG oral Tablet 06-15 00:00: 00 Yes [id number] 100mg Take 1 tablet (100 mg total) by mouth 2 times daily Arline ponce Phentermine HCl 37.5 MG oral Tablet 06-15 00:00: 00 Yes [id number] 37.5mg Take 1 tablet (37.5 mg total) by mouth every morning (before breakfast) Arline ponce OZEMPIC (0.25 or 0.5 mg/dose) 2 mg/3 mL SQ Solution Pen-Injecto r 06-07 00:00: 00 06-15 00:00 :00 No Arline ponce OZEMPIC (0.25 or 0.5 mg/dose) 2 mg/1.5 mL SQ Solution Pen-Injecto r - 00:00: 00 06-15 00:00 :00 No [id number] .5mg Inject 0.5 mg into the skin once a week Arline ponce Hydroquinon e 4 % apply externally Cream 2-24 00:00: 00 Yes [id number] Apply 1 applicatio n. topically 2 times daily Arline ponce Doxycycline Hyclate 100 MG oral Tablet - 00:00: 00 Yes [id number] 100mg Take 1 tablet (100 mg total) by mouth 2 times daily Arline ponce OZEMPIC (0.25 or 0.5 mg/dose) 2 mg/1.5 mL SQ Solution Pen-Injecto r - 00:00: 00 Yes [id number] .5mg Inject 0.5 mg into the skin once a week Arline ponce Hydroquinon e 4 % apply externally Cream 04-13 00:00: 00 Yes [id number] Apply 1 applicatio n topically 2 times daily Arline ponce ACETAMINOPH EN-CAFF-BUT ALBITAL 50-325-40 MG oral Tablet 04-13 00:00: 00 01-30 00:00 :00 No [id number] 1{tbl} Q4H Take 1 tablet by mouth every 4 hours as needed for pain Arline ponce Clindamycin Phosphate (Clindagel) 1 % apply externally Gel 04-13 00:00: 00 01-30 00:00 :00 No [id number] Apply to area 4 times daily for 10 days Arline ponce OZEMPIC (0.25 or 0.5 mg/dose) 2 mg/1.5 mL SQ Solution Pen-Injecto r 1- 00:00: 00 04-13 00:00 :00 No [id number] .25mg Inject 0.25 mg into the skin once a week Arline ponce Bupropion HCL XL 150 MG OR TB24 2021-03 2 00:00: 00 Yes [id number] 150mg Take 1 tablet (150 mg total) by mouth daily Arline ponce Tirzepatide (Mounjaro) 2.5 MG/0.5ML subcutaneou s Solution Pen-injecto r 2021-03 1-30 00:00: 00 Yes [id number] 2.5mg Inject 0.5 mL (2.5 mg total) into the skin once a week Arline ponce buPROPion HCl 75 MG oral Tablet 2021-03 00:00: 00 Yes [id number] 75mg Take 1 tablet (75 mg total) by mouth daily Arline ponce Metformin HCl 500 MG oral Tablet 2021-03 0-04 00:00: 00 01-10 00:00 :00 No [id number] 500mg QD Take 1 tablet (500 mg total) by mouth daily (with breakfast) Arline ponce Vitamin D, Ergocalcife rol, 1.25 MG (85132 UT) oral Capsule 2021-03 0 00:00: 00 01-30 00:00 :00 No [id number] 22164Y Take 1 capsule (50,000 units total) by mouth once a week Arline ponce buPROPion HCl 75 MG oral Tablet 12-03 00:00: 00 Yes [id number] 75mg Take 1 tablet (75 mg total) by mouth daily Arline ponce Pantoprazol e Sodium 20 MG oral Tablet Delayed Response 12-03 00:00: 00 01-30 00:00 :00 No [id number] 20mg Take 1 tablet (20 mg total) by mouth daily Arline ponce No known medications 05-12 13:38: 58 No [facility] Probiotic Probiotic No Probiotic [facility] Vitamin D Vitamin D No Vitamin D [facility] metformin 500 mg tablet Take 1 tablet twice a day by oral route for 90 days. metformin 500 mg tablet Take 1 tablet twice a day by oral route for 90 days. No 1 BID metformin 500 mg tablet Take 1 tablet twice a day by oral route for 90 days. [facility] clindamycin 2 % vaginal cream Insert 1 applicatorf ul every day by vaginal route for 7 days. clindamycin 2 % vaginal cream Insert 1 applicatorf ul every day by vaginal route for 7 days. No 1applic ator(s) ful Q1D clindamyci n 2 % vaginal cream Insert 1 applicator ful every day by vaginal route for 7 days. [facility] metronidazo le 500 mg tablet Take 1 tablet every 12 hours by oral route for 7 days. metronidazo le 500 mg tablet Take 1 tablet every 12 hours by oral route for 7 days. No 1 Q12H metronidaz ole 500 mg tablet Take 1 tablet every 12 hours by oral route for 7 days. [facility] Immunizations Ordered Immunization Name Filled Immunization Name Date Status Comments Source HPV 9 (Human Papillomavirus) 2016-08-25 00:00:00 Completed Arline Seybold - External Meningococcal Vaccine- Conjugate(Menactra) 2016-08-25 00:00:00 Completed Arline Trejoybold - External HPV 9 (Human Papillomavirus) 2016-08-25 00:00:00 Completed Arline Seybold - External Meningococcal Vaccine- Conjugate(Menactra) 2016-08-25 00:00:00 Completed Arline Trejoybold - External HPV 9 (Human Papillomavirus) 2016-08-25 00:00:00 Completed Arline Seybold - External Meningococcal Vaccine- Conjugate(Menactra) 2016-08-25 00:00:00 Completed Arline Trejoybold - External HPV 9 (Human Papillomavirus) 2016-08-25 00:00:00 Completed Arline Trejoybold - External Meningococcal Vaccine- Conjugate(Menactra) 2016-08-25 00:00:00 Completed Arline Stevensonold - External IPV- Inactivated Polio Vaccine 2013-12-10 00:00:00 Completed Arline Falcon - External HEPATITIS A- PEDI/ADOL 2013-12-10 00:00:00 Completed Arline Falcon - External HPV 4 (Human Papillomavirus) 2013-12-10 00:00:00 Completed Arline Stevensonold - External IPV- Inactivated Polio Vaccine 2013-12-10 00:00:00 Completed Arline Seybold - External HEPATITIS A- PEDI/ADOL 2013-12-10 00:00:00 Completed Arline Seybold - External HPV 4 (Human Papillomavirus) 2013-12-10 00:00:00 Completed Arline Seybold - External IPV- Inactivated Polio Vaccine 2013-12-10 00:00:00 Completed Arline Seybold - External HEPATITIS A- PEDI/ADOL 2013-12-10 00:00:00 Completed Arline Trejoybold - External HPV 4 (Human Papillomavirus) 2013-12-10 [...] 2009-12-07 00:00:00 Completed Arline Seybold - External Tdap- [...] B, Adolescent Or Pediatric Unknown Completed Arline Falcon - External Hib, unspecified formulation Unknown Completed Arline Falcon - External HPV 4 (Human Papillomavirus) Unknown Completed Arline Davis ld - External HPV 9 (Human Papillomavirus) [...] Vital Name Observation Time Observation Value Comments Brandon mcmahon Systolic blood pressure 2024-06-27 18:34:00 114 mm[Hg] [facility] Diastolic blood pressure 2024-06-27 18:34:00 71 mm[Hg] [facility] Heart rate 2024-06-27 18:34:00 94 /min Unive [facility] Respiratory rate 2024-06-27 18:34:00 18 /min [facility] Body height 2024-06-27 18:34:00 160 cm [facility] Body weight 2024-06-27 18:34:00 123.378 kg [facility] BMI 2024-06-27 18:34:00 48.18 kg/m2 [facility] Systolic blood pressure 2024-06-06 20:25:00 106 mm[Hg] [facility] Diastolic blood pressure 2024-06-06 20:25:00 74 mm[Hg] [facility] Heart rate 2024-06-06 20:25:00 88 /min [facility] Body temperature 2024-06-06 20:25:00 36.56 Megan [facility] Respiratory rate 2024-06-06 20:25:00 18 /min [facility] Body height 2024-06-06 20:25:00 160 cm [facility] Body weight 2024-06-06 20:25:00 124.467 kg [facility] BMI 2024-06-06 20:25:00 48.61 kg/m2 [facility] Oxygen saturation in Arterial blood by Pulse oximetry 2024-06-06 20:25:00 100 /min [facility] Systolic blood pressure 2024-05-30 13:52:00 114 mm[Hg] [facility] Diastolic blood pressure 2024-05-30 13:52:00 70 mm[Hg] [facility] Heart rate 2024-05-30 13:52:00 112 /min [facility] 2024-05-30 13:52:00 36.67 Megan [facility] Respiratory rate 2024-05-30 13:52:00 18 /min [facility] Body height 2024-05-30 13:52:00 157.5 cm [facility] weight 2024-05-30 13:52:00 122.925 kg [facility] BMI 2024-05-30 13:52:00 49.57 kg/m2 [facility] Systolic blood pressure 2024-05-02 20:20:00 124 mm[Hg] [facility] Diastolic blood pressure 2024-05-02 20:20:00 70 mm[Hg] [facility] Heart rate 2024-05-02 20:20:00 104 /min [facility] Body temperature 2024-05-02 20:20:00 37.11 Megan [facility] Respiratory rate 2024-05-02 20:20:00 18 /min [facility] Body height 2024-05-02 20:20:00 157.5 cm Univ [facility] Body weight 2024-05-02 20:20:00 123.605 kg Univ [facility] BMI 2024-05-02 20:20:00 49.84 kg/m2 [facility] Systolic blood pressure 2024-04-23 15:56:00 95 mm[Hg] [facility] Diastolic blood pressure 2024-04-23 15:56:00 62 mm[Hg] [facility] Heart rate 2024-04-23 15:42:00 94 /min Unive [facility] Body temperature 2024-04-23 15:42:00 36.67 Megan [facility] Respiratory rate 2024-04-23 15:42:00 18 /min [facility] Body height 2024-04-23 15:42:00 157.5 cm [facility] Body weight 2024-04-23 15:42:00 122.562 kg [facility] BMI 2024-04-23 15:42:00 49.42 kg/m2 [facility] Systolic blood pressure 2024 21:35:00 118 mm[Hg] [facility] Diastolic blood pressure 2024 21:35:00 71 mm[Hg] [facility] Heart rate 2024 21:35:00 77 /min [facility] Body temperature 2024 21:35:00 37.22 Megan [facility] Respiratory rate 2024 21:35:00 18 /min [facility] Oxygen saturation in Arterial blood by Pulse oximetry 2024 21:35:00 100 /min [facility] Body height 2024 19:20:00 157.5 cm [facility] Body weight 2024 19:20:00 113.399 kg [facility] BMI 2024 19:20:00 45.73 kg/m2 [facility] Respiratory rate 2024-01-11 22:39:00 18 /min Arline Seybold - External Body height 2024-01-11 22:39:00 160 cm Hilda ey Seybold - External Body weight 2024-01-11 22:39:00 119.75 kg Hilda ey ybold - External BMI 2024-01-11 22:39:00 46.77 kg/m2 Hilda val Trejoybold - External BP Systolic 2023-12-06 00:00:00 114 [...] Systolic blood pressure 2022-09-22 21:26:00 120 mm[Hg] [facility] Diastolic blood pressure 2022-09-22 21:26:00 72 mm[Hg] [facility] Heart rate 2022-09-22 21:26:00 78 /min [facility] Respiratory rate 2022-09-22 21:26:00 18 /min [facility] Body height 2022-09-22 21:26:00 160 cm [facility] Body weight 2022-09-22 21:26:00 122.471 kg [facility] BMI 2022-09-22 21:26:00 47.83 kg/m2 [facility] Systolic blood pressure 2022-09-12 14:21:00 121 mm[Hg] [facility] Diastolic blood pressure 2022-09-12 14:21:00 82 mm[Hg] [facility] Heart rate 2022-09-12 14:21:00 93 /min [facility] Body temperature 2022-09-12 14:21:00 36.94 Megan [facility] Respiratory rate 2022-09-12 14:21:00 18 /min [facility] Body height 2022-09-12 14:21:00 160 cm [facility] Body weight 2022-09-12 14:21:00 119.75 kg [facility] BMI 2022-09-12 14:21:00 46.77 kg/m2 [facility] Systolic blood pressure 2022-06-15 [...] External BMI 2021-12-03 15:45:00 49.60 kg/m2 Hilda val Trejoybold - External Systolic blood pressure 2021-05-12 19:08:00 109 mm[Hg] [facility] Diastolic blood pressure 2021-05-12 19:08:00 74 mm[Hg] [facility] Heart rate 2021-05-12 19:08:00 83 /min [facility] Body temperature 2021-05-12 19:08:00 36.72 Megan [facility] Respiratory rate 2021-05-12 19:08:00 18 /min [facility] Body height 2021-05-12 19:08:00 160 cm [facility] Body weight 2021-05-12 19:08:00 122.471 kg [facility] BMI 2021-05-12 19:08:00 47.83 kg/m2 [facility] BP Diastolic 2020-01-10 00:00:00 69 mm[Hg] [place] [facility] Height 2020-01-10 00:00:00 62 [in_i] [place] [facility] BMI (Body Mass Index) 2020-01-10 00:00:00 46.8 kg/m2 [place] [facility] BP Systolic 2020-01-10 00:00:00 117 mm[Hg] Fernandez nafisa [facility] Body Weight 2020-01-10 00:00:00 256 [lb_av] [place] [facility] BP Diastolic 2019-07-09 00:00:00 78 mm[Hg] [place] [facility] Height 2019-07-09 00:00:00 62 [in_i] [place] [facility] BMI (Body Mass Index) 2019-07-09 00:00:00 47.2 kg/m2 [place] [facility] BP Systolic 2019-07-09 00:00:00 141 mm[Hg] Fernandez nafisa [facility] Body Weight 2019-07-09 00:00:00 258 [lb_av] [place] [facility] BP Diastolic 2019-03-22 00:00:00 95 mm[Hg] Ignacio mcconnell [facility] Height 2019-03-22 00:00:00 62 [in_i] Padmaja oliver [facility] BMI (Body Mass Index) 2019-03-22 00:00:00 46.5 kg/m2 Uriel [facility] BP Systolic 2019-03-22 00:00:00 148 mm[Hg] Jim skelton [facility] Body Weight 2019-03-22 00:00:00 254 [lb_av] Ignacio mcconnell [facility] Procedures Procedure Date / Time Performed Performing Clinician Source POCT URINALYSIS W/O SPECIFIC GRAVITY 2024-06-27 00:00:00 Khang Fostersol [facility] SCANNED LAB RESULTS 2024-06-26 20:41:25 Doctor U paulina, [place] [facility] POCT URINALYSIS W/O SPECIFIC GRAVITY 2024-06-06 20:42:00 Khang Fostersol [facility] POCT URINALYSIS W/O SPECIFIC GRAVITY 2024-05-30 00:00:00 Kristin [facility] OB TRANSVAGINAL 2024-05-02 20:31:59 Blayne larsen [facility] POCT URINALYSIS W/O SPECIFIC GRAVITY 2024-05-02 20:24:00 Khang Fostersol [facility] GC & CHLAMYDIA AMPLIFIED ASSAY 2024-04-23 16:19:00 Kristin [facility] LAB ONLY PAP SMEAR-LIQUID BASED 2024-04-23 16:19:00 Kristin [facility] TRICHOMONAS AMPLIFIED ASSAY 2024-04-23 16:19:00 Kristin [facility] PAP SMEAR-LIQUID BASED-CP 2024-04-23 16:19:00 Ca Julieta [facility] US OB TRANSVAGINAL 2024-04-23 16:11:41 Khang Garciasol [facility] POCT TEST 2024-04-23 00:00:00 Kerry moreira Yudith [facility] POCT URINALYSIS W/O SPECIFIC GRAVITY 2024-04-23 00:00:00 Kristin Yudith [facility] CT ABDOMEN PELVIS W CONTRAST 2024 21:02:00 Saman Ruiz [facility] POCT TEST 2024 20:51:00 Shmuel Ruiz [facility] URINALYSIS 2024 19:54:00 Saman Ruiz [facility] LIPASE 2024 19:53:00 Saman Ruiz [facility] COMP. METABOLIC PANEL (26561) 2024 19:53:00 Samna Ruiz [facility] CBC WITH DIFF 2024 19:53:00 Saman Ruiz [facility] Cholecystectomy 2023-03-06 00:00:00 Priv[facility] TOTAL BETA HCG ASSAY 2022-10-11 18:53:00 Lori Prieto [facility] PELVIS COMPLETE WITH TRANSVAGINAL 2022-09-28 19:08:37 Yaneli Prieto [facility] ASSIGNMENT OF BENEFITS 2022-09-12 13:50:21 Docto r Unassigned, [place] [facility], transvaginal 2019-03-22 00:00:00 Jim skelton [facility] Delivery 2014-08-14 00:00:00 Ignacio mcconnell [facility] Delivery 2014-03-06 00:00:00 Elicia via Medical Plan of Care Planned Activity Planned Date Details Comments Source Diagnostic Test Pending 2020-01-10 00:00:00 bacterial vaginosis + vaginitis panel, vaginal [code = bacterial vaginosis + vaginitis panel, vaginal] Uriel [facility] Encounters Start Date/Time End Date/Time Encounter Type Admission Type Attending Clinicians Care Facility Care Department Encounter ID Source 2024-08-09 09:30:00 2024-08-09 09:30:00 Outpatient R [facility] [id number] [facility] 2024-07-25 08:15:00 2024-07-25 08:15:00 Outpatient R SANTOYO-GILBERTO S, YUDITH SANTOYO-GILBERTO S, YUDITH [facility] [id number] [facility] 2024-07-04 07:45:00 2024-07-04 07:45:00 Outpatient R [facility] [id number] [facility] 2024-06-26 00:00:00 2024-06-28 02:04:38 Orders Only Doctor Unassigned, [place] Doctor Unassigned, [place] [facility] 1.2840.114 350.1.13.10 4.2.7.2.686 [id number] [facility] 2024-06-27 13:30:00 2024-06-27 13:51:07 Outpatient R SANTOYO-GILBERTO S, YUDITH SANTOYO-GILBERTO S, YUDITH [facility] [id number] [facility] 2024-06-27 13:30:00 2024-06-27 13:51:07 Routine Visit Jose R-Khang Milligansol [facility] 1.2840.114 350.1.13.10 4.2.7.2.686 [id number] [facility] 2024-06-24 00:00:00 2024-06-24 10:37:03 Telephone Jose R-Gilberto sKhangYudith [facility] 1.2840.114 350.1.13.10 4.2.7.2.686 [id number] [facility] 2024-06-13 09:00:00 2024-06-13 09:04:42 Outpatient R SANTOYO-GILBERTO S, YUDITH SANTOYO-GILBERTO S, YUDITH [facility] [id number] [facility] 2024-06-13 09:00:00 2024-06-13 09:04:42 Operations Vice President Visit Lab, Soren taylor, Yudith Lab, Soren - Thien [facility] 1.2.840.114 350.1.13.10 4.2.7.2.686 [id number] [facility] 2024-06-06 15:15:00 2024-06-06 15:52:01 Outpatient R SANTOYO-GILBERTO S, YUDITH SANTOYO-GILBERTO S, YUDITH [facility] [id number] [facility] 2024-06-06 15:15:00 2024-06-06 15:52:01 Routine Visit Santoyo-Gilberto s Yudith [facility] 1.20.114 350.1.13.10 4.2.7.2.686 [id number] 134 [id number] [facility] 2024-06-06 00:00:00 2024-06-06 11:00:15 Telephone Santoyo-Gilberto s Yudith [facility] 1.20.114 350.1.13.10 4.2.7.2.686 [id number] [facility] 2024-05-30 08:15:00 2024-05-30 09:16:08 Outpatient R SANTOYO-GILBERTO S, YUDITH SANTOYO-GILBERTO S, YUDITH [facility] [id number] [facility] 2024-05-30 08:15:00 2024-05-30 09:16:08 Routine Visit Santoyo-Gilberto s, Yudith [facility] 1.20.114 350.1.13.10 4.2.7.2.686 [id number] [facility] 2024-05-02 14:00:00 2024-05-02 14:38:40 Outpatient R SANTOYO-GILBERTO S, YUDITH SANTOYO-GILBERTO S, YUDITH [facility] [id number] [facility] 2024-05-02 14:00:00 2024-05-02 14:15:00 Routine Visit Santoyo-Gilberto s, Yudith [facility] 1..840.114 350.1.13.10 4.2.7.2.686 [id number] [facility] 2024-05-01 12:30:00 2024-05-01 14:34:13 Outpatient R SANTOYO-GILBERTO S, YUDITH SANTOYO-GILBERTO S, YUDITH [facility] [id number] [facility] 2024-05-01 12:30:00 2024-05-01 14:34:13 Operations Vice President Visit Lab, Ang - Db Santoyo-Gilberto s, Yudith Lab, [facility] 1..840.114 350.1.13.10 4.2.7.2.686 [id number] [facility] 2024-04-29 09:15:00 2024-04-29 10:06:04 Outpatient R SANTOYO-GILBERTO S, YUDITH SANTOYO-GILBERTO S, YUDITH [facility] [id number] [facility] 2024-04-29 09:15:00 2024-04-29 09:30:00 Operations Vice President Visit Lab, Ang - Db Santoyo-Gilberto s, Yudith Lab, [facility] 1..840.114 350.1.13.10 4.2.7.2.686 [id number] [facility] 2024-04-26 08:15:00 2024-04-26 11:00:24 Outpatient R SANTOYO-GILBERTO S, YUDITH SANTOYO-GILBERTO S, YUDITH [facility] [id number] [facility] 2024-04-26 08:15:00 2024-04-26 11:00:24 Operations Vice President Visit Lab, Khang Husainsol Lab, Community Health?[facility] OFF[facility] 1.2.840.114 350.1.13.10 4.2.7.2.686 [id number] [facility] 2024-04-25 00:00:00 2024-04-25 12:53:59 Case Management Khang Cotasol [facility] NAL BUILD[facility] 1..840.114 350.1.13.10 4.2.7.2.686 [id number] [facility] 2024-04-24 08:15:00 2024-04-24 10:03:12 Outpatient R CISCO JENNINGS [facility] [id number] [facility] 2024-04-24 08:15:00 2024-04-24 08:30:00 Operations Vice President Visit Lab, [facility] [place] Lab, [facility] 1.2.840.114 350.1.13.10 4.2.7.2.686 [id number] [facility] 2024-04-23 00:00:00 2024-04-23 14:50:33 Telephone Khang Cotasol [facility] 1.2.840.114 350.1.13.10 4.2.7.2.686 [id number] [facility] 2024-04-23 09:00:00 2024-04-23 10:08:18 Outpatient R GARY SKHANGYUDITH GARY S YUDITH [facility] [id number] [facility] 2024-04-23 09:00:00 2024-04-23 10:08:18 Initial Visit Khang Cotasol [facility] 1.2.840.114 350.1.13.10 4.2.7.2.686 [id number] [facility] 2024-04-15 00:00:00 2024-04-15 09:17:37 Telephone Khang Cotasol [facility] 1.2.840.114 350.1.13.10 4.2.7.2.686 [id number] [facility] 2024-02-18 00:00:00 2024-02-18 00:00:00 Outpatient KAREN COPELAND [id number] Arline Falcon 2024 13:21:00 2024 15:51:00 Emergency X JOSEPH, SAMAN JOSEPH, SAMAN [facility] E[facility] [id number] [facility] 2024 13:21:00 2024 15:51:00 Emergency Joseph, Saman A [facility] 1.2.840.114 350.1.13.10 4.2.7.2.686 [id number] [facility] 2024 08:00:00 2024 08:00:00 Outpatient KAREN COPELAND [id number] [facility] 2024-02-13 00:00:00 2024-02-13 00:00:00 Outpatient KAREN COPELAND [id number] Arline Falcon 2024-01-11 17:15:00 2024-01-11 17:15:00 Outpatient JOSE MANUEL NUNO [id number] Arline [facility] 2024-01-11 16:30:00 2024-01-11 16:30:00 Outpatient KAREN COPELAND [id number] Arline [facility] 2023-12-20 00:00:00 2023-12-20 00:00:00 Outpatient MINJUAN MANUELParul NUNO [id number] [facility] 2023-12-12 00:00:00 2023-12-12 00:00:00 JEFFREY Gao: [address], [place] [address] , Ph. [facility] - GC_GCBZW_[facility]* [id number] [facility] 2023-12-06 00:00:00 2023-12-06 00:00:00 Deb Bullard PA: [address], [place] [address] , Ph. [facility] - GC_GCBZW_Il elvia Lew* [id number] [facility] 2023-11-23 00:00:00 2023-11-23 00:00:00 Deb Bullard PA: [address], [place] [id number] , Ph. [facility] - GC_GCBZW_Il elvia Lew* [id number] [facility] 2023-11-01 00:00:00 2023-11-01 00:00:00 HILDA Lloyd: [address], [place] [address] , Ph. [facility] - GC_GCBZW_[facility]* [id number] [facility] 2023-10-09 00:00:00 2023-10-09 00:00:00 Outpatient PATITOIrma KAREN NUNO [id number] [facility] 2023-10-09 00:00:00 2023-10-09 00:00:00 Outpatient KEVINFEFREDI ARLINE NUNO [id number] [facility] 2023-10-06 00:00:00 2023-10-06 00:00:00 Deb Bullard PA: [address], [place] [address] , Ph. [facility] - GC_GCBZW_[place]* [id number] [facility] 2023-10-03 00:00:00 2023-10-03 00:00:00 HILDA Lloyd: [address], [place] [address] , Ph. [facility] - GC_GCBZW_[place]* [id number] [facility] 2023-08-22 00:00:00 2023-08-22 00:00:00 Outpatient MD ARLINE LYNNE [id number] [facility] 2023-06-06 14:30:00 2023-06-06 14:30:00 Outpatient PERLA STAPLETON [id number] Arline [facility] 2023-05-23 15:30:00 2023-05-23 15:30:00 Outpatient R SANTOYO-GILBERTO S, YUDITH SANTOYO-GILBERTO S, YUDITH [facility] [id number] [facility] 2023-05-23 08:30:00 2023-05-23 08:30:00 Outpatient VIRA MORGAN [id number] [facility] 2023-05-22 00:00:00 2023-05-22 00:00:00 Outpatient MD ARLINE LYNNE [id number] Arline florencio 2023-05-15 00:00:00 2023-05-15 00:00:00 Outpatient K[facility]EN COPELAND [id number] [facility] 2023-05-11 00:00:00 2023-05-11 00:00:00 Outpatient MD ARLINE LYNNE [id number] Arline florencio 2023-05-10 00:00:00 2023-05-10 00:00:00 Outpatient VIRA MORGAN [id number] Arline [facility] 2023-05-09 00:00:00 2023-05-09 00:00:00 Outpatient VIRA MORGAN ARLINE NUNO [id number] Arline [facility] 2023-05-08 17:00:00 2023-05-08 17:00:00 Outpatient LAB90 ARLINE NUNO [id number] [facility] 2023-05-08 16:30:00 2023-05-08 16:30:00 Outpatient KAREN COPELAND [id number] Arline [facility] 2023-02-07 16:15:00 2023-02-07 16:15:00 Outpatient DUYENJESSENIA [id number] Arline [facility] 2023-01-30 14:00:00 2023-01-30 14:00:00 Outpatient SOW REGLA ARLINE NUNO [id number] [facility] 2022-12-09 15:30:00 2022-12-09 15:30:00 Outpatient RICKIE SPAIN [facility] [id number] [facility] 2022-12-08 00:00:00 2022-12-08 00:00:00 Telephone Rickie Andino [facility] 1..840.114 350.1.13.10 4.2.7.2.686 [id number] [facility] 2022-11-09 00:00:00 2022-11-09 00:00:00 Outpatient KAREN COPELAND [id number] [facility] 2022-10-18 00:00:00 2022-10-18 00:00:00 Outpatient KAREN COPELAND [id number] Arline [facility] 2022-10-16 00:00:00 2022-10-16 00:00:00 Telephone Yaneli Prieto [facility] ..840.114 350.1.13.10 4.2.7.2.686 [id number] [facility] 2022-10-11 13:45:00 2022-10-11 14:00:00 Operations Vice President Visit Pob, Adc Lab Main DayronGracie huang [facility] 1.840.114 350.1.13.10 4.2.7.2.686 [id number] [facility] 2022-10-11 13:45:00 2022-10-11 13:45:00 Outpatient R GRACIE CASTILLO [facility] [id number] [facility] 2022-10-05 00:00:00 2022-10-05 00:00:00 [facility] 1.0.114 350.1.13.10 4.2.7.2.686 [id number] [facility] 2022-10-04 09:15:00 2022-10-04 09:15:00 Outpatient R [facility] [id number] [facility] 2022-10-03 16:00:00 2022-10-03 16:00:00 Outpatient R YANELI PRIETO CHERYAL [facility] [id number] [facility] 2022-10-02 00:00:00 2022-10-02 00:00:00 Telephone Yaneli Prieto [facility] 1.840.114 350.1.13.10 4.2.7.2.686 [id number] [facility] 2022-09-28 13:33:11 2022-09-28 23:59:00 Outpatient R YANELI PRIETO CHERYAL [facility] [id number] [facility] 2022-09-28 13:30:00 2022-09-28 23:59:00 Hospital Encounter Yaneli Prieto [facility] 1.840.114 350.1.13.10 4.2.7.2.686 [id number] [facility] 2022-09-22 16:15:00 2022-09-22 16:33:35 Outpatient R YANELI PRIETO CHERYAL [facility] [id number] [facility] 2022-09-22 16:15:00 2022-09-22 16:33:35 Routine Visit Yaneli Prieto [facility] 1..840.114 350.1.13.10 4.2.7.2.686 [id number] [facility] 2022-09-22 09:00:00 2022-09-22 09:00:00 Outpatient R SANTOYOSOFI Brandon YUDITH MENDEZSOFI Brandon YUDITH [facility] [id number] [facility] 2022-09-22 07:30:00 2022-09-22 07:45:00 Operations Vice President Visit Lab, Soren Olverajae [facility] 1.2.840.114 350.1.13.10 4.2.7.2.686 [id number] [facility] 2022-09-21 16:00:00 2022-09-21 16:00:00 Outpatient R YANELI PRIETO [facility] [id number] [facility] 2022-09-19 07:45:00 2022-09-19 08:40:02 Outpatient R YANELI PRIETO [facility] [id number] [facility] 2022-09-19 07:45:00 2022-09-19 08:00:00 Operations Vice President Visit Lab, Soren Neumann Denita [facility] 1.2.840.114 350.1.13.10 4.2.7.2.686 [id number] [facility] 2022-09-15 09:00:00 2022-09-15 10:28:19 Outpatient R [facility]ANELI [facility] [id number] [facility] 2022-09-15 09:00:00 2022-09-15 09:15:00 Operations Vice President Visit Lab, Soren Prieto Yaneli [facility] 1..840.114 350.1.13.10 4.2.7.2.686 [id number] [facility] 2022-09-15 00:00:00 2022-09-15 00:00:00 Telephone Denita Yaneli [facility] 1.840.114 350.1.13.10 4.2.7.2.686 [id number] [facility] 2022-09-12 09:30:00 2022-09-12 09:59:39 Outpatient R [facility]ANELI [facility] [id number] [facility] 2022-09-12 09:30:00 2022-09-12 09:59:39 Initial Visit Yaneli Prieto [facility] 1.840.114 350.1.13.10 4.2.7.2.686 [id number] [facility] 2022-09-12 00:00:00 2022-09-12 00:00:00 Outpatient KAREN COPELAND [id number] Arline Falcon 2022-09-12 00:00:00 2022-09-12 00:00:00 Orders Only Doctor Unassigned, [place] [facility] 1.840.114 350.1.13.10 4.2.7.2.686 [id number] [facility] 2022-09-12 00:00:00 2022-09-12 00:00:00 Letter (Out) Yaneli Prieto [facility] 1.2.840.114 350.1.13.10 4.2.7.2.686 [id number] [facility] 2022-08-09 00:00:00 2022-08-09 00:00:00 Outpatient MIN, KAREN NUNO [id number] Arline [facility] 2022-07-28 08:30:00 2022-07-28 08:30:00 Outpatient CHRISTINAKATHYA ARLINE NUNO [id number] [facility] 2022-06-29 09:45:00 2022-06-29 09:45:00 Outpatient KEVINFREDI ARLINE NUNO [id number] Arline [facility] 2022-06-15 12:00:00 2022-06-15 12:00:00 Outpatient PAM90 ARLINE NUNO [id number] Arline [facility] 2022-06-15 11:00:00 2022-06-15 11:00:00 Outpatient HUNDL, KAREN NUNO [id number] [facility] 2022-05-25 00:00:00 2022-05-25 00:00:00 Outpatient HUNDL, KAREN NUNO [id number] [facility] 2022-05-11 00:00:00 2022-05-11 00:00:00 Outpatient HUNDL, KAREN NUNO [id number] Arline [facility] 2022-04-29 00:00:00 2022-04-29 00:00:00 Outpatient HUNDL, KAREN NUNO [id number] [facility] 2022-04-13 16:30:00 2022-04-13 16:30:00 Outpatient HUNDL, KAREN NUNO [id number] [facility] 2022-04-11 08:30:00 2022-04-11 08:30:00 Outpatient HUNDL, KAREN NUNO [id number] [facility] 2022-04-04 00:00:00 2022-04-04 00:00:00 Outpatient HUNDL, KAREN NUNO [id number] [facility] 2022-03-04 16:30:00 2022-03-04 16:30:00 Outpatient KAREN COPELAND ARLINE NUNO [id number] Arline [facility] 2022-02-03 00:00:00 2022-02-03 00:00:00 Outpatient KAREN COPELAND ARLINE NUNO [id number] [facility]22-02-02 16:00:00 2022-02-02 16:00:00 Outpatient KAREN COPELAND ARLINE NUNO [id number] [facility] 2021-12-07 00:00:00 2021-12-07 00:00:00 Outpatient LELAND GRAFF ARLINE NUNO [id number] [facility] 2021-12-07 00:00:00 2021-12-07 00:00:00 Outpatient MIN KAREN ARLINE NUNO [id number] [facility] 2021-12-07 00:00:00 2021-12-07 00:00:00 Outpatient KAREN COPELAND ARLINE NUNO [id number] [facility] 2021-12-06 11:55:00 2021-12-06 11:55:00 Outpatient PAM90 ARLINE NUNO [id number] [facility] 2021-12-03 10:30:00 2021-12-03 10:30:00 Outpatient KAREN COPELAND ARLINE NUNO [id number] [facility] 2021-12-03 08:00:00 2021-12-03 08:00:00 Outpatient KAREN COPELAND ARLINE NUNO [id number] [facility] 2021-06-09 10:00:00 2021-06-09 10:00:00 Outpatient [facility] [id number] [facility] 2021-06-09 10:00:00 2021-06-09 10:00:00 Outpatient [facility] [id number] [facility] 2021-05-13 08:45:00 2021-05-13 08:45:00 Outpatient [facility] [id number] [facility] [facility] 2021-05-12 13:00:00 2021-05-12 13:20:45 [facility] [id number] [facility] 2021-05-12 13:00:00 2021-05-12 13:20:45 [facility] 1.2.840.114 350.1.13.10 4.2.7.2.686 [id number] [facility] 2021-05-12 13:00:00 2021-05-12 13:00:00 Outpatient [facility] [id number] [facility] 2021-04-19 00:00:00 2021-04-19 00:00:00 Patient Secure Msg Doctor Unassigned, [place] [facility] 1.840.114 350.1.13.10 4.2.7.2.686 [id number] [facility] 2021-04-14 15:00:00 2021-04-14 15:51:10 [facility] 1..840.114 350.1.13.10 4.2.7.2.686 [id number] [facility] 2021-04-14 15:00:00 2021-04-14 15:51:10 [facility] [id number] [facility] 2021-04-14 15:00:00 2021-04-14 15:00:00 Outpatient Dai [facility] [id number] [facility] 2021-03-11 00:00:00 2021-03-11 00:00:00 Letter (Out) Shelby Fair [facility] 1.840.114 350.1.13.10 4.2.7.2.686 [id number] [facility] 2021-03-09 14:15:00 2021-03-09 14:52:05 Outpatient Dai JULIO CÉSAROBDULIO [facility] [id number] [facility] 2021-03-09 14:15:00 2021-03-09 14:30:00 Laboratory Only Only, Ang Db Test Unknown, Attending [facility] ZOLTAN LARSEN?[facility] 1.2.840.114 350.1.13.10 4.2.7.2.686 [id number] [facility] 2021-03-09 00:00:00 2021-03-09 00:00:00 Orders Only Doctor Unassigned, [place] [facility] 1.2.840.114 350.1.13.10 4.2.7.2.686 [id number] [facility] 2020-04-19 01:04:00 2020-04-19 01:04:00 Outpatient LISTER_MELI SSA [facility] [id number] [facility] 2020-03-15 01:02:00 2020-03-15 01:02:00 Outpatient LISTER_MELI SSA [facility] [id number] [facility] 2020-02-08 01:03:00 2020-02-08 01:03:00 Outpatient LISTER_MELI SSA [facility] [id number] [facility] 2020-01-10 12:53:00 2020-01-10 12:53:00 Outpatient LISTER_MELI SSA [facility] [id number] [facility] 2020-01-10 00:00:00 2020-01-10 00:00:00 Pam Tadeo, TONGUE AND GROOVE MACHINE FEEDER: [address], [place] [address] , Ph. [facility] [place] [employer] HOP - [facility] COMPUTER COMPOSITOR [id number] [facility] 2019-10-01 00:00:00 2019-10-01 00:00:00 Telephone TigreMally [facility] 1.2840.114 350.1.13.10 4.2.7.2.686 [id number] [facility] 2019-10-01 00:00:00 2019-10-01 00:00:00 Telephone [address]zka Yancy F [facility] 1.2.840.114 350.1.13.10 4.2.7.2.686 [id number] [facility] 2019-10-01 00:00:00 2019-10-01 00:00:00 Telephone Pcp, Patient Does Not Have A [facility] 1.2840.114 350.1.13.10 4.2.7.2.686 [id number] [facility] 2019-09-30 11:22:44 2019-09-30 11:42:44 Laboratory Only Lab, Adc [facility] Pob [facility] 1..114 350.1.13.10 4.2.7.2.686 [id number] [facility] 2019-09-30 11:20:00 2019-09-30 11:20:00 Outpatient R CLARENCELISBETHMARGA ISAÍASRadha [facility] [id number] [facility] 2019-09-30 00:00:00 2019-09-30 00:00:00 Letter (Out) Doctor Unassigned, [place] [facility] 1..114 350.1.13.10 4.2.7.2.686 [id number] [facility] 2019-07-09 06:15:00 2019-07-09 06:15:00 Outpatient PATRICIO_LELO ELLIS NVESSENCE [facility] [id number] [facility] 2019-07-09 00:00:00 2019-07-09 00:00:00 Pam Tadeo, TONGUE AND GROOVE MACHINE FEEDER: [address], [place] [address] , Ph. [facility] COMPUTER COMPOSITOR [id number] [facility] 2019-03-29 11:39:00 2019-03-29 11:39:00 Outpatient LISTER_MELI SSA [facility] [id number] [facility] 2019-03-25 02:27:00 2019-03-25 02:27:00 Outpatient LISTER_MELI SSA [facility] [id number] [facility] 2019-03-24 10:48:00 2019-03-24 10:48:00 Outpatient LISTER_MELI SSA [facility] [id number] [facility] 2019-03-22 04:26:00 2019-03-22 04:26:00 Outpatient LISTER_MELI SSA [facility] [id number] [facility] 2019-03-22 00:00:00 2019-03-22 00:00:00 Pam Tadeo, TONGUE AND GROOVE MACHINE FEEDER: [address], [place] [address] , [facility]. [facility] COMPUTER COMPOSITOR [id number] [facility] Results Test Description Test Time Test Comments Results Result Co mments Source [facility] [id number] 20:41:25Ordered by an unspecified provider.[facility] Urinalysis w/o Specific [id number] 20:42:00* Test Item Value Reference Range Interpretation Comme nts POCT PH U (test code = 3254) na 5-8 POCT U LEUK EST (test code = 3263) na Negative - Negative POCT U NIT (test code = 3262) na Negative - Negati ve POCT U PROT (test code = 3259) negative Negative - Negat pool POCT U GLU (test code = 3256) negative Negative - Negati ve POCT U KETONE (test code = 3258) na Negative - Neg ative POCT U BLD (test code = 3257) na Negative - Negati ve [facility] Urinalysis w/o Specific [id number] 13:50:00* Test Item Value Reference Range Interpretation Comme nts POCT PH U (test code = 3254) n/a 5-8 POCT U LEUK EST (test code = 3263) n/a Negative - N egative POCT U NIT (test code = 3262) n/a Negative - Negati ve POCT U PROT (test code = 3259) trace Negative - Negat pool POCT U GLU (test code = 3256) normal Negative - Negati ve POCT U KETONE (test code = 3258) n/a Negative - Neg ative POCT U BLD (test code = 3257) n/a Negative - Negati ve [facility] Urinalysis w/o Specific [id number] 20:24:00* Test Item Value Reference Range Interpretation Comme nts POCT PH U (test code = 3254) na 5-8 POCT U LEUK EST (test code = 3263) na Negative - N egative POCT U NIT (test code = 3262) na Negative - Negati ve POCT U PROT (test code = 3259) neg Negative - Negat pool POCT U GLU (test code = 3256) neg Negative - Negati ve POCT U KETONE (test code = 3258) na Negative - Neg ative POCT U BLD (test code = 3257) na Negative - Negati ve Lab Interpretation (test cod e = 46765-5) Normal [facility] Urinalysis w/o Specific [id number] 15:46:00* Test Item Value Reference Range Interpretation Comme nts POCT PH U (test code = 3254) N/A 5-8 POCT U LEUK EST (test code = 3263) N/A Negative - N egative POCT U NIT (test code = 3262) N/A Negative - Negati ve POCT U PROT (test code = 3259) TRACE Negative - Negat pool POCT U GLU (test code = 3256) NORMAL Negative - Negati ve POCT U KETONE (test code = 3258) N/A Negative - Neg ative POCT U BLD (test code = 3257) N/A Negative - Negati ve [facility] [id number] 15:40:00* Test Item Value Reference Range Interpretation Comme nts POCT PREG (test code = 1605) Positive On board controls acceptable with C Line (test code = 3574) Yes POCT PREG LOT # (test code = 3575) POCT PREG TEST DATE ( test code = 3576) [facility] Abdomen pelvis w [id number] 21:40:52EXAM: CT ABDOMEN PELVIS W CONTRAST HISTORY: 29 years -old Female with abd pain, epigastric pain COMPARISON: None. TECHNIQUE: Contiguous axial imaging from the level of the lung basesthrough the proximal thighs was performed after intravenous contrastadministration. Coronal and sagittal reconstructions were obtained. ? FINDINGS: LOWER THORAX: The lung bases are essentially clear. No cardiomegaly..LIVER: A focal density about the falciform ligament, likely present focalfatty sparing. Normal contour. GALLBLADDER AND BILIARY TREE: Cholecystectomy. No intra or extrahepaticbiliary ductal dilation.SPLEEN: Unremarkable. PANCREAS: No ductal dilatation or masses ADRENAL GLANDS: No adrenal lesions. KIDNEYS: A subcentimeter hypodense lesion in the inferior pole of the leftkidney, too small to characterize and likely represent a cyst. Nohydronephrosis, stones, or masses. Homogeneous and symmetrical enhancement. GI TRACT: No dilation or bowel wall thickening.The appendix is normal. PERITONEUM ANDRETROPERITONEUM: No free air or fluid collection. LYMPH NODES: No lymphadenopathy. PELVIS/BLADDER: Bladder is underdistended and cannot be completelyevaluated.. The reproductive organs are unremarkable. Subcentimeter cystsin the left ovary consistent with physiologic changes. VESSELS: Unremarkable.BONES AND SOFT TISSUES: No suspicious lytic or sclerotic bony lesions. Asmall fat-containing umbilical hernia is noted.[facility] [id number] 20:51:00* Test Item Value Reference Range Interpretation Comme nts POCT PREG (test code = 1605) Negative On board controls acceptable with C Line (test code = 3574) Yes Lab Interpretation (test cod e = 94223-4) Normal [facility] Met[facility] Panel (29948)2024 20:43:27* Test Item Value Reference Range Interpretation Comme nts NA (test code = 4793066536) 140 mmol/L 135-145 K (test code = 5291682077) 3.3 mmol/L 3.5-5.0 L CL (test code = 4792003964) 107 mmol/L 98-108 CO2 TOTAL (test code = 7235936457) 23 mmol/L 23-31 AGAP (test code = 0113649475) 10 2-16 BUN (test code = 4676766884) 8 mg/dL 7-23 GLUCOSE (test code = 7561626009) 119 mg/dL 70-110 H CREATININE (test code = 2160-0) 0.64 mg/dL 0.50-1.04 TOTAL BILI (test code = 1782170700) 0.7 mg/dL 0.1-1.1 CALCIUM (test code = 1527935475) 9.6 mg/dL 8.6-10.6 T PROTEIN (test code = 0412366907) 8.1 g/dL 6.3-8.2 ALBUMIN (test code = 3322495207) 4.6 g/dL 3.5-5.0 ALK PHOS (test code = 7671392284) 62 U/L 34-122 ALTv (test code = 1742-6) 29 U/L 5-35 AST(SGOT) (test code = 5660147338) 29 U/L 13-40 eGFR (test code = 47000-7) 123.6 mL/min/1.73m2 CKD-EPI eGFR (2020). Assuming creatinine has been stable day-to-day for at least three months, the eGFR indicates Category G1 (>= 90 mL/min/1.73 m2) Lab Interpretation (test code = 18411-7) Abnormal [facility]2024-12-11 20:43:07* Test Item Value Reference Range Interpretation Comme nts LIPASE (test code = 6873400787) 40 U/L 0-220 Lab Interpretation (test cod e = 47379-4) Normal [facility] McKinney[facility]bc with Febi1121-09-43 20:30:01* Test Item Value Reference Range Interpretation [...] 32.7 g/dL 31.6-35.1 RDW-SD (test code = 59512-6) 41.6 fL 39.0-49.9 RDW-CV (test code = 788-0) 12.8 % 12.0-15.5 PLT (test code = 777-3) 310 166-358 MPV (test code = 74465-5) 10.3 fL 9.5-12.9 NRBC/100 WBC (test code = 4099938808) 0.0 0.0-10.0 NRBC x10^3 (test code = 0532461650) See_Comment [Automated me ssage] The system which generated this result transmitted reference range: 10*3/?L. The reference range was not used to interpret this result as normal/abnormal. GRAN MAT (NEUT) % (test code = 770-8) 61.9 % IMM GRAN % (test code = 2382405759) 0.20 % LYMPH % (test code = 736-9) 31.9 % MONO % (test code = 5905-5) 5.1 % EOS % (test code = 713-8) 0.7 % BASO % (test code = 706-2) 0.2 % GRAN MAT x10^3(ANC) (test code = 9424108843) 5.22 10*3/uL 1.88-7.09 IMM GRAN x10^3 (test code = 8184037047) 0.00-0.06 LYMPH x10^3 (test code = 731-0) 2.69 10*3/uL 1.32-3.29 MONO x10^3 (test code = 742-7) 0.43 10*3/uL 0.33-0.92 EOS x10^3 (test code = 711-2) 0.06 10*3/uL 0.03-0.39 BASO x10^3 (test code = 704-7) 0.01-0.07 [facility] disease [id number] 00:00:00* Test Item Value Reference Range Interpretation [...] [facility] MedicalInsulin [Units/volume] in Serum or Plasma --ksncnng2703-40-91 00:00:00* Test Item Value Reference Range Interpretation Comme nts insulin, fasting (test code = insulin, fasting) 26.9 u[IU]/mL <25.0 H [facility] Sgqfjnq59-Svepzmoeuhztfnnbbpc [Mass/volume] in Serum or [id number] 00:00:00* Test Item Value Reference Range Interpretation Comme nts 17-hydroxyprogesterone (test code = 17-hydroxyprogesterone) 31 NG/dL see below [facility] MedicalDehydroepiandrosterone sulfate (DHEA-S) [Mass/volume] in Serum or [id number] 00:00:00* Test Item Value Reference Range Interpretation Comme nts DHEA-S (test code = DHEA-S) 103.0 ug/dL 98.8-340.0 [facility] MedicalThyrotropin [Units/volume] in Serum or Auafgf5833-64-18 00:00:00* Test Item Value Reference Range Interpretation Comme nts TSH (test code = TSH) 1.720 uIU/mL 0.500-4.530 [facility] MedicalChoriogonadotropin.beta subunit [Units/volume] in Serum or Plasma 2023-11-14 00:00:00* Test Item Value Reference Range Interpretation Comme nts HCG (test code = HCG) < 5 [facility] MedicalGlucose [Mass/volume] in Serum or Hujgtz2324-29-19 00:00:00* Test Item Value Reference Range Interpretation Comme nts glucose (test code = glucose) 95 mg/dL 70-99 [facility] MedicalLipid 1996 panel - Serum or Nthbhj8550-43-01 00:00:00* Test Item Value Reference Range Interpretation [...] <100 [facility] MedicalTestosterone [Mass/volume] in Serum or Opxouo9984-45-61 00:00:00* Test Item Value Reference Range Interpretation Comme nts testosterone (test code = testosterone) 23.0 NG/dL 8.4-48.1 [facility] Medical[facility] vaginal[facility] swab (swhl) 2023-11-02 00:00:00* Test Item Value Reference Range Interpretation Comme nts trichomonas vaginalis swab ( test code = trichomonas vaginalis swab) TRICH NEG negative [facility] Medicalpap, LB + reflex to HR HPV if [id number] 00:00:00* Test Item Value Reference Range Interpretation Comme nts LMP date: (test code = LMP date:) 09/22/2023 Pap, liquid-based (test code = Pap, liquid-based) NILM nilm source (liquid-based cytology): (test code = source (liquid-based cytology):) CERVICAL (WHICH INCLUDES ENDOCERVICAL) [facility] MedicalHIV 1+2 Ab+HIV1 p24 Ag [Presence] in Serum or Plasma by Yglwamjuelj7578-79-27 00:00:00* Test Item Value Reference Range Interpretation Comme nts HIV Ag/Ab (test code = HIV Ag/Ab) NON-REACTIVE non-reactive HIV-1 P24 Ag (test code = HI V-1 P24 Ag) NON-REACTIVE non-reactive HIV 1+2 Ab (test code = HIV 1+2 Ab) NON-REACTIVE non-reactive [facility] MedicalReagin Ab [Presence] in Serum by [id number] 00:00:00* Test Item Value Reference Range Interpretation Comme nts RPR (test code = RPR) NON-REACTIVE non-reactive [facility] MedicalHepatitis B virus surface Ag [Presence] in [id number] 00:00:00* Test Item Value Reference Range Interpretation Comme nts ethnicity: (test code = ethnicity:) NOT PROVIDED race: (test code = race:) UNKNOWN hep. B surf. Ag (test code = hep. B surf. Ag) NON-REACTIVE non-reactive [facility] MedicalHepatitis C virus Ab [Presence] in Fqyjy1419-97-93 00:00:00* Test Item Value Reference Range Interpretation Comme nts ethnicity: (test code = ethnicity:) NOT PROVIDED race: (test code = race:) UNKNOWN hep. C Ab. (test code = hep. C Ab.) NON-REACTIVE non-reactive [facility] Medicalinfectious disease [id number] 00:00:00* Test Item Value Reference Range Interpretation [...] B, tet M) 17.097 ppm 23.000-27.778 A [facility], QUANTITATIVE, [id number] 20:37:30* Test Item Value Reference Range Interpretation Comme nts BETA HCG (test code = 0153732629) 46.51 See_Comment [Automated messa ge] The system which generated this result transmitted reference range: Non- female and male patients: <5 mIU/mL. The reference range was not used to interpret this result as normal/abnormal. ELY (test code = ELY) Gestational Age ?Range (mIU/mL) 1-10 ?Weeks ?97-08293642-94 Weeks ?83825-94852440-62 Weeks ?2022-54995683-19 Weeks ?1531-644669 Biotin has been reported to cause a negative bias, interpret results relative to patient's use of biotin. [facility], QUANTITATIVE, [id number] 20:37:30* Test Item Value Reference Range Interpretation Comme nts BETA HCG (test code = 7128699028) 46.51 See_Comment [Automated Tizor Systemsa ge] The system which generated this result transmitted reference range: Non- female and male patients: <5 mIU/mL. The reference range was not used to interpret this result as normal/abnormal. ELY (test code = ELY) Gestational Age ?Range (mIU/mL) 1-10 ?Weeks ?91-48796691-59 Weeks ?49026-26209914-21 Weeks ?7902-35109666-00 Weeks ?1531-198654 Biotin has been reported to cause a negative bias, interpret results relative to patient's use of biotin. [facility]neyBacteria identified in Urine by Culture 2019-07-11 00:00:00* Test Item Value Reference Range Interpretation Comme nts Bacteria identified in Urine by Culture (test code = 630-4) comment A [facility] ProgramHemoglobin A1c/Hemoglobin.total in [id number] 00:00:00* Test Item Value Reference Range Interpretation Comme nts Hemoglobin A1c/Hemoglobin.to qasim in Blood (test code = 4548-4) 5.6 % 4.8-5.6 [facility] ProgramUrinalysis macro (dipstick) panel - [id number] 16:38:00* Test Item Value Reference Range Interpretation Comme nts Leukocytes (test code = Leukocytes) TRACE Nitrite (test code = Nitrite) NEG Urobilinogen (test code = Urobilinogen) 0.2 Protein (test code = Protein) NEG pH (test code = pH) 7.0 Blood (test code = Blood) NEG Specific [place] (test code = Specific [place]) 1.015 Ketone (test code = Ketone) NEG Bilirubin (test code = Bilirubin) NEG Glucose (test code = Glucose) NEG Appearance (test code = Appearance) CLEAR Color (test code = Color) Light yelllow [facility] [id number] 15:00:00* Test Item Value Reference Range Interpretation Comme nts HCG (test code = HCG) negative [facility] Notes Date/Time Note Provider Source 2024-06-27 13:30:00 Age: [age] year old GA: 14w4d ASSESSMENT: Zainab Tucker is a 29 year old at 14w4d who presents for routine visit. Patient Active Problem List Diagnosis delivery delivered PCOS (polycystic ovarian syndrome) Prediabetes Tachycardia Depression Vitamin D deficiency Anxiety during Previous section complicating PLAN 1. High-risk in second trimester (Primary) --low risk NIPS --carrier testing neg - CONSULT MATERNAL MEDICINE ULTRASOUND Multiple Gestation: No 2. Severe obesity due to excess calories affecting in second trimester --pt doing well, no weight gain so far --passed 3 hr gtt so can hold off on restarting Metformin - CONSULT MATERNAL MEDICINE ULTRASOUND Multiple Gestation: No 3. Previous section complicating --CS x 1 - CONSULT MATERNAL MEDICINE ULTRASOUND Multiple Gestation: No 4. Anxiety during --restarted bupropion 150 mg XL daily 5. 14 weeks gestation of - POCT Urinalysis w/o Specific [place] - Alpha Fetoprotein-Maternal Ser; Future - CONSULT MATERNAL MEDICINE ULTRASOUND Multiple Gestation: No [facility] 2024-06-24 10:30:44 Images from the original note were not included. Cyn results received via fax. Spoke with patient, name and verified. Patient informed of results excluding gender and verbalized understanding. Results signed, will scan and upload a copy to [email or web address]. Cris Melendez CHAI [facility] 2024-06-13 09:00:00 Cyn Blood Collection Kit TRK# [id number] Amada Adamson 06/13/2024 9:09 AM Amada Adamson [facility] 2024-06-06 10:59:35 Pt was placed on schedule for today to be evaluated. Dorothea Lopez RN 06/06/2024 10:59 AM Dorothea Lopez RN [facility] 2024-06-06 09:07:37 Yes please add on. [facility] 2024-06-06 09:02:40 Pt c/o slight red spotting with wiping this morning. Last intercourse 2 weeks ago. Fell 2 days ago and landed on knees. Slight cramping but says that is normal since . Other than spotting, "feels fine". No other discharge. ER precautions given. Will advised Dr. Santoyo and will call her back. Verbalized understanding. SOFIA ESPINOZA RN 06/06/2024 9:05 AM Sofia Espinoza RN [facility] 2024-06-06 08:55:11 Zainab Tucker is a 29 year old female Patient fell on monday. Today woke up to some bleeding and slight cramping. More than spotting, but not enough to fill a pad. Sveta Pack [facility] 2024-05-30 08:15:00 Age: [age] year old GA: 10w4d ASSESSMENT: Zainab Tucker is a 29 year old at 10w4d who presents for routine visit. Patient Active Problem List Diagnosis delivery delivered PCOS (polycystic ovarian syndrome) Prediabetes Tachycardia Depression Vitamin D deficiency Anxiety during Previous section complicating PLAN 1. High-risk in first trimester --A+/RI --Elevated 1 hr GTT but 3 hr normal --Plan to repeat 3 hr gtt @ 25 weeks --Discussed with pt limiting weight gain 2. Previous section complicating --CS x 1 3. Anxiety during --pt doing well --on Bupropion 4. 10 weeks gestation of - POCT Urinalysis w/o Specific [place] [facility] 2024-05-02 14:00:00 Age: [age] year old GA: 6w4d ASSESSMENT: Zainab Tucker is a 29 year old at Unknown who presents for routine visit. Patient Active Problem List Diagnosis delivery delivered PCOS (polycystic ovarian syndrome) Prediabetes Tachycardia Depression Vitamin D deficiency Anxiety during Previous section complicating PLAN 1. High-risk in first trimester --Blood type A + - POCT Urinalysis w/o Specific [place] - OB Ultrasound Transvaginal 2. Anxiety during --pt to restart bupropion 3. Previous section complicating CS x 1 4. 6 weeks gestation of Transvaginal Ultrasound performed: present gestational sac present yolk sac 6w4d [place] rump length 148 heart rate Dating not consistent with LMP. KENDRA: 12/22/24 [facility] 2024-05-01 12:30:00 Patient drop off 24 hr urine . Patient did not have written orders nor orders in the system. Patient doctor office was called for orders if needed.Glenda Archer 05/01/2024 1:56 PM [facility] 2024-05-01 12:30:00 Patient presented with specimen for drop-off and was identified by name. Collection information/ total volume were documented accordingly. The following specimens were sent to [facility] laboratories per lab order on : 24 hour urine 1 Random urine Stool Swab Other [facility] 2024-04-29 09:15:00 Images from the original note were not included. Venipuncture collection performed by clean technique on the right anticubitus. Total of 1 attempts were made. Slight pressure and a bandage/dressing were applied to the site(s). The patient experienced no complications. The following specimens were processed according to instructions and sent to [facility] laboratories per lab order on 04/29/2024 : LT BLUE SST 1 RED LAV PPT DK GREEN (LiHep) DK GREEN (SodH) CADE DK BLUE (K2) DK BLUE (S) ACD Blood Culture NIPT/NTD [facility] 2024-04-26 08:15:00 Images from the original note were not included. Venipuncture collection performed by clean technique on the right anticubitus. Total of 1 attempts were made. Slight pressure and a bandage/dressing were applied to the site(s). The patient experienced no complications. The following specimens were processed according to instructions and sent to [facility] laboratories per lab order on 04/26/2024 : Given 100gm orange glucola. Finished at 0842. LT BLUE SST 1 RED LAV PPT DK GREEN (LiHep) DK GREEN (SodH) CADE DK BLUE (K2) DK BLUE (S) ACD Blood Culture NIPT/NTD [facility] 2024-04-26 08:15:00 Images from the original note were not included. Venipuncture collection performed by clean technique on the left anticubitus. Total of 1 attempts were made. Slight pressure and a bandage/dressing were applied to the site(s). The patient experienced no complications. The following specimens were processed according to instructions and sent to [facility] laboratories per lab order on 04/26/2024 : LT BLUE SST 1 RED LAV PPT DK GREEN (LiHep) DK GREEN (SodH) CADE DK BLUE (K2) DK BLUE (S) ACD Blood Culture NIPT/NTD [facility] 2024-04-26 08:15:00 Images from the original note were not included. Venipuncture collection performed by clean technique on the right anticubitus. Total of 1 attempts were made. Slight pressure and a bandage/dressing were applied to the site(s). The patient experienced no complications. The following specimens were processed according to instructions and sent to [facility] laboratories per lab order on 04/26/2024 : LT BLUE SST 1 RED LAV PPT DK GREEN (LiHep) DK GREEN (SodH) CADE DK BLUE (K2) DK BLUE (S) ACD Blood Culture NIPT/NTD [facility] 2024-04-26 08:15:00 Images from the original note were not included. Venipuncture collection performed by clean technique on the left anticubitus. Total of 1 attempts were made. Slight pressure and a bandage/dressing were applied to the site(s). The patient experienced no complications. The following specimens were processed according to instructions and sent to [facility] laboratories per lab order on 04/26/2024 : LT BLUE SST RED LAV PPT DK GREEN (LiHep) DK GREEN (SodH) CADE DK BLUE (K2) DK BLUE (S) ACD Blood Culture NIPT/NTD 1 lt green [facility] 2024-04-24 08:15:00 Given 50gm [place] glucola. Finished at 0839. [facility] 2024-04-24 08:15:00 Images from the original note were not included. Venipuncture collection performed by clean technique on the right anticubitus. Total of 1 attempts were made. Slight pressure and a bandage/dressing were applied to the site(s). The patient experienced no complications. The following specimens were processed according to instructions and sent to [facility] laboratories per lab order on 04/24/2024 : LT BLUE SST 4 RED 1 LAV 3 PPT DK GREEN (LiHep) DK GREEN (SodH) CADE DK BLUE (K2) DK BLUE (S) ACD Blood Culture NIPT/NTD Patient has been identified by and name and was provided with cup, antiseptic towelette, and clean catch instructions. 2 urine specimen(s) sent. Unpreserved 1 Urine Culture 1 Aptima tube Other urine [facility] 2024-04-23 14:48:32 Reviewed records from [facility] 1033 on 04/16/24. Ultrasound: gestational sac measuring 4 mm. Consistent with 5w0d. NO YS or FP. [facility] 2024-04-23 14:37:39 Received records from [facility] via fax, placed on doctors desk. EM Grossman [facility] 2024-04-23 09:00:00 Vaginal testing for sexually transmitted infections was negative. [facility] 2024-04-23 09:00:00 Pap is normal. Recommend continuing with annual exams. [facility] 2024-04-23 09:00:00 Addended by: DAMION RINALDI on: 05/01/2024 01:55 PM Modules accepted: Orders INE MONITOR Damion Rinaldi RN [facility] 2024-04-15 09:16:11 Noted, 8w2d Dorothea Lopez RN 04/15/2024 9:16 AM INE MONITOR Dorothea Lopez RN [facility] 2024-04-15 08:40:15 Zainab Tucker is a 29 year old female LMP: 02/25/24 No previous care, MyChart active Appt: 04/23/24 at 9:[address] Foster EM Mukherjee [facility] 2024 15:50:45 Patient given printed and verbal [...] with steady gait, in no apparent distress. INE MONITOR Mauricio Moreno RN [facility] 2024 13:18:24 CC: patient presents to the ER with complaints of middle upper abdominal pain that began "a few months ago." Patient states pain has become more frequent this past week. Awake, alert, oriented, resp reg unlabored, skin warm and dry, color appropriate for race, moves all ext without difficulty, amb without assistance. Appears in no distress. 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 METABOLIC PANEL (72279) - Abnormal Result Value Ref Range NA [...] contrast Cbc with Diff Comp. Metabolic Panel (97211) Lipase Urinalysis POCT TEST Orders Placed This [...] d/c home. PT instructed to f/u with [facility] GI clinic. [PB] 1333 Will obtain [...] with plan and instructed to f/u with [facility] Flowsheet Documentation: Scoring Tools: No data recorded Disposition/Condition: ED Disposition None Discharge Medications: Patient's Medications START taking these medications No medications on file CONTINUE taking these medications which have NOT CHANGED PRENAT VIT COMB.[id number] (VITAFOL-OB+DHA) 65-1-250 MG COMBO PACK Take 1 Packet by mouth in the morning. START taking Modified Medications as Prescribed No medications on file STOP taking these medications No medications on file Follow-up: Electronically signed by: Saman Ruiz MD 02/14/24 1532 [facility] 2023-05-08 16:42:38 Chief Complaint Patient presents with Physical Fasting for labs Shelby Hendrickson LVN [facility] 2022-10-17 08:44:21 Formatting of this n ote might be different from the original. Patient notified of pending lab orders to be done day before f/u. No questions or concerns expressed. lOy Johnson RN 10/17/2022 8:44 AM Oly Johnson RN [facility] 2022-10-16 11:13:38 Formatting of this n ote might be different from the original. I previously sent an encounter to schedule appointment for Ms. Tucker for ultrasound f/u. I have ordered a beta HCG. I would like this drawn at least a day before the scheduled appointment. Yaneli Prieto NP 10/16/2022 11:15 AM [facility] 2022-10-11 13:45:00 Formatting of this n ote is different from the original. Images from the original note were not included. Venipuncture collection performed by clean technique on the right anticubitus. Total of 1 attempts were made. Slight pressure and a bandage/dressing were applied to the site(s). The patient experienced no complications. The following specimens were processed according to instructions and sent to [facility] laboratories per lab order on 10/12/2022: LT BLUE SST 1 RED LAV PPT DK GREEN (LiHep) DK GREEN (SodH) CADE DK BLUE (K2) DK BLUE (S) ACD Blood Culture NIPT/NTD [facility] 2022-10-05 12:45:06 Formatting of this n ote might be different from the original. Patient notified of USN preliminary result per Zoie Prieto. Patient informed it is important to have beta HCG lab testing done and then to follow-up with provider regarding HCG levels since USN showed no intra or extrauterine . Patient verbalized understanding. Oly Johnson RN 10/05/2022 12:49 PM Oly Johnson RN [facility] 2022-10-05 10:55:12 Formatting of this n ote might be different from the original. Pt is wanting to go over lab orders want to know if she need them done or can she just get usg results without labs being done Arline Grossman [facility] 2022-10-03 15:20:09 Formatting of this n ote might be different from the original. Spoke with patient, patient to do Beta HCG lab then will contact with results. Patient verbalized understanding. Oly Johnson RN 10/03/2022 3:21 PM Oly Johnson RN [facility] 2022-10-02 17:29:20 Formatting of this n ote might be different from the original. Please assist in scheduling a f/u visit for Ms. Tucker. Yaneli Prieto NP 10/02/2022 5:29 PM [facility] 2022-09-22 07:30:00 Formatting of this n ote is different from the original. Images from the original note were not included. Venipuncture collection performed by clean technique on the right anticubitus. Total of 1 attempts were made. Slight pressure and a bandage/dressing were applied to the site(s). The patient experienced no complications. The following specimens were processed according to instructions and sent to [facility] laboratories per lab order on 09/22/2022 LT BLUE SST 1 RED LAV PPT DK GREEN (LiHep) DK GREEN (SodH) CADE DK BLUE (K2) DK BLUE (S) ACD Blood Culture NIPT/NTD T [facility]
[2024-07-23 21:38] VITALS: TEMP 99.6; O2SAT 98
[2024-07-23 21:40] VITALS: BP 109/74
== END 2024-07-23 21:17 | disposition home or self-care (01) ==
LOC: ER 18:07
DX: O26.892 Other specified pregnancy related conditions, second trimester (principal); R51.9 Headache, unspecified; Z3A.18 18 weeks gestation of pregnancy
CPT/HCPCS: 85025; 81001; 36415; 80053; J2765; J1200; J7030